=== PATIENT | female | born 1950 | race African-American/Black ===

== ENCOUNTER 2020-07-24 16:39 | Emergency (ER) | payer MEDICARE, BC ==
[2020-07-24 17:00] VITALS: RESP 18
[2020-07-24] MEDS ORDERED: SODIUM CHLORIDE 0.9% 500 ML 500 ML IV STA (17:41)
[2020-07-24] MEDS ORDERED: IPRATROPIUM-ALBUTEROL 3 ML NEB INHALATION STA (17:42)
--- NOTE | 2020-07-24 18:02 | ED ---
General Adult HPI - General Source: patient, RN notes reviewed, old records reviewed Mode of arrival: ambulatory <Chang Lofton - Last Filed: 07/24/20 19:35> <Mana Emerson - Last Filed: 07/24/20 22:20> - General Chief complaint: Recheck/Abnormal Lab/Rx Stated complaint: High sugar/SOB Time Seen by Provider: 07/24/20 17:05 - History of Present Illness Initial comments: 69-year-old female patient presents to ED for evaluation. Patient has a history of asthma as well as multiple strokes, type 2 diabetes presents ED for evaluation of her glycemia and some reported possible labored breathing. Daughter his caregiver states that another family member states the patient's breathing was somewhat labored. Patient declining any shortness of breath or any chest pain or any other acute complaints. The check her blood sugar and it was above 500. Denies any other complaints. Systemic: Pt denies fatigue, fever/chills, rash. Pt denies weakness, night sweats, weight loss. Neuro: Pt denies headache, visual disturbances, syncope or pre-syncope. HEENT: Pt denies ocular discharge or irritation, otalgia, rhinorrhea, pharyngitis or notable lymphadenopathy. Cardiopulmonary: Pt denies chest pain, SOB, heart palpitations, dyspnea on exertion. Abdominal/GI: Pt denies abdominal pain, n/v/d. : Pt denies dysuria, burning w/ urination, frequency/urgency. Denies new onset urinary or bowel incontinence. MSK: Pt denies myalgia, loss of strength or function in extremities. Neuro: Pt denies new onset weakness, paresthesias. (Chang Lofton) - Related Data Home Medications Medication Instructions Recorded Confirmed Albuterol Inhaler (Mhu) [Ventolin 1 - 2 puff INHALATION Q6HR PRN 03/06/17 04/07/17 Hfa Inhaler] Aspirin 325 mg PO DAILY 03/06/17 04/07/17 Atorvastatin [Lipitor] 10 mg PO DAILY 03/06/17 04/07/17 Clopidogrel [Plavix] 75 mg PO DAILY 03/06/17 04/07/17 Donepezil [Aricept] 10 mg PO DAILY 03/06/17 04/07/17 Ferrous Sulfate [Feosol] 325 mg PO DAILY 03/06/17 04/07/17 Insulin Aspart [NovoLOG Flexpen] 5 units SQ AC-TID 03/06/17 04/07/17 Losartan [Cozaar] 50 mg PO DAILY 03/06/17 04/07/17 Metoprolol Tartrate 25 mg PO BID 03/06/17 04/07/17 Montelukast [Singulair] 10 mg PO DAILY 03/06/17 04/07/17 Multivitamins, Thera [Multivitamin 1 tab PO DAILY 03/06/17 04/07/17 (formulary)] Potassium Chloride [Klor-Con 20] 20 meq PO DAILY 03/06/17 04/07/17 amLODIPine [Norvasc] 5 mg PO BID 03/06/17 04/07/17 ceFAZolin (PMX-bag) [Kefzol] 1,000 mg IVPB Q8HR 03/10/17 04/07/17 Allergies Allergy/AdvReac Type Severity Reaction Status Date / Time No Known Allergies Allergy Verified 07/24/20 17:00 Review of Systems ROS Other: All systems not noted in ROS Statement are negative. <Chang Lofton - Last Filed: 07/24/20 19:35> ROS Other: All systems not noted in ROS Statement are negative. <Mana Emerson - Last Filed: 07/24/20 22:20> ROS Statement: Those systems with pertinent positive or pertinent negative responses have been documented in the HPI. Past Medical History Past Medical History: Asthma, CVA/TIA, Diabetes Mellitus, Hyperlipidemia, Hypertension Additional Past Medical History / Comment(s): rt sided weakness post cva uses cane rt arm contracted, ulcer rt foot currently at [facility] for IV antibiotic therapy History of Any Multi-Drug Resistant Organisms: None Reported Past Surgical History: Cholecystectomy, Hysterectomy Smoking Status: Former smoker Past Alcohol Use History: None Reported Past Drug Use History: None Reported - Past Family History Mother Family Medical History: No Reported History <Chang Lofton - Last Filed: 07/24/20 19:35> General Exam <Chang Lofton - Last Filed: 07/24/20 19:35> - General Exam Comments Initial Comments: Constitutional: NAD, AOX3, Pt has pleasant affect. HEENT: NC/AT, trachea midline, neck supple, no lymphadenopathy. Posterior pharynx non erythematous, without exudates. External ears appear normal, without discharge. Mucous membranes moist. Eyes PERRLA, EOM intact. There is no scleral icterus. No pallor noted. Cardiopulmonary: RRR, no murmurs, rubs or gallops, no JVD noted. Lungs CTAB in anterior and posterior cadet. No peripheral edema. Abdominal exam: Abdomen soft and non-distended. Abdomen non-tender to palpation in all 4 quadrants. Bowel sounds active in LLQ. No hepatosplenomegaly. No ecchymosis Neuro: CN II-XII grossly intact. No nuchal rigidity. No raccon eyes, no gonzalez sign, no hemotympanum. No cervical spinal tenderness. MSK: No posterior calf tenderness bilaterally, homans sign negative bilaterally. Posterior tibialis and radial pulse +2 bilaterally. Sensation intact in upper and lower extremities. Full active ROM in upper and lower extremities, 5/5 stregnth. (Chang Lofton) Course Vital Signs 07/24/20 07/24/20 07/24/20 16:58 19:01 19:12 Temperature 98.3 F Pulse Rate 60 56 L 56 L Respiratory 18 Rate Blood Pressure 152/85 O2 Sat by Pulse 98 Oximetry Medical Decision Making - Lab Data Result diagrams: 07/24/20 18:08 07/24/20 18:08 <Chang Lofton - Last Filed: 07/24/20 19:35> - Lab Data Result diagrams: 07/24/20 18:08 07/24/20 18:08 <Mana Emerson - Last Filed: 07/24/20 22:20> - Medical Decision Making 69 year old female patient this ED for evaluation. Patient's grandmother is concerned about patient. Patient poorly stopped taking her Prozac. She is recently gotten a few face tattoos. Denies any suicidal or homicidal ideations. Denies any other acute complaints. This was administered a breathing treatment as she has a history of some moderate to severe asthma. EKG is nonischemic. Chest x-ray displayed findings including mild cardiomegaly, and facial prominence could reflect bronchitis or chronic asthma. Possible mild pulmonary vascular congestion. Patient was signed out to Mana Emerson pending bnp, ua. (Barkach,Chang J) - Lab Data Lab Results 07/24/20 07/24/20 07/24/20 Range/Units 18:08 18:08 18:08 WBC 8.3 (3.8-10.6) k/uL RBC 3.89 (3.80-5.40) m/uL Hgb 11.7 (11.4-16.0) gm/dL Hct 36.6 (34.0-46.0) % MCV 94.1 (80.0-100.0) fL MCH 30.2 (25.0-35.0) pg MCHC 32.1 (31.0-37.0) g/dL RDW 13.5 (11.5-15.5) % Plt Count 132 L (150-450) k/uL Neutrophils % 66 % Lymphocytes % 25 % Monocytes % 5 % Eosinophils % 2 % Basophils % 0 % Neutrophils # 5.4 (1.3-7.7) k/uL Lymphocytes # 2.1 (1.0-4.8) k/uL Monocytes # 0.4 (0-1.0) k/uL Eosinophils # 0.2 (0-0.7) k/uL Basophils # 0.0 (0-0.2) k/uL Sodium 142 (137-145) mmol/L Potassium 4.8 (3.5-5.1) mmol/L Chloride 108 H (98-107) mmol/L Carbon Dioxide 26 (22-30) mmol/L Anion Gap 8 mmol/L BUN 36 H (7-17) mg/dL Creatinine 1.51 H (0.52-1.04) mg/dL Est GFR (CKD-EPI)AfAm 40 (>60 ml/min/1.73 sqM) Est GFR (CKD-EPI)NonAf 35 (>60 ml/min/1.73 sqM) Glucose 92 (74-99) mg/dL POC Glucose (mg/dL) (75-99) mg/dL POC Glu Preparator ID Plasma Lactic Acid Fleix 0.9 (0.7-2.0) mmol/L Calcium 9.7 (8.4-10.2) mg/dL Total Bilirubin 0.5 (0.2-1.3) mg/dL AST 32 (14-36) U/L ALT 20 (4-34) U/L Alkaline Phosphatase 82 (38-126) U/L Troponin I (0.000-0.034) ng/mL NT-Pro-B Natriuret Pep pg/mL Total Protein 7.5 (6.3-8.2) g/dL Albumin 4.1 (3.5-5.0) g/dL Lipase 350 H (23-300) U/L Urine Color Urine Appearance (Clear) Urine pH (5.0-8.0) Ur Specific [place] (1.001-1.035) Urine Protein (Negative) Urine Glucose (UA) (Negative) Urine Ketones (Negative) Urine Blood (Negative) Urine Nitrite (Negative) Urine Bilirubin (Negative) Urine Urobilinogen (<2.0) mg/dL Ur Leukocyte Esterase (Negative) Urine RBC (0-5) /hpf Urine WBC (0-5) /hpf Ur Squamous Epith Cells (0-4) /hpf Urine Bacteria (None) /hpf Hyaline Casts (0-2) /lpf Urine Mucus (None) /hpf Acetone, Qual Negative (Negative) 07/24/20 07/24/20 07/24/20 Range/Units 18:08 18:08 18:46 WBC (3.8-10.6) k/uL RBC (3.80-5.40) m/uL Hgb (11.4-16.0) gm/dL Hct (34.0-46.0) % MCV (80.0-100.0) fL MCH (25.0-35.0) pg MCHC (31.0-37.0) g/dL RDW (11.5-15.5) % Plt Count (150-450) k/uL Neutrophils % % Lymphocytes % % Monocytes % % Eosinophils % % Basophils % % Neutrophils # (1.3-7.7) k/uL Lymphocytes # (1.0-4.8) k/uL Monocytes # (0-1.0) k/uL Eosinophils # (0-0.7) k/uL Basophils # (0-0.2) k/uL Sodium (137-145) mmol/L Potassium (3.5-5.1) mmol/L Chloride (98-107) mmol/L Carbon Dioxide (22-30) mmol/L Anion Gap mmol/L BUN (7-17) mg/dL Creatinine (0.52-1.04) mg/dL Est GFR (CKD-EPI)AfAm (>60 ml/min/1.73 sqM) Est GFR (CKD-EPI)NonAf (>60 ml/min/1.73 sqM) Glucose (74-99) mg/dL POC Glucose (mg/dL) 97 (75-99) mg/dL POC Glu Preparator ID [place] Plasma Lactic Acid Felix (0.7-2.0) mmol/L Calcium (8.4-10.2) mg/dL Total Bilirubin (0.2-1.3) mg/dL AST (14-36) U/L ALT (4-34) U/L Alkaline Phosphatase (38-126) U/L Troponin I <0.012 (0.000-0.034) ng/mL NT-Pro-B Natriuret Pep 643 pg/mL Total Protein (6.3-8.2) g/dL Albumin (3.5-5.0) g/dL Lipase (23-300) U/L Urine Color Urine Appearance (Clear) Urine pH (5.0-8.0) Ur Specific [place] (1.001-1.035) Urine Protein (Negative) Urine Glucose (UA) (Negative) Urine Ketones (Negative) Urine Blood (Negative) Urine Nitrite (Negative) Urine Bilirubin (Negative) Urine Urobilinogen (<2.0) mg/dL Ur Leukocyte Esterase (Negative) Urine RBC (0-5) /hpf Urine WBC (0-5) /hpf Ur Squamous Epith Cells (0-4) /hpf Urine Bacteria (None) /hpf Hyaline Casts (0-2) /lpf Urine Mucus (None) /hpf Acetone, Qual (Negative) 07/24/20 Range/Units 19:56 WBC (3.8-10.6) k/uL RBC (3.80-5.40) m/uL Hgb (11.4-16.0) gm/dL Hct (34.0-46.0) % MCV (80.0-100.0) fL MCH (25.0-35.0) pg MCHC (31.0-37.0) g/dL RDW (11.5-15.5) % Plt Count (150-450) k/uL Neutrophils % % Lymphocytes % % Monocytes % % Eosinophils % % Basophils % % Neutrophils # (1.3-7.7) k/uL Lymphocytes # (1.0-4.8) k/uL Monocytes # (0-1.0) k/uL Eosinophils # (0-0.7) k/uL Basophils # (0-0.2) k/uL Sodium (137-145) mmol/L Potassium (3.5-5.1) mmol/L Chloride (98-107) mmol/L Carbon Dioxide (22-30) mmol/L Anion Gap mmol/L BUN (7-17) mg/dL Creatinine (0.52-1.04) mg/dL Est GFR (CKD-EPI)AfAm (>60 ml/min/1.73 sqM) Est GFR (CKD-EPI)NonAf (>60 ml/min/1.73 sqM) Glucose (74-99) mg/dL POC Glucose (mg/dL) (75-99) mg/dL POC Glu Preparator ID Plasma Lactic Acid Felix (0.7-2.0) mmol/L Calcium (8.4-10.2) mg/dL Total Bilirubin (0.2-1.3) mg/dL AST (14-36) U/L ALT (4-34) U/L Alkaline Phosphatase (38-126) U/L Troponin I (0.000-0.034) ng/mL NT-Pro-B Natriuret Pep pg/mL Total Protein (6.3-8.2) g/dL Albumin (3.5-5.0) g/dL Lipase (23-300) U/L Urine Color Light Yellow Urine Appearance Clear (Clear) Urine pH 6.0 (5.0-8.0) Ur Specific [place] 1.011 (1.001-1.035) Urine Protein Negative (Negative) Urine Glucose (UA) Negative (Negative) Urine Ketones Negative (Negative) Urine Blood Negative (Negative) Urine Nitrite Negative (Negative) Urine Bilirubin Negative (Negative) Urine Urobilinogen <2.0 (<2.0) mg/dL Ur Leukocyte Esterase Trace H (Negative) Urine RBC <1 (0-5) /hpf Urine WBC 6 H (0-5) /hpf Ur Squamous Epith Cells 1 (0-4) /hpf Urine Bacteria Many H (None) /hpf Hyaline Casts 4 H (0-2) /lpf Urine Mucus Rare H (None) /hpf Acetone, Qual (Negative) Disposition <Chang Lofton - Last Filed: 07/24/20 19:35> Is patient prescribed a controlled substance at d/c from ED?: No Time of Disposition: 22:20 <Mana Emerson - Last Filed: 07/24/20 22:20> Clinical Impression: Bizarre behavior, UTI (urinary tract infection) Disposition: HOME SELF-CARE Condition: Good Instructions (If sedation given, give patient instructions): Urinary Tract Infection in Women (ED) Additional Instructions: Patient's primary care physician. Take medication for urinary tract infection. Return to the emergency department immediately for any new, worsening, or concerning symptoms. Referrals: Adiel Pisano MD [Primary Care Provider] - 1-2 days
--- NOTE | 2020-07-24 18:37 | XR ---
EXAMINATION TYPE: XR chest 2V DATE OF EXAM: 07/24/2020 COMPARISON: 07/03/2010 HISTORY: 69 year-old female with abdominal pain TECHNIQUE: AP and lateral views FINDINGS: Heart mildly enlarged. Diffuse interstitial density. Lung bases are underpenetrated with hazy density . No tri consolidation or pleural effusion. IMPRESSION: Mild cardiomegaly. Interstitial prominence could reflect bronchitis or chronic asthma. Correlate to e xclude mild pulmonary vascular congestion.
[2020-07-24 18:47] LABS: Glucose,Whole Blood 97 mg/dL (75-99)
[2020-07-24 18:52] LABS: Basophils % (A) 0 %; Eosinophils # (A) 0.2 k/uL (0-0.7); Eosinophils % (A) 2 %; HCT 36.6 % (34.0-46.0); HGB 11.7 gm/dL (11.4-16.0); Lymphocytes # (A) 2.1 k/uL (1.0-4.8); Lymphocytes % (A) 25 %; MCH 30.2 pg (25.0-35.0); MCHC 32.1 g/dL (31.0-37.0); MCV 94.1 fL (80.0-100.0); Mean Platelet Volume 9.1; Monocytes # (A) 0.4 k/uL (0-1.0); Monocytes % (A) 5 %; Neutrophils # (A) 5.4 k/uL (1.3-7.7); Neutrophils % (A) 66 %; Platelet Count 132 k/uL (150-450); RBC 3.89 m/uL (3.80-5.40); RDW 13.5 % (11.5-15.5); WBC 8.3 k/uL (3.8-10.6)
[2020-07-24 19:05] LABS: ALT 20 U/L (4-34); AST 32 U/L (14-36); African American GFR (CKD) 40 (>60 ml/min/1.73 sqM); Albumin 4.1 g/dL (3.5-5.0); Alkaline Phosphatase 82 U/L (38-126); Anion Gap 8 mmol/L; Blood Urea Nitrogen 36 mg/dL (7-17); Calcium 9.7 mg/dL (8.4-10.2); Carbon Dioxide 26 mmol/L (22-30); Chloride 108 mmol/L (98-107); Glucose 92 mg/dL (74-99); Non-African American GFR(CKD) 35 (>60 ml/min/1.73 sqM); Potassium 4.8 mmol/L (3.5-5.1); Sodium 142 mmol/L (137-145); Total Bilirubin 0.5 mg/dL (0.2-1.3); Total Protein 7.5 g/dL (6.3-8.2)
[2020-07-24 20:13] LABS: Appearance,Urine Clear (Clear); Bacteria,Urine Many /hpf; Bilirubin,Urine Negative (Negative); Blood,Urine Negative (Negative); Color,Urine Light Yellow; Glucose,Urine (UA) Negative (Negative); Hyaline Casts,Urine 4 /lpf (0-2); Ketones,Urine Negative (Negative); Leukocyte Esterase,Urine Trace (Negative); Mucus,Urine Rare /hpf; Nitrite,Urine Negative (Negative); Protein,Urine Negative (Negative); RBC,Urine <1 /hpf (0-5); Specific Gravity,Urine 1.011 (1.001-1.035); Squamous Epithelial Cell,Urine 1 /hpf (0-4); Urobilinogen,Urine <2.0 mg/dL (<2.0); WBC,Urine 6 /hpf (0-5)
[2020-07-24] MEDS ORDERED: CEPHALEXIN 500MG STARTER PACK 4 CAP BTL PO STA (22:17)
[2020-07-24 22:28] VITALS: BP 141/72; PULSE 60
[2020-07-24 22:29] VITALS: TEMP 98
== END 2020-07-24 22:31 | disposition home or self-care (01) ==
LOC: EC 16:39
DX: N39.0 Urinary tract infection, site not specified (principal); R46.2 Strange and inexplicable behavior; J45.909 Unspecified asthma, uncomplicated; E11.9 Type 2 diabetes mellitus without complications; I11.9 Hypertensive heart disease without heart failure; I69.351 Hemiplegia and hemiparesis following cerebral infarction affecting right dominant side; Z79.4 Long term (current) use of insulin; Z79.899 Other long term (current) drug therapy; Z79.51 Long term (current) use of inhaled steroids; Z79.02 Long term (current) use of antithrombotics/antiplatelets; Z90.49 Acquired absence of other specified parts of digestive tract; Z87.891 Personal history of nicotine dependence
CPT/HCPCS: 36415; 71046; 80053; 81001; 82009; 83605; 83690; 83880; 84484; 85025; 87086; 93005; 94640; 99285

== ENCOUNTER 2021-04-04 11:40 | Emergency (ER) | payer MEDICARE, BC ==
[2021-04-04 14:01] VITALS: RESP 20
--- NOTE | 2021-04-04 14:30 | ED ---
Extremity Problem HPI - General Chief complaint: Extremity Problem,Nontraumatic Stated complaint: possible foot infection Time Seen by Provider: 04/04/21 14:00 Source: family Mode of arrival: wheelchair Limitations: no limitations - History of Present Illness Initial comments: Patient is a 70-year-old female with history of diabetes, CVA, presenting to the emergency Department with complaints of increased right foot pain over the last 2 days. Her daughter is here with her now and is helping provide history. She does have some mild dementia. Daughter states that she's had a chronic wound on the lateral aspect of her right foot for the last year, they see Dr. Oakes for this. They were still to have an appointment this past Friday but they had to cancel it. She did see her PCP yesterday, Dr. Pisano, but the patient did not have much pain in her foot or leg at that time so this was not evaluated. She denies any falls or trauma. No fevers or chills, no nausea or vomiting. She has a special shoe that she's been wearing secondary to this wound. There are no further complaints at this time. Her vital signs are stable upon arrival. - Related Data Home Medications Medication Instructions Recorded Confirmed Atorvastatin [Lipitor] 10 mg PO DAILY 03/06/17 04/04/21 Clopidogrel [Plavix] 75 mg PO DAILY 03/06/17 04/04/21 Ferrous Sulfate [Feosol] 325 mg PO DAILY 03/06/17 04/04/21 Metoprolol Tartrate 25 mg PO BID 03/06/17 04/04/21 Montelukast [Singulair] 10 mg PO HS 03/06/17 04/04/21 Multivitamins, Thera [Multivitamin 1 tab PO DAILY 03/06/17 04/04/21 (formulary)] Potassium Chloride [Klor-Con 20] 20 meq PO DAILY 03/06/17 04/04/21 amLODIPine [Norvasc] 5 mg PO BID 03/06/17 04/04/21 Aspirin EC [Ecotrin Low Dose] 81 mg PO DAILY 04/04/21 04/04/21 Donepezil [Aricept] 5 mg PO HS 04/04/21 04/04/21 Furosemide [Lasix] 20 mg PO BID 04/04/21 04/04/21 Previous Rx's Medication Instructions Recorded Cephalexin [Keflex] 500 mg PO Q6HR 5 Days #20 cap 04/04/21 Allergies Allergy/AdvReac Type Severity Reaction Status Date / Time No Known Allergies Allergy Verified 04/04/21 14:49 Review of Systems ROS Statement: Those systems with pertinent positive or pertinent negative responses have been documented in the HPI. ROS Other: All systems not noted in ROS Statement are negative. Past Medical History Past Medical History: Asthma, CVA/TIA, Diabetes Mellitus, Hyperlipidemia, Hypertension Additional Past Medical History / Comment(s): rt sided weakness post cva uses cane rt arm contracted, ulcer rt foot currently at [facility] for IV antibiotic therapy History of Any Multi-Drug Resistant Organisms: None Reported Past Surgical History: Cholecystectomy, Hysterectomy Smoking Status: Former smoker Past Alcohol Use History: None Reported Past Drug Use History: None Reported - Past Family History Mother Family Medical History: No Reported History General Exam - General Exam Comments Initial Comments: GENERAL: Patient is well-developed and well-nourished. Patient is nontoxic and in no acute distress. HEAD: Atraumatic, normocephalic. EYES: Pupils equal round and reactive to light, extraocular movements intact, sclera anicteric, conjunctiva are normal. Eyelids were unremarkable. ENT: TMs normal, nares patent, oropharynx clear without exudates. Moist mucous membranes. NECK: Normal range of motion, supple without lymphadenopathy or JVD. LUNGS: Unlabored respirations. Breath sounds clear to auscultation bilaterally and equal. No wheezes rales or rhonchi. HEART: Regular rate and rhythm without murmurs, rubs or gallops. ABDOMEN: Soft, nontender, normoactive bowel sounds. No guarding, no rebound. No masses appreciated. : Deferred MUSCULOSKELETAL: Patient has residual right-sided weakness secondary to stroke, she is at her baseline. She does have some mild pain with palpation of the distal right lower leg, right foot. There is no swelling, no erythema. She is quite painful over her chronic wound. No clubbing or cyanosis. She is neurovascular intact. NEUROLOGICAL: Patient is alert and oriented x 3. Motor and sensory are also intact. Cranial nerves II through XII grossly intact. Symmetrical smile. Normal speech. PSYCH: Normal mood, normal affect. SKIN: Warm, Dry, normal turgor, no rashes. Patient has chronic wound on the lateral aspect of the right foot, this is calloused over, no open ulcer, no drainage noted. Limitations: no limitations Course Vital Signs 04/04/21 04/04/21 12:09 13:57 Temperature 97.7 F Pulse Rate 64 56 L Respiratory 18 20 Rate Blood Pressure 134/64 155/66 O2 Sat by Pulse 97 96 Oximetry Medical Decision Making - Medical Decision Making Patient is a 70-year-old female here with increased pain in her right foot. She has a chronic wound on the lateral aspect of her right foot, is calloused over, this is not open, no drainage, no erythema. Due to a foot x-ray which showed no evidence for osteomyelitis. I discussed these findings with the patient and her daughter. I will start her on Keflex for possible wound infection and recommend following up with her web content executive. Patient and patient's daughter is agreement with this plan of care. She is stable for discharge. Return parameters were discussed with them and she verbalized understanding. Disposition Clinical Impression: Right foot pain Disposition: HOME SELF-CARE Condition: Stable Instructions (If sedation given, give patient instructions): Chronic Wounds (ED) Additional Instructions: Please return to the Emergency Department if symptoms worsen or any other concerns. Take anabolic as prescribed. Follow-up with your web content executive as discussed. Prescriptions: Cephalexin [Keflex] 500 mg PO Q6HR 5 Days #20 cap Is patient prescribed a controlled substance at d/c from ED?: No Referrals: Adiel Pisano MD [Primary Care Provider] - 1-2 days Polo Oakes DPM [STAFF PHYSICIAN] - 1-2 days Time of Disposition: 15:13
--- NOTE | 2021-04-04 15:07 | XR ---
EXAMINATION TYPE: XR foot complete RT DATE OF EXAM: 04/04/2021 COMPARISON: NONE HISTORY: 70-year-old female increased pain, chronic wound laterally. TECHNIQUE: 3 views FINDINGS: Hammertoes. Multiple surgical clips along the medial aspect of the right ankle and hindfoot. Subtle l rome disease noted along the plantar lateral aspect of the midfoot. No discrete underlying osseous ero eula. Some generalized soft tissue swelling is noted. Mild osteopenia. No acute fracture. IMPRESSION: Subtle wound along the lateral plantar aspect of the midfoot. No convincing radiographic evidence of osteomyelitis at this time. If symptoms persist, radiographic follow-up can be performed.
[2021-04-04 15:26] VITALS: BP 148/77; PULSE 58; TEMP 98
== END 2021-04-04 15:26 | disposition home or self-care (01) ==
LOC: EC 11:40
DX: M79.671 Pain in right foot (principal); S91.301D Unspecified open wound, right foot, subsequent encounter; R53.1 Weakness; E11.9 Type 2 diabetes mellitus without complications; I10 Essential (primary) hypertension; J45.909 Unspecified asthma, uncomplicated; F03.90 Unspecified dementia, unspecified severity, without behavioral disturbance, psychotic disturbance, mood disturbance, and anxiety; E78.5 Hyperlipidemia, unspecified; Z87.891 Personal history of nicotine dependence; Z86.73 Personal history of transient ischemic attack (TIA), and cerebral infarction without residual deficits; Z79.02 Long term (current) use of antithrombotics/antiplatelets; Z79.82 Long term (current) use of aspirin; Z79.899 Other long term (current) drug therapy; X58.XXXD Exposure to other specified factors, subsequent encounter
CPT/HCPCS: 99283

== ENCOUNTER 2021-11-26 16:52 | Emergency (ER) | payer MEDICARE, BC ==
[2021-11-26 17:23] VITALS: BP 131/64; TEMP 101.3
--- NOTE | 2021-11-26 19:05 | XR ---
EXAMINATION TYPE: XR chest 2V DATE OF EXAM: 11/26/2021 COMPARISON: 07/24/2020 HISTORY: Cough and fever TECHNIQUE: Frontal and lateral views of the chest are obtained. FINDINGS: There is mild to moderate perihilar and bibasilar streaky opacities. No pleural effusion, or pneumothorax seen. The cardiac silhouette size is within normal limits. The osseous structures are intact. IMPRESSION: Bilateral infiltrates in the appropriate clinical setting.
[2021-11-26] MEDS ORDERED: ACETAMINOPHEN TAB 500 MG TAB PO STA (20:26)
[2021-11-26] MEDS ORDERED: BENZONATATE 100 MG CAP PO STA (20:50)
[2021-11-26 20:59] LABS: Glucose,Whole Blood 112 mg/dL (75-99)
[2021-11-26] MEDS ORDERED: SODIUM CHLORIDE 0.9% 50 ML IVPB ONE (21:30)
[2021-11-26] MEDS ORDERED: CASIRIVIMAB (REGN10933) (EUA) 600 MG, IMDEVIMAB (REGN10987) (EUA) 600 MG in SODIUM CHLO... IVPB ONE (21:30)
--- NOTE | 2021-11-26 21:34 | ED ---
URI HPI - General Chief Complaint: Upper Respiratory Infection Stated Complaint: Cough,Fever,Weakness Time Seen by Provider: 11/26/21 20:26 Source: family, RN notes reviewed Mode of arrival: wheelchair Limitations: no limitations - History of Present Illness Initial Comments: This is a 70-year-old diabetic female presents with respiratory with 1 week of fatigue, cough, body aches, and fever. Patient went to her primary care physician on Friday was put on antibiotics and steroids. Patient had a rapid COVID-19 test which was negative. This was tested here in triage was positive. Patient denies any chest pain. She denies any hemoptysis. Cough is nonproductive. Blood sugars been running normally. no changes in vision or hearing, no sore throat or difficulty with speech, no neck pain, no chest pain , no abdominal pain, no nausea or vomiting, no changes in urination or bowel movements, no numbness or tingling, no extremity pain, no skin rashes or lesions. Patient has a previous CVA and uses a walker to and bili. Lives at home with her daughter. MD Complaint: fever, cough - Related Data Home Medications Medication Instructions Recorded Confirmed Atorvastatin [Lipitor] 10 mg PO HS 03/06/17 11/26/21 Clopidogrel [Plavix] 75 mg PO DAILY 03/06/17 11/26/21 Ferrous Sulfate [Feosol] 325 mg PO DAILY 03/06/17 11/26/21 Metoprolol Tartrate 25 mg PO BID 03/06/17 11/26/21 Montelukast [Singulair] 10 mg PO DAILY 03/06/17 11/26/21 Multivitamins, Thera [Multivitamin 1 tab PO DAILY 03/06/17 11/26/21 (formulary)] Potassium Chloride [Klor-Con 20] 20 meq PO DAILY 03/06/17 11/26/21 amLODIPine [Norvasc] 5 mg PO BID 03/06/17 11/26/21 Aspirin EC [Ecotrin Low Dose] 81 mg PO HS 04/04/21 11/26/21 Donepezil [Aricept] 5 mg PO HS 04/04/21 11/26/21 Furosemide [Lasix] 20 mg PO BID 04/04/21 11/26/21 Albuterol Sulfate [Proair Hfa] 2 puff INHALATION RT-Q4H PRN 11/26/21 11/26/21 Ascorbic Acid [Vitamin C] 1,000 mg PO DAILY 11/26/21 11/26/21 Previous Rx's Medication Instructions Recorded Albuterol Inhaler [Ventolin Hfa 2 puff INHALATION RT-QID #8 gm 11/26/21 Inhaler] Benzonatate [Tessalon Perles] 200 mg PO TID PRN #30 capsule 11/26/21 Allergies Allergy/AdvReac Type Severity Reaction Status Date / Time No Known Allergies Allergy Verified 11/26/21 21:39 Review of Systems ROS Statement: Those systems with pertinent positive or pertinent negative responses have been documented in the HPI. ROS Other: All systems not noted in ROS Statement are negative. Past Medical History Past Medical History: Asthma, CVA/TIA, Dementia, Diabetes Mellitus, Hyperlipidemia, Hypertension Additional Past Medical History / Comment(s): rt sided weakness post cva uses cane rt arm contracted, ulcer rt foot currently at [facility] for IV antibiotic therapy History of Any Multi-Drug Resistant Organisms: None Reported Past Surgical History: Cholecystectomy, Hysterectomy Past Psychological History: No Psychological Hx Reported Smoking Status: Former smoker Past Alcohol Use History: None Reported Past Drug Use History: None Reported - Past Family History Mother Family Medical History: No Reported History General Exam - General Exam Comments Initial Comments: 70-year-old female in minimal distress. Patient has a dry cough throughout the course of interview. Cranial nerves II through XII grossly intact. Patient has no evidence of tachypnea. Appears to be adequately hydrated. Limitations: no limitations General appearance: alert, in no apparent distress Head exam: Present: atraumatic, normocephalic, normal inspection Eye exam: Present: normal appearance, PERRL, EOMI. Absent: scleral icterus, conjunctival injection, periorbital swelling ENT exam: Present: normal exam, mucous membranes moist. Absent: normal oropharynx, TM's normal bilaterally, normal external ear exam Neck exam: Present: normal inspection. Absent: tenderness, meningismus, full ROM, lymphadenopathy Respiratory exam: Present: normal lung sounds bilaterally. Absent: respiratory distress, wheezes, rales, rhonchi, stridor Cardiovascular Exam: Present: regular rate, normal rhythm, normal heart sounds. Absent: systolic murmur, diastolic murmur, rubs, gallop, clicks GI/Abdominal exam: Present: soft, normal bowel sounds. Absent: distended, tenderness, guarding, rebound, rigid Extremities exam: Present: normal inspection, full ROM, normal capillary refill. Absent: tenderness, pedal edema, joint swelling, calf tenderness Back exam: Present: normal inspection Neurological exam: Present: alert, oriented X3, CN II-XII intact Psychiatric exam: Present: normal affect, normal mood Skin exam: Present: warm, dry, intact, normal color. Absent: rash Course Vital Signs 11/26/21 17:19 Temperature 101.3 F H Pulse Rate 83 Respiratory 20 Rate Blood Pressure 131/64 O2 Sat by Pulse 94 L Oximetry - Reevaluation(s) Reevaluation #1: 11/26/21 22:35 Patient reevaluated prior to discharge. Patient actually improved. Hemodynamic stable. All findings discussed with the patient and her daughter. Medical Decision Making - Medical Decision Making O did be febrile. Acetaminophen ordered. Patient meets criteria for monoclonal antibody. We did ambulate the patient. She did stay between 90 and 95% on room air. No tachypnea at rest. Discussed treatment options with the patient and her daughter. Monoclonal antibody ordered. Follow-up, return, and treatment plan discussed in detail. Patient and daughter voiced understanding. The case was discussed in detail with ED attending physician. Presentation, findings, treatment plan discussed in detail. Patient was told to return to the ER for any signs or symptoms worsen. Told to return immediately if any other problems arise. All questions answered. Treatment plan discussed. Patient in agreement The case was discussed in detail with ED attending physician. Presentation, findings, treatment plan discussed in detail. - Lab Data Lab Results 11/26/21 11/26/21 Range/Units 17:24 20:57 POC Glucose (mg/dL) 112 H (75-99) mg/dL POC Glu [employer] ID Shanta Sosa Coronavirus (PCR) Detected A (Not Detectd) Disposition Clinical Impression: COVID-19, Common cold Disposition: HOME SELF-CARE Additional Instructions: SELF QUARANTINE DISCHARGE: As you are at risk for symptoms due to coronavirus, please stay home and stay away from others as much as possible. Please maintain social distance of 6 feet if possible. You should not return to work until at least 3 days (72 hours) have passed since recovery of symptoms. This defined as resolution of fever without the use of fever reducing medicines and improvement in respiratory symptoms (e.g,, cough, shortness of breath) and, At least 5 days have passed since symptoms first appeared. More information about what to do if you are sick can be found on the CDC website at https://www.cdc.gov/coronavirus/2019 -ncov/ko-vbt-luf-sick/kyvay-iial-aeks.html Expect the symptoms to last for 7-14 days from onset. Use acetaminophen (Tylenol) as needed for discomfort. You can take a maximum of 1 gram every 6 hours for discomfort, with your total dose in 24 hours not exceeding 4 grams. Be sure to maintain hydration. Drink continuous water and/or items high in vitamin C, such as orange juice and/or lemonade. For a cough you may take Mucinex or Robitussin. Also consider the use of Vicks Vapor Rub or your chest when you sleep. Use a humidifier that is cleaned frequently, in the bedroom at night. For Nausea /Vomiting/Diarrhea associated with your Illness: o Small frequent sips of room temperature liquids. o Diet: [place] Foods - If you are still experiencing discomfort and/or nausea please slowly advancing your diet using the BRAT Diet = bananas, rice, apples/apple sauce, toast. o With diarrhea avoid any dairy for 48 hours after symptoms resolved. o Continue with activity as tolerated. If your symptoms do get worse and you believe that the upper respiratory infection has developed into something else, such as pneumonia or severe dehydration, please return to the emergency department or follow-up with your primary care. But expect to be symptomatic for the days as indicated above Call regular doctor tomorrow morning to touch base by phone. Prescriptions: Benzonatate [Tessalon Perles] 200 mg PO TID PRN #30 capsule PRN Reason: Cough Albuterol Inhaler [Ventolin Hfa Inhaler] 2 puff INHALATION RT-QID #8 gm Is patient prescribed a controlled substance at d/c from ED?: No Referrals: Adiel Pisano MD [Primary Care Provider] - 1-2 days Time of Disposition: 21:33
[2021-11-26 23:03] VITALS: PULSE 77; RESP 18
== END 2021-11-26 23:03 | disposition home or self-care (01) ==
LOC: EC 16:52
DX: U07.1 COVID-19 (principal); J00 Acute nasopharyngitis [common cold]; J45.909 Unspecified asthma, uncomplicated; F03.90 Unspecified dementia, unspecified severity, without behavioral disturbance, psychotic disturbance, mood disturbance, and anxiety; E11.9 Type 2 diabetes mellitus without complications; E78.5 Hyperlipidemia, unspecified; I10 Essential (primary) hypertension; Z79.02 Long term (current) use of antithrombotics/antiplatelets; Z79.82 Long term (current) use of aspirin; Z86.73 Personal history of transient ischemic attack (TIA), and cerebral infarction without residual deficits; Z90.49 Acquired absence of other specified parts of digestive tract; Z90.710 Acquired absence of both cervix and uterus; Z87.891 Personal history of nicotine dependence
CPT/HCPCS: 99283; 36415; 87635; 71046; Q0244

== ENCOUNTER 2021-12-02 16:56 | Inpatient (IN) | payer MEDICARE, BC ==
--- NOTE | 2021-12-02 17:03 | ED ---
General Adult HPI - General Chief complaint: Shortness of Breath Stated complaint: RAVI Time Seen by Provider: 12/02/21 16:58 Source: patient, EMS Mode of arrival: EMS Limitations: altered mental status - History of Present Illness Initial comments: Patient presents to the ED by ambulance for evaluation. Per EMS, they were called due to difficulty breathing, and the patient's room air oxygen saturation was noted to be 87% on their arrival. Patient was diagnosed with Covid 6 days ago in the emergency department, and she received monoclonal antibody treatment at that time. Patient reportedly has dementia, and history from the patient is very limited. Patient denies having any pain or any dyspnea at this time. - Related Data Home Medications Medication Instructions Recorded Confirmed Atorvastatin [Lipitor] 10 mg PO HS 03/06/17 11/26/21 Clopidogrel [Plavix] 75 mg PO DAILY 03/06/17 11/26/21 Ferrous Sulfate [Feosol] 325 mg PO DAILY 03/06/17 11/26/21 Metoprolol Tartrate 25 mg PO BID 03/06/17 11/26/21 Montelukast [Singulair] 10 mg PO DAILY 03/06/17 11/26/21 Multivitamins, Thera [Multivitamin 1 tab PO DAILY 03/06/17 11/26/21 (formulary)] Potassium Chloride [Klor-Con 20] 20 meq PO DAILY 03/06/17 11/26/21 amLODIPine [Norvasc] 5 mg PO BID 03/06/17 11/26/21 Aspirin EC [Ecotrin Low Dose] 81 mg PO HS 04/04/21 11/26/21 Donepezil [Aricept] 5 mg PO HS 04/04/21 11/26/21 Furosemide [Lasix] 20 mg PO BID 04/04/21 11/26/21 Ascorbic Acid [Vitamin C] 1,000 mg PO DAILY 11/26/21 11/26/21 Albuterol Inhaler [Ventolin Hfa 2 puff INHALATION RT-Q4H PRN 12/02/21 12/02/21 Inhaler] Cholecalciferol [Vitamin D3 (25 50 mcg PO DAILY 12/02/21 12/02/21 Mcg = 1000 Iu)] Doxycycline Hyclate 100 mg PO BID 12/02/21 12/02/21 Zinc 50 mg PO DAILY 12/02/21 12/02/21 Previous Rx's Medication Instructions Recorded Benzonatate [Tessalon Perles] 200 mg PO TID PRN #30 capsule 11/26/21 Allergies Allergy/AdvReac Type Severity Reaction Status Date / Time No Known Allergies Allergy Verified 12/02/21 18:48 Review of Systems ROS Statement: Those systems with pertinent positive or pertinent negative responses have been documented in the HPI. ROS Other: All systems not noted in ROS Statement are negative. Limitations: ROS unobtainable due to patients medical condition Past Medical History Past Medical History: Asthma, CVA/TIA, Dementia, Diabetes Mellitus, Hyperlipidemia, Hypertension Additional Past Medical History / Comment(s): rt sided weakness post cva uses c ane rt arm contracted History of Any Multi-Drug Resistant Organisms: None Reported Past Surgical History: Cholecystectomy, Hysterectomy Past Psychological History: No Psychological Hx Reported Smoking Status: Former smoker Past Alcohol Use History: None Reported Past Drug Use History: None Reported - Past Family History Mother Family Medical History: No Reported History General Exam Limitations: altered mental status General appearance: alert Head exam: Present: atraumatic, normocephalic Eye exam: Present: normal appearance, PERRL, EOMI ENT exam: Present: normal oropharynx, mucous membranes moist Neck exam: Present: other (Trachea is in midline). Absent: tenderness, meningismus Respiratory exam: Present: normal lung sounds bilaterally, other (Mild tachypnea). Absent: wheezes, rales, rhonchi, stridor Cardiovascular Exam: Present: regular rate, normal rhythm, normal heart sounds, other (Normal radial pulses bilaterally) GI/Abdominal exam: Present: soft. Absent: distended, tenderness, guarding Extremities exam: Present: other (Negative Homans sign bilaterally). Absent: tenderness, pedal edema, calf tenderness Neurological exam: Present: alert, other (Patient is oriented to person and place, but not to time) Psychiatric exam: Present: anxious Skin exam: Present: warm, dry, intact, normal color Course Vital Signs 12/02/21 12/02/21 12/02/21 16:57 17:25 18:02 Temperature 98.8 F Pulse Rate 90 93 Respiratory 25 H 28 H 26 H Rate Blood Pressure 133/67 132/73 O2 Sat by Pulse 89 L 94 L Oximetry - Reevaluation(s) Reevaluation #1: 12/02/21 17:44 Patient's daughter is now in the ED at bedside with the patient. She reports that the patient has not only had more respiratory difficulty today, but she has also not been eating much recently. She also states that she took the patient to [facility] a few days ago, and she was started on a course of doxycycline at that time due to pneumonia. Daughter states that the patient has been taking doxycycline for the past 3 days. 12/02/21 18:48 Case, H&P, test results and ED management thus far were discussed with Dr. Ralph. She accepts hospital admission. She agrees with pulmonology consultation, but she does not feel that cardiology consultation is needed. She also agrees with heparin anticoagulation given the patient's elevated troponin level and elevated d-dimer level (patient is not a candidate for CT angiography chest with IV contrast at this time due to her renal function). She also requests ordering Decadron 6 mg IV daily, as well as a dose of azithromycin. She has no further recommendations at this time. 12/02/21 18:53 Patient and daughter are aware of the patient's test results, and they both agree with hospital admission at this time. Patient continues to have a normal oxygen saturation on 2 L of nasal cannula supplemental oxygen. EKG Findings - EKG Comments: EKG Findings:: Normal sinus rhythm, ventricular rate of 90 bpm, no ectopy, normal MA and QRS intervals, normal QT interval, minimal voltage criteria for LVH, normal axis, no ST or T-wave abnormality Medical Decision Making - Medical Decision Making Given the patient's positive Covid test result, I suspect that her chest x-ray findings likely represent Covid pneumonia more so than pulmonary edema/CHF. Patient's BNP is however elevated. Given the patient's renal function though, patient was given a small IV fluid bolus in the ED and not diuresed. Patient was also treated with IV Decadron given her positive Covid status and hypoxia. Patient was also given a dose of IV azithromycin per Dr. Ralph's request. Patient was also started on a heparin IV drip given her elevated troponin level and inability to obtain a CT angiography chest with IV contrast at this time to rule out PE given her elevated renal function labs (patient's d-dimer is elevated). Dr. Ralph has accepted hospital admission. - Lab Data Result diagrams: 12/02/21 17:15 12/02/21 17:15 Lab Results 12/02/21 12/02/21 12/02/21 Range/Units 17:15 17:15 17:15 WBC 10.4 (3.8-10.6) k/uL RBC 3.82 (3.80-5.40) m/uL Hgb 11.9 (11.4-16.0) gm/dL Hct 36.5 (34.0-46.0) % MCV 95.5 (80.0-100.0) fL MCH 31.1 (25.0-35.0) pg MCHC 32.6 (31.0-37.0) g/dL RDW 13.5 (11.5-15.5) % Plt Count 334 (150-450) k/uL MPV 9.9 Neutrophils % 82 % Lymphocytes % 11 % Monocytes % 5 % Eosinophils % 1 % Basophils % 0 % Neutrophils # 8.6 H (1.3-7.7) k/uL Lymphocytes # 1.1 (1.0-4.8) k/uL Monocytes # 0.6 (0-1.0) k/uL Eosinophils # 0.1 (0-0.7) k/uL Basophils # 0.0 (0-0.2) k/uL PT 10.9 (9.0-12.0) sec INR 1.0 (<1.2) APTT 22.7 (22.0-30.0) sec D-Dimer 0.72 H (<0.60) mg/L FEU Sodium 140 (137-145) mmol/L Potassium 5.0 (3.5-5.1) mmol/L Chloride 110 H (98-107) mmol/L Carbon Dioxide 23 (22-30) mmol/L Anion Gap 7 mmol/L BUN 37 H (7-17) mg/dL Creatinine 1.72 H (0.52-1.04) mg/dL Est GFR (CKD-EPI)AfAm 34 (>60 ml/min/1.73 sqM) Est GFR (CKD-EPI)NonAf 29 (>60 ml/min/1.73 sqM) Glucose 323 H (74-99) mg/dL Plasma Lactic Acid Felix (0.7-2.0) mmol/L Calcium 9.1 (8.4-10.2) mg/dL Total Bilirubin 1.1 (0.2-1.3) mg/dL AST 41 H (14-36) U/L ALT 26 (4-34) U/L Alkaline Phosphatase 72 (38-126) U/L Troponin I (0.000-0.034) ng/mL NT-Pro-B Natriuret Pep pg/mL Total Protein 7.2 (6.3-8.2) g/dL Albumin 3.5 (3.5-5.0) g/dL Acetone, Qual (Negative) Coronavirus (PCR) (Not Detectd) Influenza Type A RNA (Not Detectd) Influenza Type B (PCR) (Not Detectd) 12/02/21 12/02/21 12/02/21 Range/Units 17:15 17:15 17:15 WBC (3.8-10.6) k/uL RBC (3.80-5.40) m/uL Hgb (11.4-16.0) gm/dL Hct (34.0-46.0) % MCV (80.0-100.0) fL MCH (25.0-35.0) pg MCHC (31.0-37.0) g/dL RDW (11.5-15.5) % Plt Count (150-450) k/uL MPV Neutrophils % % Lymphocytes % % Monocytes % % Eosinophils % % Basophils % % Neutrophils # (1.3-7.7) k/uL Lymphocytes # (1.0-4.8) k/uL Monocytes # (0-1.0) k/uL Eosinophils # (0-0.7) k/uL Basophils # (0-0.2) k/uL PT (9.0-12.0) sec INR (<1.2) APTT (22.0-30.0) sec D-Dimer (<0.60) mg/L FEU Sodium (137-145) mmol/L Potassium (3.5-5.1) mmol/L Chloride (98-107) mmol/L Carbon Dioxide (22-30) mmol/L Anion Gap mmol/L BUN (7-17) mg/dL Creatinine (0.52-1.04) mg/dL Est GFR (CKD-EPI)AfAm (>60 ml/min/1.73 sqM) Est GFR (CKD-EPI)NonAf (>60 ml/min/1.73 sqM) Glucose (74-99) mg/dL Plasma Lactic Acid Felix 1.6 (0.7-2.0) mmol/L Calcium (8.4-10.2) mg/dL Total Bilirubin (0.2-1.3) mg/dL AST (14-36) U/L ALT (4-34) U/L Alkaline Phosphatase (38-126) U/L Troponin I 0.042 H* (0.000-0.034) ng/mL NT-Pro-B Natriuret Pep 3550 pg/mL Total Protein (6.3-8.2) g/dL Albumin (3.5-5.0) g/dL Acetone, Qual (Negative) Coronavirus (PCR) (Not Detectd) Influenza Type A RNA (Not Detectd) Influenza Type B (PCR) (Not Detectd) 12/02/21 12/02/21 12/02/21 Range/Units 17:15 17:20 17:20 WBC (3.8-10.6) k/uL RBC (3.80-5.40) m/uL Hgb (11.4-16.0) gm/dL Hct (34.0-46.0) % MCV (80.0-100.0) fL MCH (25.0-35.0) pg MCHC (31.0-37.0) g/dL RDW (11.5-15.5) % Plt Count (150-450) k/uL MPV Neutrophils % % Lymphocytes % % Monocytes % % Eosinophils % % Basophils % % Neutrophils # (1.3-7.7) k/uL Lymphocytes # (1.0-4.8) k/uL Monocytes # (0-1.0) k/uL Eosinophils # (0-0.7) k/uL Basophils # (0-0.2) k/uL PT (9.0-12.0) sec INR (<1.2) APTT (22.0-30.0) sec D-Dimer (<0.60) mg/L FEU Sodium (137-145) mmol/L Potassium (3.5-5.1) mmol/L Chloride (98-107) mmol/L Carbon Dioxide (22-30) mmol/L Anion Gap mmol/L BUN (7-17) mg/dL Creatinine (0.52-1.04) mg/dL Est GFR (CKD-EPI)AfAm (>60 ml/min/1.73 sqM) Est GFR (CKD-EPI)NonAf (>60 ml/min/1.73 sqM) Glucose (74-99) mg/dL Plasma Lactic Acid Felix (0.7-2.0) mmol/L Calcium (8.4-10.2) mg/dL Total Bilirubin (0.2-1.3) mg/dL AST (14-36) U/L ALT (4-34) U/L Alkaline Phosphatase (38-126) U/L Troponin I (0.000-0.034) ng/mL NT-Pro-B Natriuret Pep pg/mL Total Protein (6.3-8.2) g/dL Albumin (3.5-5.0) g/dL Acetone, Qual Negative (Negative) Coronavirus (PCR) Detected A (Not Detectd) Influenza Type A RNA Not Detected (Not Detectd) Influenza Type B (PCR) Not Detected (Not Detectd) - Radiology Data Chest x-ray: Diffuse bilateral edema/airspace disease. Critical Care Time Critical Care Time: Yes Total Critical Care Time: 40 Disposition Clinical Impression: Hypoxia, Pneumonia due to COVID-19 virus, Hyperglycemia, Elevated troponin, CHF (congestive heart failure), Renal insufficiency Disposition: ADMITTED IP TO THIS HOSP Condition: Stable Is patient prescribed a controlled substance at d/c from ED?: No Referrals: Adiel Pisano MD [Primary Care Provider] - 1-2 days Time of Disposition: 18:57
[2021-12-02] MEDS ORDERED: DEXAMETHASONE SOD PHOSPHATE 10 MG/ML 1 ML VIAL IVP STA (17:15)
[2021-12-02 17:35] LABS: Albumin 3.5 g/dL (3.5-5.0); Calcium 9.1 mg/dL (8.4-10.2); Total Bilirubin 1.1 mg/dL (0.2-1.3); Total Protein 7.2 g/dL (6.3-8.2)
[2021-12-02 17:37] LABS: Basophils % (A) 0 %; Eosinophils # (A) 0.1 k/uL (0-0.7); Eosinophils % (A) 1 %; HCT 36.5 % (34.0-46.0); HGB 11.9 gm/dL (11.4-16.0); Lymphocytes # (A) 1.1 k/uL (1.0-4.8); Lymphocytes % (A) 11 %; MCH 31.1 pg (25.0-35.0); MCHC 32.6 g/dL (31.0-37.0); MCV 95.5 fL (80.0-100.0); Mean Platelet Volume 9.9; Monocytes # (A) 0.6 k/uL (0-1.0); Monocytes % (A) 5 %; Neutrophils # (A) 8.6 k/uL (1.3-7.7); Neutrophils % (A) 82 %; Platelet Count 334 k/uL (150-450); RBC 3.82 m/uL (3.80-5.40); RDW 13.5 % (11.5-15.5); WBC 10.4 k/uL (3.8-10.6)
[2021-12-02 17:41] LABS: Partial Thromboplastin Time 22.7 sec (22.0-30.0); Prothrombin Time 10.9 sec (9.0-12.0)
--- NOTE | 2021-12-02 17:53 | XR ---
EXAMINATION TYPE: XR chest 1V portable DATE OF EXAM: 12/02/2021 COMPARISON: Chest radiograph 11/26/2021. HISTORY: Dyspnea. TECHNIQUE: Single frontal view of the chest is obtained. FINDINGS: Cardiomediastinal silhouette is within normal limits. There is prominence of the central pu lmonary vasculature. Diffuse patchy opacity bilaterally. IMPRESSION: Diffuse bilateral edema/airspace disease.
[2021-12-02] MEDS ORDERED: INSULIN REGULAR 100 UNIT/ML VIAL (IM/SQ) SQ ONE (17:54)
[2021-12-02] MEDS ORDERED: SODIUM CHLORIDE 0.9% 500 ML 500 ML IV ONE (17:54)
[2021-12-02] MEDS ORDERED: ASPIRIN 81 MG PO STA (17:56)
[2021-12-02] MEDS ORDERED: AZITHROMYCIN 500 MG in SODIUM CHLORIDE 0.9% 250 ML IVPB STA (18:50)
[2021-12-02] MEDS ORDERED: HEPARIN SODIUM 1,000 UN/ML (10ML VL) IV PRN (18:54)
[2021-12-02] MEDS ORDERED: HEPARIN SODIUM 1,000 UN/ML (10ML VL) IV ONE (18:54)
[2021-12-02] MEDS ORDERED: ALBUTEROL HFA INHALER INHALATION PRN (18:59)
[2021-12-02] MEDS: HEPARIN SOD,PORK IN 0.45% NACL 25,000 UNIT in 0.45% NACL 1 250ML.BAG IV SCH (20:14)
[2021-12-02 20:24] LABS: Glucose,Whole Blood 215 mg/dL (75-99)
[2021-12-02] MEDS: ATORVASTATIN 10 MG TAB PO SCH (21:49)
[2021-12-02] MEDS: DONEPEZIL 5 MG TAB PO SCH (21:49)
[2021-12-02] MEDS: METOPROLOL TARTRATE 25 MG TAB PO SCH (21:49)
[2021-12-02] MEDS: amLODIPine 5 MG TAB PO SCH (21:50)
[2021-12-03] MEDS: METOPROLOL TARTRATE 25 MG TAB PO SCH ×2 (08:48→21:55)
[2021-12-03] MEDS: POTASSIUM CHLORIDE ER 20 MEQ TAB.ER PO SCH (08:48)
[2021-12-03] MEDS: CLOPIDOGREL 75 MG TAB PO SCH (08:48)
[2021-12-03] MEDS: DEXAMETHASONE SOD PHOSPHATE 10 MG/ML 1 ML VIAL IVP SCH (08:48)
[2021-12-03] MEDS: amLODIPine 5 MG TAB PO SCH ×2 (08:48→21:55)
[2021-12-03 10:59] LABS: Basophils % (A) 0 %; Eosinophils % (A) 0 %; HCT 34.5 % (34.0-46.0); HGB 10.6 gm/dL (11.4-16.0); Hypochromasia Slight; Lymphocytes # (A) 0.7 k/uL (1.0-4.8); Lymphocytes % (A) 7 %; MCH 30.2 pg (25.0-35.0); MCHC 30.7 g/dL (31.0-37.0); MCV 98.6 fL (80.0-100.0); Mean Platelet Volume 10.9; Monocytes # (A) 0.4 k/uL (0-1.0); Monocytes % (A) 4 %; Neutrophils # (A) 8.9 k/uL (1.3-7.7); Neutrophils % (A) 89 %; Platelet Count 260 k/uL (150-450); RBC 3.49 m/uL (3.80-5.40); RDW 13.1 % (11.5-15.5)
[2021-12-03 12:25] LABS: Calcium 8.7 mg/dL (8.4-10.2); Potassium 5.2 mmol/L (3.5-5.1); Total Bilirubin 0.7 mg/dL (0.2-1.3); Total Protein 6.4 g/dL (6.3-8.2)
--- NOTE | 2021-12-03 13:52 | NM ---
EXAMINATION TYPE: NM pul perfusion DATE OF EXAM: 12/03/2021 COMPARISON: Chest x-ray 12/02/2021 HISTORY: Abnormal chest x-ray, elevated d-dimer, dyspnea Following administration of 5.3 mCi Tc 99m MAA. Images obtained post injection. FINDINGS: Essentially homogenous uptake of radiopharmaceutical is noted on perfusion scanning within the lungs. Uptake appears somewhat diminished in the left lung as compared suspect there are technical factors to the exam. IMPRESSION: Findings felt likely to represent very low probability for pulmonary embolism
--- NOTE | 2021-12-03 14:02 | US ---
EXAMINATION TYPE: US venous doppler duplex LE DATE OF EXAM: 12/03/2021 12:13 PM COMPARISON: NONE CLINICAL HISTORY: ELEVATED DDIMER. Elevated D-Dimer, Covid +, history of chronic wound SIDE PERFORMED: Bilateral TECHNIQUE: The lower extremity deep venous system is examined utilizing real time linear array sonog karlene with graded compression, doppler sonography and color-flow sonography. VESSELS IMAGED: Common Femoral Vein Deep Femoral Vein Greater Saphenous Vein * Femoral Vein Popliteal Vein Small Saphenous Vein * Proximal Calf Veins (* superficial vessels) There is normal flow, compressibility, vascular waveforms. Right Leg: Negative for DVT, unable to visualize GSV and difficult to visualize veins in groin due t o heavily calcified arteries Left Leg: Negative for DVT IMPRESSION: No evident deep venous thrombosis within the lower extremities from the level of the knee centrally limitations as described
[2021-12-03] MEDS ORDERED: BENZONATATE 100 MG CAP PO PRN (14:34)
[2021-12-03] MEDS ORDERED: ONDANSETRON 4 MG/2 ML VIAL IVP PRN (14:37)
[2021-12-03] MEDS ORDERED: ACETAMINOPHEN TAB 325 MG TAB PO PRN (14:37)
--- NOTE | 2021-12-03 14:44 | P.HPIM ---
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 Patient uses a brace involving the right lower extremity and is limited in functional activity lives with her daughter. Patient started feeling unwell on 11/19 with fever cough and body aches. She was seen by the primary care physician who prescribed antibiotic and steroids. She had a rapid COVID which was negative. She was seen in the ER on the and tested positive for COVID. Patient did receive monoclonal antibody and was discharged home. Emergency room on 12/02 with worsening shortness of breath and oxygen saturation of 87% on arrival. Patient also endorses cough with mild phlegm production. Denies any fever or chills. Patient vitals were reviewed patient's afebrile pulse 90 respiratory rate of 25 blood pressure 133/67 and oxygen saturation 89% on room air improved to 94% on 2 L. Labs are reviewed patient's afebrile WBC 10.4 hemoglobin 11.9 reduced to 10.6 sodium 140 potassium 5 BUN 37 creatinine 1.72 glucose of 323 d-dimer mildly elevated 0.72. BNP mildly elevated at 3550 troponin elevated 0.44 Chest x-ray reviewed suggest diffuse bilateral edema with airspace disease. EKG suggests sinus rhythm with short KS Venous Doppler was negative for DVT VQ scan was negative for PE Patient started on dexamethasone 6 mg IV daily. Pulmonary consulted. Vitamin supplementation initiated. Heparin drip will be discontinued. Patient will be started on Lovenox 40 subcu twice a day. ROS Constitutional: Endorses endorses chills, Denies fever, Denies lethargy, Denies malaise, endorses poor appetite, endorses weakness, Denies weight loss Eyes: denies decreased vision, denies diplopia, denies discharge, denies pain Ears: deny: decreased hearing Ears, nose, mouth and throat: Denies dental pain, Denies headache, Denies nasal discharge, Denies nose pain Cardiovascular: Denies chest pain, Denies decreased exercise tolerance, Denies edema, Denies high blood pressure, Denies irregular heart beat, Denies palpitations, Denies paroxysmal nocturnal dyspnea, Denies rapid heart beat, Denies shortness of breath Respiratory: Denies congestion, Denies cough, Denies cough with sputum, Denies dyspnea, Denies home oxygen, Denies wheezing Gastrointestinal: Denies abdominal pain, Denies change in bowel habits, Denies coffee ground emesis, Denies early satiety, Denies excessive gas, Denies heartburn, Denies hematemesis, Denies hematochezia, Denies loss of appetite, Denies nausea, Denies vomiting Genitourinary: Denies dysuria, Denies flank pain, Denies kidney stones, Denies menorrhagia, Denies urgency, Denies urinary frequency Musculoskeletal: Denies gait dysfunction, Denies limitation of motion, Denies morning stiffness, Denies muscle cramps Integumentary: Denies rash, Denies wounds, Denies brittle nails, Denies change in hair/nails, Denies darkening of skin Neurological: Endorses balance difficulties, Denies change in speech, Denies double vision, endorses chronic gait dysfunction with history of stroke, Denies loss of vision, endorses motor disturbance, Denies numbness, Denies paralysis, Denies paresthesias, Denies seizures Psychiatric: Denies anxiety, Denies depression Endocrine: Denies excessive sweating, Denies excessive thirst, Denies high blood sugars, Denies palpitations Hematologic/Lymphatic: Denies easy bruising, Denies lymphadenopathy Social history Former smoker quit 20 years ago No alcohol use No illicit drug use Uses a walker around the house Family history Patient unable to provide any history Physical exam - Constitutional General appearance: cooperative, no acute distress, obese on 2 L of oxygen - EENT Eyes: anicteric sclerae, PERRLA, normal appearance ENT: hearing grossly normal - Neck Neck: no lymphadenopathy, normal ROM, no other, no rigidity, no stridor, no thyromegaly - Respiratory Respiratory: bilateral: CTA, negative: diminished, dullness, rales, rhonchi - Cardiovascular Rhythm: regular Heart sounds: normal: S1, S2 Abnormal Heart Sounds: no systolic murmur, no diastolic murmur, no rub, no S3 Gallop, no S4 Gallop, no click, no other - Gastrointestinal General gastrointestinal: normal bowel sounds, soft - Integumentary Integumentary: no rash - Neurologic Neurologic: Mild dysarthria, delayed speech , contracted right upper extremity with inward turning of the right foot sensation intact - Musculoskeletal Musculoskeletal: gait unstable, strength equal bilaterally - Psychiatric Psychiatric: A&O x's 2 at baseline, appropriate affect Assessment and plan 1 sepsis secondary to COVID pneumonia no bacterial infection. Dexamethasone 6 IV daily, vitamin C, vitamin D, zinc added. Albuterol inhaler as needed. Pulmonary consult. Every 6 hour supplement oxygen to keep SpO2 more than 90%. Inflammation markers including d-dimer, LDH, ferritin, CRP, pro-calcitonin ordered venous Doppler negative for DVT VQ scan negative for PE continue Lovenox 40 subcu twice a day. #2 anemia of chronic disease likely secondary to chronic kidney disease and iron studies ordered. Continue to monitor CBC. No overt sign of bleedingContinue ferrous sulfate 325 mg by mouth daily #3 uncontrolled type 2 diabetes with hyperglycemia and kidney disease as the A1c ordered. Patient is not on any diabetes medication. Insulin sliding scale before meals and at bedtime #4 history of CVA continue Plavix 75 mg by mouth daily Lipitor 10 mg by mouth daily #5 hypertension and hypertensive cardiovascular disease continue metoprolol 25 twice a day continue amlodipine 5 mg twice a day #6 chronic kidney disease stage III creatinines appear to be baseline. #7 vascular dementia on Aricept 5 mg by mouth daily # 8 DVT prophylaxis lovenox 40 sc daily #9 GI prophylaxis pepcid 20 mg po daily # 10 full code #11 Disposition - patient may need atleast 2 inpatient night for stablization Past Medical History Past Medical History: Asthma, CVA/TIA, Dementia, Diabetes Mellitus, Hyperlipidemia, Hypertension Additional Past Medical History / Comment(s): rt sided weakness post cva uses cane rt arm contracted History of Any Multi-Drug Resistant Organisms: None Reported Past Surgical History: Cholecystectomy, Hysterectomy Past Psychological History: No Psychological Hx Reported Smoking Status: Former smoker Past Alcohol Use History: None Reported Past Drug Use History: None Reported - Past Family History Mother Family Medical History: No Reported History Medications and Allergies Home Medications Medication Instructions Recorded Confirmed Type Atorvastatin [Lipitor] 10 mg PO HS 03/06/17 12/02/21 History Clopidogrel [Plavix] 75 mg PO DAILY 03/06/17 12/02/21 History Ferrous Sulfate [Iron (65 MG 325 mg PO DAILY 03/06/17 12/02/21 History Elemental)] Metoprolol Tartrate 25 mg PO BID 03/06/17 12/02/21 History Montelukast [Singulair] 10 mg PO DAILY 03/06/17 12/02/21 History Multivitamins, Thera [Multivitamin 1 tab PO DAILY 03/06/17 12/02/21 History (formulary)] Potassium Chloride [Klor-Con 20] 20 meq PO DAILY 03/06/17 12/02/21 History amLODIPine [Norvasc] 5 mg PO BID 03/06/17 12/02/21 History Aspirin EC [Ecotrin Low Dose] 81 mg PO HS 04/04/21 12/02/21 History Donepezil [Aricept] 5 mg PO HS 04/04/21 12/02/21 History Ascorbic Acid [Vitamin C] 1,000 mg PO DAILY 11/26/21 12/02/21 History Benzonatate [Tessalon Perles] 200 mg PO TID PRN #30 capsule 11/26/21 12/02/21 Rx Albuterol Inhaler [Ventolin Hfa 2 puff INHALATION RT-Q4H PRN 12/02/21 12/02/21 History Inhaler] Cholecalciferol [Vitamin D3 (25 50 mcg PO DAILY 12/02/21 12/02/21 History Mcg = 1000 Iu)] Zinc 50 mg PO DAILY 12/02/21 12/02/21 History Dexamethasone [Decadron] 6 mg PO DAILY #2 tablet 12/05/21 Rx Doxycycline [Vibramycin] 100 mg PO BID 7 Days #14 capsule 12/05/21 Rx Furosemide [Lasix] 20 mg PO BID #0 12/05/21 12/02/21 Rx Linagliptin [Tradjenta] 5 mg PO DAILY #30 tab 12/05/21 Rx Allergies Allergy/AdvReac Type Severity Reaction Status Date / Time No Known Allergies Allergy Verified 12/02/21 18:48 Physical Exam Vitals: Vital Signs Temp Pulse Resp BP Pulse Ox 12/03/21 08:44 98.1 F 87 16 145/78 94 L 12/03/21 06:34 98 F 68 26 H 151/92 95 12/03/21 05:00 94 L 12/03/21 02:02 63 16 147/72 98 12/02/21 21:54 99.4 F 78 26 H 131/69 98 12/02/21 18:02 93 26 H 132/73 94 L 12/02/21 17:25 28 H 12/02/21 16:57 98.8 F 90 25 H 133/67 89 L Intake and Output 12/02/21 12/03/21 12/03/21 22:59 06:59 14:59 Intake Total 123.451 103.35 Balance 123.451 103.35 Intake: Intake, IV Titration 123.451 103.35 Amount Heparin Sod,Pork in 0.45% 123.451 103.35 NaCl 25,000 unit In 0.45 % NaCl 1 250ml.bag @ 18 UNITS/KG/HR 17.146 mls/hr IV .[id number] [facility] Rx#: [id number] Other: Weight 95.254 kg Results CBC & Chem 7: 12/03/21 09:58 12/03/21 09:58 Labs: Abnormal Lab Results - Last 24 Hours (Table) 12/02/21 12/02/21 12/02/21 Range/Units 17:15 17:15 17:15 RBC (3.80-5.40) m/uL Hgb (11.4-16.0) gm/dL MCHC (31.0-37.0) g/dL Neutrophils # 8.6 H (1.3-7.7) k/uL Lymphocytes # (1.0-4.8) k/uL APTT (22.0-30.0) sec D-Dimer 0.72 H (<0.60) mg/L FEU Potassium (3.5-5.1) mmol/L Chloride 110 H (98-107) mmol/L Carbon Dioxide (22-30) mmol/L BUN 37 H (7-17) mg/dL Creatinine 1.72 H (0.52-1.04) mg/dL Glucose 323 H (74-99) mg/dL POC Glucose (mg/dL) (75-99) mg/dL AST 41 H (14-36) U/L Troponin I (0.000-0.034) ng/mL Albumin (3.5-5.0) g/dL Coronavirus (PCR) (Not Detectd) 12/02/21 12/02/21 12/02/21 Range/Units 17:15 17:20 20:22 RBC (3.80-5.40) m/uL Hgb (11.4-16.0) gm/dL MCHC (31.0-37.0) g/dL Neutrophils # (1.3-7.7) k/uL Lymphocytes # (1.0-4.8) k/uL APTT (22.0-30.0) sec D-Dimer (<0.60) mg/L FEU Potassium (3.5-5.1) mmol/L Chloride (98-107) mmol/L Carbon Dioxide (22-30) mmol/L BUN (7-17) mg/dL Creatinine (0.52-1.04) mg/dL Glucose (74-99) mg/dL POC Glucose (mg/dL) 215 H (75-99) mg/dL AST (14-36) U/L Troponin I 0.042 H* (0.000-0.034) ng/mL Albumin (3.5-5.0) g/dL Coronavirus (PCR) Detected A (Not Detectd) 12/02/21 12/02/21 12/03/21 Range/Units 20:35 23:50 01:55 RBC (3.80-5.40) m/uL Hgb (11.4-16.0) gm/dL MCHC (31.0-37.0) g/dL Neutrophils # (1.3-7.7) k/uL Lymphocytes # (1.0-4.8) k/uL APTT >200.0 H* (22.0-30.0) sec D-Dimer (<0.60) mg/L FEU Potassium (3.5-5.1) mmol/L Chloride (98-107) mmol/L Carbon Dioxide (22-30) mmol/L BUN (7-17) mg/dL Creatinine (0.52-1.04) mg/dL Glucose (74-99) mg/dL POC Glucose (mg/dL) (75-99) mg/dL AST (14-36) U/L Troponin I 0.050 H* 0.044 H* (0.000-0.034) ng/mL Albumin (3.5-5.0) g/dL Coronavirus (PCR) (Not Detectd) 12/03/21 12/03/21 12/03/21 Range/Units 09:58 09:58 09:58 RBC 3.49 L (3.80-5.40) m/uL Hgb 10.6 L (11.4-16.0) gm/dL MCHC 30.7 L (31.0-37.0) g/dL Neutrophils # 8.9 H (1.3-7.7) k/uL Lymphocytes # 0.7 L (1.0-4.8) k/uL APTT >200.0 H* (22.0-30.0) sec D-Dimer (<0.60) mg/L FEU Potassium 5.2 H (3.5-5.1) mmol/L Chloride 112 H (98-107) mmol/L Carbon Dioxide 20 L (22-30) mmol/L BUN 39 H (7-17) mg/dL Creatinine 1.66 H (0.52-1.04) mg/dL Glucose 402 H (74-99) mg/dL POC Glucose (mg/dL) (75-99) mg/dL AST (14-36) U/L Troponin I (0.000-0.034) ng/mL Albumin 3.0 L (3.5-5.0) g/dL Coronavirus (PCR) (Not Detectd)
[2021-12-03] MEDS: HEPARIN SOD,PORK IN 0.45% NACL 25,000 UNIT in 0.45% NACL 1 250ML.BAG IV SCH (15:18)
--- NOTE | 2021-12-03 15:24 | P.CNPUL ---
History of Present Illness Consult date: 12/03/21 Requesting physician: Anupam Lane Reason for consult: dyspnea, hypoxemia Chief complaint: Dyspnea, hypoxia History of present illness: This is a very pleasant 71-year-old -Nepalese female patient of Dr. Pisano with past medical history hypertension, hyperlipidemia, diabetes mellitus type 2, previous history of CVA, with right-sided weakness, chronic bronchial asthma, former smoker, who presented to the emergency department for evaluation of worsening dyspnea and and patient's oxygen saturation was noted to be at around 87% on arrival. Patient was diagnosed with COVID-19 on 11/19/2021, she was in the emergency department on 11/26/2021 and received monoclonal antibody treatment at that time. Patient has history of dementia, any history from patient is limited, most of the history was obtained from the chart and patient's daughter who is at the bedside. Initial symptoms were with body aches, fever, cough. Patient was treated on an outpatient basis with antibiotics and steroids. Chest x-ray showed diffuse bilateral edema/airspace disease. EKG showed a white blood cell count of 10.4, hemoglobin of 11.9, INR is 1.0, d-dimer is 0.72, sodium is 140, potassium is 5.0, chloride is 110, CO2 is 23, BUN is 37, creatinine 1.72, glucose was 323, patient had a elevated proBNP 3550, troponins were 0.042, 0.050, and 0.044. Serum acetone level was negative, COVID-19 PCR was again positive, and influenza A and B were negative. She is currently requiring 2 L of oxygen pulse ox is 95%, she is afebrile, hemodynamically she is stable. Lower extremity Dopplers were checked and were negative for DVT however right leg had heavily calcified arteries and was difficult to examine. VQ scan showed very low probability for pulmonary embolism. Patient was started on IV Decadron 6 mg daily, she is currently on heparin infusion possibly for elevated troponin levels, Tessalon Perles, multivitamins. Review of Systems All systems: negative Constitutional: Denies chills, Denies fever Eyes: denies blurred vision, denies pain Ears, nose, mouth and throat: Denies headache, Denies sore throat Cardiovascular: Denies chest pain, Denies shortness of breath Respiratory: Reports cough with sputum, Reports dyspnea, Denies cough Gastrointestinal: Denies abdominal pain, Denies diarrhea, Denies nausea, Denies vomiting Genitourinary: Denies dysuria, Denies hematuria Musculoskeletal: Denies myalgias Integumentary: Denies pruritus, Denies rash Neurological: Denies numbness, Denies weakness Psychiatric: Denies anxiety, Denies depression Endocrine: Denies fatigue, Denies weight change Past Medical History Past Medical History: Asthma, CVA/TIA, Dementia, Diabetes Mellitus, Hyperlipidemia, Hypertension Additional Past Medical History / Comment(s): rt sided weakness post cva uses cane rt arm contracted History of Any Multi-Drug Resistant Organisms: None Reported Past Surgical History: Cholecystectomy, Hysterectomy Past Psychological History: No Psychological Hx Reported Smoking Status: Former smoker Past Alcohol Use History: None Reported Past Drug Use History: None Reported - Past Family History Mother Family Medical History: No Reported History Medications and Allergies Home Medications Medication Instructions Recorded Confirmed Type Atorvastatin [Lipitor] 10 mg PO HS 03/06/17 12/02/21 History Clopidogrel [Plavix] 75 mg PO DAILY 03/06/17 12/02/21 History Ferrous Sulfate [Feosol] 325 mg PO DAILY 03/06/17 12/02/21 History Metoprolol Tartrate 25 mg PO BID 03/06/17 12/02/21 History Montelukast [Singulair] 10 mg PO DAILY 03/06/17 12/02/21 History Multivitamins, Thera [Multivitamin 1 tab PO DAILY 03/06/17 12/02/21 History (formulary)] Potassium Chloride [Klor-Con 20] 20 meq PO DAILY 03/06/17 12/02/21 History amLODIPine [Norvasc] 5 mg PO BID 03/06/17 12/02/21 History Aspirin EC [Ecotrin Low Dose] 81 mg PO HS 04/04/21 12/02/21 History Donepezil [Aricept] 5 mg PO HS 04/04/21 12/02/21 History Furosemide [Lasix] 20 mg PO BID 04/04/21 12/02/21 History Ascorbic Acid [Vitamin C] 1,000 mg PO DAILY 11/26/21 12/02/21 History Benzonatate [Tessalon Perles] 200 mg PO TID PRN #30 capsule 11/26/21 12/02/21 Rx Albuterol Inhaler [Ventolin Hfa 2 puff INHALATION RT-Q4H PRN 12/02/21 12/02/21 History Inhaler] Cholecalciferol [Vitamin D3 (25 50 mcg PO DAILY 12/02/21 12/02/21 History Mcg = 1000 Iu)] Doxycycline Hyclate 100 mg PO BID 12/02/21 12/02/21 History Zinc 50 mg PO DAILY 12/02/21 12/02/21 History Allergies Allergy/AdvReac Type Severity Reaction Status Date / Time No Known Allergies Allergy Verified 12/02/21 18:48 Physical Exam Vitals: Vital Signs Temp Pulse Resp BP Pulse Ox 12/03/21 14:00 80 16 111/45 95 12/03/21 08:44 98.1 F 87 16 145/78 94 L 12/03/21 06:34 98 F 68 26 H 151/92 95 12/03/21 05:00 94 L 12/03/21 02:02 63 16 147/72 98 12/02/21 21:54 99.4 F 78 26 H 131/69 98 12/02/21 18:02 93 26 H 132/73 94 L 12/02/21 17:25 28 H 12/02/21 16:57 98.8 F 90 25 H 133/67 89 L Intake and Output 12/03/21 12/03/21 12/03/21 06:59 14:59 22:59 Intake Total 123.451 103.35 Balance 123.451 103.35 Intake: Intake, IV Titration 123.451 103.35 Amount Heparin Sod,Pork in 0.45% 123.451 103.35 NaCl 25,000 unit In 0.45 % NaCl 1 250ml.bag @ 18 UNITS/KG/HR 17.146 mls/hr IV .[id number] [facility] Rx#: [id number] GENERAL EXAM: Alert, very pleasant 71-year-old -Nepalese female, poor historian, but does not appear to be in any acute distress, currently on 2 L of oxygen pulse ox is 95%, comfortable in no apparent distress. HEAD: Normocephalic/atraumatic. EYES: Normal reaction of pupils, equal size. Conjunctiva pink, sclera white. NOSE: Clear with pink turbinates. THROAT: No erythema or exudates. NECK: No masses, no JVD, no thyroid enlargement, no adenopathy. CHEST: No chest wall deformity. Symmetrical expansion. LUNGS: Equal air entry with bibasilar crackles CVS: Regular rate and rhythm, normal S1 and S2, no gallops, no murmurs, no rubs ABDOMEN: Soft, nontender. No hepatosplenomegaly, normal bowel sounds, no guarding or rigidity. EXTREMITIES: No clubbing, no edema, no cyanosis, 2+ pulses and upper and lower extremities. MUSCULOSKELETAL: Muscle strength and tone normal. SPINE: No scoliosis or deformity SKIN: No rashes CENTRAL NERVOUS SYSTEM: Alert and oriented -3. No focal deficits, tone is normal in all 4 extremities. PSYCHIATRIC: Alert and oriented -3. Appropriate affect. Intact judgment and insight. Results - Laboratory Findings CBC and BMP: 12/03/21 09:58 12/03/21 09:58 PT/INR, D-dimer PT 10.9 sec (9.0-12.0) 12/02/21 17:15 INR 1.0 (<1.2) 12/02/21 17:15 D-Dimer 0.72 mg/L FEU (<0.60) H 12/02/21 17:15 Abnormal lab findings: Abnormal Labs 12/02/21 12/02/21 12/02/21 17:15 17:15 17:15 RBC Hgb MCHC Neutrophils # 8.6 H Lymphocytes # APTT D-Dimer 0.72 H Potassium Chloride 110 H Carbon Dioxide BUN 37 H Creatinine 1.72 H Glucose 323 H POC Glucose (mg/dL) AST 41 H Troponin I Albumin Coronavirus (PCR) 12/02/21 12/02/21 12/02/21 17:15 17:20 20:22 RBC Hgb MCHC Neutrophils # Lymphocytes # APTT D-Dimer Potassium Chloride Carbon Dioxide BUN Creatinine Glucose POC Glucose (mg/dL) 215 H AST Troponin I 0.042 H* Albumin Coronavirus (PCR) Detected A 12/02/21 12/02/21 12/03/21 20:35 23:50 01:55 RBC Hgb MCHC Neutrophils # Lymphocytes # APTT >200.0 H* D-Dimer Potassium Chloride Carbon Dioxide BUN Creatinine Glucose POC Glucose (mg/dL) AST Troponin I 0.050 H* 0.044 H* Albumin Coronavirus (PCR) 12/03/21 12/03/21 12/03/21 09:58 09:58 09:58 RBC 3.49 L Hgb 10.6 L MCHC 30.7 L Neutrophils # 8.9 H Lymphocytes # 0.7 L APTT >200.0 H* D-Dimer Potassium 5.2 H Chloride 112 H Carbon Dioxide 20 L BUN 39 H Creatinine 1.66 H Glucose 402 H POC Glucose (mg/dL) AST Troponin I Albumin 3.0 L Coronavirus (PCR) - Diagnostic Findings Chest x-ray: report reviewed, image reviewed Additional studies: Lower extremity Dopplers, VQ scan, EKG reviewed Assessment and Plan Plan: Assessment: #1. Acute hypoxic respiratory failure related to acute COVID-19 related pneumonia, patient came into the emergency department on 12/02/2021 brought in by her daughter for worsening symptoms of COVID-19, first diagnosed with COVID- 19 on 11/19/2021, status post monoclonal antibody infusion on the 11/26/2021. Patient is not vaccinated against COVID-19. Outside the window for Remdesivir treatment, currently on Decadron, heparin infusion and multivitamins #2. Elevated d-dimer, lower extremity Dopplers were negative for DVT, and VQ scan was very low probability for pulmonary embolism #3. Diabetes mellitus type 2 with steroid induced hyperglycemia #4. History of CVA with right-sided weakness, and right arm contracture #5. Hypertension and hypertensive heart disease #6. Chronic kidney disease stage III #7. History of dementia #8. History of asthma, chronic bronchial, unspecified #9. Positive troponins, patient is currently on heparin, DVT and pulmonary embolism workup were negative, this possibly relates to chronic kidney disease and acute hypoxia Plan: Patient is outside the window for Remdesivir Continue Decadron Patient is currently on heparin infusion possibly for elevated troponins Results the VQ scan and lower extremity Dopplers were noted Chest x-ray and labs have been reviewed Once the heparin is discontinued, consider placing the patient on prophylactic Lovenox 40 mg daily Continue multivitamins Continue follow her clinical course I performed a history & physical examination of the patient and discussed their management with my nurse practitioner, Edilma Liriano. I reviewed the nurse practitioner's note and agree with the documented findings and plan of care. Lung sounds are positive for dim breath sounds throughout the lung cadet. The findings and the impression was discussed with the patient. I attest to the documentation by the nurse practitioner. Time with Patient: Greater than 30
[2021-12-03 17:03] LABS: Glucose,Whole Blood 469 mg/dL (75-99)
[2021-12-03] MEDS: INSULIN ASPART (NovoLOG) 100 UNIT/ML VIAL SQ SCH ×2 (17:05→21:55)
[2021-12-03 19:29] LABS: Glucose,Whole Blood 417 mg/dL (75-99)
[2021-12-03 21:33] LABS: Glucose,Whole Blood 346 mg/dL (75-99)
[2021-12-03] MEDS: ATORVASTATIN 10 MG TAB PO SCH (21:55)
[2021-12-03] MEDS: ASPIRIN 81 MG PO SCH (21:55)
[2021-12-03] MEDS: DONEPEZIL 5 MG TAB PO SCH (23:29)
[2021-12-04] MEDS: HEPARIN SOD,PORK IN 0.45% NACL 25,000 UNIT in 0.45% NACL 1 250ML.BAG IV SCH (01:25)
[2021-12-04 05:58] LABS: Glucose,Whole Blood 159 mg/dL (75-99)
[2021-12-04] MEDS: INSULIN ASPART (NovoLOG) 100 UNIT/ML VIAL SQ SCH ×4 (06:23→22:04)
[2021-12-04] MEDS ORDERED: INSULIN DETEMIR (LEVEMIR) 100 UNIT/ML SYR SQ SCH (07:00)
[2021-12-04] MEDS: METOPROLOL TARTRATE 25 MG TAB PO SCH ×2 (09:53→22:03)
[2021-12-04] MEDS: MONTELUKAST 10 MG TAB PO SCH (09:53)
[2021-12-04] MEDS: ASCORBIC ACID 500 MG TAB PO SCH (09:53)
[2021-12-04] MEDS: CLOPIDOGREL 75 MG TAB PO SCH (09:53)
[2021-12-04] MEDS: ZINC SULFATE 220 MG CAP PO SCH (09:53)
[2021-12-04] MEDS: POTASSIUM CHLORIDE ER 20 MEQ TAB.ER PO SCH (09:53)
[2021-12-04] MEDS: DEXAMETHASONE SOD PHOSPHATE 10 MG/ML 1 ML VIAL IVP SCH (09:53)
[2021-12-04] MEDS: amLODIPine 5 MG TAB PO SCH ×2 (09:53→22:04)
[2021-12-04] MEDS: CHOLECALCIFEROL 25 MCG (1000 IU) TABLET PO SCH (09:53)
[2021-12-04] MEDS: FERROUS SULFATE 325 MG TAB PO SCH (09:53)
[2021-12-04 11:48] LABS: Glucose,Whole Blood 246 mg/dL (75-99)
--- NOTE | 2021-12-04 14:23 | P.PN ---
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 Patient uses a brace involving the right lower extremity and is limited in functional activity lives with her daughter. Patient started feeling unwell on 11/19 with fever cough and body aches. She was seen by the primary care physician who prescribed antibiotic and steroids. She had a rapid COVID which was negative. She was seen in the ER on the and tested positive for COVID. Patient did receive monoclonal antibody and was discharged home. Emergency room on 12/02 with worsening shortness of breath and oxygen saturation of 87% on arrival. Patient also endorses cough with mild phlegm production. Denies any fever or chills. Patient vitals were reviewed patient's afebrile pulse 90 respiratory rate of 25 blood pressure 133/67 and oxygen saturation 89% on room air improved to 94% on 2 L. Labs are reviewed patient's afebrile WBC 10.4 hemoglobin 11.9 reduced to 10.6 sodium 140 potassium 5 BUN 37 creatinine 1.72 glucose of 323 d-dimer mildly elevated 0.72. BNP mildly elevated at 3550 troponin elevated 0.44 Chest x-ray reviewed suggest diffuse bilateral edema with airspace disease. EKG suggests sinus rhythm with short MO Venous Doppler was negative for DVT VQ scan was negative for PE Patient started on dexamethasone 6 mg IV daily. Pulmonary consulted. Vitamin supplementation initiated. Heparin drip will be discontinued. Patient will be started on Lovenox 40 subcu twice a day. 12/04: She was seen today on the cardiac stepdown unit. We will plan to discontinue heparin drip as VQ scan was negative for PE. Lovenox will be started for tomorrow. Lopressor dose was held last night due to bradycardia. Today heart rate is in the 60s. Blood pressure 135/77, afebrile, pulse ox 99% on 2 L nasal cannula. Capillary blood glucose running between 159 and 346. Patient will be started on Levemir while on steroids. Patient has been seen and followed by pulmonary medicine and continued on Decadron, vitamin supplements. Respiratory status is stable. Patient will be transferred to MedSurg floor without telemetry Discharge plan is to return home with [facility]NA. ROS Constitutional: Endorses endorses chills, Denies fever, Denies lethargy, Denies malaise, endorses poor appetite, endorses weakness, Denies weight loss Eyes: denies decreased vision, denies diplopia, denies discharge, denies pain Ears: deny: decreased hearing Ears, nose, mouth and throat: Denies dental pain, Denies headache, Denies nasal discharge, Denies nose pain Cardiovascular: Denies chest pain, Denies decreased exercise tolerance, Denies edema, Denies high blood pressure, Denies irregular heart beat, Denies palpitations, Denies paroxysmal nocturnal dyspnea, Denies rapid heart beat, Denies shortness of breath Respiratory: Denies congestion, Denies cough, Denies cough with sputum, Denies dyspnea, Denies home oxygen, Denies wheezing Gastrointestinal: Denies abdominal pain, Denies change in bowel habits, Denies coffee ground emesis, Denies heartburn, Denies hematemesis, Denies hematochezia, Denies loss of appetite, Denies nausea, Denies vomiting Genitourinary: Denies dysuria, Denies flank pain, Denies kidney stones, Denies menorrhagia, Denies urgency, Denies urinary frequency Musculoskeletal: Denies gait dysfunction, Denies limitation of motion, Denies morning stiffness, Denies muscle cramps Integumentary: Denies rash, Denies wounds, Denies brittle nails, Denies change in hair/nails, Denies darkening of skin Neurological: Endorses balance difficulties, Denies change in speech, Denies double vision, endorses chronic gait dysfunction with history of stroke, Denies loss of vision, endorses motor disturbance, Denies numbness, Denies paralysis, Denies paresthesias, Denies seizures Psychiatric: Denies anxiety, Denies depression Endocrine: Denies excessive sweating, Denies excessive thirst, Denies high blood sugars, Denies palpitations Hematologic/Lymphatic: Denies easy bruising, Denies lymphadenopathy Physical exam - Constitutional General appearance: cooperative, no acute distress, obese on 2 L of oxygen - EENT Eyes: anicteric sclerae, PERRLA, normal appearance ENT: hearing grossly normal - Neck Neck: no lymphadenopathy, normal ROM, no other, no rigidity, no stridor, no thyr omegaly - Respiratory Respiratory: bilateral: CTA, negative: diminished, dullness, rales, rhonchi - Cardiovascular Rhythm: regular Heart sounds: normal: S1, S2 Abnormal Heart Sounds: no systolic murmur, no diastolic murmur, no rub, no S3 Gallop, no S4 Gallop, no click, no other - Gastrointestinal General gastrointestinal: normal bowel sounds, soft - Integumentary Integumentary: no rash - Neurologic Neurologic: Mild dysarthria, delayed speech , contracted right upper extremity with inward turning of the right foot sensation intact - Musculoskeletal Musculoskeletal: gait unstable, strength equal bilaterally - Psychiatric Psychiatric: A&O x's 2 at baseline, appropriate affect Assessment and plan 1 sepsis secondary to COVID pneumonia no bacterial infection. Dexamethasone 6 IV daily, vitamin C, vitamin D, zinc added. Albuterol inhaler as needed. Pulmonary consult appreciated. Continue oxygen to keep SpO2 more than 90%. Continue Lovenox 40 subcu daily. #2 anemia of chronic disease likely secondary to chronic kidney disease and iron studies ordered. Continue to monitor CBC. No overt sign of bleedingContinue ferrous sulfate 325 mg by mouth daily #3 uncontrolled type 2 diabetes with hyperglycemia and kidney disease as the A1c ordered. Patient is not on any diabetes medication. Insulin sliding scale before meals and at bedtime #4 history of CVA continue Plavix 75 mg by mouth daily Lipitor 10 mg by mouth daily #5 hypertension and hypertensive cardiovascular disease continue metoprolol 25 twice a day continue amlodipine 5 mg twice a day #6 chronic kidney disease stage III creatinines appear to be baseline. #7 vascular dementia on Aricept 5 mg by mouth daily # 8 DVT prophylaxis lovenox 40 sc daily #9 GI prophylaxis pepcid 20 mg po daily # 10 full code Discharge plan Home with VNA Impression and plan of care have been directed as dictated by the signing physician. Anastasia Coe nurse practitioner acting as scribe for signing physician. Objective - Vital Signs Vital signs: Vital Signs Temp 97.7 F 12/04/21 09:50 Pulse 68 12/04/21 09:50 Resp 20 12/04/21 09:50 BP 151/69 12/04/21 09:50 Pulse Ox 97 12/04/21 09:50 Intake & Output 12/03/21 12/04/21 12/04/21 18:59 06:59 18:59 Intake Total 167.697 0 Output Total 100 150 Balance 167.697 -100 -150 Weight 80.4 kg 80.4 kg Intake: Intake, IV Titration 167.697 0 Amount Heparin Sod,Pork in 0.45% 167.697 0 NaCl 25,000 unit In 0.45 % NaCl 1 250ml.bag @ 18 UNITS/KG/HR 17.146 mls/hr IV .[id number] SHIRA Rx#: [id number] Output: Urine 100 150 Other: # Voids 1 1 - Labs CBC & Chem 7: 12/03/21 09:58 12/03/21 09:58 Labs: Abnormal Lab Results - Last 24 Hours (Table) 12/03/21 12/03/21 12/03/21 Range/Units 09:58 09:58 09:58 APTT (22.0-30.0) sec Potassium 5.2 H (3.5-5.1) mmol/L Chloride 112 H (98-107) mmol/L Carbon Dioxide 20 L (22-30) mmol/L BUN 39 H (7-17) mg/dL Creatinine 1.66 H (0.52-1.04) mg/dL Glucose 402 H (74-99) mg/dL POC Glucose (mg/dL) (75-99) mg/dL Hemoglobin A1c 7.4 H (0.0-6.0) % Albumin 3.0 L (3.5-5.0) g/dL Procalcitonin 0.14 H (0.02-0.09) ng/mL 12/03/21 12/03/21 12/03/21 Range/Units 17:01 18:00 19:27 APTT 161.6 H* (22.0-30.0) sec Potassium (3.5-5.1) mmol/L Chloride (98-107) mmol/L Carbon Dioxide (22-30) mmol/L BUN (7-17) mg/dL Creatinine (0.52-1.04) mg/dL Glucose (74-99) mg/dL POC Glucose (mg/dL) 469 H 417 H (75-99) mg/dL Hemoglobin A1c (0.0-6.0) % Albumin (3.5-5.0) g/dL Procalcitonin (0.02-0.09) ng/mL 12/03/21 12/04/21 12/04/21 Range/Units 21:31 02:55 05:56 APTT 64.4 H (22.0-30.0) sec Potassium (3.5-5.1) mmol/L Chloride (98-107) mmol/L Carbon Dioxide (22-30) mmol/L BUN (7-17) mg/dL Creatinine (0.52-1.04) mg/dL Glucose (74-99) mg/dL POC Glucose (mg/dL) 346 H 159 H (75-99) mg/dL Hemoglobin A1c (0.0-6.0) % Albumin (3.5-5.0) g/dL Procalcitonin (0.02-0.09) ng/mL 12/04/21 Range/Units 11:46 APTT (22.0-30.0) sec Potassium (3.5-5.1) mmol/L Chloride (98-107) mmol/L Carbon Dioxide (22-30) mmol/L BUN (7-17) mg/dL Creatinine (0.52-1.04) mg/dL Glucose (74-99) mg/dL POC Glucose (mg/dL) 246 H (75-99) mg/dL Hemoglobin A1c (0.0-6.0) % Albumin (3.5-5.0) g/dL Procalcitonin (0.02-0.09) ng/mL Microbiology - Last 24 Hours (Table) 12/02/21 20:02 Blood Culture - Preliminary Blood No Growth after 24 hours
--- NOTE | 2021-12-04 14:44 | P.PN ---
Subjective Progress Note Date: 12/04/21 Principal diagnosis: dyspnea, hypoxia, COVID-19 pneumonia This is a very pleasant 71-year-old -Thai female patient of Dr. Pisano with past medical history hypertension, hyperlipidemia, diabetes mellitus type 2, previous history of CVA, with right-sided weakness, chronic bronchial asthma, former smoker, who presented to the emergency department for evaluation of wo rsening dyspnea and and patient's oxygen saturation was noted to be at around 87% on arrival. Patient was diagnosed with COVID-19 on 11/19/2021, she was in the emergency department on 11/26/2021 and received monoclonal antibody treatment at that time. Patient has history of dementia, any history from patient is limited, most of the history was obtained from the chart and patient's daughter who is at the bedside. Initial symptoms were with body aches, fever, cough. Patient was treated on an outpatient basis with antibiotics and steroids. Chest x-ray showed diffuse bilateral edema/airspace disease. EKG showed a white blood cell count of 10.4, hemoglobin of 11.9, INR is 1.0, d-dimer is 0.72, sodium is 140, potassium is 5.0, chloride is 110, CO2 is 23, BUN is 37, creatinine 1.72, glucose was 323, patient had a elevated proBNP 3550, troponins were 0.042, 0.050, and 0.044. Serum acetone level was negative, COVID-19 PCR was again positive, and influenza A and B were negative. She is currently requiring 2 L of oxygen pulse ox is 95%, she is afebrile, hemodynamically she is stable. Lower extremity Dopplers were checked and were negative for DVT however right leg had heavily calcified arteries and was difficult to examine. VQ scan showed very low probability for pulmonary embolis m. Patient was started on IV Decadron 6 mg daily, she is currently on heparin infusion possibly for elevated troponin levels, Tessalon Perles, multivitamins. On 12/04/2021 patient seen in follow-up on selective care unit, patient is aphasic, however she is able to make her basic needs now, she denies any worsening dyspnea, she is on 2 L of oxygen, her pulse ox is 97-99%, she is afebrile, hemodynamically she is stable, she does have occasional cough, she gets short of breath with exertion, but appears to be in no acute distress, she is currently on Decadron 6 mg daily, she is on Lovenox 40 mg daily, she is on multivitamins,she still remains on heparin infusion possibly for a troponin leak, vital signs have been stable overnight, she has had no fever or chills. Objective - Vital Signs Vital signs: Vital Signs Temp 97.8 F 12/04/21 13:00 Pulse 66 12/04/21 13:00 Resp 18 12/04/21 13:37 BP 135/77 12/04/21 13:00 Pulse Ox 99 12/04/21 13:00 Intake & Output 12/03/21 12/04/21 12/04/21 18:59 06:59 18:59 Intake Total 167.697 0 Output Total 100 150 Balance 167.697 -100 -150 Weight 80.4 kg 80.4 kg Intake: Intake, IV Titration 167.697 0 Amount Heparin Sod,Pork in 0.45% 167.697 0 NaCl 25,000 unit In 0.45 % NaCl 1 250ml.bag @ 18 UNITS/KG/HR 17.146 mls/hr IV .[id number] SHIRA Rx#: [id number] Output: Urine 100 150 Other: # Voids 1 1 - Exam GENERAL EXAM: Alert, very pleasant 71-year-old -Thai female, poor historian related to history of aphasia, but does not appear to be in any acute distress, currently on 2 L of oxygen pulse ox is 95%, comfortable in no apparent distress. HEAD: Normocephalic/atraumatic. EYES: Normal reaction of pupils, equal size. Conjunctiva pink, sclera white. NOSE: Clear with pink turbinates. THROAT: No erythema or exudates. NECK: No masses, no JVD, no thyroid enlargement, no adenopathy. CHEST: No chest wall deformity. Symmetrical expansion. LUNGS: Equal air entry with bibasilar crackles CVS: Regular rate and rhythm, normal S1 and S2, no gallops, no murmurs, no rubs ABDOMEN: Soft, nontender. No hepatosplenomegaly, normal bowel sounds, no guarding or rigidity. EXTREMITIES: No clubbing, no edema, no cyanosis, 2+ pulses and upper and lower extremities. MUSCULOSKELETAL: Muscle strength and tone normal. SPINE: No scoliosis or deformity SKIN: No rashes CENTRAL NERVOUS SYSTEM: Alert, patient is aphasic. right-sided weakness tone is normal in all 4 extremities. - Labs CBC & Chem 7: 12/03/21 09:58 12/03/21 09:58 Labs: Abnormal Lab Results - Last 24 Hours (Table) 12/03/21 12/03/21 12/03/21 Range/Units 09:58 09:58 17:01 APTT (22.0-30.0) sec POC Glucose (mg/dL) 469 H (75-99) mg/dL Hemoglobin A1c 7.4 H (0.0-6.0) % Procalcitonin 0.14 H (0.02-0.09) ng/mL 12/03/21 12/03/21 12/03/21 Range/Units 18:00 19:27 21:31 APTT 161.6 H* (22.0-30.0) sec POC Glucose (mg/dL) 417 H 346 H (75-99) mg/dL Hemoglobin A1c (0.0-6.0) % Procalcitonin (0.02-0.09) ng/mL 12/04/21 12/04/21 12/04/21 Range/Units 02:55 05:56 11:46 APTT 64.4 H (22.0-30.0) sec POC Glucose (mg/dL) 159 H 246 H (75-99) mg/dL Hemoglobin A1c (0.0-6.0) % Procalcitonin (0.02-0.09) ng/mL Microbiology - Last 24 Hours (Table) 12/02/21 20:02 Blood Culture - Preliminary Blood No Growth after 24 hours Assessment and Plan Plan: Assessment: #1. Acute hypoxic respiratory failure related to acute COVID-19 related pn eumonia, patient came into the emergency department on 12/02/2021 brought in by her daughter for worsening symptoms of COVID-19, first diagnosed with COVID-19 on 11/19/2021, status post monoclonal antibody infusion on the 11/26/2021. Patient is not vaccinated against COVID-19. Outside the window for Remdesivir treatment, currently on Decadron, heparin infusion and multivitamins #2. Elevated d-dimer, lower extremity Dopplers were negative for DVT, and VQ scan was very low probability for pulmonary embolism #3. Diabetes mellitus type 2 with steroid induced hyperglycemia #4. History of CVA with right-sided weakness, and right arm contracture #5. Hypertension and hypertensive heart disease #6. Chronic kidney disease stage III #7. History of dementia #8. History of asthma, chronic bronchial, unspecified #9. Positive troponins, patient is currently on heparin, DVT and pulmonary embolism workup were negative, this possibly relates to chronic kidney disease and acute hypoxia Plan: Continue Decadron Patient is currently on heparin infusion possibly for elevated troponins Results the VQ scan due to very low probability of pulmonary embolism and lower extremity Dopplers were negative Once the heparin is discontinued, consider placing the patient on prophylactic Lovenox 40 mg daily Continue multivitamins Continue follow her clinical course I performed a history & physical examination of the patient and discussed their management with my nurse practitioner, Edilma Liriano. I reviewed the nurse practitioner's note and agree with the documented findings and plan of care. Lung sounds are positive for dim breath sounds throughout the lung cadet. The findings and the impression was discussed with the patient. I attest to the documentation by the nurse practitioner. Time with Patient: Less than 30
[2021-12-04 16:42] LABS: Glucose,Whole Blood 176 mg/dL (75-99)
[2021-12-04 20:51] LABS: Glucose,Whole Blood 318 mg/dL (75-99)
[2021-12-04] MEDS: ASPIRIN 81 MG PO SCH (22:03)
[2021-12-04] MEDS: ATORVASTATIN 10 MG TAB PO SCH (22:03)
[2021-12-04] MEDS: DONEPEZIL 5 MG TAB PO SCH (22:03)
[2021-12-05] MEDS ORDERED: INSULIN DETEMIR (LEVEMIR) 100 UNIT/ML SYR SQ SCH (07:00)
[2021-12-05 07:13] LABS: Glucose,Whole Blood 236 mg/dL (75-99)
[2021-12-05] MEDS: DEXAMETHASONE SOD PHOSPHATE 10 MG/ML 1 ML VIAL IVP SCH (07:53)
[2021-12-05] MEDS: MONTELUKAST 10 MG TAB PO SCH (08:06)
[2021-12-05] MEDS: INSULIN ASPART (NovoLOG) 100 UNIT/ML VIAL SQ SCH ×4 (08:06→17:24)
[2021-12-05] MEDS: CHOLECALCIFEROL 25 MCG (1000 IU) TABLET PO SCH (08:07)
[2021-12-05] MEDS: ASCORBIC ACID 500 MG TAB PO SCH (08:07)
[2021-12-05] MEDS: ZINC SULFATE 220 MG CAP PO SCH (08:07)
[2021-12-05] MEDS: amLODIPine 5 MG TAB PO SCH (08:07)
[2021-12-05] MEDS: METOPROLOL TARTRATE 25 MG TAB PO SCH (08:08)
[2021-12-05] MEDS: POTASSIUM CHLORIDE ER 20 MEQ TAB.ER PO SCH (08:08)
[2021-12-05] MEDS: CLOPIDOGREL 75 MG TAB PO SCH (08:08)
[2021-12-05] MEDS: FERROUS SULFATE 325 MG TAB PO SCH (08:08)
[2021-12-05] MEDS ORDERED: ENOXAPARIN 40 MG/0.4 ML SYRINGE SQ SCH (09:00)
--- NOTE | 2021-12-05 11:16 | P.DS ---
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 Patient uses a brace involving the right lower extremity and is limited in functional activity lives with her daughter. Patient started feeling unwell on 11/19 with fever cough and body aches. She was seen by the primary care physician who prescribed antibiotic and steroids. She had a rapid COVID which was negative. She was seen in the ER on the and tested positive for COVID. Patient did receive monoclonal antibody and was discharged home. Emergency room on 12/02 with worsening shortness of breath and oxygen saturation of 87% on arrival. Patient also endorses cough with mild phlegm production. Denies any fever or chills. Patient vitals were reviewed patient's afebrile pulse 90 respiratory rate of 25 blood pressure 133/67 and oxygen saturation 89% on room air improved to 94% on 2 L. Labs are reviewed patient's afebrile WBC 10.4 hemoglobin 11.9 reduced to 10.6 sodium 140 potassium 5 BUN 37 creatinine 1.72 glucose of 323 d-dimer mildly elevated 0.72. BNP mildly elevated at 3550 troponin elevated 0.44 Chest x-ray reviewed suggest diffuse bilateral edema with airspace disease. EKG suggests sinus rhythm with short [place] Venous Doppler was negative for DVT VQ scan was negative for PE Patient started on dexamethasone 6 mg IV daily. Pulmonary consulted. Vitamin supplementation initiated. Heparin drip will be discontinued. Patient will be started on Lovenox 40 subcu twice a day. 12/04: She was seen today on the cardiac stepdown unit. We will plan to discontinue heparin drip as VQ scan was negative for PE. Lovenox will be started for tomorrow. Lopressor dose was held last night due to bradycardia. Today heart rate is in the 60s. Blood pressure 135/77, afebrile, pulse ox 99% on 2 L nasal cannula. Capillary blood glucose running between 159 and 346. Patient will be started on Levemir while on steroids. Patient has been seen and followed by pulmonary medicine and continued on Decadron, vitamin supplements. Respiratory status is stable. Patient will be transferred to [facility] floor without telemetry Discharge plan is to return home with VNA. 12/05: Pulse ox is 94% on room air. She's been afebrile, heart rate 70, blood pressure 152/61. Pro-calcitonin came back at 0.14. Patient will be started on antibiotics for home. Hemoglobin A1c came back at 7.4. Patient was seen by therapies with recommendations for home with home care. Patient prepared for discharge. Blood sugars 418. She did receive NovoLog scale at 13 units at lunchtime and she will receive NovoLog scale according to the CABG to be ordered now at 3:36 PM. If after that, patient is near 200, patient can be discharged home. She has been started on Tradjenta. DISCHARGE DIAGNOSES 1 sepsis secondary to COVID pneumonia no bacterial infection. #2 anemia of chronic disease likely secondary to chronic kidney disease #3 uncontrolled type 2 diabetes with hyperglycemia and kidney disease as the A1c 7.4. #4 history of CVA #5 hypertension and hypertensive cardiovascular disease #6 chronic kidney disease stage III #7 vascular dementia Discharge plan Home with [facility] Greater than 35 minutes was utilized and coordinating patient's discharge. Impression and plan of care have been directed as dictated by the signing physician. Anastasia Coe nurse practitioner acting as scribe for signing physician. Patient Condition at Discharge: Stable Plan - Discharge Summary Discharge Rx Participant: Yes New Discharge Prescriptions: New Linagliptin [Tradjenta] 5 mg PO DAILY #30 tab Dexamethasone [Decadron] 6 mg PO DAILY #2 tablet Doxycycline [Vibramycin] 100 mg PO BID 7 Days #14 capsule Continue amLODIPine [Norvasc] 5 mg PO BID Potassium Chloride [Klor-Con 20] 20 meq PO DAILY Clopidogrel [Plavix] 75 mg PO DAILY Metoprolol Tartrate 25 mg PO BID Montelukast [Singulair] 10 mg PO DAILY Ferrous Sulfate [Iron (65 MG Elemental)] 325 mg PO DAILY Atorvastatin [Lipitor] 10 mg PO HS Multivitamins, Thera [Multivitamin (formulary)] 1 tab PO DAILY Donepezil [Aricept] 5 mg PO HS Aspirin EC [Ecotrin Low Dose] 81 mg PO HS Cholecalciferol [Vitamin D3 (25 Mcg = 1000 Iu)] 50 mcg PO DAILY Albuterol Inhaler [Ventolin Hfa Inhaler] 2 puff INHALATION RT-Q4H PRN PRN Reason: Shortness Of Breath Furosemide [Lasix] 20 mg PO BID #0 Benzonatate [Tessalon Perles] 200 mg PO TID PRN #30 capsule PRN Reason: Cough Ascorbic Acid [Vitamin C] 1,000 mg PO DAILY Zinc 50 mg PO DAILY Discontinued Doxycycline Hyclate 100 mg PO BID Discharge Medication List Atorvastatin [Lipitor] 10 mg PO HS 03/06/17 [History] Clopidogrel [Plavix] 75 mg PO DAILY 03/06/17 [History] Ferrous Sulfate [Iron (65 MG Elemental)] 325 mg PO DAILY 03/06/17 [History] Metoprolol Tartrate 25 mg PO BID 03/06/17 [History] Montelukast [Singulair] 10 mg PO DAILY 03/06/17 [History] Multivitamins, Thera [Multivitamin (formulary)] 1 tab PO DAILY 03/06/17 [History] Potassium Chloride [Klor-Con 20] 20 meq PO DAILY 03/06/17 [History] amLODIPine [Norvasc] 5 mg PO BID 03/06/17 [History] Aspirin EC [Ecotrin Low Dose] 81 mg PO HS 04/04/21 [History] Donepezil [Aricept] 5 mg PO HS 04/04/21 [History] Ascorbic Acid [Vitamin C] 1,000 mg PO DAILY 11/26/21 [History] Benzonatate [Tessalon Perles] 200 mg PO TID PRN #30 capsule 11/26/21 [Rx] Albuterol Inhaler [Ventolin Hfa Inhaler] 2 puff INHALATION RT-Q4H PRN 12/02/21 [History] Cholecalciferol [Vitamin D3 (25 Mcg = 1000 Iu)] 50 mcg PO DAILY 12/02/21 [History] Zinc 50 mg PO DAILY 12/02/21 [History] Dexamethasone [Decadron] 6 mg PO DAILY #2 tablet 12/05/21 [Rx] Doxycycline [Vibramycin] 100 mg PO BID 7 Days #14 capsule 01/19/22 [Rx] Furosemide [Lasix] 20 mg PO BID #0 12/05/21 [Rx] Linagliptin [Tradjenta] 5 mg PO DAILY #30 tab 12/05/21 [Rx] Follow up Appointment(s)/Referral(s): Adiel Pisano MD [Primary Care Provider] - 1-2 days (office not answering please call to schedule appointment ) [facility] Visiting Nurse, [NON-STAFF] - Patient Instructions/Handouts: Coronavirus Disease 2019 (COVID-19), Heart Failure (DC)
[2021-12-05 11:54] LABS: Glucose,Whole Blood 418 mg/dL (75-99)
[2021-12-05 15:10] VITALS: BP 152/61; PULSE 70; RESP 18; TEMP 97.8
[2021-12-05] MEDS ORDERED: LINAGLIPTIN 5 MG TABLET PO SCH (15:45)
[2021-12-05 15:47] LABS: Glucose,Whole Blood 212 mg/dL (75-99)
[2021-12-05 16:40] LABS: Glucose,Whole Blood 185 mg/dL (75-99)
--- NOTE | 2021-12-05 17:32 | P.PN ---
Subjective Progress Note Date: 12/05/21 Principal diagnosis: Acute hypoxic failure secondary to COVID-19 pneumonia This is a very pleasant 71-year-old -[place] female patient of Dr. Pisano with past medical history hypertension, hyperlipidemia, diabetes mellitus type 2, previous history of CVA, with right-sided weakness, chronic bronchial asthma, former smoker, who presented to the emergency department for evaluation of worsening dyspnea and and patient's oxygen saturation was noted to be at around 87% on arrival. Patient was diagnosed with COVID-19 on 11/19/2021, she was in the emergency department on 11/26/2021 and received monoclonal antibody treatment at that time. Patient has history of dementia, any history from patient is limited, most of the history was obtained from the chart and patient's daughter who is at the bedside. Initial symptoms were with body aches, fever, cough. Patient was treated on an outpatient basis with antibiotics and steroids. Chest x-ray showed diffuse bilateral edema/airspace disease. EKG showed a white blood cell count of 10.4, hemoglobin of 11.9, INR is 1.0, d-dimer is 0.72, sodium is 140, potassium is 5.0, chloride is 110, CO2 is 23, BUN is 37, creatinine 1.72, glucose was 323, patient had a elevated proBNP 3550, troponins were 0.042, 0.050, and 0.044. Serum acetone level was negative, COVID-19 PCR was again positive, and influenza A and B were negative. She is currently requiring 2 L of oxygen pulse ox is 95%, she is afebrile, hemodynamically she is stable. Lower extremity Dopplers were checked and were negative for DVT however right leg had heavily calcified arteries and was difficult to examine. VQ scan showed very low probability for pulmonary embolism. Patient was started on IV Decadron 6 mg daily, she is currently on heparin infusion possibly for elevated troponin levels, Tessalon Perles, multivitamins. On 12/04/2021 patient seen in follow-up on selective care unit, patient is aphasic, however she is able to make her basic needs now, she denies any worsening dyspnea, she is on 2 L of oxygen, her pulse ox is 97-99%, she is afeb rile, hemodynamically she is stable, she does have occasional cough, she gets short of breath with exertion, but appears to be in no acute distress, she is currently on Decadron 6 mg daily, she is on Lovenox 40 mg daily, she is on multivitamins,she still remains on heparin infusion possibly for a troponin leak, vital signs have been stable overnight, she has had no fever or chills. Reevaluated today on 12/05/2021, patient is doing well today, she is on room air, she is very comfortable, O2 saturation is in the night, no cough no wheezing no shortness. Patient is being considered for discharge home today. Objective - Vital Signs Vital signs: Vital Signs Temp 97.8 F 12/05/21 14:00 Pulse 70 12/05/21 14:00 Resp 18 12/05/21 14:00 BP 152/61 12/05/21 14:00 Pulse Ox 94 L 12/05/21 14:00 Intake & Output 12/04/21 12/05/21 12/05/21 18:59 06:59 18:59 Output Total 150 75 300 Balance -150 -75 -300 Weight 80.4 kg 79.5 kg Output: Urine 150 75 300 Other: # Voids 3 1 - Exam Physical Exam revealed a 69-year-old female in no distress, on room air. HEENT:[Neck is supple.] [No neck masses.] [No thyromegaly.] [No JVD.] Chest: [Clear throughout, no crackles, no rhonchi, no wheezes.] Cardiac Exam: [Normal S1 and S2, no S3 gallop, no murmur.] Abdomen: [Soft, nontender, no megaly, no rebound, no guarding, normal bowel sounds.] Extremities: [No clubbing, no edema, no cyanosis.] Neurological Exam: Right-sided weakness secondary to previous CVA otherwise unremarkable. - Labs CBC & Chem 7: 12/03/21 09:58 12/03/21 09:58 Labs: Abnormal Lab Results - Last 24 Hours (Table) 12/04/21 12/05/21 12/05/21 Range/Units 20:46 07:12 07:50 APTT 21.3 L (22.0-30.0) sec POC Glucose (mg/dL) 318 H 236 H (75-99) mg/dL 12/05/21 12/05/21 12/05/21 Range/Units 11:53 15:46 16:39 APTT (22.0-30.0) sec POC Glucose (mg/dL) 418 H 212 H 185 H (75-99) mg/dL Microbiology - Last 24 Hours (Table) 12/02/21 20:02 Blood Culture - Preliminary Blood No Growth after 48 hours Assessment and Plan Assessment: Acute hypoxic respiratory failure secondary to the COVID-19 pneumonia Type 2 diabetes. History of CVA and right-sided weakness Benign essential hypertension Chronic kidney disease stage III History of dementia History of bronchial asthma, presently stable, mild intermittent. Recommendation: Agree with discharge planning Continue COVID-19 cocktail. Follow-up on outpatient basis. Time with Patient: Less than 30
== END 2021-12-05 18:16 | disposition home health service (06) | DRG 871 ==
LOC: EC 16:56 → 3SCARD 18:58 → 4SSUR 12-04 20:02
PROVIDERS: ADMIT Family Medicine; ATTEND Family Medicine
DX: A41.89 Other specified sepsis (principal); U07.1 COVID-19; J12.82 Pneumonia due to coronavirus disease 2019; J96.01 Acute respiratory failure with hypoxia; I13.0 Hypertensive heart and chronic kidney disease with heart failure and stage 1 through stage 4 chronic kidney disease, or unspecified chronic kidney disease; I69.351 Hemiplegia and hemiparesis following cerebral infarction affecting right dominant side; R47.01 Aphasia; E78.5 Hyperlipidemia, unspecified; I50.9 Heart failure, unspecified; J45.909 Unspecified asthma, uncomplicated; N18.30 Chronic kidney disease, stage 3 unspecified; T38.0X5A Adverse effect of glucocorticoids and synthetic analogues, initial encounter; D63.1 Anemia in chronic kidney disease; E11.22 Type 2 diabetes mellitus with diabetic chronic kidney disease; E11.65 Type 2 diabetes mellitus with hyperglycemia; F01.50 Vascular dementia, unspecified severity, without behavioral disturbance, psychotic disturbance, mood disturbance, and anxiety; Z79.02 Long term (current) use of antithrombotics/antiplatelets; Z79.84 Long term (current) use of oral hypoglycemic drugs; Z79.899 Other long term (current) drug therapy; Z87.891 Personal history of nicotine dependence; Z90.710 Acquired absence of both cervix and uterus; Z95.1 Presence of aortocoronary bypass graft; Z90.49 Acquired absence of other specified parts of digestive tract
CPT/HCPCS: 36415; 71045; 78580; 80053; 82009; 83036; 83605; 83880; 84145; 84484; 85025; 85379; 85610; 85730; 87040; 87502; 87635; 93005; 93970; 94640; 96361; 96374; 99291

== ENCOUNTER 2024-01-17 14:38 | Emergency (ER) | payer MEDICARE, OTHER ==
--- NOTE | 2024-01-17 14:54 | ED ---
Extremity Problem HPI - General Source: patient, family, RN notes reviewed Mode of arrival: wheelchair Limitations: physical limitation <Dee Cornejo - Last Filed: 01/17/24 14:53> <José Alfaro - Last Filed: 01/18/24 05:15> - General Stated complaint: Pain in right leg Time Seen by Provider: 01/17/24 14:53 - History of Present Illness Initial comments: Patient is a 73-year-old female presented to ER with chief complaint of right le g pain. Family states past couple days they have noticed a bump or swelling on her right calf. Patient does wear a brace due to a previous stroke. Denies any known traumas or history of blood clots. (Dee Cornejo) This is a 73-year-old female brought in by family with chief complaint of right lower leg pain. Pain started today. Family states that there appears to be s ome type of bump or swelling to the lateral portion of the right calf. Patient wears a brace on this leg due to the aftereffects of a previous stroke. No injury or trauma. No history of blood clots. No chest pain or difficulty breathing. No numbness or tingling. No discoloration. Patient states that her pain level is good at this time (José Alfaro) - Related Data Home Medications Medication Instructions Recorded Confirmed Atorvastatin [Lipitor] 10 mg PO HS 03/06/17 12/02/21 Clopidogrel [Plavix] 75 mg PO DAILY 03/06/17 12/02/21 Ferrous Sulfate [Iron (65 MG 325 mg PO DAILY 03/06/17 12/02/21 Elemental)] Metoprolol Tartrate 25 mg PO BID 03/06/17 12/02/21 Montelukast [Singulair] 10 mg PO DAILY 03/06/17 12/02/21 Multivitamins, Thera [Multivitamin 1 tab PO DAILY 03/06/17 12/02/21 (formulary)] Potassium Chloride [Klor-Con 20] 20 meq PO DAILY 03/06/17 12/02/21 amLODIPine [Norvasc] 5 mg PO BID 03/06/17 12/02/21 Aspirin EC [Ecotrin Low Dose] 81 mg PO HS 04/04/21 12/02/21 Donepezil [Aricept] 5 mg PO HS 04/04/21 12/02/21 Ascorbic Acid [Vitamin C] 1,000 mg PO DAILY 11/26/21 12/02/21 Albuterol Inhaler [Ventolin Hfa 2 puff INHALATION RT-Q4H PRN 12/02/21 12/02/21 Inhaler] Cholecalciferol [Vitamin D3 (25 50 mcg PO DAILY 12/02/21 12/02/21 Mcg = 1000 Iu)] Zinc 50 mg PO DAILY 12/02/21 12/02/21 Previous Rx's Medication Instructions Recorded Benzonatate [Tessalon Perles] 200 mg PO TID PRN #30 capsule 11/26/21 Doxycycline [Vibramycin] 100 mg PO BID 7 Days #14 capsule 12/05/21 Furosemide [Lasix] 20 mg PO BID #0 12/05/21 Linagliptin [Tradjenta] 5 mg PO DAILY #30 tab 12/05/21 Allergies Allergy/AdvReac Type Severity Reaction Status Date / Time No Known Allergies Allergy Verified 12/02/21 18:48 Review of Systems ROS Other: All systems not noted in ROS Statement are negative. <Dee Cornejo - Last Filed: 01/17/24 14:53> ROS Other: All systems not noted in ROS Statement are negative. <José Alfaro - Last Filed: 01/18/24 05:15> ROS Statement: Those systems with pertinent positive or pertinent negative responses have been documented in the HPI. Past Medical History Past Medical History: Asthma, CVA/TIA, Dementia, Diabetes Mellitus, Hyperl ipidemia, Hypertension Additional Past Medical History / Comment(s): rt sided weakness post cva uses cane rt arm contracted History of Any Multi-Drug Resistant Organisms: None Reported Past Surgical History: Cholecystectomy, Hysterectomy Additional Past Surgical History / Comment(s): right femoral artery bypass Past Anesthesia/Blood Transfusion Reactions: No Reported Reaction Additional Past Anesthesia/Blood Transfusion Reaction / Comment(s): has had a blood transfusion, with no reaction Past Psychological History: No Psychological Hx Reported Smoking Status: Former smoker Past Alcohol Use History: None Reported Past Drug Use History: None Reported - Past Family History Mother Family Medical History: No Reported History <Dee Cornejo - Last Filed: 01/17/24 14:53> General Exam <Dee Cornejo - Last Filed: 01/17/24 14:53> General appearance: alert, in no apparent distress Head exam: Present: atraumatic, normocephalic Eye exam: Present: normal appearance Neck exam: Present: normal inspection Respiratory exam: Absent: respiratory distress Cardiovascular Exam: Present: regular rate Right Lower Leg exam: Present: normal inspection. Absent: tenderness, swelling, abrasion, ecchymosis, deformity, crepitus, erythema, Homans' sign Neurovascular tendon exam: Present: no vascular compromise Neurological exam: Present: alert (Seems to be a bit pleasantly confused) Psychiatric exam: Present: normal affect, normal mood Skin exam: Present: warm, dry <José Alfaro - Last Filed: 01/18/24 05:15> - General Exam Comments Initial Comments: Visual Physical Exam Vital signs reviewed General: Well-appearing, nontoxic, no acute distress. Head: Normocephalic, atraumatic Eyes: PERRLA, EOMI ENT: Airway patent Chest: Nonlabored breathing Skin: No visual rash, normal skin tone Neuro: Alert and oriented 3 Musculoskeletal: No gross abnormalities (Dee Cornejo) Course Vital Signs 01/17/24 01/17/24 14:52 22:44 Temperature 98.3 F Pulse Rate 62 62 Respiratory 16 16 Rate Blood Pressure 150/66 104/45 O2 Sat by Pulse 97 98 Oximetry Medical Decision Making <Dee Cornejo - Last Filed: 01/17/24 14:53> - Lab Data Result diagrams: 01/17/24 21:45 01/17/24 19:42 <José Alfaro - Last Filed: 01/18/24 05:15> - Medical Decision Making I performed the quick note portion of this chart. Electronically signed by Dee Cornejo PA-C (Dee Cornejo) Was pt. sent in by a medical professional or institution ([facility] Taylor, [employer], urgent care, hospital, or half-way...) When possible be specific @ -No Did you speak to anyone other than the patient for history (EMS, parent, family, police, friend...)? What history was obtained from this source @ -Spoke with family Did you review nursing and triage notes (agree or disagree)? Why? @ -I reviewed and agree with nursing and triage notes Were old charts reviewed (outside hosp., previous admission, EMS record, old EKG, old radiological studies, urgent care reports/EKG's, half-way records)? Report findings @ -No old charts were reviewed Differential Diagnosis (chest pain, altered mental status, abdominal pain women, abdominal pain men, vaginal bleeding, weakness, fever, dyspnea, syncope, headache, dizziness, GI bleed, back pain, seizure, CVA, palpatations, mental health, musculoskeletal)? @ -Differential Musculoskeletal Muscular strain, contusion, ligament sprain, fracture, arthritis, septic arthritis, bursitis, cellulitis, muscle spasm, nerve compression, DVT, arterial occlusion, herpes zoster, electrolyte abnormality, tumor.... This is not meant to be in all inclusive list EKG interpreted by me (3pts min.). @ -As above X-rays interpreted by me (1pt min.). @ -Knee x-ray shows no acute osseous pathology. Moderate tricompartmental osteoarthritic changes CT interpreted by me (1pt min.). @ -None done U/S interpreted by me (1pt. min.). @ -Ultrasound shows no evidence for DVT What testing was considered but not performed or refused? (CT, X-rays, U/S, labs)? Why? @ -None What meds were considered but not given or refused? Why? @ -None Did you discuss the management of the patient with other professionals (professionals i.e. , PA, [employer], lab, RT, psych nurse, child welfare social worker, deposition reporter, teacher, title officer, case management coordinator)? Give summary @ -No Was smoking cessation discussed for >3mins.? @ -No Was critical care preformed (if so, how long)? @ -No Were there social determinants of health that impacted care today? How? (Homelessness, low income, unemployed, alcoholism, drug addiction, transportation, low edu. Level, literacy, decrease access to med. care, prison, rehab)? @ -No Was there de-escalation of care discussed even if they declined (Discuss DNR or withdrawal of care, Hospice)? DNR status @ -No What co-morbidities impacted this encounter? (DM, HTN, Smoking, COPD, CAD, Cancer, CVA, ARF, Chemo, Hep., AIDS, mental health diagnosis, sleep apnea, morbid obesity)? @ -None Was patient admitted / discharged? Hospital course, mention meds given and route, prescriptions, significant lab abnormalities, going to OR and other pertinent info. @ -73-year-old female presenting with chief complaint of right lower leg pain. Patient is brought in by her family. Workup is initiated by triage. Patient has a ultrasound that is negative for DVT and x-ray that shows no acute osseous pathology. I evaluate the patient in the waiting room, she is neurovascularly intact. I do not appreciate any swelling to the lower leg. Patient is later placed in a room. Basic labs are drawn. Magnesium 2.4. BUN and creatinine are consistent with her baseline. Glucose 69, on reassessment it has improved to 133 after some food. Patient is resting showing no acute signs of distress. She is discharged home. Follow-up with PCP. Report back to ER with any new or worsening symptoms. Discussed return parameters and answered all questions. Patient conveyed verbal understanding and agreed to the plan. I discussed this case in detail with my attending Dr. Julian Undiagnosed new problem with uncertain prognosis? @ -No Drug Therapy requiring intensive monitoring for toxicity (Heparin, Nitro, Insulin, Cardizem)? @ -No Were any procedures done? @ -No Diagnosis/symptom? @ -Lower leg pain Acute, or Chronic, or Acute on Chronic? @ -Acute Uncomplicated (without systemic symptoms) or Complicated (systemic symptoms)? @ -Uncomplicated Side effects of treatment? @ -No Exacerbation, Progression, or Severe Exacerbation? @ -No Poses a threat to life or bodily function? How? (Chest pain, USA, NH, pneumonia, PE, COPD, DKA, ARF, appy, cholecystitis, CVA, Diverticulitis, Homicidal, Suicidal, threat to staff... and all critical care pts) @ -No (José Alfaro) - Lab Data Lab Results 01/17/24 01/17/24 01/17/24 Range/Units 19:42 21:45 21:54 WBC 9.8 (3.8-10.6) k/uL RBC 3.45 L (3.80-5.40) m/uL Hgb 11.0 L (11.4-16.0) gm/dL Hct 32.9 L (34.0-46.0) % MCV 95.3 (80.0-100.0) fL MCH 31.8 (25.0-35.0) pg MCHC 33.4 (31.0-37.0) g/dL RDW 13.6 (11.5-15.5) % Plt Count 216 (150-450) k/uL MPV 11.0 Neutrophils % 70 % Lymphocytes % 19 % Monocytes % 7 % Eosinophils % 2 % Basophils % 0 % Neutrophils # 6.9 (1.3-7.7) k/uL Lymphocytes # 1.9 (1.0-4.8) k/uL Monocytes # 0.7 (0-1.0) k/uL Eosinophils # 0.2 (0-0.7) k/uL Basophils # 0.0 (0-0.2) k/uL Sodium 141 (137-145) mmol/L Potassium 4.5 (3.5-5.1) mmol/L Chloride 108 H (98-107) mmol/L Carbon Dioxide 28 (22-30) mmol/L Anion Gap 5 mmol/L BUN 34 H (7-17) mg/dL Creatinine 1.90 H (0.52-1.04) mg/dL Est GFR (CKD-EPI)AfAm 30 (>60 ml/min/1.73 sqM) Est GFR (CKD-EPI)NonAf 26 (>60 ml/min/1.73 sqM) Glucose 69 L (74-99) mg/dL POC Glucose (mg/dL) 133 H (70-110) mg/dL POC Glu Safety Director ID Quita Wise Calcium 9.4 (8.4-10.2) mg/dL Magnesium 2.4 H (1.6-2.3) mg/dL Disposition <Dee Cornejo - Last Filed: 01/17/24 14:53> Is patient prescribed a controlled substance at d/c from ED?: No Time of Disposition: 22:03 <José Alfaro - Last Filed: 01/18/24 05:15> Clinical Impression: Calf pain Disposition: HOME SELF-CARE Condition: Good Instructions (If sedation given, give patient instructions): Leg Pain (ED) Additional Instructions: Follow-up with PCP. Report back to ER with any new or worsening symptoms. Take Tylenol as needed for pain control. Referrals: Adiel Pisano MD [Primary Care Provider] - 1-2 days
[2024-01-17 14:57] VITALS: PULSE 62; RESP 16; TEMP 98.3
--- NOTE | 2024-01-17 15:40 | XR ---
EXAMINATION TYPE: XR knee complete RT DATE OF EXAM: 01/17/2024 3:36 PM CLINICAL INDICATION:Female, 73 years old with history of pain; [facility] COMPARISON: None. TECHNIQUE: XR knee complete RT; examined in Frontal, lateral and oblique projections. FINDINGS: No evidence of any acute osseous pathology, soft tissue swelling, or joint effusion is no jose. Tricompartmental osteophyte formation involving the femoral condyles, tibial plateau and patella . Mild joint space narrowing. Surgical clips present throughout the posterior leg. Atherosclerosis of the arterial vasculature. IMPRESSION: 1. No acute osseous pathology. 2. Moderate tricompartmental osteoarthritic changes.
--- NOTE | 2024-01-17 16:50 | US ---
EXAMINATION TYPE: US venous doppler duplex LE RT DATE OF EXAM: 01/17/2024 4:03 PM COMPARISON: 12/03/2021 CLINICAL INDICATION: Female, 73 years old with history of calf swelling; Left leg swelling per family . SIDE PERFORMED: Left TECHNIQUE: The lower extremity deep venous system is examined utilizing real time linear array sonog karlene with graded compression, doppler sonography and color-flow sonography. VESSELS IMAGED: Common Femoral Vein Deep Femoral Vein Greater Saphenous Vein * Femoral Vein Popliteal Vein Small Saphenous Vein * Proximal Calf Veins (* superficial vessels) Left Leg: Limited exam, unable to visualize GSV due to arterial shadowing. Appears negative for DVT . Grayscale, color doppler, spectral doppler imaging performed of the deep veins of the lower extremi ties. There is normal flow, compressibility, vascular waveforms. IMPRESSION: No evidence for deep vein thrombosis.
[2024-01-17] MEDS: ACETAMINOPHEN TAB 325 MG TAB PO STA (17:59)
[2024-01-17] MEDS: CYCLOBENZAPRINE 5 MG TAB PO STA (17:59)
[2024-01-17 20:56] LABS: African American GFR (CKD) 30 (>60 ml/min/1.73 sqM); Anion Gap 5 mmol/L; Blood Urea Nitrogen 34 mg/dL (7-17); Calcium 9.4 mg/dL (8.4-10.2); Carbon Dioxide 28 mmol/L (22-30); Chloride 108 mmol/L (98-107); Glucose 69 mg/dL (74-99); Magnesium 2.4 mg/dL (1.6-2.3); Non-African American GFR(CKD) 26 (>60 ml/min/1.73 sqM); Potassium 4.5 mmol/L (3.5-5.1); Sodium 141 mmol/L (137-145)
[2024-01-17] MEDS: SODIUM CHLORIDE 0.9% 1,000 ML IV ONE (21:00)
[2024-01-17 21:56] LABS: Glucose,Whole Blood 133 mg/dL (70-110)
[2024-01-17 22:05] LABS: Basophils % (A) 0 %; Eosinophils # (A) 0.2 k/uL (0-0.7); Eosinophils % (A) 2 %; HCT 32.9 % (34.0-46.0); Lymphocytes # (A) 1.9 k/uL (1.0-4.8); Lymphocytes % (A) 19 %; MCH 31.8 pg (25.0-35.0); MCHC 33.4 g/dL (31.0-37.0); MCV 95.3 fL (80.0-100.0); Monocytes # (A) 0.7 k/uL (0-1.0); Monocytes % (A) 7 %; Neutrophils # (A) 6.9 k/uL (1.3-7.7); Neutrophils % (A) 70 %; Platelet Count 216 k/uL (150-450); RBC 3.45 m/uL (3.80-5.40); RDW 13.6 % (11.5-15.5); WBC 9.8 k/uL (3.8-10.6)
[2024-01-18 00:04] VITALS: BP 104/45
== END 2024-01-17 22:44 | disposition home or self-care (01) ==
LOC: EC 14:38
DX: M79.661 Pain in right lower leg (principal); E11.9 Type 2 diabetes mellitus without complications; I10 Essential (primary) hypertension; J45.909 Unspecified asthma, uncomplicated; F03.90 Unspecified dementia, unspecified severity, without behavioral disturbance, psychotic disturbance, mood disturbance, and anxiety; E78.5 Hyperlipidemia, unspecified; Z79.02 Long term (current) use of antithrombotics/antiplatelets; Z79.82 Long term (current) use of aspirin; Z79.899 Other long term (current) drug therapy; Z86.73 Personal history of transient ischemic attack (TIA), and cerebral infarction without residual deficits; Z87.891 Personal history of nicotine dependence
CPT/HCPCS: 36415; 80048; 83735; 85025; 99284

== ENCOUNTER 2024-11-06 09:57 | Inpatient (IN) | payer MEDICARE, OTHER ==
--- NOTE | 2024-11-06 10:16 | ED ---
General Adult HPI - General Chief complaint: Shortness of Breath Stated complaint: RAVI Time Seen by Provider: 11/06/24 10:00 Source: patient, EMS, RN notes reviewed, old records reviewed Mode of arrival: EMS Limitations: altered mental status - History of Present Illness Initial comments: This is a 73-year-old female who presents to the emergency department from her [facility]. She is normally alert and oriented x 1 so all the history comes from the paramedics. Patient was brought in because she was diagnosed with COVID yesterday and now she has more difficulty breathing as of this morning and had to put her on oxygen. Patient also had a low-grade fever. There is no other history available at this time. - Related Data Home Medications Medication Instructions Recorded Confirmed Atorvastatin [Lipitor] 10 mg PO HS 03/06/17 12/02/21 Clopidogrel [Plavix] 75 mg PO DAILY 03/06/17 12/02/21 Ferrous Sulfate [Iron (65 MG 325 mg PO DAILY 03/06/17 12/02/21 Elemental)] Metoprolol Tartrate 25 mg PO BID 03/06/17 12/02/21 Montelukast [Singulair] 10 mg PO DAILY 03/06/17 12/02/21 Multivitamins, Thera [Multivitamin 1 tab PO DAILY 03/06/17 12/02/21 (formulary)] Potassium Chloride [Klor-Con 20] 20 meq PO DAILY 03/06/17 12/02/21 amLODIPine [Norvasc] 5 mg PO BID 03/06/17 12/02/21 Aspirin EC [Ecotrin Low Dose] 81 mg PO HS 04/04/21 12/02/21 Donepezil [Aricept] 5 mg PO HS 04/04/21 12/02/21 Ascorbic Acid [Vitamin C] 1,000 mg PO DAILY 11/26/21 12/02/21 Albuterol Inhaler [Ventolin Hfa 2 puff INHALATION RT-Q4H PRN 12/02/21 12/02/21 Inhaler] Cholecalciferol [Vitamin D3 (25 50 mcg PO DAILY 12/02/21 12/02/21 Mcg = 1000 Iu)] Zinc 50 mg PO DAILY 12/02/21 12/02/21 Previous Rx's Medication Instructions Recorded Benzonatate [Tessalon Perles] 200 mg PO TID PRN #30 capsule 11/26/21 Doxycycline [Vibramycin] 100 mg PO BID 7 Days #14 capsule 12/05/21 Furosemide [Lasix] 20 mg PO BID #0 12/05/21 Linagliptin [Tradjenta] 5 mg PO DAILY #30 tab 12/05/21 Allergies Allergy/AdvReac Type Severity Reaction Status Date / Time No Known Allergies Allergy Verified 12/02/21 18:48 Review of Systems ROS Statement: Those systems with pertinent positive or pertinent negative responses have been documented in the HPI. ROS Other: All systems not noted in ROS Statement are negative. Past Medical History Past Medical History: Asthma, CVA/TIA, Dementia, Diabetes Mellitus, Hyperlipidemia, Hypertension Additional Past Medical History / Comment(s): rt sided weakness post cva uses cane rt arm contracted History of Any Multi-Drug Resistant Organisms: None Reported Past Surgical History: Cholecystectomy, Hysterectomy Additional Past Surgical History / Comment(s): right femoral artery bypass Past Anesthesia/Blood Transfusion Reactions: No Reported Reaction Additional Past Anesthesia/Blood Transfusion Reaction / Comment(s): has had a blood transfusion, with no reaction Past Psychological History: No Psychological Hx Reported Smoking Status: Former smoker Past Alcohol Use History: None Reported Past Drug Use History: None Reported - Past Family History Mother Family Medical History: No Reported History General Exam - General Exam Comments Initial Comments: GENERAL: Patient is well-developed and well-nourished. Patient is nontoxic and well- hydrated and is in mild distress. ENT: Neck is soft and supple. No significant lymphadenopathy is noted. Oropharynx is clear. Moist mucous membranes. Neck has full range of motion without eliciting any pain. EYES: The sclera were anicteric and conjunctiva were pink and moist. Extraocular movements were intact and pupils were equal round and reactive to light. Eyelids were unremarkable. PULMONARY: Patient has crackles bilateral bases and expiratory wheezing CARDIOVASCULAR: Patient is tachycardic at about 110 bpm ABDOMEN: Soft and nontender with normal bowel sounds. SKIN: Skin is clear with no lesions or rashes and otherwise unremarkable. NEUROLOGIC: Patient is alert and oriented x 1. This we are told that is her baseline cranial nerves II through XII are grossly intact. Motor and sensory are also intact. MUSCULOSKELETAL: Normal extremities with adequate strength and full range of motion. No lower extremity swelling or edema. No calf tenderness. LYMPHATICS: No significant lymphadenopathy is noted PSYCHIATRIC: Normal psychiatric evaluation. Limitations: altered mental status Course Vital Signs 11/06/24 11/06/24 11/06/24 10:04 10:38 10:46 Temperature 100.7 F H Pulse Rate 121 H 117 H Respiratory 32 H 36 H 22 Rate Blood Pressure 159/85 O2 Sat by Pulse 97 Oximetry 11/06/24 11:01 Temperature Pulse Rate 112 H Respiratory 24 Rate Blood Pressure O2 Sat by Pulse Oximetry Medical Decision Making - Medical Decision Making EKG is interpreted by myself. EKG shows a sinus rhythm at 122 bpm QRS is 80 QT interval 315 QTc is 388. Patient's EKG shows no ST segment elevation or depression. Was pt. sent in by a medical professional or institution (, [facility]ISHMA, RETINAL ANGIOGRAPHER, urgent ca re, hospital, or prison...) When possible be specific @ -No Did you speak to anyone other than the patient for history (EMS, parent, family, police, friend...)? What history was obtained from this source @ -No Did you review nursing and triage notes (agree or disagree)? Why? @ -I reviewed and agree with nursing and triage notes Were old charts reviewed (outside hosp., previous admission, EMS record, old EKG, old radiological studies, urgent care reports/EKG's, prison records)? Report findings @ -No old charts were reviewed Differential Diagnosis? @ -Differential Dyspnea: Coronary syndrome, arrhythmia, tamponade, asthma, COPD, pulmonary embolism, pneumonia, pneumothorax, pulmonary effusion, anaphylaxis, diabetic ketoacidosis, flailed chest, pulmonary contusion, diaphragmatic rupture, anemia, neuromuscular, this is not meant to be an all-inclusive list. EKG interpreted by me (3pts min.). @ -As above X-rays interpreted by me (1pt min.). @ -Chest x-ray shows multifocal pneumonia CT interpreted by me (1pt min.). @ -None done U/S interpreted by me (1pt. min.). @ -None done What testing was considered but not performed or refused? (CT, X-rays, U/S, labs)? Why? @ -None What meds were considered but not given or refused? Why? @ -None Did you discuss the management of the patient with other professionals (professionals i.e. , KARISHMA, RETINAL ANGIOGRAPHER, lab, RT, psych nurse, social sciences professor, air compressor operator, teacher, home lending officer, classification case manager)? Give summary @ -I spoke with [facility] hospitalist and they agreed to admit the patient Was smoking cessation discussed for >3mins.? @ -No Was critical care preformed (if so, how long)? @ -No Were there social determinants of health that impacted care today? How? (Homelessness, low income, unemployed, alcoholism, drug addiction, transporta tion, low edu. Level, literacy, decrease access to med. care, residential, rehab)? @ -No Was there de-escalation of care discussed even if they declined (Discuss DNR or withdrawal of care, Hospice)? DNR status @ -No What co-morbidities impacted this encounter? (DM, HTN, Smoking, COPD, CAD, Cancer, CVA, ARF, Chemo, Hep., AIDS, mental health diagnosis, sleep apnea, morbid obesity)? @ -None Was patient admitted / discharged? Hospital course, mention meds given and route, prescriptions, significant lab abnormalities, going to OR and other pertinent info. @ -Patient was positive for COVID also had a mildly elevated troponin however patient chest x-ray showed diffuse multifocal pneumonia and a white count of 17,000 so patient was started on antibiotics. Patient was also given Decadron. Patient will be admitted to [facility] hospitalist with consult to pulmonary Undiagnosed new problem with uncertain prognosis? @ -No Drug Therapy requiring intensive monitoring for toxicity (Heparin, Nitro, I nsulin, Cardizem)? @ -No Were any procedures done? @ -No Diagnosis/symptom? @ -COVID Acute, or Chronic, or Acute on Chronic? @ -Acute Uncomplicated (without systemic symptoms) or Complicated (systemic symptoms)? @ -Complicated Side effects of treatment? @ -No Exacerbation, Progression, or Severe Exacerbation? @ -No Poses a threat to life or bodily function? How? (Chest pain, [place], [place], pneumonia, PE, COPD, DKA, ARF, appy, cholecystitis, CVA, Diverticulitis, Homicidal, Suicidal, threat to staff... and all critical care pts) @ -Yes this can lead to hypoxia and endorgan dysfunction Diagnosis/symptom? @ -Pneumonia Acute, or Chronic, or Acute on Chronic? @ -Acute Uncomplicated (without systemic symptoms) or Complicated (systemic symptoms)? @ -Complicated Side effects of treatment? @ -None Exacerbation, Progression, or Severe Exacerbation] @ -No Poses a threat to life or bodily function? @ -Yes this can lead to hypoxia and endorgan dysfunction - Lab Data Result diagrams: 11/06/24 10:24 11/06/24 10:24 Lab Results 11/06/24 11/06/24 11/06/24 Range/Units 10:24 10:24 10:24 WBC 17.2 H (3.8-10.6) k/uL RBC 3.58 L (3.80-5.40) m/uL Hgb 11.0 L D (11.4-16.0) gm/dL Hct 35.2 (34.0-46.0) % MCV 98.4 (80.0-100.0) fL MCH 30.8 (25.0-35.0) pg MCHC 31.3 (31.0-37.0) g/dL RDW 17.0 H (11.5-15.5) % Plt Count 348 (150-450) k/uL MPV 8.8 Neutrophils % 89 % Lymphocytes % 6 % Monocytes % 3 % Eosinophils % 0 % Basophils % 0 % Neutrophils # 15.4 H (1.3-7.7) k/uL Lymphocytes # 1.1 (1.0-4.8) k/uL Monocytes # 0.6 (0-1.0) k/uL Eosinophils # 0.1 (0-0.7) k/uL Basophils # 0.0 (0-0.2) k/uL Hypochromasia Moderate Anisocytosis Slight Macrocytosis Slight PT 13.5 H (10.0-12.5) sec INR 1.3 H (<1.2) APTT 23.0 (22.0-30.0) sec Sodium 140 (137-145) mmol/L Potassium 4.4 (3.5-5.1) mmol/L Chloride 107 (98-107) mmol/L Carbon Dioxide 23 (22-30) mmol/L Anion Gap 10 mmol/L BUN 16 (7-17) mg/dL Creatinine 1.54 H (0.52-1.04) mg/dL Est GFR (CKD-EPI)AfAm 38 (>60 ml/min/1.73 sqM) Est GFR (CKD-EPI)NonAf 33 (>60 ml/min/1.73 sqM) Glucose 275 H (74-99) mg/dL Plasma Lactic Acid Felix (0.7-2.0) mmol/L Calcium 8.8 (8.4-10.2) mg/dL Magnesium 1.7 (1.6-2.3) mg/dL Total Bilirubin 0.5 (0.2-1.3) mg/dL AST 28 (14-36) U/L ALT 12 (4-34) U/L Alkaline Phosphatase 60 (38-126) U/L Troponin I (0.000-0.034) ng/mL Total Protein 7.3 (6.3-8.2) g/dL Albumin 3.4 L (3.5-5.0) g/dL Influenza Type A (PCR) (Not Detectd) Influenza Type B (PCR) (Not Detectd) RSV (PCR) (Not Detectd) SARS-CoV-2 (PCR) (Not Detectd) 11/06/24 11/06/24 11/06/24 Range/Units 10:24 10:24 10:28 WBC (3.8-10.6) k/uL RBC (3.80-5.40) m/uL Hgb (11.4-16.0) gm/dL Hct (34.0-46.0) % MCV (80.0-100.0) fL MCH (25.0-35.0) pg MCHC (31.0-37.0) g/dL RDW (11.5-15.5) % Plt Count (150-450) k/uL MPV Neutrophils % % Lymphocytes % % Monocytes % % Eosinophils % % Basophils % % Neutrophils # (1.3-7.7) k/uL Lymphocytes # (1.0-4.8) k/uL Monocytes # (0-1.0) k/uL Eosinophils # (0-0.7) k/uL Basophils # (0-0.2) k/uL Hypochromasia Anisocytosis Macrocytosis PT (10.0-12.5) sec INR (<1.2) APTT (22.0-30.0) sec Sodium (137-145) mmol/L Potassium (3.5-5.1) mmol/L Chloride (98-107) mmol/L Carbon Dioxide (22-30) mmol/L Anion Gap mmol/L BUN (7-17) mg/dL Creatinine (0.52-1.04) mg/dL Est GFR (CKD-EPI)AfAm (>60 ml/min/1.73 sqM) Est GFR (CKD-EPI)NonAf (>60 ml/min/1.73 sqM) Glucose (74-99) mg/dL Plasma Lactic Acid Felix 2.3 H* (0.7-2.0) mmol/L Calcium (8.4-10.2) mg/dL Magnesium (1.6-2.3) mg/dL Total Bilirubin (0.2-1.3) mg/dL AST (14-36) U/L ALT (4-34) U/L Alkaline Phosphatase (38-126) U/L Troponin I 0.283 H* (0.000-0.034) ng/mL Total Protein (6.3-8.2) g/dL Albumin (3.5-5.0) g/dL Influenza Type A (PCR) Not Detected (Not Detectd) Influenza Type B (PCR) Not Detected (Not Detectd) RSV (PCR) Not Detected (Not Detectd) SARS-CoV-2 (PCR) Detected A (Not Detectd) Disposition Clinical Impression: COVID, Pneumonia, Elevated troponin Disposition: [facility] Referrals: Adiel Pisano MD [Primary Care Provider] - 1-2 days Time of Disposition: 11:32
[2024-11-06] MEDS: DEXAMETHASONE SOD PHOSPHATE 10 MG/ML 1 ML VIAL IVP STA (10:28)
[2024-11-06] MEDS: IPRATROPIUM-ALBUTEROL 3 ML NEB INHALATION STA (10:46)
[2024-11-06 10:49] LABS: INR 1.3 (<1.2); Prothrombin Time 13.5 sec (10.0-12.5)
[2024-11-06 10:53] LABS: ALT 12 U/L (4-34); AST 28 U/L (14-36); African American GFR (CKD) 38 (>60 ml/min/1.73 sqM); Albumin 3.4 g/dL (3.5-5.0); Alkaline Phosphatase 60 U/L (38-126); Anion Gap 10 mmol/L; Blood Urea Nitrogen 16 mg/dL (7-17); Calcium 8.8 mg/dL (8.4-10.2); Carbon Dioxide 23 mmol/L (22-30); Chloride 107 mmol/L (98-107); Glucose 275 mg/dL (74-99); Magnesium 1.7 mg/dL (1.6-2.3); Non-African American GFR(CKD) 33 (>60 ml/min/1.73 sqM); Potassium 4.4 mmol/L (3.5-5.1); Sodium 140 mmol/L (137-145); Total Bilirubin 0.5 mg/dL (0.2-1.3); Total Protein 7.3 g/dL (6.3-8.2)
[2024-11-06] MEDS: IBUPROFEN 600 MG TAB PO STA (10:53)
[2024-11-06] MEDS: ACETAMINOPHEN TAB 500 MG TAB PO STA (10:53)
[2024-11-06 10:57] LABS: Anisocytosis Slight; Basophils % (A) 0 %; Eosinophils # (A) 0.1 k/uL (0-0.7); Eosinophils % (A) 0 %; HCT 35.2 % (34.0-46.0); Hypochromasia Moderate; Lymphocytes # (A) 1.1 k/uL (1.0-4.8); Lymphocytes % (A) 6 %; MCH 30.8 pg (25.0-35.0); MCHC 31.3 g/dL (31.0-37.0); MCV 98.4 fL (80.0-100.0); Macrocytosis Slight; Mean Platelet Volume 8.8; Monocytes # (A) 0.6 k/uL (0-1.0); Monocytes % (A) 3 %; Neutrophils # (A) 15.4 k/uL (1.3-7.7); Neutrophils % (A) 89 %; Platelet Count 348 k/uL (150-450); RBC 3.58 m/uL (3.80-5.40); WBC 17.2 k/uL (3.8-10.6)
--- NOTE | 2024-11-06 11:15 | XR ---
EXAMINATION TYPE: XR chest 2V DATE OF EXAM: 11/06/2024 10:44 AM COMPARISON: Chest radiographs from 12/02/2021 CLINICAL INDICATION: Female, 73 years old with history of difficulty breathing; [facility] TECHNIQUE: XR chest 2V Frontal and lateral views of the chest. FINDINGS: Lungs/Pleura: Multifocal airspace opacities. No evidence of pneumothorax or pleural effusion. Pulmonary vascularity: Unremarkable. Heart/mediastinum: Cardiomediastinal silhouette is unremarkable. Musculoskeletal: No acute osseous pathology. IMPRESSION: Multifocal airspace opacities concerning for pneumonia. [facility], , 11/06/2024 11:13 AM
[2024-11-06] MEDS: IBUPROFEN IV 400 MG in SODIUM CHLORIDE 0.9% 100 ML IV ONE (11:22)
[2024-11-06] MEDS: ACETAMINOPHEN IV (For NPO) 1,000 MG in EMPTY BAG 1 BAG IVPB STA (11:23)
[2024-11-06] MEDS ORDERED: ALBUTEROL NEBULIZED 2.5 MG/3 ML INHALATION PRN (11:32)
[2024-11-06] MEDS ORDERED: PNEUMONIA PROTOCOL UTILIZED 1 EACH MISC PO PRN (11:32)
--- NOTE | 2024-11-06 12:27 | CT ---
EXAMINATION TYPE: CT brain wo con DATE OF EXAM: 11/06/2024 12:13 PM COMPARISON: None . CLINICAL INDICATION: Female, 73 years old with history of AMS, AMS TECHNIQUE: Brain: Axial CT images of the brain were obtained with coronal and sagittal reformats created and rev iewed. Contrast used: None. Oral contrast used: None. CT DLP: 1155.4 mGycm, Automated exposure control for dose reduction was used. FINDINGS: Brain: Extra-axial spaces: No abnormal extra-axial fluid collections. Ventricular system: Within normal limits Cerebral parenchyma: Left parietal/frontal lobe injury. No acute intraparenchymal hemorrhage or mass effect. The butler-white junction is well differentiated. Cerebellum: Unremarkable. Mass effect: No evidence of midline shift. Intracranial vasculature: Atherosclerotic calcifications of the intracranial vessels. Soft tissues: Normal. Calvarium/osseous structures: No depressed skull fracture. Paranasal sinuses and mastoid air cells: Mild scattered paranasal sinus disease. Visualized orbits: Orbital contents are intact. IMPRESSION: 1. No acute intracranial process. 2. Remote left parietal/frontal region injury with encephalomalacia. [facility], , 11/06/2024 12:25 PM
[2024-11-06] MEDS: cefTRIAXone IN SWFI 1,000 MG/10 ML SYRINGE IVP STA ×2 (12:29→12:30)
[2024-11-06] MEDS: AZITHROMYCIN 500 MG in SODIUM CHLORIDE 0.9% 250 ML IVPB STA (12:31)
[2024-11-06] MEDS ORDERED: ASCORBIC ACID 500 MG TAB PO SCH (14:15)
[2024-11-06 14:49] LABS: LDH 303 U/L (120-246)
[2024-11-06 15:17] LABS: NT-Pro-B-Type Natriuretic Pept 103000 pg/mL
[2024-11-06] MEDS ORDERED: HEPARIN SODIUM 1,000 UN/ML (10ML VL) IV PRN (15:38)
[2024-11-06] MEDS: ENOXAPARIN 30 MG/0.3 ML SYRINGE SQ SCH (15:52)
[2024-11-06] MEDS: HEPARIN SODIUM 1,000 UN/ML (10ML VL) IV ONE (16:05)
[2024-11-06] MEDS: HEPARIN SOD,PORK IN 0.45% NACL 25,000 UNIT in 0.45% NACL 1 250ML.BAG IV SCH (16:05)
[2024-11-06] MEDS: FUROSEMIDE 10 MG/ML 10 ML VIAL IV STA (16:06)
--- NOTE | 2024-11-06 16:34 | P.CNPUL ---
History of Present Illness Consult date: 11/06/24 Reason for consult: dyspnea, pneumonia History of present illness: This is a 73-year-old female patient who presented to the emergency department with diminished level of consciousness. The patient is normally alert and oriented x 1. No significant history is available. The patient was diagnosed having COVID-19 infection at the long term yesterday and she was developing worsening in breathing and she had also a drop in oxygenation and pulse ox and she has been placed on oxygen. She also had a low-grade fever. Based on that, the patient was brought into the hospital. The patient is currently on 3 L of oxygen by nasal cannula and this was brought up to 5 L to maintain saturation above 90%, current pulse ox 95%. She had a Tmax of 100.7 current temperature is at 99.2. She was in sinus tachycardia and she was quite tachypneic at time of arrival and breathing was short and labored and currently she is breathing more comfortably. The white cell count 17.2 with a hemoglobin 11 and platelet count of 348. The INR is at 1.3 with a PT of 13.5 with a PTT of 23. Sodium is at 140, bicarb is 23, BUN 16 with a creatinine of 1.54. Lactic acid level is at 2.3. Troponins at 0.2. LFTs are normal. COVID-19 testing was positive. Chest x-ray showed multifocal airspace opacities concerning for pneumonia and the patient has cardiomegaly and smaller lung volumes and elevation of the diaphragms bilaterally. CAT scan of the brain was also done in the emergency that showed remote left parietal/frontal infarct/encephalomalacia without any acute process. The patient accordingly was started on Decadron. She was started on Rocephin and Zithromax. Pulmonary consultation was requested accordingly.The patient is a long term resident. The patient has other comorbidities including previous history of CVA right-sided weakness, dementia, chronic kidney disease stage III chronic bronchial asthma the patient is a former smoker. She has hypertension hyperlipidemia diabetes mellitus type 2. Her last COVID-19 infection was back in November 2021 at that time the patient was hospitalized for the same problem. Past Medical History Past Medical History: Asthma, CVA/TIA, Dementia, Diabetes Mellitus, Hyperlipidemia, Hypertension Additional Past Medical History / Comment(s): rt sided weakness post cva uses cane rt arm contracted History of Any Multi-Drug Resistant Organisms: None Reported Past Surgical History: Cholecystectomy, Hysterectomy Additional Past Surgical History / Comment(s): right femoral artery bypass Past Anesthesia/Blood Transfusion Reactions: No Reported Reaction Additional Past Anesthesia/Blood Transfusion Reaction / Comment(s): has had a blood transfusion, with no reaction Past Psychological History: No Psychological Hx Reported Smoking Status: Former smoker Past Alcohol Use History: None Reported Past Drug Use History: None Reported - Past Family History Mother Family Medical History: No Reported History Medications and Allergies Home Medications Medication Instructions Recorded Confirmed Type Atorvastatin [Lipitor] 10 mg PO HS@2100 03/06/17 11/06/24 History Ferrous Sulfate [Iron (65 MG 325 mg PO DAILY@0800 03/06/17 11/06/24 History Elemental)] Montelukast [Singulair] 10 mg PO DAILY@0800 03/06/17 11/06/24 History Multivitamins, Thera [Multivitamin 1 tab PO DAILY@0800 03/06/17 11/06/24 History (formulary)] amLODIPine [Norvasc] 5 mg PO DAILY@0800 03/06/17 11/06/24 History Aspirin EC [Ecotrin Low Dose] 81 mg PO DAILY@0800 04/04/21 11/06/24 History Donepezil [Aricept] 5 mg PO HS@209904/04/21 11/06/24 History Ascorbic Acid [Vitamin C] 1,000 mg PO DAILY@0800 11/26/21 11/06/24 History Albuterol Inhaler [Ventolin Hfa 2 puff INHALATION RT-Q6H PRN 12/02/21 11/06/24 History Inhaler] Cholecalciferol [Vitamin D3 (25 50 mcg PO DAILY 12/02/21 11/06/24 History Mcg = 1000 Iu)] Acetaminophen [Tylenol] 650 mg PO Q4H PRN 11/06/24 11/06/24 History Ascorbic Acid [Vitamin C] 500 mg PO DIRECTED 11/06/24 11/06/24 History Glucerna Shake 237 ml PO BID@0800,1700 11/06/24 11/06/24 History Insulin Lispro See Protocol SQ ACHS 11/06/24 11/06/24 History Ipratropium-Albuterol Nebulize 3 ml INHALATION RT-QID@00,06,12,18 11/06/24 11/06/24 History [Duoneb 0.5 mg-3 mg/3 ml Soln] Loperamide HCl [Imodium A-D] 2 - 4 mg PO TID PRN MDD 8mg 11/06/24 11/06/24 History Magnesium Hydroxide [Milk of 7,200 mg PO DAILY PRN 11/06/24 11/06/24 History Magnesia Concentrate] Metoprolol Tartrate [Lopressor] 50 mg PO BID@0800,2100 11/06/24 11/06/24 History Na Phos,M-B/Na Phos,Di-Ba [Fleet 133 ml RECTAL DAILY PRN 11/06/24 11/06/24 History Adult] Pantoprazole [Protonix] 40 mg PO BID@0800,1700 11/06/24 11/06/24 History Zinc Sulfate [Orazinc] 220 mg PO DAILY 11/06/24 11/06/24 History bisacodyL 10 mg RECTAL DAILY PRN 11/06/24 11/06/24 History cefTRIAXone SODIUM [Ceftriaxone] 2 gm IV Q24H 11/06/24 11/06/24 History dexAMETHasone [Decadron] 4 mg PO DAILY@0800 11/06/24 11/06/24 History diphenhydrAMINE [Benadryl] 25 mg PO Q6H PRN 11/06/24 11/06/24 History metroNIDAZOLE [Flagyl] 500 mg PO TID@08,12,17 11/06/24 11/06/24 History polyethylene glycoL 3350 [Miralax] 17 gm PO DAILY PRN 11/06/24 11/06/24 History Allergies Allergy/AdvReac Type Severity Reaction Status Date / Time No Known Allergies Allergy Verified 11/06/24 13:33 Physical Exam Vitals: Vital Signs Temp Pulse Resp BP Pulse Ox 11/06/24 12:33 99.2 F 98 20 104/52 95 11/06/24 11:01 112 H 24 11/06/24 10:46 117 H 22 11/06/24 10:38 36 H 11/06/24 10:04 100.7 F H 121 H 32 H 159/85 97 Intake and Output 11/05/24 11/06/24 11/06/24 22:59 06:59 14:59 Other: Weight 72.575 kg GENERAL EXAM: Alert, very pleasant 71-year-old -[place] female, poor historian related to history of aphasia, but does not appear to be in any acute distress, currently on 5 L of oxygen pulse ox is 95%, comfortable in no apparent distress. HEAD: Normocephalic/atraumatic. EYES: Normal reaction of pupils, equal size. Conjunctiva pink, sclera white. NOSE: Clear with pink turbinates. THROAT: No erythema or exudates. NECK: No masses, no JVD, no thyroid enlargement, no adenopathy. CHEST: No chest wall deformity. Symmetrical expansion. LUNGS: Equal air entry with bibasilar crackles CVS: Regular rate and rhythm, normal S1 and S2, no gallops, no murmurs, no rubs ABDOMEN: Soft, nontender. No hepatosplenomegaly, normal bowel sounds, no guarding or rigidity. EXTREMITIES: No clubbing, no edema, no cyanosis, 2+ pulses and upper and lower extremities. MUSCULOSKELETAL: Muscle strength and tone normal. SPINE: No scoliosis or deformity SKIN: No rashes CENTRAL NERVOUS SYSTEM: Alert, patient is aphasic. right-sided weakness tone is normal in all 4 extremities. Results - Laboratory Findings CBC and BMP: 11/06/24 10:24 11/06/24 10:24 PT/INR, D-dimer PT 13.5 sec (10.0-12.5) H 11/06/24 10:24 INR 1.3 (<1.2) H 11/06/24 10:24 Abnormal lab findings: Abnormal Labs 11/06/24 11/06/24 11/06/24 10:24 10:24 10:24 WBC 17.2 H RBC 3.58 L Hgb 11.0 L D RDW 17.0 H Neutrophils # 15.4 H PT 13.5 H INR 1.3 H Creatinine 1.54 H Glucose 275 H Plasma Lactic Acid Felix Troponin I Albumin 3.4 L SARS-CoV-2 (PCR) 11/06/24 11/06/24 11/06/24 10:24 10:24 10:28 WBC RBC Hgb RDW Neutrophils # PT INR Creatinine Glucose Plasma Lactic Acid Felix 2.3 H* Troponin I 0.283 H* Albumin SARS-CoV-2 (PCR) Detected A - Diagnostic Findings Chest x-ray: image reviewed Assessment and Plan Plan: Acute hypoxic respiratory failure and patient currently on 5 L of oxygen by nasal cannula. The patient has a COVID-19 infection diagnosed within the past 24 hours. She has developed progressive dyspnea and hypoxemia at the long term and for that reason the patient was brought into the hospital for further evaluation. Chest x-ray shows multifocal patchy airspace disease. Could be related to COVID-19 infection although superinfection with bacteria cannot be completely ruled out. She had a similar COVID-19 pneumonia requiring hospitalization back in 12/02/2021.Also rule out a component of decompensated heart failure. Shortness of breath secondary to above History of CVA with right-sided weakness and right arm contractures and the patient is aphasic Hypertension Hypertensive heart disease Chronic stage III kidney disease Dementia Chronic bronchial asthma Diabetes mellitus type 2 prison resident Plan Titrate oxygen flow to maintain saturation above 90%, currently on 5 L of oxygen by nasal cannula Continue Decadron 6 mg IV every 24 hours Check procalcitonin levels Check D-dimers Lovenox 40 mg subcu for DVT prophylaxis Lasix 40 mg IV every 12 hours Obtain echocardiogram Check procalcitonin level Check proBNP level Check D-dimers Check LDH Resume home medications Continue follow her clinical course
[2024-11-06] MEDS: PANTOPRAZOLE 40 MG TABLET PO SCH (16:51)
[2024-11-06] MEDS ORDERED: NON FORMULARY DRUG (Glucerna Shake 1 CAN Ml) PO SCH (17:00)
[2024-11-06 17:13] LABS: Anisocytosis Slight; Basophils % (A) 0 %; Eosinophils # (A) 0.1 k/uL (0-0.7); Eosinophils % (A) 0 %; HCT 31.3 % (34.0-46.0); HGB 9.7 gm/dL (11.4-16.0); Hypochromasia Marked; Lymphocytes # (A) 0.6 k/uL (1.0-4.8); Lymphocytes % (A) 3 %; MCH 30.7 pg (25.0-35.0); MCHC 31.2 g/dL (31.0-37.0); MCV 98.5 fL (80.0-100.0); Macrocytosis Slight; Mean Platelet Volume 8.5; Monocytes # (A) 0.4 k/uL (0-1.0); Monocytes % (A) 2 %; Neutrophils # (A) 21.5 k/uL (1.3-7.7); Neutrophils % (A) 95 %; Platelet Count 306 k/uL (150-450); RBC 3.17 m/uL (3.80-5.40); RDW 16.9 % (11.5-15.5); WBC 22.7 k/uL (3.8-10.6)
[2024-11-06 17:27] LABS: INR 1.3 (<1.2); Prothrombin Time 13.8 sec (10.0-12.5)
--- NOTE | 2024-11-06 17:44 | P.HPIM ---
History of Present Illness H&P Date: 11/06/24 Chief Complaint: Shortness of breath 73-year-old female who presents to the emergency department from her custodial. She is normally alert and oriented x 1 so all the history comes from the paramedics. Patient was brought in because she was diagnosed with COVID yesterday and now she has more difficulty breathing as of this morning and had to put her on oxygen. Patient also had a low-grade fever. There is no other history available at this time. The patient is currently on 3 L of oxygen by nasal cannula and this was brought up to 5 L to maintain saturation above 90%, current pulse ox 95%. She had a Tmax of 100.7 current temperature is at 99.2. She was in sinus tachycardia and she was quite tachypneic at time of arrival and breathing was short and labored and currently she is breathing more comfortably. The white cell count 17.2 with a hemoglobin 11 and platelet count of 348. The INR is at 1.3 with a PT of 13.5 with a PTT of 23. Sodium is at 140, bicarb is 23, BUN 16 with a creatinine of 1.54. Lactic acid level is at 2.3. Troponins at 0.2. LFTs are normal. COVID- 19 testing was positive. Chest x-ray showed multifocal airspace opacities concerning for pneumonia and the patient has cardiomegaly and smaller lung volumes and elevation of the diaphragms bilaterally. CAT scan of the brain was also done in the emergency that showed remote left parietal/frontal infarct/encephalomalacia without any acute process. The patient accordingly was started on Decadron. She was started on Rocephin and Zithromax. Pulmonary consultation was requested Review of Systems REVIEW OF SYSTEMS: CONSTITUTIONAL: No fever, no malaise, no fatigue. HEENT: No recent visual problems or hearing problems. Denied any sore throat. CARDIOVASCULAR: No chest pain, orthopnea, PND, no palpitations, no syncope. PULMONARY: No shortness of breath, no cough, no hemoptysis. GASTROINTESTINAL: No diarrhea, no nausea, no vomiting, no abdominal pain. NEUROLOGICAL: No headaches, no weakness, no numbness. HEMATOLOGICAL: Denies any bleeding or petechiae. GENITOURINARY: Denies any burning micturition, frequency, or urgency. MUSCULOSKELETAL/RHEUMATOLOGICAL: Denies any joint pain, swelling, or any muscle pain. ENDOCRINE: Denies any polyuria or polydipsia. The rest of the 14-point review of systems is negative. Past Medical History Past Medical History: Asthma, CVA/TIA, Dementia, Diabetes Mellitus, Hyperlipidemia, Hypertension Additional Past Medical History / Comment(s): rt sided weakness post cva uses cane rt arm contracted History of Any Multi-Drug Resistant Organisms: None Reported Past Surgical History: Cholecystectomy, Hysterectomy Additional Past Surgical History / Comment(s): right femoral artery bypass Past Anesthesia/Blood Transfusion Reactions: No Reported Reaction Additional Past Anesthesia/Blood Transfusion Reaction / Comment(s): has had a blood transfusion, with no reaction Past Psychological History: No Psychological Hx Reported Smoking Status: Former smoker Past Alcohol Use History: None Reported Past Drug Use History: None Reported - Past Family History Mother Family Medical History: No Reported History Medications and Allergies Home Medications Medication Instructions Recorded Confirmed Type Atorvastatin [Lipitor] 10 mg PO HS@2100 03/06/17 11/06/24 History Ferrous Sulfate [Iron (65 MG 325 mg PO DAILY@0800 03/06/17 11/06/24 History Elemental)] Montelukast [Singulair] 10 mg PO DAILY@0800 03/06/17 11/06/24 History Multivitamins, Thera [Multivitamin 1 tab PO DAILY@0800 03/06/17 11/06/24 History (formulary)] amLODIPine [Norvasc] 5 mg PO DAILY@0800 03/06/17 11/06/24 History Aspirin EC [Ecotrin Low Dose] 81 mg PO DAILY@0800 04/04/21 11/06/24 History Donepezil [Aricept] 5 mg PO HS@2100 04/04/21 11/06/24 History Ascorbic Acid [Vitamin C] 1,000 mg PO DAILY@0800 11/26/21 11/06/24 History Albuterol Inhaler [Ventolin Hfa 2 puff INHALATION RT-Q6H PRN 12/02/21 11/06/24 History Inhaler] Cholecalciferol [Vitamin D3 (25 50 mcg PO DAILY 12/02/21 11/06/24 History Mcg = 1000 Iu)] Acetaminophen [Tylenol] 650 mg PO Q4H PRN 11/06/24 11/06/24 History Ascorbic Acid [Vitamin C] 500 mg PO DIRECTED 11/06/24 11/06/24 History Glucerna Shake 237 ml PO BID@0800,1700 11/06/24 11/06/24 History Insulin Lispro See Protocol SQ ACHS 11/06/24 11/06/24 History Ipratropium-Albuterol Nebulize 3 ml INHALATION RT-QID@00,06,12,18 11/06/24 11/06/24 History [Duoneb 0.5 mg-3 mg/3 ml Soln] Loperamide HCl [Imodium A-D] 2 - 4 mg PO TID PRN MDD 8mg 11/06/24 11/06/24 Hi story Magnesium Hydroxide [Milk of 7,200 mg PO DAILY PRN 11/06/24 11/06/24 History Magnesia Concentrate] Metoprolol Tartrate [Lopressor] 50 mg PO BID@0800,2100 11/06/24 11/06/24 History Na Phos,M-B/Na Phos,Di-Ba [Fleet 133 ml RECTAL DAILY PRN 11/06/24 11/06/24 History Adult] Pantoprazole [Protonix] 40 mg PO BID@0800,1700 11/06/24 11/06/24 History Zinc Sulfate [Orazinc] 220 mg PO DAILY 11/06/24 11/06/24 History bisacodyL 10 mg RECTAL DAILY PRN 11/06/24 11/06/24 History cefTRIAXone SODIUM [Ceftriaxone] 2 gm IV Q24H 11/06/24 11/06/24 History dexAMETHasone [Decadron] 4 mg PO DAILY@0800 11/06/24 11/06/24 History diphenhydrAMINE [Benadryl] 25 mg PO Q6H PRN 11/06/24 11/06/24 History metroNIDAZOLE [Flagyl] 500 mg PO TID@08,12,17 11/06/24 11/06/24 History polyethylene glycoL 3350 [Miralax] 17 gm PO DAILY PRN 11/06/24 11/06/24 History Allergies Allergy/AdvReac Type Severity Reaction Status Date / Time No Known Allergies Allergy Verified 11/06/24 13:33 Physical Exam Vitals: Vital Signs Temp Pulse Resp BP Pulse Ox 11/06/24 14:23 86 28 H 103/56 97 11/06/24 12:33 99.2 F 98 20 104/52 95 11/06/24 11:01 112 H 24 11/06/24 10:46 117 H 22 11/06/24 10:38 36 H 11/06/24 10:04 100.7 F H 121 H 32 H 159/85 97 Intake and Output 11/06/24 11/06/24 11/06/24 06:59 14:59 22:59 Other: Weight 72.575 kg GENERAL EXAM: Alert, very pleasant 71-year-old -[place] female, poor historian related to history of aphasia, but does not appear to be in any acute distress, currently on 5 L of oxygen pulse ox is 95%, comfortable in no apparent distress. HEAD: Normocephalic/atraumatic. EYES: Normal reaction of pupils, equal size. Conjunctiva pink, sclera white. THROAT: No erythema or exudates. NECK: No masses, no JVD, no thyroid enlargement, no adenopathy. CHEST: No chest wall deformity. Symmetrical expansion. LUNGS: Equal air entry with bibasilar crackles CVS: Regular rate and rhythm, normal S1 and S2, no gallops, no murmurs, no rubs ABDOMEN: Soft, nontender. No hepatosplenomegaly, normal bowel sounds, no guarding or rigidity. EXTREMITIES: No clubbing, no edema, no cyanosis, 2+ pulses and upper and lower extremities. MUSCULOSKELETAL: Muscle strength and tone normal. SKIN: No rashes Results CBC & Chem 7: 11/06/24 16:31 11/06/24 10:24 Labs: Abnormal Lab Results - Last 24 Hours (Table) 11/06/24 11/06/24 11/06/24 Range/Units 10:24 10:24 10:24 WBC 17.2 H (3.8-10.6) k/uL RBC 3.58 L (3.80-5.40) m/uL Hgb 11.0 L D (11.4-16.0) gm/dL Hct (34.0-46.0) % RDW 17.0 H (11.5-15.5) % Neutrophils # 15.4 H (1.3-7.7) k/uL Lymphocytes # (1.0-4.8) k/uL PT 13.5 H (10.0-12.5) sec INR 1.3 H (<1.2) D-Dimer (<0.60) mg/L FEU Creatinine 1.54 H (0.52-1.04) mg/dL Glucose 275 H (74-99) mg/dL Plasma Lactic Acid Felix (0.7-2.0) mmol/L Lactate Dehydrogenase (120-246) U/L Troponin I (0.000-0.034) ng/mL Albumin 3.4 L (3.5-5.0) g/dL SARS-CoV-2 (PCR) (Not Detectd) 11/06/24 11/06/24 11/06/24 Range/Units 10:24 10:24 10:28 WBC (3.8-10.6) k/uL RBC (3.80-5.40) m/uL Hgb (11.4-16.0) gm/dL Hct (34.0-46.0) % RDW (11.5-15.5) % Neutrophils # (1.3-7.7) k/uL Lymphocytes # (1.0-4.8) k/uL PT (10.0-12.5) sec INR (<1.2) D-Dimer (<0.60) mg/L FEU Creatinine (0.52-1.04) mg/dL Glucose (74-99) mg/dL Plasma Lactic Acid Felix 2.3 H* (0.7-2.0) mmol/L Lactate Dehydrogenase (120-246) U/L Troponin I 0.283 H* (0.000-0.034) ng/mL Albumin (3.5-5.0) g/dL SARS-CoV-2 (PCR) Detected A (Not Detectd) 11/06/24 11/06/24 11/06/24 Range/Units 14:09 14:09 14:09 WBC (3.8-10.6) k/uL RBC (3.80-5.40) m/uL Hgb (11.4-16.0) gm/dL Hct (34.0-46.0) % RDW (11.5-15.5) % Neutrophils # (1.3-7.7) k/uL Lymphocytes # (1.0-4.8) k/uL PT (10.0-12.5) sec INR (<1.2) D-Dimer 1.59 H (<0.60) mg/L FEU Creatinine (0.52-1.04) mg/dL Glucose (74-99) mg/dL Plasma Lactic Acid Felix 2.2 H* (0.7-2.0) mmol/L Lactate Dehydrogenase (120-246) U/L Troponin I 1.640 H* (0.000-0.034) ng/mL Albumin (3.5-5.0) g/dL SARS-CoV-2 (PCR) (Not Detectd) 11/06/24 11/06/24 11/06/24 Range/Units 14:09 16:31 16:31 WBC 22.7 H (3.8-10.6) k/uL RBC 3.17 L (3.80-5.40) m/uL Hgb 9.7 L (11.4-16.0) gm/dL Hct 31.3 L (34.0-46.0) % RDW 16.9 H (11.5-15.5) % Neutrophils # 21.5 H (1.3-7.7) k/uL Lymphocytes # 0.6 L (1.0-4.8) k/uL PT 13.8 H (10.0-12.5) sec INR 1.3 H (<1.2) D-Dimer (<0.60) mg/L FEU Creatinine (0.52-1.04) mg/dL Glucose (74-99) mg/dL Plasma Lactic Acid Felix (0.7-2.0) mmol/L Lactate Dehydrogenase 303 H (120-246) U/L Troponin I (0.000-0.034) ng/mL Albumin (3.5-5.0) g/dL SARS-CoV-2 (PCR) (Not Detectd) Assessment and Plan Assessment: Acute hypoxic respiratory failure and patient currently on 5 L of oxygen by nasal cannula. The patient has a COVID-19 infection diagnosed within the past 24 hours. She has developed progressive dyspnea and hypoxemia at the custodial and for that reason the patient was brought into the hospital for further evaluation. Chest x-ray shows multifocal patchy airspace disease. Could be related to COVID-19 infection although superinfection with bacteria cannot be completely ruled out. She had a similar COVID-19 pneumonia requiring hospitalization back in 12/02/2021.Also rule out a component of decompensated heart failure. 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
--- NOTE | 2024-11-06 17:48 | P.CRDCN ---
History of Present Illness Consult date: 11/06/24 History of present illness: HISTORY OF PRESENTING ILLNESS 73-year-old female who has a prior history of CVA with right-sided weakness hemiparesis, aphasia, dementia, group home resident. She is not able to provide any history and most of the history is obtained from the medical charts. Patient was diagnosed with COVID-19 infection at the group home yesterday when she started developing increased worsening respiratory distress along with hypoxemia with dropping her pulse oximeter. She was also having low-grade fever. Due to this she was brought to the hospital. On admission she was on 5 L oxygen saturating above 90%, febrile with Tmax of 100.7, elevated lactate. Elevated WBC count of 17.2. Hemoglobin 11. Her creatinine was 1.54, troponin was elevated at 0.28, repeat at 1.64. EKG showed sinus tachycardia heart rate of 122 bpm, nonspecific ST depressions in diffuse leads. REVIEW OF SYSTEMS 14 point review of system is negative except what is mentioned above in HPI. PHYSICAL EXAMINATION Vital signs reviewed. Head: Normocephalic. Eyes: Sclerae nonicteric. Neck: Brisk carotid upstroke, elevated JVP Lungs: Crackles and rhonchi audible in bilateral lung cadet. Diminished breath sounds. Heart: Regular rate and rhythm, mild systolic murmur audible. Abdomen: Soft nontender, positive bowel sounds. Extremities: 2+ pitting edema in bilateral foot. 1+ pitting edema in bilateral lord. Neuro: Aphasic, not able to communicate or follow commands, right-sided upper and lower extremity weakness with right arm contracture. Retained ring of was not performed ASSESSMENT Type II NSTEMI Acute CHF exacerbation COVID-19 infection pneumonia Acute hypoxic respiratory failure Lactic acidosis Severe sepsis Metabolic encephalopathy History of CVA with right-sided weakness, right arm contracture and the patient is aphasic Obesity Type 2 diabetes [facility] resident CKD Dementia PLAN Obtain updated echocardiogram Continue IV heparin drip for 48 hours Continue aspirin, Lipitor Continue amlodipine 5, metoprolol tartrate 50 mg BID IV Lasix 60 mg dose now, 40 mg IV twice daily from tomorrow. Monitor renal function and creatinine levels and electrolytes. Jevon Mckinney MD, FACC, RPVI Thank you for allowing [facility] to participate in this patient's care. Feel free to reach out in case of any followup questions. Past Medical History Past Medical History: Asthma, CVA/TIA, Dementia, Diabetes Mellitus, Hyperlipidemia, Hypertension Additional Past Medical History / Comment(s): rt sided weakness post cva uses cane rt arm contracted History of Any Multi-Drug Resistant Organisms: None Reported Past Surgical History: Cholecystectomy, Hysterectomy Additional Past Surgical History / Comment(s): right femoral artery bypass Past Anesthesia/Blood Transfusion Reactions: No Reported Reaction Additional Past Anesthesia/Blood Transfusion Reaction / Comment(s): has had a blood transfusion, with no reaction Past Psychological History: No Psychological Hx Reported Smoking Status: Former smoker Past Alcohol Use History: None Reported Past Drug Use History: None Reported - Past Family History Mother Family Medical History: No Reported History Medications and Allergies Home Medications Medication Instructions Recorded Confirmed Type Atorvastatin [Lipitor] 10 mg PO HS@2100 03/06/17 11/06/24 History Ferrous Sulfate [Iron (65 MG 325 mg PO DAILY@0800 03/06/17 11/06/24 History Elemental)] Montelukast [Singulair] 10 mg PO DAILY@0800 03/06/17 11/06/24 History Multivitamins, Thera [Multivitamin 1 tab PO DAILY@0800 03/06/17 11/06/24 History (formulary)] amLODIPine [Norvasc] 5 mg PO DAILY@0800 03/06/17 11/06/24 History Aspirin EC [Ecotrin Low Dose] 81 mg PO DAILY@0800 04/04/21 11/06/24 History Donepezil [Aricept] 5 mg PO HS@2100 04/04/21 11/06/24 History Ascorbic Acid [Vitamin C] 1,000 mg PO DAILY@0800 11/26/21 11/06/24 History Albuterol Inhaler [Ventolin Hfa 2 puff INHALATION RT-Q6H PRN 12/02/21 11/06/24 History Inhaler] Cholecalciferol [Vitamin D3 (25 50 mcg PO DAILY 12/02/21 11/06/24 History Mcg = 1000 Iu)] Acetaminophen [Tylenol] 650 mg PO Q4H PRN 11/06/24 11/06/24 History Ascorbic Acid [Vitamin C] 500 mg PO DIRECTED 11/06/24 11/06/24 History Glucerna Shake 237 ml PO BID@0800,1700 11/06/24 11/06/24 History Insulin Lispro See Protocol SQ ACHS 11/06/24 11/06/24 History Ipratropium-Albuterol Nebulize 3 ml INHALATION RT-QID@00,06,12,18 11/06/24 11/06/24 History [Duoneb 0.5 mg-3 mg/3 ml Soln] Loperamide HCl [Imodium A-D] 2 - 4 mg PO TID PRN MDD 8mg 11/06/24 11/06/24 History Magnesium Hydroxide [Milk of 7,200 mg PO DAILY PRN 11/06/24 11/06/24 History Magnesia Concentrate] Metoprolol Tartrate [Lopressor] 50 mg PO BID@0800,2100 11/06/24 11/06/24 History Na Phos,M-B/Na Phos,Di-Ba [Fleet 133 ml RECTAL DAILY PRN 11/06/24 11/06/24 History Adult] Pantoprazole [Protonix] 40 mg PO BID@0800,1700 11/06/24 11/06/24 History Zinc Sulfate [Orazinc] 220 mg PO DAILY 11/06/24 11/06/24 History bisacodyL 10 mg RECTAL DAILY PRN 11/06/24 11/06/24 History cefTRIAXone SODIUM [Ceftriaxone] 2 gm IV Q24H 11/06/24 11/06/24 History dexAMETHasone [Decadron] 4 mg PO DAILY@0800 11/06/24 11/06/24 History diphenhydrAMINE [Benadryl] 25 mg PO Q6H PRN 11/06/24 11/06/24 History metroNIDAZOLE [Flagyl] 500 mg PO TID@08,12,17 11/06/24 11/06/24 History polyethylene glycoL 3350 [Miralax] 17 gm PO DAILY PRN 11/06/24 11/06/24 History Allergies Allergy/AdvReac Type Severity Reaction Status Date / Time No Known Allergies Allergy Verified 11/06/24 13:33 Physical Exam Vitals: Vital Signs Temp Pulse Resp BP Pulse Ox 11/06/24 14:23 86 28 H 103/56 97 11/06/24 12:33 99.2 F 98 20 104/52 95 11/06/24 11:01 112 H 24 11/06/24 10:46 117 H 22 11/06/24 10:38 36 H 11/06/24 10:04 100.7 F H 121 H 32 H 159/85 97 Intake and Output 11/06/24 11/06/24 11/06/24 06:59 14:59 22:59 Other: Weight 72.575 kg Results 11/06/24 16:31 11/06/24 10:24 Cardiac Enzymes 11/06/24 11/06/24 11/06/24 Range/Units 10:24 10:24 14:09 AST 28 (14-36) U/L Lactate Dehydrogenase (120-246) U/L Troponin I 0.283 H* 1.640 H* (0.000-0.034) ng/mL 11/06/24 Range/Units 14:09 AST (14-36) U/L Lactate Dehydrogenase 303 H (120-246) U/L Troponin I (0.000-0.034) ng/mL Coagulation 11/06/24 11/06/24 Range/Units 10:24 16:31 PT 13.5 H 13.8 H (10.0-12.5) sec APTT 23.0 (22.0-30.0) sec CBC 11/06/24 11/06/24 Range/Units 10:24 16:31 WBC 17.2 H 22.7 H (3.8-10.6) k/uL RBC 3.58 L 3.17 L (3.80-5.40) m/uL Hgb 11.0 L D 9.7 L (11.4-16.0) gm/dL Hct 35.2 31.3 L (34.0-46.0) % Plt Count 348 306 (150-450) k/uL Comprehensive Metabolic Panel 11/06/24 Range/Units 10:24 Sodium 140 (137-145) mmol/L Potassium 4.4 (3.5-5.1) mmol/L Chloride 107 (98-107) mmol/L Carbon Dioxide 23 (22-30) mmol/L BUN 16 (7-17) mg/dL Creatinine 1.54 H (0.52-1.04) mg/dL Glucose 275 H (74-99) mg/dL Calcium 8.8 (8.4-10.2) mg/dL AST 28 (14-36) U/L ALT 12 (4-34) U/L Alkaline Phosphatase 60 (38-126) U/L Total Protein 7.3 (6.3-8.2) g/dL Albumin 3.4 L (3.5-5.0) g/dL Current Medications Generic Name Dose Route Start Last Admin Trade Name Freq PRN Reason Stop Dose Admin Acetaminophen 650 mg 11/06/24 13:58 Acetaminophen Tab 325 Mg Tab PO Q4H PRN Pain or Fever > 100.5 Albuterol Sulfate 2 puff 11/06/24 12:01 Albuterol Hfa Inhaler INHALATION RT-Q4H PRN Shortness Of Breath Or Wheezing Amlodipine Besylate 5 mg 11/07/24 08:00 Amlodipine 5 Mg Tab PO DAILY@0800 [facility] Ascorbic Acid 1,000 mg 11/07/24 08:00 Ascorbic Acid 500 Mg Tab PO DAILY@0800 [facility] Aspirin 81 mg 11/07/24 08:00 Aspirin 81 Mg PO DAILY@0800 [facility] Atorvastatin Calcium 40 mg 11/06/24 21:00 Atorvastatin 40 Mg Tab PO HS@2100 [facility] Cholecalciferol 50 mcg 11/07/24 09:00 Cholecalciferol 25 Mcg (1000 Iu) Tablet PO DAILY [facility] Dexamethasone Sodium Phosphate 6 mg 11/07/24 09:00 Dexamethasone Sod Phosphate 10 Mg/Ml 1 Ml Vial IVP DAILY [facility] Donepezil HCl 5 mg 11/06/24 21:00 Donepezil 5 Mg Tab PO HS@2100 [facility] Ferrous Sulfate 325 mg 11/07/24 08:00 Ferrous Sulfate 325 Mg Tab PO DAILY@0800 [facility] Furosemide 40 mg 11/06/24 21:00 Furosemide 10 Mg/Ml 4 Ml Vial IV Q12HR [facility] Heparin Sodium (Porcine) 0 unit 11/06/24 15:38 Heparin Sodium 1,000 Un/Ml (10ml Vl) IV PER PROTOCOL PRN Low PTT Protocol Ceftriaxone Sodium 2 gm/ 50 mls @ 100 mls/hr 11/07/24 09:00 Sodium Chloride IVPB 11/10/24 09:29 Q24HR [facility] Protocol Azithromycin 500 mg/ Sodium 250 mls @ 250 mls/hr 11/07/24 09:00 Chloride IVPB 11/08/24 09:59 DAILY [facility] Protocol Heparin Sodium/Sodium Chloride 250 mls @ 8.709 mls/hr 11/06/24 15:45 11/06/24 16:05 25,000 unit/ Sodium Chloride IV 12 units/kg/hr .Q24H [facility] 8.709 mls/hr Administration Protocol 12 UNITS/KG/HR Insulin Aspart 0 unit 11/06/24 17:30 Insulin Aspart (Novolog) 100 Unit/Ml Vial SQ ACHS [facility] Protocol Metoprolol Tartrate 50 mg 11/06/24 21:00 Metoprolol Tartrate 50 Mg Tab PO BID@0800,2100 [facility] Miscellaneous Information 1 each 11/06/24 11:32 Pneumonia Protocol Utilized 1 Each Misc PO ONCE PRN Per Protocol Pantoprazole Sodium 40 mg 11/06/24 17:00 11/06/24 16:51 Pantoprazole 40 Mg Tablet PO Not Given BID@0800,1700 [facility] Intake and Output 11/06/24 11/06/24 11/06/24 06:59 14:59 22:59 Other: Weight 72.575 kg Patient Weight 11/07/24 06:59 Weight 72.575 kg 11/06/24 16:31 11/06/24 10:24
[2024-11-06 17:53] LABS: Glucose,Whole Blood 306 mg/dL (70-110)
[2024-11-06] MEDS: INSULIN ASPART (NovoLOG) 100 UNIT/ML VIAL SQ SCH (18:15)
[2024-11-06] MEDS: ALBUTEROL HFA INHALER INHALATION PRN (19:57)
[2024-11-06] MEDS: DONEPEZIL 5 MG TAB PO SCH (20:07)
[2024-11-06] MEDS: ATORVASTATIN 40 MG TAB PO SCH (20:07)
[2024-11-06] MEDS: METOPROLOL TARTRATE 50 MG TAB PO SCH (20:07)
[2024-11-06 20:49] LABS: Glucose,Whole Blood 247 mg/dL (70-110)
[2024-11-06] MEDS ORDERED: ATORVASTATIN 10 MG TAB PO SCH (21:00)
[2024-11-06] MEDS: FUROSEMIDE 10 MG/ML 4 ML VIAL IV SCH (23:19)
--- NOTE | 2024-11-07 06:54 | XR ---
EXAMINATION TYPE: XR chest 1V DATE OF EXAM: 11/07/2024 COMPARISON: 11/06/2024 CLINICAL INDICATION: Female, 73 years old with history of pneumonia; TECHNIQUE: Single frontal view of the chest is obtained. FINDINGS: There is scattered multifocal airspace consolidations but there is been mild reduction in the consoli dative process in the left mid to lower lung zone. There is no pneumothorax or large pleural effusion. The heart size is enlarged. The pulmonary vasculature does appear congested. There is no change in the left PICC line tip in the SVC/junction. IMPRESSION: Acute cardiopulmonary process possibly diffuse pneumonia or CHF with mild interval improvement partic ularly within the left lung which appears better aerated. [facility], Workstation: [email or web address] 11/07/2024 6:52 AM
[2024-11-07 07:05] LABS: Glucose,Whole Blood 158 mg/dL (70-110)
[2024-11-07] MEDS: ZINC OXIDE PASTE (Z-GUARD) 1 APPLIC TOPICAL PRN (08:00)
[2024-11-07 08:31] LABS: Anisocytosis Slight; Basophils % (A) 0 %; Eosinophils # (A) 0.3 k/uL (0-0.7); Eosinophils % (A) 1 %; HCT 29.2 % (34.0-46.0); Hypochromasia Moderate; Lymphocytes # (A) 0.9 k/uL (1.0-4.8); Lymphocytes % (A) 4 %; MCH 30.3 pg (25.0-35.0); MCV 97.9 fL (80.0-100.0); Macrocytosis Slight; Mean Platelet Volume 10.3; Monocytes # (A) 0.6 k/uL (0-1.0); Monocytes % (A) 3 %; Neutrophils # (A) 19.5 k/uL (1.3-7.7); Neutrophils % (A) 91 %; Platelet Count 236 k/uL (150-450); RBC 2.98 m/uL (3.80-5.40); RDW 17.3 % (11.5-15.5); WBC 21.4 k/uL (3.8-10.6)
[2024-11-07] MEDS: amLODIPine 5 MG TAB PO SCH (08:33)
[2024-11-07] MEDS: FERROUS SULFATE 325 MG TAB PO SCH (08:33)
[2024-11-07] MEDS: ASPIRIN 81 MG PO SCH (08:33)
[2024-11-07] MEDS: ASCORBIC ACID 500 MG TAB PO SCH (08:33)
[2024-11-07] MEDS: CHOLECALCIFEROL 25 MCG (1000 IU) TABLET PO SCH (08:33)
[2024-11-07 08:41] LABS: African American GFR (CKD) 25 (>60 ml/min/1.73 sqM); Anion Gap 5 mmol/L; Blood Urea Nitrogen 28 mg/dL (7-17); Calcium 8.8 mg/dL (8.4-10.2); Carbon Dioxide 28 mmol/L (22-30); Chloride 109 mmol/L (98-107); Glucose 142 mg/dL (74-99); LDH 310 U/L (120-246); Non-African American GFR(CKD) 22 (>60 ml/min/1.73 sqM); Potassium 4.9 mmol/L (3.5-5.1); Sodium 142 mmol/L (137-145)
[2024-11-07 08:46] LABS: INR 1.3 (<1.2); Partial Thromboplastin Time 31.7 sec (22.0-30.0); Prothrombin Time 13.4 sec (10.0-12.5)
[2024-11-07] MEDS: DEXAMETHASONE SOD PHOSPHATE 10 MG/ML 1 ML VIAL IVP SCH (10:02)
[2024-11-07] MEDS: AZITHROMYCIN 500 MG in SODIUM CHLORIDE 0.9% 250 ML IVPB SCH (10:02)
[2024-11-07 11:41] LABS: Glucose,Whole Blood 147 mg/dL (70-110)
--- NOTE | 2024-11-07 11:49 | P.PN ---
Subjective Progress Note Date: 11/07/24 This is a 73-year-old female patient who presented to the emergency department with diminished level of consciousness. The patient is normally alert and oriented x 1. No significant history is available. The patient was diagnosed having COVID-19 infection at the detention yesterday and she was developing worsening in breathing and she had also a drop in oxygenation and pulse ox and she has been placed on oxygen. She also had a low-grade fever. Based on that, the patient was brought into the hospital. The patient is currently on 3 L of oxygen by nasal cannula and this was brought up to 5 L to maintain saturation above 90%, current pulse ox 95%. She had a Tmax of 100.7 current temperature is at 99.2. She was in sinus tachycardia and she was quite tachypneic at time of arrival and breathing was short and labored and currently she is breathing more comfortably. The white cell count 17.2 with a hemoglobin 11 and platelet count of 348. The INR is at 1.3 with a PT of 13.5 with a PTT of 23. Sodium is at 140, bicarb is 23, BUN 16 with a creatinine of 1.54. Lactic acid level is at 2. 3. Troponins at 0.2. LFTs are normal. COVID-19 testing was positive. Chest x-ray showed multifocal airspace opacities concerning for pneumonia and the patient has cardiomegaly and smaller lung volumes and elevation of the diaphragms bilaterally. CAT scan of the brain was also done in the emergency that showed remote left parietal/frontal infarct/encephalomalacia without any acute process. The patient accordingly was started on Decadron. She was started on Rocephin and Zithromax. Pulmonary consultation was requested accordingly.The patient is a detention resident. The patient has other comorbidities including previous history of CVA right-sided weakness, dementia, chronic kidney disease stage III chronic bronchial asthma the patient is a former smoker. She has hypertension hyperlipidemia diabetes mellitus type 2. Her last COVID-19 infection was back in November 2021 at that time the patient was hospitalized for the same problem. On 11/07/2024, patient is calm and comfortable on 2 L of oxygen by nasal cannula with a pulse ox of 98%. The patient was hospitalized for acute hypoxic mary failure and COVID-19 infection and the patient is currently on Decadron. Furthermore, the patient was given a combination of Rocephin and Zithromax as an empiric antibiotic coverage. Subsequently, the blood culture was positive for Enterococcus, likely VRE E and the patient was started on daptomycin. Troponins were minimally elevated and the patient was started on IV heparin by cardiology. Based on the cardiac enzyme evaluation, the patient's troponin peaked at 2.2/the patient ruled in for an acute non-ST segment elevation myocardial infarction. She is free of any chest pain for now. Hemodynamically stable. Afebrile. No other significant events otherwise for now. Remains on IV Lasix 40 mg every 12 hours. Echocardiogram is in progress. Objective - Vital Signs Vital signs: Vital Signs Temp 98.6 F 11/07/24 08:30 Pulse 103 H 11/07/24 08:30 Resp 19 11/07/24 08:30 BP 116/61 11/07/24 08:30 Pulse Ox 98 11/07/24 08:30 FiO2 Intake & Output 11/06/24 11/07/24 11/07/24 18:59 06:59 18:59 Intake Total 61.253 Balance 61.253 Weight 72.575 kg 91.5 kg Intake: Intake, IV Titration 61.253 Amount Heparin Sod,Pork in 0.45% 61.253 NaCl 25,000 unit In 0.45 % NaCl 1 250ml.bag @ 12 UNITS/KG/HR 8.709 mls/hr IV .Q24H [facility] Rx#: [id number] Other: Voiding Method Diaper # Voids 1 # Bowel Movements 2 - Exam GENERAL EXAM: Alert, very pleasant 71-year-old -[place] female, poor historian related to history of aphasia, but does not appear to be in any acute distress, currently on 5 L of oxygen pulse ox is 95%, comfortable in no apparent distress. HEAD: Normocephalic/atraumatic. EYES: Normal reaction of pupils, equal size. Conjunctiva pink, sclera white. NOSE: Clear with pink turbinates. THROAT: No erythema or exudates. NECK: No masses, no JVD, no thyroid enlargement, no adenopathy. CHEST: No chest wall deformity. Symmetrical expansion. LUNGS: Equal air entry with bibasilar crackles CVS: Regular rate and rhythm, normal S1 and S2, no gallops, no murmurs, no rubs ABDOMEN: Soft, nontender. No hepatosplenomegaly, normal bowel sounds, no guarding or rigidity. EXTREMITIES: No clubbing, no edema, no cyanosis, 2+ pulses and upper and lower extremities. MUSCULOSKELETAL: Muscle strength and tone normal. SPINE: No scoliosis or deformity SKIN: No rashes CENTRAL NERVOUS SYSTEM: Alert, patient is aphasic. right-sided weakness tone is normal in all 4 extremities. - Labs CBC & Chem 7: 11/07/24 08:22 11/07/24 08:22 Labs: Abnormal Lab Results - Last 24 Hours (Table) 11/06/24 11/06/24 11/06/24 Range/Units 10:24 10:24 10:24 WBC 17.2 H (3.8-10.6) k/uL RBC 3.58 L (3.80-5.40) m/uL Hgb 11.0 L D (11.4-16.0) gm/dL Hct (34.0-46.0) % RDW 17.0 H (11.5-15.5) % Neutrophils # 15.4 H (1.3-7.7) k/uL Lymphocytes # (1.0-4.8) k/uL PT 13.5 H (10.0-12.5) sec INR 1.3 H (<1.2) APTT (22.0-30.0) sec D-Dimer (<0.60) mg/L FEU Chloride (98-107) mmol/L BUN (7-17) mg/dL Creatinine 1.54 H (0.52-1.04) mg/dL Glucose 275 H (74-99) mg/dL POC Glucose (mg/dL) (70-110) mg/dL Plasma Lactic Acid Felix (0.7-2.0) mmol/L Lactate Dehydrogenase (120-246) U/L Troponin I (0.000-0.034) ng/mL Albumin 3.4 L (3.5-5.0) g/dL Stool Occult Blood (Negative) SARS-CoV-2 (PCR) (Not Detectd) 11/06/24 11/06/24 11/06/24 Range/Units 10:24 10:24 10:28 WBC (3.8-10.6) k/uL RBC (3.80-5.40) m/uL Hgb (11.4-16.0) gm/dL Hct (34.0-46.0) % RDW (11.5-15.5) % Neutrophils # (1.3-7.7) k/uL Lymphocytes # (1.0-4.8) k/uL PT (10.0-12.5) sec INR (<1.2) APTT (22.0-30.0) sec D-Dimer (<0.60) mg/L FEU Chloride (98-107) mmol/L BUN (7-17) mg/dL Creatinine (0.52-1.04) mg/dL Glucose (74-99) mg/dL POC Glucose (mg/dL) (70-110) mg/dL Plasma Lactic Acid Felix 2.3 H* (0.7-2.0) mmol/L Lactate Dehydrogenase (120-246) U/L Troponin I 0.283 H* (0.000-0.034) ng/mL Albumin (3.5-5.0) g/dL Stool Occult Blood (Negative) SARS-CoV-2 (PCR) Detected A (Not Detectd) 11/06/24 11/06/24 11/06/24 Range/Units 14:09 14:09 14:09 WBC (3.8-10.6) k/uL RBC (3.80-5.40) m/uL Hgb (11.4-16.0) gm/dL Hct (34.0-46.0) % RDW (11.5-15.5) % Neutrophils # (1.3-7.7) k/uL Lymphocytes # (1.0-4.8) k/uL PT (10.0-12.5) sec INR (<1.2) APTT (22.0-30.0) sec D-Dimer 1.59 H (<0.60) mg/L FEU Chloride (98-107) mmol/L BUN (7-17) mg/dL Creatinine (0.52-1.04) mg/dL Glucose (74-99) mg/dL POC Glucose (mg/dL) (70-110) mg/dL Plasma Lactic Acid Felix 2.2 H* (0.7-2.0) mmol/L Lactate Dehydrogenase (120-246) U/L Troponin I 1.640 H* (0.000-0.034) ng/mL Albumin (3.5-5.0) g/dL Stool Occult Blood (Negative) SARS-CoV-2 (PCR) (Not Detectd) 11/06/24 11/06/24 11/06/24 Range/Units 14:09 16:31 16:31 WBC 22.7 H (3.8-10.6) k/uL RBC 3.17 L (3.80-5.40) m/uL Hgb 9.7 L (11.4-16.0) gm/dL Hct 31.3 L (34.0-46.0) % RDW 16.9 H (11.5-15.5) % Neutrophils # 21.5 H (1.3-7.7) k/uL Lymphocytes # 0.6 L (1.0-4.8) k/uL PT (10.0-12.5) sec INR (<1.2) APTT (22.0-30.0) sec D-Dimer (<0.60) mg/L FEU Chloride (98-107) mmol/L BUN (7-17) mg/dL Creatinine (0.52-1.04) mg/dL Glucose (74-99) mg/dL POC Glucose (mg/dL) (70-110) mg/dL Plasma Lactic Acid Felix (0.7-2.0) mmol/L Lactate Dehydrogenase 303 H (120-246) U/L Troponin I 2.210 H* (0.000-0.034) ng/mL Albumin (3.5-5.0) g/dL Stool Occult Blood (Negative) SARS-CoV-2 (PCR) (Not Detectd) 11/06/24 11/06/24 11/06/24 Range/Units 16:31 17:52 20:47 WBC (3.8-10.6) k/uL RBC (3.80-5.40) m/uL Hgb (11.4-16.0) gm/dL Hct (34.0-46.0) % RDW (11.5-15.5) % Neutrophils # (1.3-7.7) k/uL Lymphocytes # (1.0-4.8) k/uL PT 13.8 H (10.0-12.5) sec INR 1.3 H (<1.2) APTT (22.0-30.0) sec D-Dimer (<0.60) mg/L FEU Chloride (98-107) mmol/L BUN (7-17) mg/dL Creatinine (0.52-1.04) mg/dL Glucose (74-99) mg/dL POC Glucose (mg/dL) 306 H 247 H (70-110) mg/dL Plasma Lactic Acid Felix (0.7-2.0) mmol/L Lactate Dehydrogenase (120-246) U/L Troponin I (0.000-0.034) ng/mL Albumin (3.5-5.0) g/dL Stool Occult Blood (Negative) SARS-CoV-2 (PCR) (Not Detectd) 11/06/24 11/07/24 11/07/24 Range/Units 22:00 04:05 07:01 WBC (3.8-10.6) k/uL RBC (3.80-5.40) m/uL Hgb (11.4-16.0) gm/dL Hct (34.0-46.0) % RDW (11.5-15.5) % Neutrophils # (1.3-7.7) k/uL Lymphocytes # (1.0-4.8) k/uL PT (10.0-12.5) sec INR (<1.2) APTT 71.2 H (22.0-30.0) sec D-Dimer (<0.60) mg/L FEU Chloride (98-107) mmol/L BUN (7-17) mg/dL Creatinine (0.52-1.04) mg/dL Glucose (74-99) mg/dL POC Glucose (mg/dL) 158 H (70-110) mg/dL Plasma Lactic Acid Felix (0.7-2.0) mmol/L Lactate Dehydrogenase (120-246) U/L Troponin I (0.000-0.034) ng/mL Albumin (3.5-5.0) g/dL Stool Occult Blood Positive H (Negative) SARS-CoV-2 (PCR) (Not Detectd) 11/07/24 11/07/24 11/07/24 Range/Units 08:22 08:22 08:22 WBC 21.4 H (3.8-10.6) k/uL RBC 2.98 L (3.80-5.40) m/uL Hgb 9.0 L (11.4-16.0) gm/dL Hct 29.2 L (34.0-46.0) % RDW 17.3 H (11.5-15.5) % Neutrophils # 19.5 H (1.3-7.7) k/uL Lymphocytes # 0.9 L (1.0-4.8) k/uL PT 13.4 H (10.0-12.5) sec INR 1.3 H (<1.2) APTT 31.7 H (22.0-30.0) sec D-Dimer 1.13 H (<0.60) mg/L FEU Chloride 109 H (98-107) mmol/L BUN 28 H (7-17) mg/dL Creatinine 2.17 H (0.52-1.04) mg/dL Glucose 142 H (74-99) mg/dL POC Glucose (mg/dL) (70-110) mg/dL Plasma Lactic Acid Felix (0.7-2.0) mmol/L Lactate Dehydrogenase 310 H (120-246) U/L Troponin I (0.000-0.034) ng/mL Albumin (3.5-5.0) g/dL Stool Occult Blood (Negative) SARS-CoV-2 (PCR) (Not Detectd) Microbiology - Last 24 Hours (Table) 11/06/24 10:24 Blood Culture Gram Stain - Preliminary Blood Blood Culture - Preliminary Molecular ID Assessment and Plan Plan: Acute hypoxic respiratory failure and patient currently on 5 L of oxygen by nasal cannula. The patient has a COVID-19 infection diagnosed within the past 24 hours. She has developed progressive dyspnea and hypoxemia at the detention and for that reason the patient was brought into the hospital for further evaluation. Chest x-ray shows multifocal patchy airspace disease. Could be related to COVID-19 infection although superinfection with bacteria cannot be completely ruled out. She had a similar COVID-19 pneumonia requiring hospitalization back in 12/02/2021.Also rule out a component of decompensated heart failure. Acute non-ST segment elevation myocardial infarction and troponin peaked at 2.3 currently on IV heparin and cardiology on the case. Awaiting an echocardiogram. Enterococcal sepsis, likely of urinary source, currently on daptomycin Shortness of breath secondary to above History of CVA with right-sided weakness and right arm contractures and the patient is aphasic Hypertension Hypertensive heart disease Chronic stage III kidney disease, creatinine is at 2.1, nonoliguric Dementia Chronic bronchial asthma Diabetes mellitus type 2 snf resident Plan Titrate oxygen flow to maintain saturation above 90%, currently on 2 L of O2 nasal cannula Continue Decadron 6 mg IV every 24 hours Check D-dimers, mildly elevated Continue IV heparin Continue aspirin. Continue metoprolol 50 mg twice a day Continue statin and the patient is currently on Lipitor 40 mg p.o. daily Lasix 40 mg IV every 12 hours Continue Rocephin, Zithromax and daptomycin Obtain echocardiogram Check procalcitonin level level is at 3.5 consistent with bacterial sepsis Continue follow her clinical course
--- NOTE | 2024-11-07 15:19 | P.PN ---
Subjective Progress Note Date: 11/07/24 73-year-old female who presents to the emergency department from her intermediate. She is normally alert and oriented x 1 so all the history comes from the paramedics. Patient was brought in because she was diagnosed with COVID yesterday and now she has more difficulty breathing as of this morning and had to put her on oxygen. Patient also had a low-grade fever. There is no other history available at this time. The patient is currently on 3 L of oxygen by nasal cannula and this was brought up to 5 L to maintain saturation above 90%, current pulse ox 95%. She had a Tmax of 100.7 current temperature is at 99.2. She was in sinus tachycardia and she was quite tachypneic at time of arrival and breathing was short and labored and currently she is breathing more comfortably. The white cell count 17.2 with a hemoglobin 11 and platelet count of 348. The INR is at 1.3 with a PT of 13.5 with a PTT of 23. Sodium is at 140, bicarb is 23, BUN 16 with a creatinine of 1.54. Lactic acid level is at 2.3. Troponins at 0.2. LFTs are normal. COVID- 19 testing was positive. Chest x-ray showed multifocal airspace opacities concerning for pneumonia and the patient has cardiomegaly and smaller lung volumes and elevation of the diaphragms bilaterally. CAT scan of the brain was also done in the emergency that showed remote left parietal/frontal infarct/encephalomalacia without any acute process. The patient accordingly was started on Decadron. She was started on Rocephin and Zithromax. Pulmonary consultation was requested Objective - Vital Signs Vital signs: Vital Signs Temp 98.6 F 11/07/24 08:30 Pulse 103 H 11/07/24 08:30 Resp 19 11/07/24 08:30 BP 116/61 11/07/24 08:30 Pulse Ox 98 11/07/24 08:30 FiO2 Intake & Output 11/06/24 11/07/24 11/07/24 18:59 06:59 18:59 Intake Total 61.253 79.112 Balance 61.253 79.112 Weight 72.575 kg 91.5 kg Intake: Intake, IV Titration 61.253 79.112 Amount Heparin Sod,Pork in 0.45% 61.253 79.112 NaCl 25,000 unit In 0.45 % NaCl 1 250ml.bag @ 12 UNITS/KG/HR 8.709 mls/hr IV .Q24H [facility] Rx#: [id number] Other: Voiding Method Diaper Diaper # Voids 1 # Bowel Movements 2 - Exam GENERAL EXAM: Alert, very pleasant 71-year-old -[place] female, poor historian related to history of aphasia, but does not appear to be in any acute distress, currently on 5 L of oxygen pulse ox is 95%, comfortable in no apparent distress. HEAD: Normocephalic/atraumatic. EYES: Normal reaction of pupils, equal size. Conjunctiva pink, sclera white. THROAT: No erythema or exudates. NECK: No masses, no JVD, no thyroid enlargement, no adenopathy. CHEST: No chest wall deformity. Symmetrical expansion. LUNGS: Equal air entry with bibasilar crackles CVS: Regular rate and rhythm, normal S1 and S2, no gallops, no murmurs, no rubs ABDOMEN: Soft, nontender. No hepatosplenomegaly, normal bowel sounds, no guarding or rigidity. EXTREMITIES: No clubbing, no edema, no cyanosis, 2+ pulses and upper and lower extremities. MUSCULOSKELETAL: Muscle strength and tone normal. - Labs CBC & Chem 7: 11/07/24 08:22 11/07/24 08:22 Labs: Abnormal Lab Results - Last 24 Hours (Table) 11/06/24 11/06/24 11/06/24 Range/Units 14:09 14:09 14:09 WBC (3.8-10.6) k/uL RBC (3.80-5.40) m/uL Hgb (11.4-16.0) gm/dL Hct (34.0-46.0) % RDW (11.5-15.5) % Neutrophils # (1.3-7.7) k/uL Lymphocytes # (1.0-4.8) k/uL PT (10.0-12.5) sec INR (<1.2) APTT (22.0-30.0) sec D-Dimer 1.59 H (<0.60) mg/L FEU Chloride (98-107) mmol/L BUN (7-17) mg/dL Creatinine (0.52-1.04) mg/dL Glucose (74-99) mg/dL POC Glucose (mg/dL) (70-110) mg/dL Plasma Lactic Acid Felix 2.2 H* (0.7-2.0) mmol/L Lactate Dehydrogenase (120-246) U/L Troponin I 1.640 H* (0.000-0.034) ng/mL Procalcitonin (0.02-0.50) ng/mL Stool Occult Blood (Negative) 11/06/24 11/06/24 11/06/24 Range/Units 14:09 14:09 16:31 WBC (3.8-10.6) k/uL RBC (3.80-5.40) m/uL Hgb (11.4-16.0) gm/dL Hct (34.0-46.0) % RDW (11.5-15.5) % Neutrophils # (1.3-7.7) k/uL Lymphocytes # (1.0-4.8) k/uL PT (10.0-12.5) sec INR (<1.2) APTT (22.0-30.0) sec D-Dimer (<0.60) mg/L FEU Chloride (98-107) mmol/L BUN (7-17) mg/dL Creatinine (0.52-1.04) mg/dL Glucose (74-99) mg/dL POC Glucose (mg/dL) (70-110) mg/dL Plasma Lactic Acid Felix (0.7-2.0) mmol/L Lactate Dehydrogenase 303 H (120-246) U/L Troponin I 2.210 H* (0.000-0.034) ng/mL Procalcitonin 3.51 H (0.02-0.50) ng/mL Stool Occult Blood (Negative) 11/06/24 11/06/24 11/06/24 Range/Units 16:31 16:31 17:52 WBC 22.7 H (3.8-10.6) k/uL RBC 3.17 L (3.80-5.40) m/uL Hgb 9.7 L (11.4-16.0) gm/dL Hct 31.3 L (34.0-46.0) % RDW 16.9 H (11.5-15.5) % Neutrophils # 21.5 H (1.3-7.7) k/uL Lymphocytes # 0.6 L (1.0-4.8) k/uL PT 13.8 H (10.0-12.5) sec INR 1.3 H (<1.2) APTT (22.0-30.0) sec D-Dimer (<0.60) mg/L FEU Chloride (98-107) mmol/L BUN (7-17) mg/dL Creatinine (0.52-1.04) mg/dL Glucose (74-99) mg/dL POC Glucose (mg/dL) 306 H (70-110) mg/dL Plasma Lactic Acid Felix (0.7-2.0) mmol/L Lactate Dehydrogenase (120-246) U/L Troponin I (0.000-0.034) ng/mL Procalcitonin (0.02-0.50) ng/mL Stool Occult Blood (Negative) 11/06/24 11/06/24 11/07/24 Range/Units 20:47 22:00 04:05 WBC (3.8-10.6) k/uL RBC (3.80-5.40) m/uL Hgb (11.4-16.0) gm/dL Hct (34.0-46.0) % RDW (11.5-15.5) % Neutrophils # (1.3-7.7) k/uL Lymphocytes # (1.0-4.8) k/uL PT (10.0-12.5) sec INR (<1.2) APTT 71.2 H (22.0-30.0) sec D-Dimer (<0.60) mg/L FEU Chloride (98-107) mmol/L BUN (7-17) mg/dL Creatinine (0.52-1.04) mg/dL Glucose (74-99) mg/dL POC Glucose (mg/dL) 247 H (70-110) mg/dL Plasma Lactic Acid Felix (0.7-2.0) mmol/L Lactate Dehydrogenase (120-246) U/L Troponin I (0.000-0.034) ng/mL Procalcitonin (0.02-0.50) ng/mL Stool Occult Blood Positive H (Negative) 11/07/24 11/07/2411/07/24 Range/Units 07:01 08:22 08:22 WBC 21.4 H (3.8-10.6) k/uL RBC 2.98 L (3.80-5.40) m/uL Hgb 9.0 L (11.4-16.0) gm/dL Hct 29.2 L (34.0-46.0) % RDW 17.3 H (11.5-15.5) % Neutrophils # 19.5 H (1.3-7.7) k/uL Lymphocytes # 0.9 L (1.0-4.8) k/uL PT 13.4 H (10.0-12.5) sec INR 1.3 H (<1.2) APTT 31.7 H (22.0-30.0) sec D-Dimer 1.13 H (<0.60) mg/L FEU Chloride (98-107) mmol/L BUN (7-17) mg/dL Creatinine (0.52-1.04) mg/dL Glucose (74-99) mg/dL POC Glucose (mg/dL) 158 H (70-110) mg/dL Plasma Lactic Acid Felix (0.7-2.0) mmol/L Lactate Dehydrogenase (120-246) U/L Troponin I (0.000-0.034) ng/mL Procalcitonin (0.02-0.50) ng/mL Stool Occult Blood (Negative) 11/07/24 11/07/24 Range/Units 08:22 11:39 WBC (3.8-10.6) k/uL RBC (3.80-5.40) m/uL Hgb (11.4-16.0) gm/dL Hct (34.0-46.0) % RDW (11.5-15.5) % Neutrophils # (1.3-7.7) k/uL Lymphocytes # (1.0-4.8) k/uL PT (10.0-12.5) sec INR (<1.2) APTT (22.0-30.0) sec D-Dimer (<0.60) mg/L FEU Chloride 109 H (98-107) mmol/L BUN 28 H (7-17) mg/dL Creatinine 2.17 H (0.52-1.04) mg/dL Glucose 142 H (74-99) mg/dL POC Glucose (mg/dL) 147 H (70-110) mg/dL Plasma Lactic Acid Felix (0.7-2.0) mmol/L Lactate Dehydrogenase 310 H (120-246) U/L Troponin I (0.000-0.034) ng/mL Procalcitonin (0.02-0.50) ng/mL Stool Occult Blood (Negative) Microbiology - Last 24 Hours (Table) 11/06/24 10:24 Blood Culture Gram Stain - Preliminary Blood Blood Culture - Preliminary Molecular ID Assessment and Plan Assessment: Acute hypoxic respiratory failure and patient currently on 5 L of oxygen by nasal cannula. The patient has a COVID-19 infection diagnosed within the past 24 hours. She has developed progressive dyspnea and hypoxemia at the intermediate and for that reason the patient was brought into the hospital for further evaluation. Chest x-ray shows multifocal patchy airspace disease. Could be related to COVID-19 infection although superinfection with bacteria cannot be completely ruled out. She had a similar COVID-19 pneumonia requiring hospitalization back in 12/02/2021.Also rule out a component of decompensated heart failure. 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
[2024-11-07 15:32] LABS: Appearance,Urine Cloudy (Clear); Bacteria,Urine Rare /hpf; Bilirubin,Urine Negative (Negative); Blood,Urine Small (Negative); Color,Urine Yellow; Glucose,Urine (UA) Negative (Negative); Hyaline Casts,Urine 1 /lpf (0-2); Ketones,Urine Negative (Negative); Leukocyte Esterase,Urine Moderate (Negative); Mucus,Urine Rare /hpf; Nitrite,Urine Negative (Negative); Protein,Urine Trace (Negative); RBC,Urine 5 /hpf (0-5); Specific Gravity,Urine 1.015 (1.001-1.035); Squamous Epithelial Cell,Urine 13 /hpf (0-4); Urobilinogen,Urine <2.0 mg/dL (<2.0); WBC,Urine 12 /hpf (0-5)
[2024-11-07] MEDS: ACETAMINOPHEN TAB 325 MG TAB PO PRN (16:21)
[2024-11-07 16:38] LABS: Glucose,Whole Blood 242 mg/dL (70-110)
[2024-11-07 17:08] LABS: Glucose,Whole Blood 206 mg/dL (70-110)
[2024-11-07 20:10] LABS: Glucose,Whole Blood 246 mg/dL (70-110)
--- NOTE | 2024-11-07 23:36 | P.PN ---
Subjective Progress Note Date: 11/07/24 HISTORY OF PRESENTING ILLNESS 73-year-old female who has a prior history of CVA with right-sided weakness hemiparesis, aphasia, dementia, senior care resident. She is not able to provide any history and most of the history is obtained from the medical charts. Patient was diagnosed with COVID-19 infection at the senior care yesterday when she started developing increased worsening respiratory distress along with hypoxemia with dropping her pulse oximeter. She was also having low-grade fever. Due to this she was brought to the hospital. On admission she was on 5 L oxygen saturating above 90%, febrile with Tmax of 100.7, elevated lactate. Elevated WBC count of 17.2. Hemoglobin 11. Her creatinine was 1.54, troponin was elevated at 0.28, repeat at 1.64. EKG showed sinus tachycardia heart rate of 122 bpm, nonspecific ST depressions in diffuse leads. Progress note 11/07/2024 Patient's hemoglobin has dropped since admission. Hemoglobin 9.0 today. WBC count is 21, creatinine has trended up from 1.5-2.1 Head: Normocephalic. Eyes: Sclerae nonicteric. Neck: Brisk carotid upstroke, elevated JVP Lungs: Crackles and rhonchi audible in bilateral lung cadet. Diminished breath sounds. Heart: Regular rate and rhythm, mild systolic murmur audible. Abdomen: Soft nontender, positive bowel sounds. Extremities: 2+ pitting edema in bilateral foot. 1+ pitting edema in bilateral lord. Neuro: Aphasic, not able to communicate or follow commands, right-sided upper and lower extremity weakness with right arm contracture. Retained ring of was not performed ASSESSMENT Type II NSTEMI Acute CHF exacerbation COVID-19 infection pneumonia Acute hypoxic respiratory failure Lactic acidosis Severe sepsis Metabolic encephalopathy History of CVA with right-sided weakness, right arm contracture and the patient is aphasic Obesity Type 2 diabetes group home resident CKD Dementia PLAN Obtain updated echocardiogram Discontinue IV heparin drip in view of anemia Continue aspirin, Lipitor Continue amlodipine 5, metoprolol tartrate 50 mg BID Discontinue IV Lasix as kidney function has trended up. Monitor urine output and electrolytes. Objective - Vital Signs Vital signs: Vital Signs Temp 98.7 F 11/07/24 19:54 Pulse 76 11/07/24 19:54 Resp 16 11/07/24 19:54 BP 120/60 11/07/24 19:54 Pulse Ox 99 11/07/24 19:54 FiO2 Intake & Output 11/07/24 11/07/24 11/08/24 06:59 18:59 06:59 Intake Total 61.253 253.430 86.902 Balance 61.253 253.430 86.902 Weight 91.5 kg Intake: IV 30 Invasive Line 1 20 Invasive Line 2 10 Intake, IV Titration 61.253 135.430 56.902 Amount Heparin Sod,Pork in 0.45% 61.253 135.430 56.902 NaCl 25,000 unit In 0.45 % NaCl 1 250ml.bag @ 12 UNITS/KG/HR 8.709 mls/hr IV .Q24H [facility] [place] Rx#: [id number] Oral 118 Other: Voiding Method Diaper Diaper Diaper Incontinent # Voids 1 3 1 # Bowel Movements 2 1 - Labs CBC & Chem 7: 11/07/24 08:22 11/07/24 08:22 Labs: Abnormal Lab Results - Last 24 Hours (Table) 11/06/24 11/07/24 11/07/24 Range/Units 14:09 04:05 06:13 WBC (3.8-10.6) k/uL RBC (3.80-5.40) m/uL Hgb (11.4-16.0) gm/dL Hct (34.0-46.0) % RDW (11.5-15.5) % Neutrophils # (1.3-7.7) k/uL Lymphocytes # (1.0-4.8) k/uL PT (10.0-12.5) sec INR (<1.2) APTT (22.0-30.0) sec D-Dimer (<0.60) mg/L FEU Chloride (98-107) mmol/L BUN (7-17) mg/dL Creatinine (0.52-1.04) mg/dL Glucose (74-99) mg/dL POC Glucose (mg/dL) 206 H (70-110) mg/dL Lactate Dehydrogenase (120-246) U/L Procalcitonin 3.51 H (0.02-0.50) ng/mL Urine Appearance (Clear) Urine Protein (Negative) Urine Blood (Negative) Ur Leukocyte Esterase (Negative) Urine WBC (0-5) /hpf Ur Squamous Epith Cells (0-4) /hpf Urine Bacteria (None) /hpf Urine Mucus (None) /hpf Stool Occult Blood Positive H (Negative) 11/07/24 11/07/24 11/07/24 Range/Units 07:01 08:22 08:22 WBC 21.4 H (3.8-10.6) k/uL RBC 2.98 L (3.80-5.40) m/uL Hgb 9.0 L (11.4-16.0) gm/dL Hct 29.2 L (34.0-46.0) % RDW 17.3 H (11.5-15.5) % Neutrophils # 19.5 H (1.3-7.7) k/uL Lymphocytes # 0.9 L (1.0-4.8) k/uL PT (10.0-12.5) sec INR (<1.2) APTT (22.0-30.0) sec D-Dimer (<0.60) mg/L FEU Chloride (98-107) mmol/L BUN (7-17) mg/dL Creatinine (0.52-1.04) mg/dL Glucose (74-99) mg/dL POC Glucose (mg/dL) 158 H (70-110) mg/dL Lactate Dehydrogenase (120-246) U/L Procalcitonin 11.90 H (0.02-0.50) ng/mL Urine Appearance (Clear) Urine Protein (Negative) Urine Blood (Negative) Ur Leukocyte Esterase (Negative) Urine WBC (0-5) /hpf Ur Squamous Epith Cells (0-4) /hpf Urine Bacteria (None) /hpf Urine Mucus (None) /hpf Stool Occult Blood (Negative) 11/07/24 11/07/24 11/07/24 Range/Units 08:22 08:22 11:39 WBC (3.8-10.6) k/uL RBC (3.80-5.40) m/uL Hgb (11.4-16.0) gm/dL Hct (34.0-46.0) % RDW (11.5-15.5) % Neutrophils # (1.3-7.7) k/uL Lymphocytes # (1.0-4.8) k/uL PT 13.4 H (10.0-12.5) sec INR 1.3 H (<1.2) APTT 31.7 H (22.0-30.0) sec D-Dimer 1.13 H (<0.60) mg/L FEU Chloride 109 H (98-107) mmol/L BUN 28 H (7-17) mg/dL Creatinine 2.17 H (0.52-1.04) mg/dL Glucose 142 H (74-99) mg/dL POC Glucose (mg/dL) 147 H (70-110) mg/dL Lactate Dehydrogenase 310 H (120-246) U/L Procalcitonin (0.02-0.50) ng/mL Urine Appearance (Clear) Urine Protein (Negative) Urine Blood (Negative) Ur Leukocyte Esterase (Negative) Urine WBC (0-5) /hpf Ur Squamous Epith Cells (0-4) /hpf Urine Bacteria (None) /hpf Urine Mucus (None) /hpf Stool Occult Blood (Negative) 11/07/24 11/07/24 11/07/24 Range/Units 13:03 15:59 16:35 WBC (3.8-10.6) k/uL RBC (3.80-5.40) m/uL Hgb (11.4-16.0) gm/dL Hct (34.0-46.0) % RDW (11.5-15.5) % Neutrophils # (1.3-7.7) k/uL Lymphocytes # (1.0-4.8) k/uL PT (10.0-12.5) sec INR (<1.2) APTT 35.2 H (22.0-30.0) sec D-Dimer (<0.60) mg/L FEU Chloride (98-107) mmol/L BUN (7-17) mg/dL Creatinine (0.52-1.04) mg/dL Glucose (74-99) mg/dL POC Glucose (mg/dL) 242 H (70-110) mg/dL Lactate Dehydrogenase (120-246) U/L Procalcitonin (0.02-0.50) ng/mL Urine Appearance Cloudy H (Clear) Urine Protein Trace H (Negative) Urine Blood Small H (Negative) Ur Leukocyte Esterase Moderate H (Negative) Urine WBC 12 H (0-5) /hpf Ur Squamous Epith Cells 13 H (0-4) /hpf Urine Bacteria Rare H (None) /hpf Urine Mucus Rare H (None) /hpf Stool Occult Blood (Negative) 11/07/24 Range/Units 20:08 WBC (3.8-10.6) k/uL RBC (3.80-5.40) m/uL Hgb (11.4-16.0) gm/dL Hct (34.0-46.0) % RDW (11.5-15.5) % Neutrophils # (1.3-7.7) k/uL Lymphocytes # (1.0-4.8) k/uL PT (10.0-12.5) sec INR (<1.2) APTT (22.0-30.0) sec D-Dimer (<0.60) mg/L FEU Chloride (98-107) mmol/L BUN (7-17) mg/dL Creatinine (0.52-1.04) mg/dL Glucose (74-99) mg/dL POC Glucose (mg/dL) 246 H (70-110) mg/dL Lactate Dehydrogenase (120-246) U/L Procalcitonin (0.02-0.50) ng/mL Urine Appearance (Clear) Urine Protein (Negative) Urine Blood (Negative) Ur Leukocyte Esterase (Negative) Urine WBC (0-5) /hpf Ur Squamous Epith Cells (0-4) /hpf Urine Bacteria (None) /hpf Urine Mucus (None) /hpf Stool Occult Blood (Negative) Microbiology - Last 24 Hours (Table) 11/06/24 10:24 Blood Culture Gram Stain - Preliminary Blood Blood Culture - Preliminary Molecular ID
[2024-11-08 04:51] LABS: Anisocytosis Slight; Basophils % (A) 0 %; Eosinophils # (A) 0.1 k/uL (0-0.7); Eosinophils % (A) 1 %; HGB 8.9 gm/dL (11.4-16.0); Hypochromasia Moderate; Lymphocytes # (A) 0.8 k/uL (1.0-4.8); Lymphocytes % (A) 5 %; MCHC 30.8 g/dL (31.0-37.0); MCV 97.4 fL (80.0-100.0); Macrocytosis Slight; Mean Platelet Volume 9.4; Monocytes # (A) 0.4 k/uL (0-1.0); Monocytes % (A) 3 %; Neutrophils % (A) 91 %; Platelet Count 277 k/uL (150-450); RBC 2.97 m/uL (3.80-5.40); RDW 17.1 % (11.5-15.5); WBC 15.4 k/uL (3.8-10.6)
[2024-11-08 05:07] LABS: African American GFR (CKD) 22 (>60 ml/min/1.73 sqM); Anion Gap 2 mmol/L; Blood Urea Nitrogen 39 mg/dL (7-17); Calcium 8.6 mg/dL (8.4-10.2); Carbon Dioxide 27 mmol/L (22-30); Chloride 112 mmol/L (98-107); Glucose 159 mg/dL (74-99); Magnesium 2.1 mg/dL (1.6-2.3); Non-African American GFR(CKD) 19 (>60 ml/min/1.73 sqM); Sodium 141 mmol/L (137-145)
[2024-11-08 06:17] LABS: Glucose,Whole Blood 197 mg/dL (70-110)
[2024-11-08] MEDS: MAGNESIUM SULFATE-D5W PMX 1 GM in DEXTROSE/WATER 1 100ML.BAG IVPB ONE (09:00)
[2024-11-08] MEDS: FUROSEMIDE 10 MG/ML 4 ML VIAL IV STA (09:06)
--- NOTE | 2024-11-08 10:08 | P.NPCON ---
History of Present Illness - Reason for Consult acute renal failure, chronic renal failure - History of Present Illness Reason for consultation: Acute kidney injury on chronic kidney disease History of present illness: Patient is a 73-year-old female seen in renal consultation for acute kidney injury on chronic kidney disease. Patient has chronic kidney disease stage IIIb with baseline creatinine near 1.5. Creatinine was 1.54 this admission and is up to 2.43 today. Patient came to the hospital on November 06, 2024 from an [facility]. She was recently diagnosed COVID-19 infection and was complaining of shortness of breath. Patient also had a low-grade fever. She tested positive for COVID- 19 this admission and her blood cultures are positive for Enterococcus. Patient was hypotensive on admission with blood pressure in the systolic 90s. Blood pressure this morning was 145/68. Patient has been maintained on IV Lasix and last dose was given this morning 40 mg. Hemodynamically stable. On 2 L nasal cannula. Has been voiding. Patient does have history of CVA. Patient is not a very reliable historian. Vital signs are stable. General: No acute distress. HEENT: Head exam is unremarkable. On nasal cannula. LUNGS: No audible rhonchi or wheezes. HEART: Rate and Rhythm are regular. ABDOMEN: Nontender. EXTREMITITES: No edema. Past Medical History Past Medical History: Asthma, CVA/TIA, Dementia, Diabetes Mellitus, Hyperlipidemia, Hypertension, Pneumonia Additional Past Medical History / Comment(s): rt sided weakness post cva uses cane rt arm contracted History of Any Multi-Drug Resistant Organisms: None Reported Past Surgical History: Cholecystectomy, Hysterectomy Additional Past Surgical History / Comment(s): right femoral artery bypass Past Anesthesia/Blood Transfusion Reactions: No Reported Reaction Additional Past Anesthesia/Blood Transfusion Reaction / Comment(s): has had a blood transfusion, with no reaction Past Psychological History: No Psychological Hx Reported Smoking Status: Former smoker Past Alcohol Use History: None Reported Additional Past Alcohol Use History / Comment(s): smoked 10 years 1ppd quit 5 years ago Past Drug Use History: None Reported - Past Family History Mother Family Medical History: Diabetes Mellitus Medications and Allergies Home Medications Medication Instructions Recorded Confirmed Type Atorvastatin [Lipitor] 10 mg PO HS@2100 03/06/17 11/06/24 History Ferrous Sulfate [Iron (65 MG 325 mg PO DAILY@0800 03/06/17 11/06/24 History Elemental)] Montelukast [Singulair] 10 mg PO DAILY@0800 03/06/17 11/06/24 History Multivitamins, Thera [Multivitamin 1 tab PO DAILY@0800 03/06/17 11/06/24 History (formulary)] amLODIPine [Norvasc] 5 mg PO DAILY@0800 03/06/17 11/06/24 History Aspirin EC [Ecotrin Low Dose] 81 mg PO DAILY@0800 04/04/21 11/06/24 History Donepezil [Aricept] 5 mg PO HS@2100 04/04/21 11/06/24 History Ascorbic Acid [Vitamin C] 1,000 mg PO DAILY@0800 11/26/21 11/06/24 History Albuterol Inhaler [Ventolin Hfa 2 puff INHALATION RT-Q6H PRN 12/02/21 11/06/24 History Inhaler] Cholecalciferol [Vitamin D3 (25 50 mcg PO DAILY 12/02/21 11/06/24 History Mcg = 1000 Iu)] Acetaminophen [Tylenol] 650 mg PO Q4H PRN 11/06/24 11/06/24 History Ascorbic Acid [Vitamin C] 500 mg PO DIRECTED 11/06/24 11/06/24 History Glucerna Shake 237 ml PO BID@0800,1700 11/06/24 11/06/24 History Insulin Lispro See Protocol SQ ACHS 11/06/24 11/06/24 History Ipratropium-Albuterol Nebulize 3 ml INHALATION RT-QID@00,06,12,18 11/06/24 11/06/24 History [Duoneb 0.5 mg-3 mg/3 ml Soln] Loperamide HCl [Imodium A-D] 2 - 4 mg PO TID PRN MDD 8mg 11/06/24 11/06/24 History Magnesium Hydroxide [Milk of 7,200 mg PO DAILY PRN 11/06/24 11/06/24 History Magnesia Concentrate] Metoprolol Tartrate [Lopressor] 50 mg PO BID@0800,2100 11/06/24 11/06/24 History Na Phos,M-B/Na Phos,Di-Ba [Fleet 133 ml RECTAL DAILY PRN 11/06/24 11/06/24 History Adult] Pantoprazole [Protonix] 40 mg PO BID@0800,1700 11/06/24 11/06/24 History Zinc Sulfate [Orazinc] 220 mg PO DAILY 11/06/24 11/06/24 History bisacodyL 10 mg RECTAL DAILY PRN 11/06/24 11/06/24 History cefTRIAXone SODIUM [Ceftriaxone] 2 gm IV Q24H 11/06/24 11/06/24 History dexAMETHasone [Decadron] 4 mg PO DAILY@0800 11/06/24 11/06/24 History diphenhydrAMINE [Benadryl] 25 mg PO Q6H PRN 11/06/24 11/06/24 History metroNIDAZOLE [Flagyl] 500 mg PO TID@08,12,11/06/24 11/06/24 History polyethylene glycoL 3350 [Miralax] 17 gm PO DAILY PRN 11/06/24 11/06/24 History Allergies Allergy/AdvReac Type Severity Reaction Status Date / Time No Known Allergies Allergy Verified 11/06/24 13:33 Physical Exam Vitals: Vital Signs Temp Pulse Resp BP Pulse Ox 11/08/24 08:55 97.9 F 72 19 145/68 94 L 11/08/24 07:50 97 11/08/24 03:21 98.4 F 56 L 18 112/52 96 11/08/24 02:20 68 108/58 98 11/07/24 23:37 98.4 F 62 16 98/66 98 11/07/24 19:54 98.7 F 76 16 120/60 99 11/07/24 15:48 98.8 F 76 18 109/59 99 11/07/24 12:00 98.9 F 98 17 98/60 98 Intake and Output 11/07/24 11/08/24 11/08/24 22:59 06:59 14:59 Intake Total 143.220 10 Balance 143.220 10 Intake: IV 30 10 Invasive Line 1 20 Invasive Line 2 10 10 Intake, IV Titration 113.220 Amount Heparin Sod,Pork in 0.45% 113.220 NaCl 25,000 unit In 0.45 % NaCl 1 250ml.bag @ 12 UNITS/KG/HR 8.709 mls/hr IV .Q24H [facility] Rx#: [id number] Other: Voiding Method Diaper Diaper Incontinent Incontinent # Voids 1 1 # Bowel Movements 1 Results - Lab Results Most recent lab results Calcium 8.6 mg/dL (8.4-10.2) 11/08/24 04:35 Magnesium 2.1 mg/dL (1.6-2.3) 11/08/24 04:35 11/08/24 04:35 11/08/24 04:35 Assessment and Plan Plan: Assessment: 1. Acute kidney injury secondary to ATN secondary to severe sepsis. Creatinine 1.5 on admission and is up to 2.4 today. Also receiving IV Lasix. 2. Chronic kidney disease stage IIIb with baseline creatinine near 1.5 secondary to nephrosclerosis. 3. Acute COVID-19 infection. 4. Enterococcus bacteremia on IV antibiotics. 5. History of CVA with right-sided weakness. 6. Acute hypoxic respiratory failure. Plan: Hold off on further diuretics. Follow-up echocardiogram. Check renal ultrasound. Avoid nephrotoxins. Thank you for the consultation. I will continue to follow the patient with you during her hospital stay.
[2024-11-08 11:33] LABS: Glucose,Whole Blood 259 mg/dL (70-110)
[2024-11-08] MEDS ORDERED: guaiFENesin-DM 100-10MG/5ML 10 ML CUP PO PRN (11:58)
--- NOTE | 2024-11-08 12:26 | P.PN ---
Subjective HISTORY OF PRESENT ILLNESS: 73-year-old female who has a prior history of CVA with right-sided weakness hemiparesis, aphasia, dementia, [facility] resident. She is not able to provide any history and most of the history is obtained from the medical charts. Patient was diagnosed with COVID-19 infection at the [facility] yesterday when she started developing increased worsening respiratory distress along with hypoxemia with dropping her pulse oximeter. She was also having low-grade fever. Due to this she was brought to the hospital. On admission she was on 5 L oxygen saturating above 90%, febrile with Tmax of 100.7, elevated lactate. Elevated WBC count of 17.2. Hemoglobin 11. Her creatinine was 1.54, troponin was elevated at 0.28, repeat at 1.64. EKG showed sinus tachycardia heart rate of 122 bpm, nonspecific ST depressions in diffuse leads. Progress note 11/07/2024 Patient's hemoglobin has dropped since admission. Hemoglobin 9.0 today. WBC count is 21, creatinine has trended up from 1.5-2.1 11/08/2024 Patient examined this morning at the bedside. Patient currently denies chest pain or pressure. She denies shortness of breath. Patient is alert and oriented x 1-2 which is baseline per nursing. Creatinine today 2.43. Clinically she does appear volume overloaded. PHYSICAL EXAM: VITAL SIGNS: Reviewed. GENERAL: Well-developed in no acute distress. NECK: Supple. No JVD or thyromegaly LUNGS: Respirations even and unlabored. Lungs essentially clear to auscultation bilaterally, diminished. HEART: Regular rate and rhythm. S1 and S2 heard. EXTREMITIES: Normal range of motion. No clubbing or cyanosis. Peripheral pulses intact. 2+ bilateral lower extremity edema ASSESSMENT: Acute COVID-19 Acute CHF, type unknown, echo pending Acute on chronic kidney disease Enterococcus bacteremia Elevated troponins, likely type II MT secondary to oxygen supply/demand mismatch Acute hypoxic respiratory failure Lactic acidosis Metabolic encephalopathy History of CVA with right-sided weakness right arm contracture Diabetes Obesity: BMI 35.7 PLAN: 2D echo ordered. Await results. Continue current cardiac medications Give 1 dose of IV Lasix this morning Consult nephrology for evaluation Further recommendations pending patient course Nurse practitioner note has been reviewed by physician. Signing provider agrees with the documented findings, assessment, and plan of care documented by [employer] as a scribe. Objective - Vital Signs Vital signs: Vital Signs Temp 97.9 F 11/08/24 08:55 Pulse 72 11/08/24 08:55 Resp 19 11/08/24 08:55 BP 145/68 11/08/24 08:55 Pulse Ox 94 L 11/08/24 08:55 FiO2 Intake & Output 11/07/24 11/08/24 11/08/24 18:59 06:59 18:59 Intake Total 253.430 96.902 10 Balance 253.430 96.902 10 Intake: IV 40 10 Invasive Line 1 20 Invasive Line 2 20 10 Intake, IV Titration 135.430 56.902 Amount Heparin Sod,Pork in 0.45% 135.430 56.902 NaCl 25,000 unit In 0.45 % NaCl 1 250ml.bag @ 12 UNITS/KG/HR 8.709 mls/hr IV .Q24H [facility] Rx#: [id number] Oral 118 Other: Voiding Method Diaper Diaper Diaper Incontinent Incontinent # Voids 3 1 1 # Bowel Movements 1 1 1 - Labs CBC & Chem 7: 11/08/24 04:35 11/08/24 04:35 Labs: Abnormal Lab Results - Last 24 Hours (Table) 11/07/24 11/07/24 11/07/24 Range/Units 06:13 08:22 13:03 WBC (3.8-10.6) k/uL RBC (3.80-5.40) m/uL Hgb (11.4-16.0) gm/dL Hct (34.0-46.0) % MCHC (31.0-37.0) g/dL RDW (11.5-15.5) % Neutrophils # (1.3-7.7) k/uL Lymphocytes # (1.0-4.8) k/uL APTT (22.0-30.0) sec Chloride (98-107) mmol/L BUN (7-17) mg/dL Creatinine (0.52-1.04) mg/dL Glucose (74-99) mg/dL POC Glucose (mg/dL) 206 H (70-110) mg/dL Procalcitonin 11.90 H (0.02-0.50) ng/mL Urine Appearance Cloudy H (Clear) Urine Protein Trace H (Negative) Urine Blood Small H (Negative) Ur Leukocyte Esterase Moderate H (Negative) Urine WBC 12 H (0-5) /hpf Ur Squamous Epith Cells 13 H (0-4) /hpf Urine Bacteria Rare H (None) /hpf Urine Mucus Rare H (None) /hpf 11/07/24 11/07/24 11/07/24 Range/Units 15:59 16:35 20:08 WBC (3.8-10.6) k/uL RBC (3.80-5.40) m/uL Hgb (11.4-16.0) gm/dL Hct (34.0-46.0) % MCHC (31.0-37.0) g/dL RDW (11.5-15.5) % Neutrophils # (1.3-7.7) k/uL Lymphocytes # (1.0-4.8) k/uL APTT 35.2 H (22.0-30.0) sec Chloride (98-107) mmol/L BUN (7-17) mg/dL Creatinine (0.52-1.04) mg/dL Glucose (74-99) mg/dL POC Glucose (mg/dL) 242 H 246 H (70-110) mg/dL Procalcitonin (0.02-0.50) ng/mL Urine Appearance (Clear) Urine Protein (Negative) Urine Blood (Negative) Ur Leukocyte Esterase (Negative) Urine WBC (0-5) /hpf Ur Squamous Epith Cells (0-4) /hpf Urine Bacteria (None) /hpf Urine Mucus (None) /hpf 11/08/24 11/08/24 11/08/24 Range/Units 04:35 04:35 06:15 WBC 15.4 H (3.8-10.6) k/uL RBC 2.97 L (3.80-5.40) m/uL Hgb 8.9 L (11.4-16.0) gm/dL Hct 29.0 L (34.0-46.0) % MCHC 30.8 L (31.0-37.0) g/dL RDW 17.1 H (11.5-15.5) % Neutrophils # 14.0 H (1.3-7.7) k/uL Lymphocytes # 0.8 L (1.0-4.8) k/uL APTT (22.0-30.0) sec Chloride 112 H (98-107) mmol/L BUN 39 H (7-17) mg/dL Creatinine 2.43 H (0.52-1.04) mg/dL Glucose 159 H (74-99) mg/dL POC Glucose (mg/dL) 197 H (70-110) mg/dL Procalcitonin (0.02-0.50) ng/mL Urine Appearance (Clear) Urine Protein (Negative) Urine Blood (Negative) Ur Leukocyte Esterase (Negative) Urine WBC (0-5) /hpf Ur Squamous Epith Cells (0-4) /hpf Urine Bacteria (None) /hpf Urine Mucus (None) /hpf 11/08/24 Range/Units 11:30 WBC (3.8-10.6) k/uL RBC (3.80-5.40) m/uL Hgb (11.4-16.0) gm/dL Hct (34.0-46.0) % MCHC (31.0-37.0) g/dL RDW (11.5-15.5) % Neutrophils # (1.3-7.7) k/uL Lymphocytes # (1.0-4.8) k/uL APTT (22.0-30.0) sec Chloride (98-107) mmol/L BUN (7-17) mg/dL Creatinine (0.52-1.04) mg/dL Glucose (74-99) mg/dL POC Glucose (mg/dL) 259 H (70-110) mg/dL Procalcitonin (0.02-0.50) ng/mL Urine Appearance (Clear) Urine Protein (Negative) Urine Blood (Negative) Ur Leukocyte Esterase (Negative) Urine WBC (0-5) /hpf Ur Squamous Epith Cells (0-4) /hpf Urine Bacteria (None) /hpf Urine Mucus (None) /hpf Microbiology - Last 24 Hours (Table) 11/06/24 10:24 Blood Culture Gram Stain - Preliminary Blood Blood Culture - Preliminary Enterococcus faecalis Enterococcus faecium Molecular ID
--- NOTE | 2024-11-08 12:46 | P.PN ---
Subjective 73-year-old female who [facility] department [facility]. She is normally alert and oriented x 1 so all the history comes from the paramedics. Patient was brought in because she was diagnosed with COVID yesterday and now she has more difficulty breathing as of this morning and had to put her on oxygen. Patient also had a low-grade fever. There is no other history available at this time. The patient is currently on 3 L of oxygen by nasal cannula and this was brought up to 5 L to maintain saturation above 90%, current pulse ox 95%. She had a Tmax of 100.7 current temperature is at 99.2. She was in sinus tachycardia and she was quite tachypneic at time of arrival and breathing was short and labored and currently she is breathing more comfortably. The white cell count 17.2 with a hemoglobin 11 and platelet count of 348. The INR is at 1.3 with a PT of 13.5 with a PTT of 23. Sodium is at 140, bicarb is 23, BUN 16 with a creatinine of 1.54. Lactic acid level is at 2.3. Troponins at 0.2. LFTs are normal. COVID- 19 testing was positive. Chest x-ray showed multifocal airspace opacities concerning for pneumonia and the patient has cardiomegaly and smaller lung volumes and elevation of the diaphragms bilaterally. CAT scan of the brain was also done in the emergency that showed remote left parietal/frontal infarct/encephalomalacia without any acute process. The patient accordingly was started on Decadron. She was started on Rocephin and Zithromax. Pulmonary consultation was requested 11/08 Patient is a pleasant 73 years old -[place] female. Currently she is sitting up in chair looks with chronic weakness of the right side. Patient states that she wants to go home. She denies any specific complaint. No chest pain or dyspnea. No diarrhea or vomiting. No Up No diarrhea No urinary signs symptoms Currently she is covered with ceftriaxone and Zithromax for pneumonia and daptomycin for VRE bacteremia Also patient on Decadron 6 mg daily Creatinine up to 2.4, nephrology team consulted WBC is coming down currently 15,000, hemoglobin 8.9. LDH is elevated at 310 Patient has active occult blood in stool, positive for COVID but negative for influenza Chest x-ray showing bilateral opacity which is suspicious for pneumonia versus CHF. CT of the brain is negative Review of systems CONSTITUTIONAL: No fever, no malaise, no fatigue. HEENT: No recent visual problems or hearing problems. Denied any sore throat. HEMATOLOGICAL: Denies any bleeding or petechiae. GENITOURINARY: Denies any burning micturition, frequency, or urgency. MUSCULOSKELETAL/RHEUMATOLOGICAL: Denies any joint pain, swelling, or any muscle pain. ENDOCRINE: Denies any polyuria or polydipsia. Active Medications Generic Name Dose Route Start Last Admin Trade Name Freq PRN Reason Stop Dose Admin Acetaminophen 650 mg 11/06/24 13:58 11/07/24 16:21 Acetaminophen Tab 325 Mg Tab PO 650 mg Q4H PRN Administration Pain or Fever > 100.5 Albuterol Sulfate 2 puff 11/06/24 12:01 11/08/24 07:48 Albuterol Hfa Inhaler INHALATION 2 puff RT-Q4H PRN Administration Shortness Of Breath Or Wheezing Amlodipine Besylate 5 mg 11/07/24 08:00 11/08/24 09:02 Amlodipine 5 Mg Tab PO 5 mg DAILY@0800 SHIRA Administration Ascorbic Acid 1,000 mg 11/07/24 08:00 11/08/24 09:02 Ascorbic Acid 500 Mg Tab PO 1,000 mg DAILY@0800 SHIRA Administration Aspirin 81 mg 11/07/24 08:00 11/08/24 09:02 Aspirin 81 Mg PO 81 mg DAILY@0800 SHIRA Administration Atorvastatin Calcium 40 mg 11/06/24 21:00 11/07/24 20:59 Atorvastatin 40 Mg Tab PO 40 mg HS@2100 SHIRA Administration Cholecalciferol 50 mcg 11/07/24 09:00 11/08/24 09:02 Cholecalciferol 25 Mcg (1000 Iu) Tablet PO 50 mcg DAILY SHIRA Administration Dexamethasone Sodium Phosphate 6 mg 11/07/24 09:00 11/08/24 09:02 Dexamethasone Sod Phosphate 10 Mg/Ml 1 Ml Vial IVP 6 mg DAILY SHIRA Administration Donepezil HCl 5 mg 11/06/24 21:00 11/07/24 21:37 Donepezil 5 Mg Tab PO 5 mg HS@2100 SHRIA Administration Ferrous Sulfate 325 mg 11/07/24 08:00 11/08/24 09:02 Ferrous Sulfate 325 Mg Tab PO 325 mg DAILY@0800 SHIRA Administration Guaifenesin/Dextromethorphan 10 ml 11/08/24 11:58 Guaifenesin-Dm 100-10mg/5ml 10 Ml Cup PO Q6HR PRN Cough Ceftriaxone Sodium 2 gm/ 50 mls @ 100 mls/hr 11/07/24 09:00 11/08/24 09:01 Sodium Chloride IVPB 11/10/24 09:29 100 mls/hr Q24HR SHIRA Administration Protocol Daptomycin 400 mg/ Sodium 50 mls @ 100 mls/hr 11/07/24 08:00 11/07/24 08:33 Chloride IVPB 100 mls/hr Q48H SHIRA Administration Insulin Aspart 0 unit 11/06/24 17:30 11/08/24 12:11 Insulin Aspart (Novolog) 100 Unit/Ml Vial SQ 6 unit ACHS SHIRA Administration Protocol Metoprolol Tartrate 50 mg 11/06/24 21:00 11/08/24 09:02 Metoprolol Tartrate 50 Mg Tab PO 50 mg BID@0800,2100 SHIRA Administration Miscellaneous Information 1 each 11/06/24 11:32 Pneumonia Protocol Utilized 1 Each Misc PO ONCE PRN Per Protocol Pantoprazole Sodium 40 mg 11/06/24 17:00 11/08/24 09:02 Pantoprazole 40 Mg Tablet PO 40 mg BID@0800,1700 SHIRA Administration Petrolatum 1 applic 11/07/24 04:19 11/07/24 16:21 Zinc Oxide Paste (Z-Guard) 1 Applic TOPICAL 1 applic Q2HR PRN Administration Wound Healing Protocol Objective - Vital Signs Vital signs: Vital Signs Temp 97.9 F 11/08/24 12:00 Pulse 75 11/08/24 12:00 Resp 18 11/08/24 12:00 BP 118/56 11/08/24 12:00 Pulse Ox 97 11/08/24 12:00 FiO2 Intake & Output 11/07/24 11/08/24 11/08/24 18:59 06:59 18:59 Intake Total 253.430 96.902 10 Balance 253.430 96.902 10 Intake: IV 40 10 Invasive Line 1 20 Invasive Line 2 20 10 Intake, IV Titration 135.430 56.902 Amount Heparin Sod,Pork in 0.45% 135.430 56.902 NaCl 25,000 unit In 0.45 % NaCl 1 250ml.bag @ 12 UNITS/KG/HR 8.709 mls/hr IV .Q24H [facility] Rx#: [id number] Oral 118 Other: Voiding Method Diaper Diaper Diaper Incontinent Incontinent # Voids 3 1 1 # Bowel Movements 1 1 1 - Exam GENERAL: The patient is alert and oriented x3, not in any acute distress. Well developed, well nourished. HEENT: Pupils are round and equally reacting to light. EOMI. No scleral icterus. No conjunctival pallor. Normocephalic, atraumatic. No pharyngeal erythema. No thyromegaly. CARDIOVASCULAR: S1 and S2 present. No murmurs, rubs, or gallops. PULMONARY: Chest is clear to auscultation, no wheezing , no crackles. ABDOMEN: Soft, nontender, nondistended, normoactive bowel sounds. No palpable organomegaly. MUSCULOSKELETAL: No joint swelling or deformity. EXTREMITIES: No cyanosis, clubbing, or pedal edema. -NEUROLOGICAL: Gross neurological examination did not reveal any focal deficits. Looks like chronic right hemiparesis SKIN: No rashes. no petechiae. - Labs CBC & Chem 7: 11/08/24 04:35 11/08/24 04:35 Labs: Abnormal Lab Results - Last 24 Hours (Table) 11/07/24 11/07/24 11/07/24 Range/Units 06:13 08:22 13:03 WBC (3.8-10.6) k/uL RBC (3.80-5.40) m/uL Hgb (11.4-16.0) gm/dL Hct (34.0-46.0) % MCHC (31.0-37.0) g/dL RDW (11.5-15.5) % Neutrophils # (1.3-7.7) k/uL Lymphocytes # (1.0-4.8) k/uL APTT (22.0-30.0) sec Chloride (98-107) mmol/L BUN (7-17) mg/dL Creatinine (0.52-1.04) mg/dL Glucose (74-99) mg/dL POC Glucose (mg/dL) 206 H (70-110) mg/dL Procalcitonin 11.90 H (0.02-0.50) ng/mL Urine Appearance Cloudy H (Clear) Urine Protein Trace H (Negative) Urine Blood Small H (Negative) Ur Leukocyte Esterase Moderate H (Negative) Urine WBC 12 H (0-5) /hpf Ur Squamous Epith Cells 13 H (0-4) /hpf Urine Bacteria Rare H (None) /hpf Urine Mucus Rare H (None) /hpf 11/07/24 11/07/24 11/07/24 Range/Units 15:59 16:35 20:08 WBC (3.8-10.6) k/uL RBC (3.80-5.40) m/uL Hgb (11.4-16.0) gm/dL Hct (34.0-46.0) % MCHC (31.0-37.0) g/dL RDW (11.5-15.5) % Neutrophils # (1.3-7.7) k/uL Lymphocytes # (1.0-4.8) k/uL APTT 35.2 H (22.0-30.0) sec Chloride (98-107) mmol/L BUN (7-17) mg/dL Creatinine (0.52-1.04) mg/dL Glucose (74-99) mg/dL POC Glucose (mg/dL) 242 H 246 H (70-110) mg/dL Procalcitonin (0.02-0.50) ng/mL Urine Appearance (Clear) Urine Protein (Negative) Urine Blood (Negative) Ur Leukocyte Esterase (Negative) Urine WBC (0-5) /hpf Ur Squamous Epith Cells (0-4) /hpf Urine Bacteria (None) /hpf Urine Mucus (None) /hpf 11/08/24 11/08/24 11/08/24 Range/Units 04:35 04:35 06:15 WBC 15.4 H (3.8-10.6) k/uL RBC 2.97 L (3.80-5.40) m/uL Hgb 8.9 L (11.4-16.0) gm/dL Hct 29.0 L (34.0-46.0) % MCHC 30.8 L (31.0-37.0) g/dL RDW 17.1 H (11.5-15.5) % Neutrophils # 14.0 H (1.3-7.7) k/uL Lymphocytes # 0.8 L (1.0-4.8) k/uL APTT (22.0-30.0) sec Chloride 112 H (98-107) mmol/L BUN 39 H (7-17) mg/dL Creatinine 2.43 H (0.52-1.04) mg/dL Glucose 159 H (74-99) mg/dL POC Glucose (mg/dL) 197 H (70-110) mg/dL Procalcitonin (0.02-0.50) ng/mL Urine Appearance (Clear) Urine Protein (Negative) Urine Blood (Negative) Ur Leukocyte Esterase (Negative) Urine WBC (0-5) /hpf Ur Squamous Epith Cells (0-4) /hpf Urine Bacteria (None) /hpf Urine Mucus (None) /hpf 11/08/24 Range/Units 11:30 WBC (3.8-10.6) k/uL RBC (3.80-5.40) m/uL Hgb (11.4-16.0) gm/dL Hct (34.0-46.0) % MCHC (31.0-37.0) g/dL RDW (11.5-15.5) % Neutrophils # (1.3-7.7) k/uL Lymphocytes # (1.0-4.8) k/uL APTT (22.0-30.0) sec Chloride (98-107) mmol/L BUN (7-17) mg/dL Creatinine (0.52-1.04) mg/dL Glucose (74-99) mg/dL POC Glucose (mg/dL) 259 H (70-110) mg/dL Procalcitonin (0.02-0.50) ng/mL Urine Appearance (Clear) Urine Protein (Negative) Urine Blood (Negative) Ur Leukocyte Esterase (Negative) Urine WBC (0-5) /hpf Ur Squamous Epith Cells (0-4) /hpf Urine Bacteria (None) /hpf Urine Mucus (None) /hpf Microbiology - Last 24 Hours (Table) 11/06/24 10:24 Blood Culture Gram Stain - Preliminary Blood Blood Culture - Preliminary Enterococcus faecalis Enterococcus faecium Molecular ID Assessment and Plan Assessment: COVID infection and pneumonia with possible elements of bacterial superinfection Acute hypoxic respiratory failure Acute kidney injury on chronic kidney disease VRE bacteremia Elevated troponin most likely secondary to non-STEMI type II 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 Continue same treatment. Continue with sym ptomatic treatment. Resume home medication. Monitor labs and vitals. DVT and GI prophylaxis. Further recommendations as per clinical course of the patient DVT prophylaxis: no Subcutaneous heparin in view of anemia GI Prophylaxis: Ppi PT/OT: Pending Prognosis is guarded
--- NOTE | 2024-11-08 13:47 | P.PN ---
Subjective Progress Note Date: 11/08/24 Principal diagnosis: Acute hypoxic respiratory failure secondary to acute COVID-19 pneumonia This is a 73-year-old female patient who presented to the emergency department with diminished level of consciousness. The patient is normally alert and oriented x 1. No significant history is available. The patient was diagnosed having COVID-19 infection at the assisted yesterday and she was developing worsening in breathing and she had also a drop in oxygenation and pulse ox and she has been placed on oxygen. She also had a low-grade fever. Based on that, the patient was brought into the hospital. The patient is currently on 3 L of oxygen by nasal cannula and this was brought up to 5 L to maintain saturation above 90%, current pulse ox 95%. She had a Tmax of 100.7 current temperature is at 99.2. She was in sinus tachycardia and she was quite tachypneic at time of arrival and breathing was short and labored and currently she is breathing more comfortably. The white cell count 17.2 with a hemoglobin 11 and platelet count of 348. The INR is at 1.3 with a PT of 13.5 with a PTT of 23. Sodium is at 140, bicarb is 23, BUN 16 with a creatinine of 1.54. Lactic acid level is at 2.3. Troponins at 0.2. LFTs are normal. COVID-19 testing was positive. Chest x-ray showed multifocal airspace opacities concerning for pneumonia and the patient has cardiomegaly and smaller lung volumes and elevation of the diaphragms bilaterally. CAT scan of the brain was also done in the emergency that showed remote left parietal/frontal infarct/encephalomalacia without any acute process. The patient accordingly was started on Decadron. She was started on Rocephin and Zithromax. Pulmonary consultation was requested accordingly.The patient is a assisted resident. The patient has other comorbidities including previous history of CVA right-sided weakness, dementia, chronic kidney disease stage III chronic bronchial asthma the patient is a former smoker. She has hypertension hyperlipidemia diabetes mellitus type 2. Her last COVID-19 infection was back in November 2021 at that time the patient was hospitalized for the same problem. On 11/07/2024, patient is calm and comfortable on 2 L of oxygen by nasal cannula with a pulse ox of 98%. The patient was hospitalized for acute hypoxic mary failure and COVID-19 infection and the patient is currently on Decadron. Furthermore, the patient was given a combination of Rocephin and Zithromax as an empiric antibiotic coverage. Subsequently, the blood culture was positive for Enterococcus, likely VRE E and the patient was started on daptomycin. Troponins were minimally elevated and the patient was started on IV heparin by cardiology. Based on the cardiac enzyme evaluation, the patient's troponin peaked at 2.2/the patient ruled in for an acute non-ST segment elevation myocardial infarction. She is free of any chest pain for now. Hemodynamically stable. Afebrile. No other significant events otherwise for now. Remains on IV Lasix 40 mg every 12 hours. Echocardiogram is in progress. Was evaluated today on 11/08/2024, patient is feeling better, breathing easier,Presently on 2 L nasal cannula with O2 sats 97%.WBC count is 15.4 hemoglobin 8.9 basic metabolic profile is normal BUN is 39 creatinine 2.43 chest x-ray from 2 days ago showed evidence of bilateral multifocal infiltrates consistent with COVID-19 pneumonia Objective - Vital Signs Vital signs: Vital Signs Temp 97.9 F 11/08/24 12:00 Pulse 75 11/08/24 12:00 Resp 18 11/08/24 12:00 BP 118/56 11/08/24 12:00 Pulse Ox 97 11/08/24 12:00 FiO2 Intake & Output 11/07/24 11/08/24 11/08/24 18:59 06:59 18:59 Intake Total 253.430 96.902 128 Balance 253.430 96.902 128 Intake: IV 40 10 Invasive Line 1 20 Invasive Line 2 20 10 Intake, IV Titration 135.430 56.902 Amount Heparin Sod,Pork in 0.45% 135.430 56.902 NaCl 25,000 unit In 0.45 % NaCl 1 250ml.bag @ 12 UNITS/KG/HR 8.709 mls/hr IV .Q24H [facility] Rx#: [id number] Oral 118 118 Other: Voiding Method Diaper Diaper Diaper Incontinent Incontinent # Voids 3 1 1 # Bowel Movements 1 1 1 - Exam GENERAL EXAM: Revealed 71-year-old female in no distress, on 2 L nasal cannula HEAD: Normocephalic/atraumatic. EYES: Normal reaction of pupils, equal size. Conjunctiva pink, sclera white. NOSE: Clear with pink turbinates. THROAT: No erythema or exudates. NECK: No masses, no JVD, no thyroid enlargement, no adenopathy. CHEST: No chest wall deformity. Symmetrical expansion. LUNGS: Fine crackles at the bases no rhonchi no wheezes CVS: Regular rate and rhythm, normal S1 and S2, no gallops, no murmurs, no rubs ABDOMEN: Soft, nontender. No hepatosplenomegaly, normal bowel sounds, no guarding or rigidity. EXTREMITIES: No clubbing, no edema, no cyanosis, 2+ pulses and upper and lower extremities. MUSCULOSKELETAL: No deformities no limitation range of motion normal. SKIN: No rashes CENTRAL NERVOUS SYSTEM: Alert, patient is aphasic. right-sided weakness tone is normal in all 4 extremities. - Labs CBC & Chem 7: 11/08/24 04:35 11/08/24 04:35 Labs: Abnormal Lab Results - Last 24 Hours (Table) 11/07/24 11/07/24 11/07/24 Range/Units 06:13 08:22 13:03 WBC (3.8-10.6) k/uL RBC (3.80-5.40) m/uL Hgb (11.4-16.0) gm/dL Hct (34.0-46.0) % MCHC (31.0-37.0) g/dL RDW (11.5-15.5) % Neutrophils # (1.3-7.7) k/uL Lymphocytes # (1.0-4.8) k/uL APTT (22.0-30.0) sec Chloride (98-107) mmol/L BUN (7-17) mg/dL Creatinine (0.52-1.04) mg/dL Glucose (74-99) mg/dL POC Glucose (mg/dL) 206 H (70-110) mg/dL Procalcitonin 11.90 H (0.02-0.50) ng/mL Urine Appearance Cloudy H (Clear) Urine Protein Trace H (Negative) Urine Blood Small H (Negative) Ur Leukocyte Esterase Moderate H (Negative) Urine WBC 12 H (0-5) /hpf Ur Squamous Epith Cells 13 H (0-4) /hpf Urine Bacteria Rare H (None) /hpf Urine Mucus Rare H (None) /hpf 11/07/24 11/07/24 11/07/24 Range/Units 15:59 16:35 20:08 WBC (3.8-10.6) k/uL RBC (3.80-5.40) m/uL Hgb (11.4-16.0) gm/dL Hct (34.0-46.0) % MCHC (31.0-37.0) g/dL RDW (11.5-15.5) % Neutrophils # (1.3-7.7) k/uL Lymphocytes # (1.0-4.8) k/uL APTT 35.2 H (22.0-30.0) sec Chloride (98-107) mmol/L BUN (7-17) mg/dL Creatinine (0.52-1.04) mg/dL Glucose (74-99) mg/dL POC Glucose (mg/dL) 242 H 246 H (70-110) mg/dL Procalcitonin (0.02-0.50) ng/mL Urine Appearance (Clear) Urine Protein (Negative) Urine Blood (Negative) Ur Leukocyte Esterase (Negative) Urine WBC (0-5) /hpf Ur Squamous Epith Cells (0-4) /hpf Urine Bacteria (None) /hpf Urine Mucus (None) /hpf 11/08/24 11/08/24 11/08/24 Range/Units 04:35 04:35 06:15 WBC 15.4 H (3.8-10.6) k/uL RBC 2.97 L (3.80-5.40) m/uL Hgb 8.9 L (11.4-16.0) gm/dL Hct 29.0 L (34.0-46.0) % MCHC 30.8 L (31.0-37.0) g/dL RDW 17.1 H (11.5-15.5) % Neutrophils # 14.0 H (1.3-7.7) k/uL Lymphocytes # 0.8 L (1.0-4.8) k/uL APTT (22.0-30.0) sec Chloride 112 H (98-107) mmol/L BUN 39 H (7-17) mg/dL Creatinine 2.43 H (0.52-1.04) mg/dL Glucose 159 H (74-99) mg/dL POC Glucose (mg/dL) 197 H (70-110) mg/dL Procalcitonin (0.02-0.50) ng/mL Urine Appearance (Clear) Urine Protein (Negative) Urine Blood (Negative) Ur Leukocyte Esterase (Negative) Urine WBC (0-5) /hpf Ur Squamous Epith Cells (0-4) /hpf Urine Bacteria (None) /hpf Urine Mucus (None) /hpf 11/08/24 Range/Units 11:30 WBC (3.8-10.6) k/uL RBC (3.80-5.40) m/uL Hgb (11.4-16.0) gm/dL Hct (34.0-46.0) % MCHC (31.0-37.0) g/dL RDW (11.5-15.5) % Neutrophils # (1.3-7.7) k/uL Lymphocytes # (1.0-4.8) k/uL APTT (22.0-30.0) sec Chloride (98-107) mmol/L BUN (7-17) mg/dL Creatinine (0.52-1.04) mg/dL Glucose (74-99) mg/dL POC Glucose (mg/dL) 259 H (70-110) mg/dL Procalcitonin (0.02-0.50) ng/mL Urine Appearance (Clear) Urine Protein (Negative) Urine Blood (Negative) Ur Leukocyte Esterase (Negative) Urine WBC (0-5) /hpf Ur Squamous Epith Cells (0-4) /hpf Urine Bacteria (None) /hpf Urine Mucus (None) /hpf Microbiology - Last 24 Hours (Table) 11/06/24 22:00 Blood Culture - Preliminary Blood 11/06/24 10:24 Blood Culture Gram Stain - Preliminary Blood Blood Culture - Preliminary Enterococcus faecalis Enterococcus faecium Molecular ID Assessment and Plan Assessment: Impression: Acute hypoxic respiratory failure secondary to acute COVID-19 pneumonia Enterococcal sepsis sepsis/urinary tract infection is likely presently on daptomycin Acute non-ST elevation myocardial infarction History of CVA with right-sided weakness Benign essential hypertension History of bronchial asthma mild intermittent Type 2 diabetes assisted resident Chronic kidney disease stage III Recommendation: Continue oxygen and titrate accordingly Continue Decadron Continue IV heparin Continue aspirin Continue metoprolol Continue Lasix 40 mg twice daily Continue antibiotics mostly because patient had elevated procalcitonin level consistent with bacterial sepsis Will continue to follow Time with Patient: Less than 30
--- NOTE | 2024-11-08 14:22 | P.GSCN ---
History of Present Illness Consult date: 11/08/24 History of present illness: CHIEF COMPLAINT: Shortness of breath HISTORY OF PRESENT ILLNESS: This is a 73-year-old female who presented to hospital with worsening shortness of breath. She is found to have COVID-19 infection and was brought in from the alf due to worsening respiratory status. Patient also being treated for an acute CHF exacerbation. She also had been on IV heparin due to elevated troponins. IV heparin is currently discontinued due to patient's anemia and stool positive for occult blood. Per cardiology patient had a type II CO. Patient also on antibiotics for bacteremia. Patient is a poor historian. She does have a known history of dementia. Per nursing staff patient has had no blood in her stools or any evidence of black stools. Patient denies any abdominal pain. Denies any nausea or vomiting. Per nursing staff patient has been tolerating diet. Patient's last colonoscopy is unknown. PAST MEDICAL HISTORY: See below PAST SURGICAL HISTORY: See below MEDICATIONS: See below ALLERGIES: See below SOCIAL HISTORY: No illicit drug use. REVIEW OF SYSTEMS: CONSTITUTIONAL: Denies fever or chills. HEENT: Denies blurred vision, vision changes, or eye pain. Denies hemoptysis CARDIOVASCULAR: Denies chest pain or pressure. RESPIRATORY: No shortness of breath. GASTROINTESTINAL: See HPI for pertinent findings HEMATOLOGIC: Denies bleeding disorders. GENITOURINARY: Denies any blood in urine or increased urinary frequency. SKIN: Denies pruitis. Denies rash. PHYSICAL EXAM: VITAL SIGNS: Reviewed GENERAL: Well-developed in no acute distress. HEENT: No sclera icterus. Extraocular movements grossly intact. Moist buccal mucosa. Head is atraumatic, normocephalic. No nasal drainage. ABDOMEN: Soft. Nondistended. Nontender. No rebound or guarding. NEUROLOGIC: Patient is awake and alert. Pleasantly confused. LABORATORY DATA: WBC 21 down to 15.4 Hgb 11 on admission with a repeat hemoglobin of 9.7 and now down to 8.9. Platelets 277 INR 1.3 Sodium 141 potassium 5.0 creatinine 2.43 BUN 39 Elevated troponins IMAGING: ASSESSMENT: 1. Anemia with stool positive for occult blood. No active bleeding noted 2. COVID-positive 3. Acute CHF exacerbation 4. Bacteremia PLAN: -Continue to monitor hemoglobin -Continue monitor for any signs or symptoms of bleeding -Agree with discontinuing the IV heparin -Further recommendations forthcoming per surgeon Physician General Utility Maintenance Repairer note has been reviewed by physician. Signing provider agrees with the documented findings, assessment, and plan of care. Attestation Patient seen and examined at bedside. Surgery consulted secondary to anemia with occult blood positive in stool. No active bleeding noted. Currently, patient is COVID-positive and with acute CHF exacerbation. I would recommend treating acute medical issues prior to any endoscopy. Endoscopy can be performed as an outpatient for this patient unless having symptoms of severe GI bleeding. Will continue to follow and make recommendations based on clinical progress. Fly Hanson, Past Medical History Past Medical History: Asthma, CVA/TIA, Dementia, Diabetes Mellitus, Hyperlipidemia, Hypertension, Pneumonia Additional Past Medical History / Comment(s): rt sided weakness post cva uses cane rt arm contracted History of Any Multi-Drug Resistant Organisms: None Reported Past Surgical History: Cholecystectomy, Hysterectomy Additional Past Surgical History / Comment(s): right femoral artery bypass Past Anesthesia/Blood Transfusion Reactions: No Reported Reaction Additional Past Anesthesia/Blood Transfusion Reaction / Comm: has had a blood transfusion, with no reaction Past Psychological History: No Psychological Hx Reported Smoking Status: Former smoker Past Alcohol Use History: None Reported Additional Past Alcohol Use History / Comment(s): smoked 10 years 1ppd quit 5 years ago Past Drug Use History: None Reported - Past Family History Mother Family Medical History: Diabetes Mellitus Medications and Allergies Home Medications Medication Instructions Recorded Confirmed Type Atorvastatin [Lipitor] 10 mg PO HS@2100 03/06/17 11/06/24 History Ferrous Sulfate [Iron (65 MG 325 mg PO DAILY@79903/06/17 11/06/24 History Elemental)] Montelukast [Singulair] 10 mg PO DAILY@0800 03/06/17 11/06/24 History Multivitamins, Thera [Multivitamin 1 tab PO DAILY@79903/06/17 11/06/24 History (formulary)] amLODIPine [Norvasc] 5 mg PO DAILY@0803/06/17 11/06/24 History Aspirin EC [Ecotrin Low Dose] 81 mg PO DAILY@0800 04/04/21 11/06/24 History Donepezil [Aricept] 5 mg PO HS@2100 04/04/21 11/06/24 History Ascorbic Acid [Vitamin C] 1,000 mg PO DAILY@0800 11/26/21 11/06/24 History Albuterol Inhaler [Ventolin Hfa 2 puff INHALATION RT-Q6H PRN 12/02/21 11/06/24 History Inhaler] Cholecalciferol [Vitamin D3 (25 50 mcg PO DAILY 12/02/21 11/06/24 History Mcg = 1000 Iu)] Acetaminophen [Tylenol] 650 mg PO Q4H PRN 11/06/24 11/06/24 History Ascorbic Acid [Vitamin C] 500 mg PO DIRECTED 11/06/24 11/06/24 History Glucerna Shake 237 ml PO BID@0800,1700 11/06/24 11/06/24 History Insulin Lispro See Protocol SQ ACHS 11/06/24 11/06/24 History Ipratropium-Albuterol Nebulize 3 ml INHALATION RT-QID@00,06,12,18 11/06/24 History [Duoneb 0.5 mg-3 mg/3 ml Soln] Loperamide HCl [Imodium A-D] 2 - 4 mg PO TID PRN MDD 8mg 11/06/24 11/06/24 History Magnesium Hydroxide [Milk of 7,200 mg PO DAILY PRN 11/06/24 11/06/24 History Magnesia Concentrate] Metoprolol Tartrate [Lopressor] 50 mg PO BID@0800,2100 11/06/24 11/06/24 History Na Phos,M-B/Na Phos,Di-Ba [Fleet 133 ml RECTAL DAILY PRN 11/06/24 11/06/24 History Adult] Pantoprazole [Protonix] 40 mg PO BID@0800,1700 11/06/24 11/06/24 History Zinc Sulfate [Orazinc] 220 mg PO DAILY 11/06/24 11/06/24 History bisacodyL 10 mg RECTAL DAILY PRN 11/06/24 11/06/24 History cefTRIAXone SODIUM [Ceftriaxone] 2 gm IV Q24H 11/06/24 11/06/24 History dexAMETHasone [Decadron] 4 mg PO DAILY@0800 11/06/24 11/06/24 History diphenhydrAMINE [Benadryl] 25 mg PO Q6H PRN 11/06/24 11/06/24 History metroNIDAZOLE [Flagyl] 500 mg PO TID@08,12,17 11/06/24 11/06/24 History polyethylene glycoL 3350 [Miralax] 17 gm PO DAILY PRN 11/06/24 11/06/24 History Allergies Allergy/AdvReac Type Severity Reaction Status Date / Time No Known Allergies Allergy Verified 11/06/24 13:33 Surgical - Exam Osteopathic Statement: *. No significant issues noted on an osteopathic structural exam other than those noted in the History and Physical/Consult. Vital Signs Temp Pulse Resp BP Pulse Ox 100.7 F H 121 H 32 H 159/85 97 11/06/24 10:04 11/06/24 10:04 11/06/24 10:04 11/06/24 10:04 11/06/24 10:04 Results - Labs 11/08/24 04:35 11/08/24 04:35 Abnormal Lab Results - Last 24 Hours (Table) 11/07/24 11/07/24 11/07/24 Range/Units 06:13 08:22 13:03 WBC (3.8-10.6) k/uL RBC (3.80-5.40) m/uL Hgb (11.4-16.0) gm/dL Hct (34.0-46.0) % MCHC (31.0-37.0) g/dL RDW (11.5-15.5) % Neutrophils # (1.3-7.7) k/uL Lymphocytes # (1.0-4.8) k/uL APTT (22.0-30.0) sec Chloride (98-107) mmol/L BUN (7-17) mg/dL Creatinine (0.52-1.04) mg/dL Glucose (74-99) mg/dL POC Glucose (mg/dL) 206 H (70-110) mg/dL Procalcitonin 11.90 H (0.02-0.50) ng/mL Urine Appearance Cloudy H (Clear) Urine Protein Trace H (Negative) Urine Blood Small H (Negative) Ur Leukocyte Esterase Moderate H (Negative) Urine WBC 12 H (0-5) /hpf Ur Squamous Epith Cells 13 H (0-4) /hpf Urine Bacteria Rare H (None) /hpf Urine Mucus Rare H (None) /hpf 11/07/24 11/07/24 11/07/24 Range/Units 15:59 16:35 20:08 WBC (3.8-10.6) k/uL RBC (3.80-5.40) m/uL Hgb (11.4-16.0) gm/dL Hct (34.0-46.0) % MCHC (31.0-37.0) g/dL RDW (11.5-15.5) % Neutrophils # (1.3-7.7) k/uL Lymphocytes # (1.0-4.8) k/uL APTT 35.2 H (22.0-30.0) sec Chloride (98-107) mmol/L BUN (7-17) mg/dL Creatinine (0.52-1.04) mg/dL Glucose (74-99) mg/dL POC Glucose (mg/dL) 242 H 246 H (70-110) mg/dL Procalcitonin (0.02-0.50) ng/mL Urine Appearance (Clear) Urine Protein (Negative) Urine Blood (Negative) Ur Leukocyte Esterase (Negative) Urine WBC (0-5) /hpf Ur Squamous Epith Cells (0-4) /hpf Urine Bacteria (None) /hpf Urine Mucus (None) /hpf 11/08/24 11/08/24 11/08/24 Range/Units 04:35 04:35 06:15 WBC 15.4 H (3.8-10.6) k/uL RBC 2.97 L (3.80-5.40) m/uL Hgb 8.9 L (11.4-16.0) gm/dL Hct 29.0 L (34.0-46.0) % MCHC 30.8 L (31.0-37.0) g/dL RDW 17.1 H (11.5-15.5) % Neutrophils # 14.0 H (1.3-7.7) k/uL Lymphocytes # 0.8 L (1.0-4.8) k/uL APTT (22.0-30.0) sec Chloride 112 H (98-107) mmol/L BUN 39 H (7-17) mg/dL Creatinine 2.43 H (0.52-1.04) mg/dL Glucose 159 H (74-99) mg/dL POC Glucose (mg/dL) 197 H (70-110) mg/dL Procalcitonin (0.02-0.50) ng/mL Urine Appearance (Clear) Urine Protein (Negative) Urine Blood (Negative) Ur Leukocyte Esterase (Negative) Urine WBC (0-5) /hpf Ur Squamous Epith Cells (0-4) /hpf Urine Bacteria (None) /hpf Urine Mucus (None) /hpf 11/08/24 Range/Units 11:30 WBC (3.8-10.6) k/uL RBC (3.80-5.40) m/uL Hgb (11.4-16.0) gm/dL Hct (34.0-46.0) % MCHC (31.0-37.0) g/dL RDW (11.5-15.5) % Neutrophils # (1.3-7.7) k/uL Lymphocytes # (1.0-4.8) k/uL APTT (22.0-30.0) sec Chloride (98-107) mmol/L BUN (7-17) mg/dL Creatinine (0.52-1.04) mg/dL Glucose (74-99) mg/dL POC Glucose (mg/dL) 259 H (70-110) mg/dL Procalcitonin (0.02-0.50) ng/mL Urine Appearance (Clear) Urine Protein (Negative) Urine Blood (Negative) Ur Leukocyte Esterase (Negative) Urine WBC (0-5) /hpf Ur Squamous Epith Cells (0-4) /hpf Urine Bacteria (None) /hpf Urine Mucus (None) /hpf Microbiology - Last 24 Hours (Table) 11/06/24 22:00 Blood Culture - Preliminary Blood 11/06/24 10:24 Blood Culture Gram Stain - Preliminary Blood Blood Culture - Preliminary Enterococcus faecalis Enterococcus faecium Molecular ID Diabetes panel 11/08/24 Range/Units 04:35 Sodium 141 (137-145) mmol/L Potassium 5.0 (3.5-5.1) mmol/L Chloride 112 H (98-107) mmol/L Carbon Dioxide 27 (22-30) mmol/L BUN 39 H (7-17) mg/dL Creatinine 2.43 H (0.52-1.04) mg/dL Glucose 159 H (74-99) mg/dL Calcium 8.6 (8.4-10.2) mg/dL Calcium panel 11/08/24 Range/Units 04:35 Calcium 8.6 (8.4-10.2) mg/dL Pituitary panel 11/08/24 Range/Units 04:35 Sodium 141 (137-145) mmol/L Potassium 5.0 (3.5-5.1) mmol/L Chloride 112 H (98-107) mmol/L Carbon Dioxide 27 (22-30) mmol/L BUN 39 H (7-17) mg/dL Creatinine 2.43 H (0.52-1.04) mg/dL Glucose 159 H (74-99) mg/dL Calcium 8.6 (8.4-10.2) mg/dL Adrenal panel 11/08/24 Range/Units 04:35 Sodium 141 (137-145) mmol/L Potassium 5.0 (3.5-5.1) mmol/L Chloride 112 H (98-107) mmol/L Carbon Dioxide 27 (22-30) mmol/L BUN 39 H (7-17) mg/dL Creatinine 2.43 H (0.52-1.04) mg/dL Glucose 159 H (74-99) mg/dL Calcium 8.6 (8.4-10.2) mg/dL
--- NOTE | 2024-11-08 14:34 | US ---
EXAMINATION TYPE: US kidneys/renal and bladder DATE OF EXAM: 11/08/2024 COMPARISON: NONE CLINICAL INDICATION: Female, 73 years old with history of mckinley; MCKINLEY TECHNIQUE: Grayscale imaging of the bilateral kidneys and urinary bladder: FINDINGS: EXAM MEASUREMENTS: Right Kidney: 11.5 x 4.8 x 5.1 cm Left Kidney: 9.1 x 4.5 x 4.6 cm Immobile pt, difficult to visualize left kidney Right Kidney: No evidence of hydro, hypoechoic lesion upper pole= 2.6 x 1.8 x 2.6 cm no prior exam available for comparison. Left Kidney: Limited views show no evidence of hydro Bladder: wnl Bilateral Jets seen: Yes Renal cortical thickness and echogenicity maintained. IMPRESSION: No hydronephrosis. Indeterminate hypoechoic lesion upper pole right kidney most likely technical and related to cyst. This could be confirmed with CT scan. [facility], , 11/08/2024 2:32 PM
[2024-11-08 16:43] LABS: Glucose,Whole Blood 414 mg/dL (70-110)
[2024-11-08] MEDS ORDERED: polyethylene glycoL 3350 17 GM POWD.PACK PO PRN (17:14)
[2024-11-08] MEDS: ZINC SULFATE 220 MG CAP PO SCH (18:06)
[2024-11-08] MEDS: INSULIN DETEMIR (LEVEMIR) 100 UNIT/ML SYR SQ SCH (18:06)
--- NOTE | 2024-11-08 19:28 | CA ---
Transthoracic Echo Report Name: Mita Newsome Age: 73 Gender: F : 1950 Exam Date: 11/08/2024 14:57 Exam Location: [place] [facility] Ht (in): 63 Wt (lb): 160 Ordering Physician: Jevon Mckinney MD ([id number]) Attending/Referring Phys: Language Pathologist Damaris Delgado RDCS Procedure CPT: Indications: chf, nstemi Cardiac Hx: Technical Quality: Technically difficult study Contrast 1: Definity Total Dose (mL): 2 Contrast 2: Total Dose (mL): MEASUREMENTS (Male / Female) Normal Values 2D ECHO LV Diastolic Diameter PLAX 5.2 cm 4.2 - 5.9 / 3.9 - 5.3 cm LV Systolic Diameter PLAX 4.5 cm IVS Diastolic Thickness 1.0 cm 0.6 - 1.0 / 0.6 - 0.9 cm LVPW Diastolic Thickness 1.1 cm 0.6 - 1.0 / 0.6 - 0.9 cm LV Relative Wall Thickness 0.4 RV Internal Dim ED PLAX 3.4 cm LA Systolic Diameter LX 4.4 cm 3.0 - 4.0 / 2.7 - 3.8 cm LA Volume 88.8 cm??? 18 - 58 / 22 - 52 cm??? LA Volume Index 48.8 cm???/m??? 16 - 28 cm???/m??? M-MODE Aortic Root Diameter MM 3.0 cm AV Cusp Separation MM 2.6 cm DOPPLER AV Peak Velocity 100.7 cm/s AV Peak Gradient 4.1 mmHg MV Area PHT 4.6 cm??? Mitral E Point Velocity 80.9 cm/s Mitral A Point Velocity 78.9 cm/s Mitral E to A Ratio 1.0 MV Deceleration Time 166.3 ms TR Peak Velocity 279.7 cm/s TR Peak Gradient 31.3 mmHg Right Ventricular Systolic Press 45.3 mmHg FINDINGS Left Ventricle Left ventricular ejection fraction is estimated at 30-35 %. Left ventricular cavity size normal. Mildly increased septal wall thickness. Mildly increased posterior wall thickness. Moderately reduced global left ventricular systolic function. Right Ventricle Mild right ventricular dilatation. Moderate pulmonary hypertension. Right Atrium Normal right atrial size. No right atrial thrombus or mass seen. Left Atrium Moderately increased left atrial diameter. Severely increased left atrial volume. Mildly increased left atrial area. Mitral Valve Structurally normal mitral valve. Mild mitral regurgitation. Aortic Valve Trileaflet aortic valve. No aortic valve stenosis or regurgitation. Thickened aortic valve without stenosis. Tricuspid Valve Structurally normal tricuspid valve. Mild tricuspid regurgitation. Pulmonic Valve Structurally normal pulmonic valve. Trace to mild pulmonic regurgitation. Pericardium No pericardial or pleural effusion. Aorta Normal size aortic root and proximal ascending aorta. CONCLUSIONS Severe LV dysfunction Mild increase in LV mass Mild RV enlargement Moderate LAE Dilated IVC Thickened aortic valve leaflets without any significant stenosis Previewed by: Dr. Acosta Villanueva MD (Electronically Signed) Final Date: 08 November 2024 19:27
[2024-11-08 20:19] LABS: Glucose,Whole Blood 112 mg/dL (70-110)
[2024-11-09 06:11] LABS: Glucose,Whole Blood 64 mg/dL (70-110)
[2024-11-09 06:43] LABS: Glucose,Whole Blood 63 mg/dL (70-110)
[2024-11-09 07:02] LABS: Glucose,Whole Blood 68 mg/dL (70-110)
[2024-11-09 07:23] LABS: Potassium 4.1 mmol/L (3.5-5.1)
[2024-11-09 07:24] LABS: African American GFR (CKD) 22 (>60 ml/min/1.73 sqM); Anion Gap 1 mmol/L; Blood Urea Nitrogen 43 mg/dL (7-17); Calcium 8.8 mg/dL (8.4-10.2); Carbon Dioxide 30 mmol/L (22-30); Chloride 112 mmol/L (98-107); Glucose 65 mg/dL (74-99); Magnesium 2.1 mg/dL (1.6-2.3); Non-African American GFR(CKD) 20 (>60 ml/min/1.73 sqM); Sodium 143 mmol/L (137-145)
--- NOTE | 2024-11-09 07:46 | XR ---
EXAMINATION TYPE: XR chest 1V portable DATE OF EXAM: 11/09/2024 COMPARISON: 11/07/2024 CLINICAL INDICATION: Female, 73 years old with history of PT IS COVID POSITIVE/DROPCON; , TECHNIQUE: XR chest 1V portable views of the chest. FINDINGS: Diffuse airspace disease stable. Tiny right pleural effusion. Heart size is mildly enlarged. No pneum othorax. Vascular calcifications. Left-sided PICC line stable. IMPRESSION: 1. Stable bilateral airspace disease correlate for pneumonia.. [facility], , 11/09/2024 7:43 AM
[2024-11-09 07:51] LABS: Glucose,Whole Blood 124 mg/dL (70-110)
[2024-11-09] MEDS: MONTELUKAST 10 MG TAB PO SCH (08:47)
--- NOTE | 2024-11-09 09:06 | P.CONS ---
History of Present Illness - Reason for Consult Consult date: 11/08/24 VRE bacteremia Requesting physician: Marcella Woodard - Chief Complaint Weakness and shortness of breath x few days - History of Present Illness Patient is a 73-year-old -F[place]ian female with a past medical history significant for diabetes mellitus hypertension hyperlipidemia dementia CVA TIA patient is a intermediate resident and was sent to the hospital 2 days ago in this patient who has been recently diagnosed with the COVID at the intermediate and the patient was having more difficulty breathing patient was started on supplemental oxygen and subsequently has been brought into the hospital for further evaluation on presentation to the hospital patient did have a temperature of 100.7 F patient is currently on 2 L nasal cannula oxygen no O2 sats on room air has been documented patient did have a elevated white count of 22.700 patient did have a creatinine of 1.54 patient did have a positive UA chest x-ray multifocal airspace opacities concerning for pneumonia patient has been treated with ceftriaxone subsequently blood cultures came back positive for VRE daptomycin has been added infectious he was consulted for further management of antibiotic therapy patient tried my evaluation denies having any chest pain or shortness of breath cough no nausea vomiting abdominal pain and no diarrhea Review of Systems Positive point and negatives has been mentioned in the HPI, complete review of systems was performed and all other systems are negative Past Medical History Past Medical History: Asthma, CVA/TIA, Dementia, Diabetes Mellitus, Hyperlipidemia, Hypertension, Pneumonia Additional Past Medical History / Comment(s): rt sided weakness post cva uses cane rt arm contracted History of Any Multi-Drug Resistant Organisms: None Reported Past Surgical History: Cholecystectomy, Hysterectomy Additional Past Surgical History / Comment(s): right femoral artery bypass Past Anesthesia/Blood Transfusion Reactions: No Reported Reaction Additional Past Anesthesia/Blood Transfusion Reaction / Comm: has had a blood transfusion, with no reaction Past Psychological History: No Psychological Hx Reported Smoking Status: Former smoker Past Alcohol Use History: None Reported Additional Past Alcohol Use History / Comment(s): smoked 10 years 1ppd quit 5 years ago Past Drug Use History: None Reported - Past Family History Mother Family Medical History: Diabetes Mellitus Medications and Allergies Home Medications Medication Instructions Recorded Confirmed Type Atorvastatin [Lipitor] 10 mg PO HS@2100 03/06/17 11/06/24 History Ferrous Sulfate [Iron (65 MG 325 mg PO DAILY@0800 03/06/17 11/06/24 History Elemental)] Montelukast [Singulair] 10 mg PO DAILY@0800 03/06/17 11/06/24 History Multivitamins, Thera [Multivitamin 1 tab PO DAILY@0800 03/06/17 11/06/24 History (formulary)] amLODIPine [Norvasc] 5 mg PO DAILY@0800 03/06/17 11/06/24 History Aspirin EC [Ecotrin Low Dose] 81 mg PO DAILY@0800 04/04/21 11/06/24 History Donepezil [Aricept] 5 mg PO HS@209904/04/21 11/06/24 History Ascorbic Acid [Vitamin C] 1,000 mg PO DAILY@0800 11/26/21 11/06/24 History Albuterol Inhaler [Ventolin Hfa 2 puff INHALATION RT-Q6H PRN 12/02/21 11/06/24 History Inhaler] Cholecalciferol [Vitamin D3 (25 50 mcg PO DAILY 12/02/21 11/06/24 History Mcg = 1000 Iu)] Acetaminophen [Tylenol] 650 mg PO Q4H PRN 11/06/24 11/06/24 History Ascorbic Acid [Vitamin C] 500 mg PO DIRECTED 11/06/24 11/06/24 History Glucerna Shake 237 ml PO BID@0800,1700 11/06/24 11/06/24 History Insulin Lispro See Protocol SQ ACHS 11/06/24 11/06/24 History Ipratropium-Albuterol Nebulize 3 ml INHALATION RT-QID@00,06,12,18 11/06/24 11/06/24 History [Duoneb 0.5 mg-3 mg/3 ml Soln] Loperamide HCl [Imodium A-D] 2 - 4 mg PO TID PRN MDD 8mg 11/06/24 11/06/24 History Magnesium Hydroxide [Milk of 7,200 mg PO DAILY PRN 11/06/24 11/06/24 History Magnesia Concentrate] Metoprolol Tartrate [Lopressor] 50 mg PO BID@0800,2100 11/06/24 11/06/24 History Na Phos,M-B/Na Phos,Di-Ba [Fleet 133 ml RECTAL DAILY PRN 11/06/24 11/06/24 History Adult] Pantoprazole [Protonix] 40 mg PO BID@0800,1700 11/06/24 11/06/24 History Zinc Sulfate [Orazinc] 220 mg PO DAILY 11/06/24 11/06/24 History bisacodyL 10 mg RECTAL DAILY PRN 11/06/24 11/06/24 History cefTRIAXone SODIUM [Ceftriaxone] 2 gm IV Q24H 11/06/24 11/06/24 History dexAMETHasone [Decadron] 4 mg PO DAILY@0800 11/06/24 11/06/24 History diphenhydrAMINE [Benadryl] 25 mg PO Q6H PRN 11/06/24 11/06/24 History metroNIDAZOLE [Flagyl] 500 mg PO TID@08,12,11/06/24 11/06/24 History polyethylene glycoL 3350 [Miralax] 17 gm PO DAILY PRN 11/06/24 11/06/24 History Allergies Allergy/AdvReac Type Severity Reaction Status Date / Time No Known Allergies Allergy Verified 11/06/24 13:33 Physical Exam Vitals: Vital Signs Temp Pulse Resp BP Pulse Ox 11/08/24 08:55 97.9 F 72 19 145/68 94 L 11/08/24 07:50 97 11/08/24 03:21 98.4 F 56 L 18 112/52 96 11/08/24 02:20 68 108/58 98 11/07/24 23:37 98.4 F 62 16 98/66 98 11/07/24 19:54 98.7 F 76 16 120/60 99 11/07/24 15:48 98.8 F 76 18 109/59 99 11/07/24 12:00 98.9 F 98 17 98/60 98 Intake and Output 11/07/24 11/08/24 11/08/24 22:59 06:59 14:59 Intake Total 143.220 10 Balance 143.220 10 Intake: IV 30 10 Invasive Line 1 20 Invasive Line 2 10 10 Intake, IV Titration 113.220 Amount Heparin Sod,Pork in 0.45% 113.220 NaCl 25,000 unit In 0.45 % NaCl 1 250ml.bag @ 12 UNITS/KG/HR 8.709 mls/hr IV .Q24H [facility] Rx#: [id number] Other: Voiding Method Diaper Diaper Incontinent Incontinent # Voids 1 1 # Bowel Movements 1 GENERAL DESCRIPTION: Elderly female up in bed, no distress. No tachypnea or accessory muscle of respiration use. HEENT: Shows Pallor , no scleral icterus. Oral mucous membrane is dry. NECK: Trachea central, no thyromegaly. LUNGS: Unlabored breathing. Decreased breath sound at the base HEART: S1, S2, regular rate and rhythm. No loud murmur ABDOMEN: Soft, no tenderness , guarding or rigidity, no organomegaly EXTREMITIES: No edema of feet. SKIN: No rash, no masses palpable. NEUROLOGICAL: The patient is awake, alert, mood and affect normal. Results CBC & Chem 7: 11/08/24 04:35 11/09/24 06:42 Labs: Abnormal Lab Results - Last 24 Hours (Table) 11/06/24 11/07/24 11/07/24 Range/Units 14:09 06:13 08:22 WBC (3.8-10.6) k/uL RBC (3.80-5.40) m/uL Hgb (11.4-16.0) gm/dL Hct (34.0-46.0) % MCHC (31.0-37.0) g/dL RDW (11.5-15.5) % Neutrophils # (1.3-7.7) k/uL Lymphocytes # (1.0-4.8) k/uL APTT (22.0-30.0) sec Chloride (98-107) mmol/L BUN (7-17) mg/dL Creatinine (0.52-1.04) mg/dL Glucose (74-99) mg/dL POC Glucose (mg/dL) 206 H (70-110) mg/dL Procalcitonin 3.51 H 11.90 H (0.02-0.50) ng/mL Urine Appearance (Clear) Urine Protein (Negative) Urine Blood (Negative) Ur Leukocyte Esterase (Negative) Urine WBC (0-5) /hpf Ur Squamous Epith Cells (0-4) /hpf Urine Bacteria (None) /hpf Urine Mucus (None) /hpf 11/07/24 11/07/24 11/07/24 Range/Units 11:39 13:03 15:59 WBC (3.8-10.6) k/uL RBC (3.80-5.40) m/uL Hgb (11.4-16.0) gm/dL Hct (34.0-46.0) % MCHC (31.0-37.0) g/dL RDW (11.5-15.5) % Neutrophils # (1.3-7.7) k/uL Lymphocytes # (1.0-4.8) k/uL APTT 35.2 H (22.0-30.0) sec Chloride (98-107) mmol/L BUN (7-17) mg/dL Creatinine (0.52-1.04) mg/dL Glucose (74-99) mg/dL POC Glucose (mg/dL) 147 H (70-110) mg/dL Procalcitonin (0.02-0.50) ng/mL Urine Appearance Cloudy H (Clear) Urine Protein Trace H (Negative) Urine Blood Small H (Negative) Ur Leukocyte Esterase Moderate H (Negative) Urine WBC 12 H (0-5) /hpf Ur Squamous Epith Cells 13 H (0-4) /hpf Urine Bacteria Rare H (None) /hpf Urine Mucus Rare H (None) /hpf 11/07/24 11/07/24 11/08/24 Range/Units 16:35 20:08 04:35 WBC 15.4 H (3.8-10.6) k/uL RBC 2.97 L (3.80-5.40) m/uL Hgb 8.9 L (11.4-16.0) gm/dL Hct 29.0 L (34.0-46.0) % MCHC 30.8 L (31.0-37.0) g/dL RDW 17.1 H (11.5-15.5) % Neutrophils # 14.0 H (1.3-7.7) k/uL Lymphocytes # 0.8 L (1.0-4.8) k/uL APTT (22.0-30.0) sec Chloride (98-107) mmol/L BUN (7-17) mg/dL Creatinine (0.52-1.04) mg/dL Glucose (74-99) mg/dL POC Glucose (mg/dL) 242 H 246 H (70-110) mg/dL Procalcitonin (0.02-0.50) ng/mL Urine Appearance (Clear) Urine Protein (Negative) Urine Blood (Negative) Ur Leukocyte Esterase (Negative) Urine WBC (0-5) /hpf Ur Squamous Epith Cells (0-4) /hpf Urine Bacteria (None) /hpf Urine Mucus (None) /hpf 11/08/24 11/08/24 Range/Units 04:35 06:15 WBC (3.8-10.6) k/uL RBC (3.80-5.40) m/uL Hgb (11.4-16.0) gm/dL Hct (34.0-46.0) % MCHC (31.0-37.0) g/dL RDW (11.5-15.5) % Neutrophils # (1.3-7.7) k/uL Lymphocytes # (1.0-4.8) k/uL APTT (22.0-30.0) sec Chloride 112 H (98-107) mmol/L BUN 39 H (7-17) mg/dL Creatinine 2.43 H (0.52-1.04) mg/dL Glucose 159 H (74-99) mg/dL POC Glucose (mg/dL) 197 H (70-110) mg/dL Procalcitonin (0.02-0.50) ng/mL Urine Appearance (Clear) Urine Protein (Negative) Urine Blood (Negative) Ur Leukocyte Esterase (Negative) Urine WBC (0-5) /hpf Ur Squamous Epith Cells (0-4) /hpf Urine Bacteria (None) /hpf Urine Mucus (None) /hpf Microbiology - Last 24 Hours (Table) 11/06/24 10:24 Blood Culture Gram Stain - Preliminary Blood Blood Culture - Preliminary Enterococcus faecalis Enterococcus faecium Molecular ID Assessment and Plan (1) Sepsis Current Visit: Yes Status: Acute Code(s): A41.9 - SEPSIS, UNSPECIFIED ORGANISM SNOMED Code(s): 72584252 (2) Leukocytosis Current Visit: Yes Status: Acute Code(s): D72.829 - ELEVATED WHITE BLOOD KIEL L COUNT, UNSPECIFIED SNOMED Code(s): 173918811 (3) VRE bacteremia Current Visit: Yes Status: Acute Code(s): R78.81 - BACTEREMIA; B95.2 - ENTEROCOCCUS THE CAUSE OF DISEASES CLASSIFIED ELSEWHERE; Z16.21 - RESISTANCE TO VANCOMYCIN SNOMED Code(s): 2508154689 Plan: 1patient presented to hospital with sepsis in this patient who did have a fever elevated white count tachycardia meeting currently for SIRS source is mul tifactorial he was concern for possible pneumonia however the patient also have evidence of VRE bacteremia and to be a result of a common pathogen to cause pneumonia source could be either urinary versus abdominal 2-blood culture has been repeated document clearance of bacteremia 3-await urine culture to finalize as well as ultrasound of the abdominal bladder to make sure no evidence of any structural abnormality 4-daptomycin 6 mg/kg q. 48-hour dose adjusted to the kidney function We will follow on clinical condition and cultures to further adjust medication if needed Thank you for this consultation we will follow the patient along with you Dictation was produced using [employer] dictation software. please excuse any grammatical, word or spelling errors. Time with Patient: Greater than 30
--- NOTE | 2024-11-09 10:17 | P.PN ---
Subjective Patient is seen in follow-up for acute kidney injury on chronic kidney disease. Renal function stable. Has been voiding. Hemodynamically stable. Vital signs are stable. General: No acute distress. HEENT: Head exam is unremarkable. LUNGS: No audible rhonchi or wheezes. HEART: Rate and Rhythm are regular. ABDOMEN: Nontender. EXTREMITITES: No edema. Objective - Vital Signs Vital signs: Vital Signs Temp 97.6 F 11/09/24 08:45 Pulse 65 11/09/24 08:45 Resp 20 11/09/24 08:45 BP 130/60 11/09/24 08:45 Pulse Ox 98 11/09/24 08:45 FiO2 Intake & Output 11/08/24 11/09/24 11/09/24 18:59 06:59 18:59 Intake Total 138 10 Balance 138 10 Intake: IV 20 10 Invasive Line 2 20 10 Oral 118 Other: Voiding Method Diaper Diaper Diaper Incontinent Incontinent Incontinent # Voids 0 1 # Bowel Movements 0 1 - Labs CBC & Chem 7: 11/08/24 04:35 11/09/24 06:42 Labs: Abnormal Lab Results - Last 24 Hours (Table) 11/08/24 11/08/24 11/08/24 Range/Units 11:30 16:41 20:17 Chloride (98-107) mmol/L BUN (7-17) mg/dL Creatinine (0.52-1.04) mg/dL Glucose (74-99) mg/dL POC Glucose (mg/dL) 259 H 414 H 112 H (70-110) mg/dL 11/09/24 11/09/24 11/09/24 Range/Units 06:10 06:42 06:42 Chloride 112 H (98-107) mmol/L BUN 43 H (7-17) mg/dL Creatinine 2.38 H (0.52-1.04) mg/dL Glucose 65 L (74-99) mg/dL POC Glucose (mg/dL) 64 L 63 L (70-110) mg/dL 11/09/24 11/09/24 Range/Units 07:00 07:46 Chloride (98-107) mmol/L BUN (7-17) mg/dL Creatinine (0.52-1.04) mg/dL Glucose (74-99) mg/dL POC Glucose (mg/dL) 68 L 124 H (70-110) mg/dL Microbiology - Last 24 Hours (Table) 11/07/24 13:03 Urine Culture - Final Urine,Voided 11/06/24 22:00 Blood Culture - Preliminary Blood 11/06/24 10:24 Blood Culture Gram Stain - Preliminary Blood Blood Culture - Preliminary Enterococcus faecalis Enterococcus faecium Molecular ID Assessment and Plan Plan: Assessment: 1. Acute kidney injury secondary to ATN secondary to severe sepsis. Creatinine 1.5 on admission and peaked at 2.43 this admission -stable at 2.38 today. Lasix discontinued November 08, 2024. No hydronephrosis noted on kidney ultrasound. 2. Chronic kidney disease stage IIIb with baseline creatinine near 1.5 secondary to nephrosclerosis. 3. Acute COVID-19 infection. 4. Enterococcus bacteremia on IV antibiotics. 5. History of CVA with right-sided weakness. 6. Acute hypoxic respiratory failure. 7. Chronic systolic CHF ejection fraction of 30 to 35% with moderate pulmonary hypertension. Plan: Hold off on diuretics at this time. Encouraged oral intake. Avoid nephrotoxins. Continue to monitor renal function and urine output.
--- NOTE | 2024-11-09 10:28 | P.PN ---
Subjective 73-year-old female who presents to the emergency department from her long term. She is normally alert and oriented x 1 so all the history comes from the paramedics. Patient was brought in because she was diagnosed with COVID yesterday and now she has more difficulty breathing as of this morning and had to put her on oxygen. Patient also had a low-grade fever. There is no other history available at this time. The patient is currently on 3 L of oxygen by nasal cannula and this was brought up to 5 L to maintain saturation above 90%, current pulse ox 95%. She had a Tmax of 100.7 current temperature is at 99.2. She was in sinus tachycardia and she was quite tachypneic at time of arrival and breathing was short and labored and currently she is breathing more comfortably. The white cell count 17.2 with a hemoglobin 11 and platelet count of 348. The INR is at 1.3 with a PT of 13.5 with a PTT of 23. Sodium is at 140, bicarb is 23, BUN 16 with a creatinine of 1.54. Lactic acid level is at 2.3. Troponins at 0.2. LFTs are normal. COVID- 19 testing was positive. Chest x-ray showed multifocal airspace opacities concerning for pneumonia and the patient has cardiomegaly and smaller lung volumes and elevation of the diaphragms bilaterally. CAT scan of the brain was also done in the emergency that showed remote left parietal/frontal infarct/encephalomalacia without any acute process. The patient accordingly was started on Decadron. She was started on Rocephin and Zithromax. Pulmonary consultation was requested 11/08 Patient is a pleasant 73 years old -Turkish female. Currently she is sitting up in chair looks with chronic weakness of the right side. Patient states that she wants to go home. She denies any specific complaint. No chest pain or dyspnea. No diarrhea or vomiting. No Up No diarrhea No urinary signs symptoms Currently she is covered with ceftriaxone and Zithromax for pneumonia and daptomycin for VRE bacteremia Also patient on Decadron 6 mg daily Creatinine up to 2.4, nephrology team consulted WBC is coming down currently 15,000, hemoglobin 8.9. LDH is elevated at 310 Patient has active occult blood in stool, positive for COVID but negative for influenza Chest x-ray showing bilateral opacity which is suspicious for pneumonia versus CHF. CT of the brain is negative 11/09 Patient is readily awake and answers questions appropriately She is still confused which looks little worse than her baseline around her baseline. She can tell she is in the hospital but she does not know the name of the hospital or the year or the name of the president, she gives all the information regarding these. Most likely she lost her recent memory related to her dementia. She is mildly tachypneic but she declined feeling dyspneic. No chest pain. No abdominal pain. No other complaints Patient asking if she she is going to go home today She does not feel weak. Creatinine 2.3 today. Objective - Vital Signs Vital signs: Vital Signs Temp 97.6 F 11/09/24 08:45 Pulse 65 11/09/24 08:45 Resp 20 11/09/24 08:45 BP 130/60 11/09/24 08:45 Pulse Ox 98 11/09/24 08:45 FiO2 Intake & Output 11/08/24 11/09/24 11/09/24 18:59 06:59 18:59 Intake Total 138 10 Balance 138 10 Intake: IV 20 10 Invasive Line 2 20 10 Oral 118 Other: Voiding Method Diaper Diaper Diaper Incontinent Incontinent Incontinent # Voids 0 1 # Bowel Movements 0 1 - Exam GENERAL: The patient is alert and oriented x3, not in any acute distress. Well developed, well nourished. HEENT: Pupils are round and equally reacting to light. EOMI. No scleral icterus. No conjunctival pallor. Normocephalic, atraumatic. No pharyngeal erythema. No thyromegaly. CARDIOVASCULAR: S1 and S2 present. No murmurs, rubs, or gallops. PULMONARY: Chest is clear to auscultation, no wheezing , no crackles. ABDOMEN: Soft, nontender, nondistended, normoactive bowel sounds. No palpable organomegaly. MUSCULOSKELETAL: No joint swelling or deformity. EXTREMITIES: No cyanosis, clubbing, or pedal edema. -NEUROLOGICAL: Gross neurological examination did not reveal any focal deficits. Looks like chronic right hemiparesis SKIN: No rashes. no petechiae. - Labs CBC & Chem 7: 11/08/24 04:35 11/09/24 06:42 Labs: Abnormal Lab Results - Last 24 Hours (Table) 11/08/24 11/08/24 11/08/24 Range/Units 11:30 16:41 20:17 Chloride (98-107) mmol/L BUN (7-17) mg/dL Creatinine (0.52-1.04) mg/dL Glucose (74-99) mg/dL POC Glucose (mg/dL) 259 H 414 H 112 H (70-110) mg/dL 11/09/24 11/09/24 11/09/24 Range/Units 06:10 06:42 06:42 Chloride 112 H (98-107) mmol/L BUN 43 H (7-17) mg/dL Creatinine 2.38 H (0.52-1.04) mg/dL Glucose 65 L (74-99) mg/dL POC Glucose (mg/dL) 64 L 63 L (70-110) mg/dL 11/09/24 11/09/24 Range/Units 07:00 07:46 Chloride (98-107) mmol/L BUN (7-17) mg/dL Creatinine (0.52-1.04) mg/dL Glucose (74-99) mg/dL POC Glucose (mg/dL) 68 L 124 H (70-110) mg/dL Microbiology - Last 24 Hours (Table) 11/07/24 13:03 Urine Culture - Final Urine,Voided 11/06/24 22:00 Blood Culture - Preliminary Blood 11/06/24 10:24 Blood Culture Gram Stain - Preliminary Blood Blood Culture - Preliminary Enterococcus faecalis Enterococcus faecium Molecular ID Assessment and Plan Assessment: COVID infection and pneumonia with possible elements of bacterial superinfection Acute hypoxic respiratory failure Acute kidney injury on chronic kidney disease VRE bacteremia Elevated troponin most likely secondary to non-STEMI type II 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 Continue same treatment. Continue with s ymptomatic treatment. Resume home medication. Monitor labs and vitals. DVT and GI prophylaxis. Further recommendations as per clinical course of the patient DVT prophylaxis: no Subcutaneous heparin in view of anemia GI Prophylaxis: Ppi PT/OT: Pending Prognosis is guarded
[2024-11-09 11:23] LABS: Glucose,Whole Blood 181 mg/dL (70-110)
--- NOTE | 2024-11-09 11:50 | CDI ---
Documentation Clarification Form Date: 11/09/2024 11:26:00 AM From: Laurel Guy RN CCDS Phone: [phone] Admit Date: 11/06/2024 11:32:00 AM Patient Name: Mita Newsome Visit Number: [id number] Discharge Date: ATTENTION: The Clinical Documentation Specialists (CDI) and [facility] Coding Staff appreciate your assistance in clarifying documentation. Please respond to the clarification below the line at the bottom and electronically sign. The CDI & [facility] Coding staff will review the response and follow-up if needed. Please note: Queries are made part of the Legal Health Record. If you have any questions, please contact the author of this message via ITS. Doctor: Doug Sheet The patient has Sepsis documented 11/08, ID Consult. Based on this information and the findings below, is there an additional diagnosis that is clinically appropriate for this patient? History/Risk Factors: 73 year old female [facility], was diagnosed with COVID on 11/05 and has more difficulty breathing as of this morning and had to put her on oxygen. Medical History: Asthma, CVA/TIA, Dementia, DM, HLD and HTN. 11/06 Clinical Indicators: 11/06 Wbc 17.2 11/06 Lactic acid: 2.3 11/06 COVID positive Blood cultures: 11/06 Enterococcus faecalis Enterococcus faecium molecular ID Final 11/08 Vitals signs: 11/06: B/P 159/85 HR 121 Temp 100.7f Oral; RR 32; SpO2 97% 3L nc ID Consult, 11/08: patient presented to hospital with sepsis in this patient who did have a fever elevated white count tachycardia meeting currently for SIRS source is multifactorial he was concern for possible pneumonia however the patient also have evidence of VRE bacteremia and to be a result of a common pathogen to cause pneumonia source could be either urinary versus abdominal. Treatment: 11/06 Tylenol IVPB x 1; 11/06 Duoneb Inhalation x 1; 11/07 11/09 Decadron 6mg IVP Daily; Antibiotics: 11/07 Ceftriaxone IVPB Q24H x 4 bags; 11/07 Daptomycin IVPB Q48H; 11/06 Azithromycin IVPB x 1; 11/07 Azithromycin IVPB Daily x 2 bags; 11/06 Rocephin IVP x 2; Is there an additional diagnosis that is clinically appropriate for this patient? [x ] Sepsis, present on admission [ ] Sepsis, developed during stay, not present on admission [ ] Severe Sepsis with organ failure [ ] Other, please specify [ ] Unable to determine SIRS Criteria: 2 or more of the following may indicate SIRS Temperature < 96.8F (36C) or > 101.0F (38.3C) Heart Rate > 90 bpm Respiratory Rate > 20 breaths/min or PaCO2 < 32 mmHg White Blood Cell Count > 12,000 or < 4,000 cells/mm3 or > 10% bands (Template Last Reviewed: November 2022) MTDD
--- NOTE | 2024-11-09 12:07 | P.PN ---
Subjective Progress Note Date: 11/09/24 Principal diagnosis: Acute hypoxic respiratory failure secondary to acute COVID-19 pneumonia This is a 73-year-old female patient who presented to the emergency department with diminished level of consciousness. The patient is normally alert and oriented x 1. No significant history is available. The patient was diagnosed having COVID-19 infection at the longterm yesterday and she was developing worsening in breathing and she had also a drop in oxygenation and pulse ox and she has been placed on oxygen. She also had a low-grade fever. Based on that, the patient was brought into the hospital. The patient is currently on 3 L of oxygen by nasal cannula and this was brought up to 5 L to maintain saturation above 90%, current pulse ox 95%. She had a Tmax of 100.7 current temperature is at 99.2. She was in sinus tachycardia and she was quite tachypneic at time of arrival and breathing was short and labored and currently she is breathing more comfortably. The white cell count 17.2 with a hemoglobin 11 and platelet count of 348. The INR is at 1.3 with a PT of 13.5 with a PTT of 23. Sodium is at 140, bicarb is 23, BUN 16 with a creatinine of 1.54. Lactic acid level is at 2.3. Troponins at 0.2. LFTs are normal. COVID-19 testing was positive. Chest x-ray showed multifocal airspace opacities concerning for pneumonia and the patient has cardiomegaly and smaller lung volumes and elevation of the diaphragms bilaterally. CAT scan of the brain was also done in the emergency that showed remote left parietal/frontal infarct/encephalomalacia without any acute process. The patient accordingly was started on Decadron. She was started on Rocephin and Zithromax. Pulmonary consultation was requested accordingly.The patient is a longterm resident. The patient has other comorbidities including previous history of CVA right-sided weakness, dementia, chronic kidney disease stage III chronic bronchial asthma the patient is a former smoker. She has hypertension hyperlipidemia diabetes mellitus type 2. Her last COVID-19 infection was back in November 2021 at that time the patient was hospitalized for the same problem. On 11/07/2024, patient is calm and comfortable on 2 L of oxygen by nasal cannula with a pulse ox of 98%. The patient was hospitalized for acute hypoxic mary failure and COVID-19 infection and the patient is currently on Decadron. Furthermore, the patient was given a combination of Rocephin and Zithromax as an empiric antibiotic coverage. Subsequently, the blood culture was positive for Enterococcus, likely VRE E and the patient was started on daptomycin. Troponins were minimally elevated and the patient was started on IV heparin by cardiology. Based on the cardiac enzyme evaluation, the patient's troponin peaked at 2.2/the patient ruled in for an acute non-ST segment elevation myocardial infarction. She is free of any chest pain for now. Hemodynamically stable. Afebrile. No other significant events otherwise for now. Remains on IV Lasix 40 mg every 12 hours. Echocardiogram is in progress. Was evaluated today on 11/08/2024, patient is feeling better, breathing easier,Presently on 2 L nasal cannula with O2 sats 97%.WBC count is 15.4 hemoglobin 8.9 basic metabolic profile is normal BUN is 39 creatinine 2.43 chest x-ray from 2 days ago showed evidence of bilateral multifocal infiltrates consistent with COVID-19 pneumonia Patient was seen today on 11/09/2024, patient continues to steadily improve, feeling better, breathing easier, chest x-ray continues to show bilateral airspace disease, not much of a change since admission but clinically the patient is feeling better. Her echocardiogram clearly showed evidence of severe LV dysfunction with ejection fraction of 30 to 35%. Patient is receiving diuretics intermittently remains on treatment for COVID-19 infection/pneumonia and remains empirically on antibiotics/Rocephin. Renal functioning is slightly improved today compared to yesterday with creatinine down to 2.38 from 2.43 yesterday. Objective - Vital Signs Vital signs: Vital Signs Temp 98.4 F 11/09/24 11:17 Pulse 67 11/09/24 11:17 Resp 20 11/09/24 11:17 BP 99/57 11/09/24 11:17 Pulse Ox 99 11/09/24 11:17 FiO2 Intake & Output 11/08/24 11/09/24 11/09/24 18:59 06:59 18:59 Intake Total 138 10 Balance 138 10 Intake: IV 20 10 Invasive Line 2 20 10 Oral 118 Other: Voiding Method Diaper Diaper Diaper Incontinent Incontinent Incontinent # Voids 0 1 # Bowel Movements 0 1 - Exam GENERAL EXAM: Revealed 71-year-old female in no distress, on 2 L nasal cannula HEAD: Normocephalic/atraumatic. EYES: Normal reaction of pupils, equal size. Conjunctiva pink, sclera white. NOSE: Clear with pink turbinates. THROAT: No erythema or exudates. NECK: No masses, no JVD, no thyroid enlargement, no adenopathy. CHEST: No chest wall deformity. Symmetrical expansion. LUNGS: Fine crackles at the bases no rhonchi no wheezes CVS: Regular rate and rhythm, normal S1 and S2, no gallops, no murmurs, no rubs ABDOMEN: Soft, nontender. No hepatosplenomegaly, normal bowel sounds, no guarding or rigidity. EXTREMITIES: No clubbing, no edema, no cyanosis, 2+ pulses and upper and lower extremities. MUSCULOSKELETAL: No deformities no limitation range of motion normal. SKIN: No rashes CENTRAL NERVOUS SYSTEM: Alert, patient is aphasic. right-sided weakness tone is normal in all 4 extremities. - Labs CBC & Chem 7: 11/08/24 04:35 11/09/24 06:42 Labs: Abnormal Lab Results - Last 24 Hours (Table) 11/08/24 11/08/24 11/09/24 Range/Units 16:41 20:17 06:10 Chloride (98-107) mmol/L BUN (7-17) mg/dL Creatinine (0.52-1.04) mg/dL Glucose (74-99) mg/dL POC Glucose (mg/dL) 414 H 112 H 64 L (70-110) mg/dL 11/09/24 11/09/24 11/09/24 Range/Units 06:42 06:42 07:00 Chloride 112 H (98-107) mmol/L BUN 43 H (7-17) mg/dL Creatinine 2.38 H (0.52-1.04) mg/dL Glucose 65 L (74-99) mg/dL POC Glucose (mg/dL) 63 L 68 L (70-110) mg/dL 11/09/24 11/09/24 Range/Units 07:46 11:21 Chloride (98-107) mmol/L BUN (7-17) mg/dL Creatinine (0.52-1.04) mg/dL Glucose (74-99) mg/dL POC Glucose (mg/dL) 124 H 181 H (70-110) mg/dL Microbiology - Last 24 Hours (Table) 11/07/24 13:03 Urine Culture - Final Urine,Voided 11/06/24 22:00 Blood Culture - Preliminary Blood 11/06/24 10:24 Blood Culture Gram Stain - Preliminary Blood Blood Culture - Preliminary Enterococcus faecalis Enterococcus faecium Molecular ID Assessment and Plan Assessment: Impression: Acute hypoxic respiratory failure secondary to acute COVID-19 pneumonia Enterococcal sepsis sepsis/urinary tract infection is likely presently on daptomycin, patient is also on ceftriaxone Acute non-ST elevation myocardial infarction History of CVA with right-sided weakness Benign essential hypertension History of bronchial asthma mild intermittent Type 2 diabetes correction resident Chronic kidney disease stage III Recommendation: Continue oxygen and titrate accordingly Continue Decadron Continue IV heparin Suggest intermittent gentle diuresis while keeping an eye on her renal status otherwise the patient will develop pulmonary edema Continue aspirin Continue metoprolol Continue antibiotics mostly because patient had elevated procalcitonin level consistent with bacterial sepsis Will continue to follow Time with Patient: Less than 30
--- NOTE | 2024-11-09 15:32 | P.PN ---
Subjective Progress Note Date: 11/09/24 HISTORY OF PRESENT ILLNESS: 73-year-old female who has a prior history of CVA with right-sided weakness hemiparesis, aphasia, dementia, skilled nursing resident. She is not able to provide any history and most of the history is obtained from the medical charts. Patient was diagnosed with COVID-19 infection at the skilled nursing yesterday when she started developing increased worsening respiratory distress along with hypoxemia with dropping her pulse oximeter. She was also having low-grade fever. Due to this she was brought to the hospital. On admission she was on 5 L oxygen saturating above 90%, febrile with Tmax of 100.7, elevated lactate. Elevated WBC count of 17.2. Hemoglobin 11. Her creatinine was 1.54, troponin was elevated at 0.28, repeat at 1.64. EKG showed sinus tachycardia heart rate of 122 bpm, nonspecific ST depressions in diffuse leads. Progress note 11/07/2024 Patient's hemoglobin has dropped since admission. Hemoglobin 9.0 today. WBC count is 21, creatinine has trended up from 1.5-2.1 11/08/2024 Patient examined this morning at the bedside. Patient currently denies chest pain or pressure. She denies shortness of breath. Patient is alert and oriented x 1-2 which is baseline per nursing. Creatinine today 2.43. Clinically she does appear volume overloaded. 11/09/2024 Patient is seen and examined at bedside. She is only alert but not very oriented which is at baseline. Creatinine is 2.38 today. Yesterday 2.43. BP 130/60 heart rate 60 bpm PHYSICAL EXAM: VITAL SIGNS: Reviewed. GENERAL: Well-developed in no acute distress. NECK: Supple. No JVD or thyromegaly LUNGS: Respirations even and unlabored. Lungs essentially clear to auscultation bilaterally, diminished. HEART: Regular rate and rhythm. S1 and S2 heard. EXTREMITIES: Normal range of motion. No clubbing or cyanosis. Peripheral pulses intact. 2+ bilateral lower extremity edema ASSESSMENT: Acute COVID-19 Acute HFrEF exacerbation Acute on chronic kidney disease, likely related to daptomycin use. Enterococcus bacteremia Elevated troponins, likely type II CO secondary to oxygen supply/demand mismatch. Completed 24 hours of heparin. Discontinued because of anemia. Acute hypoxic respiratory failure Lactic acidosis Metabolic encephalopathy History of CVA with right-sided weakness right arm contracture Diabetes Obesity: BMI 35.7 Cardiac testing Echocardiogram showed an EF of 30 to 35%, mild concentric LVH, mild RV dilatation, moderate left atrial dilatation, dilated IVC. Aortic valve sclerosis but no significant stenosis PLAN: Aspirin, Lipitor 40, amlodipine 5, metoprolol 50 twice daily. I feel based on echocardiogram that there is intravascular congestion. However she is not getting Lasix because of poor renal function. I feel that putting her function could be related to daptomycin use as it happened after she was started on daptomycin. Eventually patient should be on at least some diuretic. 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 However she should get outpatient ischemic evaluation once patient hemoglobin and renal function is more stable. Objective - Vital Signs Vital signs: Vital Signs Temp 98.4 F 11/09/24 11:17 Pulse 67 11/09/24 11:17 Resp 20 11/09/24 11:17 BP 99/57 11/09/24 11:17 Pulse Ox 99 11/09/24 11:17 FiO2 Intake & Output 11/08/24 11/09/24 11/09/24 18:59 06:59 18:59 Intake Total 138 10 Balance 138 10 Intake: IV 20 10 Invasive Line 2 20 10 Oral 118 Other: Voiding Method Diaper Diaper Diaper Incontinent Incontinent Incontinent # Voids 0 1 # Bowel Movements 0 1 - Labs CBC & Chem 7: 11/08/24 04:35 11/09/24 06:42 Labs: Abnormal Lab Results - Last 24 Hours (Table) 11/08/24 11/08/24 11/09/24 Range/Units 16:41 20:17 06:10 Chloride (98-107) mmol/L BUN (7-17) mg/dL Creatinine (0.52-1.04) mg/dL Glucose (74-99) mg/dL POC Glucose (mg/dL) 414 H 112 H 64 L (70-110) mg/dL 11/09/24 11/09/24 11/09/24 Range/Units 06:42 06:42 07:00 Chloride 112 H (98-107) mmol/L BUN 43 H (7-17) mg/dL Creatinine 2.38 H (0.52-1.04) mg/dL Glucose 65 L (74-99) mg/dL POC Glucose (mg/dL) 63 L 68 L (70-110) mg/dL 11/09/24 11/09/24 Range/Units 07:46 11:21 Chloride (98-107) mmol/L BUN (7-17) mg/dL Creatinine (0.52-1.04) mg/dL Glucose (74-99) mg/dL POC Glucose (mg/dL) 124 H 181 H (70-110) mg/dL Microbiology - Last 24 Hours (Table) 11/08/24 08:16 Blood Culture - Preliminary Blood 11/06/24 22:00 Blood Culture - Preliminary Blood 11/06/24 10:24 Blood Culture Gram Stain - Final Blood Blood Culture - Final Enterococcus faecalis Enterococcus faecium Molecular ID 11/07/24 13:03 Urine Culture - Final Urine,Voided
[2024-11-09 16:32] LABS: Glucose,Whole Blood 253 mg/dL (70-110)
[2024-11-09 20:23] LABS: Glucose,Whole Blood 90 mg/dL (70-110)
--- NOTE | 2024-11-09 23:04 | P.PN ---
Subjective Patient seen and evaluated at bedside. laset bowel movement last night, no bloody bowel movement this am. Denies abdominal pain. Objective - Vital Signs Vital signs: Vital Signs Temp 98.2 F 11/09/24 20:00 Pulse 93 11/09/24 20:00 Resp 22 11/09/24 20:00 BP 125/69 11/09/24 20:00 Pulse Ox 94 L 11/09/24 20:00 FiO2 Intake & Output 11/09/24 11/09/24 11/10/24 06:59 18:59 06:59 Intake Total 10 Balance 10 Intake: IV 10 Invasive Line 2 10 Other: Voiding Method Diaper Diaper Diaper Incontinent Incontinent Incontinent # Voids 1 2 1 # Bowel Movements 1 1 - Exam gen: nad cv: rrr pul: non labored breathing abd: soft, non distended, non tender to palpation, no guarding or rebound tenderness - Labs CBC & Chem 7: 11/08/24 04:35 11/09/24 06:42 Labs: Abnormal Lab Results - Last 24 Hours (Table) 11/09/24 11/09/24 11/09/24 Range/Units 06:10 06:42 06:42 Chloride 112 H (98-107) mmol/L BUN 43 H (7-17) mg/dL Creatinine 2.38 H (0.52-1.04) mg/dL Glucose 65 L (74-99) mg/dL POC Glucose (mg/dL) 64 L 63 L (70-110) mg/dL 11/09/24 11/09/24 11/09/24 Range/Units 07:00 07:46 11:21 Chloride (98-107) mmol/L BUN (7-17) mg/dL Creatinine (0.52-1.04) mg/dL Glucose (74-99) mg/dL POC Glucose (mg/dL) 68 L 124 H 181 H (70-110) mg/dL 11/09/24 Range/Units 16:31 Chloride (98-107) mmol/L BUN (7-17) mg/dL Creatinine (0.52-1.04) mg/dL Glucose (74-99) mg/dL POC Glucose (mg/dL) 253 H (70-110) mg/dL Microbiology - Last 24 Hours (Table) 11/08/24 08:16 Blood Culture - Preliminary Blood 11/06/24 22:00 Blood Culture - Preliminary Blood 11/06/24 10:24 Blood Culture Gram Stain - Final Blood Blood Culture - Final Enterococcus faecalis Enterococcus faecium Molecular ID Assessment and Plan Assessment: 73 yo female w/ acute on chronic anemia w/ +fobt -hgb stable -outpatient upper and lower scope Time with Patient: Less than 30
[2024-11-10] MEDS ORDERED: KETOROLAC 15 MG/ML 1 ML VIAL IVP SCH
[2024-11-10 06:18] LABS: Glucose,Whole Blood 108 mg/dL (70-110)
[2024-11-10] MEDS: dexAMETHasone 2 MG TAB PO SCH (08:27)
--- NOTE | 2024-11-10 09:19 | P.PN ---
Subjective 73-year-old female who presents [facility] emergency department from [facility]. She is normally alert and oriented x 1 so all the history comes from the paramedics. Patient was brought in because she was diagnosed with COVID yesterday and now she has more difficulty breathing as of this morning and had to put her on oxygen. Patient also had a low-grade fever. There is no other history available at this time. The patient is currently on 3 L of oxygen by nasal cannula and this was brought up to 5 L to maintain saturation above 90%, current pulse ox 95%. She had a Tmax of 100.7 current temperature is at 99.2. She was in sinus tachycardia and she was quite tachypneic at time of arrival and breathing was short and labored and currently she is breathing more comfortably. The white cell count 17.2 with a hemoglobin 11 and platelet count of 348. The INR is at 1.3 with a PT of 13.5 with a PTT of 23. Sodium is at 140, bicarb is 23, BUN 16 with a creatinine of 1.54. Lactic acid level is at 2.3. Troponins at 0.2. LFTs are normal. COVID- 19 testing was positive. Chest x-ray showed multifocal airspace opacities concerning for pneumonia and the patient has cardiomegaly and smaller lung volumes and elevation of the diaphragms bilaterally. CAT scan of the brain was also done in the emergency that showed remote left parietal/frontal infarct/encephalomalacia without any acute process. The patient accordingly was started on Decadron. She was started on Rocephin and Zithromax. Pulmonary consultation was requested 11/08 Patient is a pleasant 73 years old -[place] female. Currently she is sitting up in chair looks with chronic weakness of the right side. Patient states that she wants to go home. She denies any specific complaint. No chest pain or dyspnea. No diarrhea or vomiting. No Up No diarrhea No urinary signs symptoms Currently she is covered with ceftriaxone and Zithromax for pneumonia and daptomycin for VRE bacteremia Also patient on Decadron 6 mg daily Creatinine up to 2.4, nephrology team consulted WBC is coming down currently 15,000, hemoglobin 8.9. LDH is elevated at 310 Patient has active occult blood in stool, positive for COVID but negative for influenza Chest x-ray showing bilateral opacity which is suspicious for pneumonia versus CHF. CT of the brain is negative 11/09 Patient is readily awake and answers questions appropriately She is still confused which looks little worse than her baseline around her baseline. She can tell she is in the hospital but she does not know the name of the hospital or the year or the name of the president, she gives all the information regarding these. Most likely she lost her recent memory related to her dementia. She is mildly tachypneic but she declined feeling dyspneic. No chest pain. No abdominal pain. No other complaints Patient asking if she she is going to go home today She does not feel weak. Creatinine 2.3 today. 11/10 Patient still mildly short of breath, with some scattered wheezing and she is still on 2 L oxygen via nasal cannula. She still have coughing. No GI or urinary new symptoms. Patient remains on antibiotics with ceftriaxone and daptomycin with positive blood culture for multiple organisms Surgery team recommending outpatient EGD/colonoscopy Cardiology team recommended outpatient ischemic workup. Morning labs still pending Objective - Vital Signs Vital signs: Vital Signs Temp 98.0 F 11/10/24 04:00 Pulse 87 11/10/24 04:00 Resp 18 11/10/24 04:00 BP 142/75 11/10/24 04:00 Pulse Ox 97 11/10/24 08:21 FiO2 Intake & Output 11/09/24 11/10/24 11/10/24 18:59 06:59 18:59 Weight 67.6 kg Other: Voiding Method Diaper Diaper Incontinent Incontinent # Voids 2 2 # Bowel Movements 1 - Exam GENERAL: The patient is alert and oriented x3, not in any acute distress. Well developed, well nourished. HEENT: Pupils are round and equally reacting to light. EOMI. No scleral icterus. No conjunctival pallor. Normocephalic, atraumatic. No pharyngeal erythema. No thyromegaly. CARDIOVASCULAR: S1 and S2 present. No murmurs, rubs, or gallops. PULMONARY: Chest is clear to auscultation, no wheezing , no crackles. ABDOMEN: Soft, nontender, nondistended, normoactive bowel sounds. No palpable organomegaly. MUSCULOSKELETAL: No joint swelling or deformity. EXTREMITIES: No cyanosis, clubbing, or pedal edema. -NEUROLOGICAL: Gross neurological examination did not reveal any focal deficits. Looks like chronic right hemiparesis SKIN: No rashes. no petechiae. - Labs CBC & Chem 7: 11/08/24 04:35 11/09/24 06:42 Labs: Abnormal Lab Results - Last 24 Hours (Table) 11/09/24 11/09/24 Range/Units 11:21 16:31 POC Glucose (mg/dL) 181 H 253 H (70-110) mg/dL Microbiology - Last 24 Hours (Table) 11/08/24 08:16 Blood Culture - Preliminary Blood 11/06/24 22:00 Blood Culture - Preliminary Blood 11/06/24 10:24 Blood Culture Gram Stain - Final Blood Blood Culture - Final Enterococcus faecalis Enterococcus faecium Molecular ID Assessment and Plan Assessment: COVID infection and pneumonia with possible elements of bacterial superinfection Acute hypoxic respiratory failure Acute kidney injury on chronic kidney disease VRE bacteremia Elevated troponin most likely secondary to non-STEMI type II History of CVA with right-sided weakness and right arm contractures and aphasic Hypertension// Hypertensive heart disease Chronic stage III kidney disease Dementia Chronic bronchial asthma Diabetes mellitus type 2 Plan: Continue with antibiotic per ID team Currently on ceftriaxone for pneumonia and daptomycin for VRE bacteremia Continue with Decadron per pulmonary team Several consultants on the case including pulmonary, infectious disease, cardiology and nephrology Monitor hemoglobin Patient continued aspirin 81 mg Surgery team recommended outpatient upper and lower scope and 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 Continue same treatment. Continue with symptomatic treatment. Resume home medication. Monitor labs and vitals. DVT and GI prophylaxis. Further recommendations as per clinical course of the patient DVT prophylaxis: no Subcutaneous heparin in view of anemia GI Prophylaxis: Ppi PT/OT: Pending Prognosis is guarded
--- NOTE | 2024-11-10 09:46 | P.PN ---
Subjective Patient is seen in follow-up for acute kidney injury on chronic kidney disease. Renal function stable as of yesterday. Has been voiding. Hemodynamically stable. Wants to go home. Vital signs are stable. General: No acute distress. HEENT: Head exam is unremarkable. On nasal cannula. LUNGS: No audible rhonchi or wheezes. HEART: Rate and Rhythm are regular. ABDOMEN: Nontender. EXTREMITITES: No edema. Objective - Vital Signs Vital signs: Vital Signs Temp 98.0 F 11/10/24 04:00 Pulse 87 11/10/24 04:00 Resp 18 11/10/24 04:00 BP 142/75 11/10/24 04:00 Pulse Ox 97 11/10/24 08:21 FiO2 Intake & Output 11/09/24 11/10/24 11/10/24 18:59 06:59 18:59 Weight 67.6 kg Other: Voiding Method Diaper Diaper Incontinent Incontinent # Voids 2 2 # Bowel Movements 1 - Labs CBC & Chem 7: 11/08/24 04:35 11/09/24 06:42 Labs: Abnormal Lab Results - Last 24 Hours (Table) 11/09/24 11/09/24 Range/Units 11:21 16:31 POC Glucose (mg/dL) 181 H 253 H (70-110) mg/dL Microbiology - Last 24 Hours (Table) 11/08/24 08:16 Blood Culture - Preliminary Blood 11/06/24 22:00 Blood Culture - Preliminary Blood 11/06/24 10:24 Blood Culture Gram Stain - Final Blood Blood Culture - Final Enterococcus faecalis Enterococcus faecium Molecular ID Assessment and Plan Plan: Assessment: 1. Acute kidney injury secondary to ATN secondary to severe sepsis. Creatinine 1.5 on admission and peaked at 2.43 this admission -stable at 2.38 yesterday. Lasix discontinued November 08, 2024. No hydronephrosis noted on kidney ultrasound. 2. Chronic kidney disease stage IIIb with baseline creatinine near 1.5 secondary to nephrosclerosis. 3. Acute COVID-19 infection. 4. Enterococcus bacteremia on IV antibiotics. 5. History of CVA with right-sided weakness. 6. Acute hypoxic respiratory failure. 7. Chronic systolic CHF ejection fraction of 30 to 35% with moderate pulmonary hypertension. Plan: Hold off on diuretics at this time. Encouraged oral intake. Avoid nephrotoxins. Continue to monitor renal function and urine output. Check chest x-ray.
--- NOTE | 2024-11-10 10:02 | P.PN ---
Subjective Progress Note Date: 11/10/24 Patient seen and examined at bedside. No acute events. Had bowel movement yesterday. Denies blood in stool. Objective - Vital Signs Vital signs: Vital Signs Temp 98.0 F 11/10/24 04:00 Pulse 87 11/10/24 04:00 Resp 18 11/10/24 04:00 BP 142/75 11/10/24 04:00 Pulse Ox 97 11/10/24 08:21 FiO2 Intake & Output 11/09/24 11/10/24 11/10/24 18:59 06:59 18:59 Weight 67.6 kg Other: Voiding Method Diaper Diaper Incontinent Incontinent # Voids 2 2 # Bowel Movements 1 - Constitutional General appearance: Present: cooperative - Gastrointestinal Gastrointestinal Comment(s): Soft, nontender, nondistended - Labs CBC & Chem 7: 11/08/24 04:35 11/09/24 06:42 Labs: Abnormal Lab Results - Last 24 Hours (Table) 11/09/24 11/09/24 Range/Units 11:21 16:31 POC Glucose (mg/dL) 181 H 253 H (70-110) mg/dL Microbiology - Last 24 Hours (Table) 11/08/24 08:16 Blood Culture - Preliminary Blood 11/06/24 22:00 Blood Culture - Preliminary Blood 11/06/24 10:24 Blood Culture Gram Stain - Final Blood Blood Culture - Final Enterococcus faecalis Enterococcus faecium Molecular ID Assessment and Plan Plan: Patient with occult positive stool. Seems to be doing well. No gross blood. Follow hemoglobin. Plan for outpatient scopes and continue with medical management at this time.
--- NOTE | 2024-11-10 10:40 | XR ---
EXAMINATION TYPE: XR chest 1V DATE OF EXAM: 11/10/2024 10:22 AM CLINICAL INDICATION:Female, 73 years old with history of sob; [facility] COMPARISON: Chest radiograph 11/09/2024 TECHNIQUE: XR chest 1V Frontal view of the chest. FINDINGS: Lungs/Pleura: Multifocal patchy bilateral airspace opacities more conspicuous within the right lung s lightly progressed from the radiograph in reference. Pulmonary vascularity: Unremarkable. Heart/mediastinum: Cardiomediastinal silhouette is partially obscured due to overlying and adjacent o pacities. Musculoskeletal: No acute osseous pathology. Other findings: None IMPRESSION: Mild progression of multifocal bilateral airspace disease more conspicuous involving the right lung. [facility], , 11/10/2024 10:38 AM
--- NOTE | 2024-11-10 11:11 | P.PN ---
Subjective Progress Note Date: 11/10/24 Principal diagnosis: Acute hypoxic respiratory failure secondary to acute COVID-19 pneumonia This is a 73-year-old female patient who presented to the emergency department with diminished level of consciousness. The patient is normally alert and oriented x 1. No significant history is available. The patient was diagnosed [facility] yesterday and she was developing worsening in breathing and she had also a drop in oxygenation and pulse ox and she has been placed on oxygen. She also had a low-grade fever. Based on that, the patient was brought into the hospital. The patient is currently on 3 L of oxygen by nasal cannula and this was brought up to 5 L to maintain saturation above 90%, current pulse ox 95%. She had a Tmax of 100.7 current temperature is at 99.2. She was in sinus tachycardia and she was quite tachypneic at time of arrival and breathing was short and labored and currently she is breathing more comfortably. The white cell count 17.2 with a hemoglobin 11 and platelet count of 348. The INR is at 1.3 with a PT of 13.5 with a PTT of 23. Sodium is at 140, bicarb is 23, BUN 16 with a creatinine of 1.54. Lactic acid level is at 2.3. Troponins at 0.2. LFTs are normal. COVID-19 testing was positive. Chest x-ray showed multifocal airspace opacities concerning for pneumonia and the patient has cardiomegaly and smaller lung volumes and elevation of the diaphragms bilaterally. CAT scan of the brain was also done in the emergency that showed remote left parietal/frontal infarct/encephalomalacia without any acute process. The patient accordingly was started on Decadron. She was started on Rocephin and Zithromax. Pulmonary consultation was requested accordingly.The [facility] a [facility]. The patient has other comorbidities including previous history of CVA right-sided weakness, dementia, chronic kidney disease stage III chronic bronchial asthma the patient is a former smoker. She has hypertension hyperlipidemia diabetes mellitus type 2. Her last COVID-19 infection was back in November 2021 at that time the patient was hospitalized for the same problem. On 11/07/2024, patient is calm and comfortable on 2 L of oxygen by nasal cannula with a pulse ox of 98%. The patient was hospitalized for acute hypoxic mary failure and COVID-19 infection and the patient is currently on Decadron. Furthermore, the patient was given a combination of Rocephin and Zithromax as an empiric antibiotic coverage. Subsequently, the blood culture was positive for Enterococcus, likely VRE E and the patient was started on daptomycin. Troponins were minimally elevated and the patient was started on IV heparin by cardiology. Based on the cardiac enzyme evaluation, the patient's troponin peaked at 2.2/the patient ruled in for an acute non-ST segment elevation myocardial infarction. She is free of any chest pain for now. Hemodynamically stable. Afebrile. No other significant events otherwise for now. Remains on IV Lasix 40 mg every 12 hours. Echocardiogram is in progress. Was evaluated today on 11/08/2024, patient is feeling better, breathing easier,Presently on 2 L nasal cannula with O2 sats 97%.WBC count is 15.4 hemoglobin 8.9 basic metabolic profile is normal BUN is 39 creatinine 2.43 chest x-ray from 2 days ago showed evidence of bilateral multifocal infiltrates consistent with COVID-19 pneumonia Patient was seen today on 11/09/2024, patient continues to steadily improve, feeling better, breathing easier, chest x-ray continues to show bilateral airspace disease, not much of a change since admission but clinically the patient is feeling better. Her echocardiogram clearly showed evidence of severe LV dysfunction with ejection fraction of 30 to 35%. Patient is receiving diuretics intermittently remains on treatment for COVID-19 infection/pneumonia and remains empirically on antibiotics/Rocephin. Renal functioning is slightly improved today compared to yesterday with creatinine down to 2.38 from 2.43 yesterday. Patient was seen today on 11/10/2024, patient continues to do well, relatively asymptomatic, hardly any pulmonary symptoms. Remains on 2 L nasal cannula with O2 saturation 97%, she is hemodynamically stable, this x-ray continues to show multifocal bilateral airspace disease, surprisingly the patient is not as symptomatic as she should be considering her chest x-ray findings. I am suspecting that some of the findings noted on the chest x-ray are related to some component of pulmonary edema and the patient may require more diuresis, and I know there is a concern about her renal functioning echocardiogram on showed evidence of cardiomyopathy and LV dysfunction. Patient remains on daptomycin as per infectious disease on the case. BNP on this patient upon admission was over 100,000's and she also had elevated procalcitonin level of 11.90. In addition to this the patient had positive COVID-19 screening Objective - Vital Signs Vital signs: Vital Signs Temp 98.1 F 11/10/24 08:00 Pulse 75 11/10/24 08:00 Resp 18 11/10/24 08:00 BP 163/78 11/10/24 08:00 Pulse Ox 97 11/10/24 08:21 FiO2 Intake & Output 11/09/24 11/10/24 11/10/24 18:59 06:59 18:59 Weight 67.6 kg Other: Voiding Method Diaper Diaper Diaper Incontinent Incontinent Incontinent # Voids 2 2 # Bowel Movements 1 - Exam GENERAL EXAM: Revealed 71-year-old female in no distress, on 2 L nasal cannula HEAD: Normocephalic/atraumatic. EYES: Normal reaction of pupils, equal size. Conjunctiva pink, sclera white. NOSE: Clear with pink turbinates. THROAT: No erythema or exudates. NECK: No masses, no JVD, no thyroid enlargement, no adenopathy. CHEST: No chest wall deformity. Symmetrical expansion. LUNGS: Fine crackles at the bases no rhonchi no wheezes CVS: Regular rate and rhythm, normal S1 and S2, no gallops, no murmurs, no rubs ABDOMEN: Soft, nontender. No hepatosplenomegaly, normal bowel sounds, no guarding or rigidity. EXTREMITIES: No clubbing, no edema, no cyanosis, 2+ pulses and upper and lower extremities. MUSCULOSKELETAL: No deformities no limitation range of motion normal. SKIN: No rashes CENTRAL NERVOUS SYSTEM: Alert, patient is aphasic. right-sided weakness tone is normal in all 4 extremities. - Labs CBC & Chem 7: 11/08/24 04:35 11/09/24 06:42 Labs: Abnormal Lab Results - Last 24 Hours (Table) 11/09/24 11/09/24 Range/Units 11:21 16:31 POC Glucose (mg/dL) 181 H 253 H (70-110) mg/dL Microbiology - Last 24 Hours (Table) 11/08/24 08:16 Blood Culture - Preliminary Blood 11/06/24 22:00 Blood Culture - Preliminary Blood 11/06/24 10:24 Blood Culture Gram Stain - Final Blood Blood Culture - Final Enterococcus faecalis Enterococcus faecium Molecular ID Assessment and Plan Assessment: Impression: Acute hypoxic respiratory failure secondary to acute COVID-19 pneumonia, I also suspect some component of acute systolic congestive heart failure with LV dysfunction noted on echocardiogram and significantly elevated proBNP on admission Enterococcal sepsis sepsis/urinary tract infection is likely presently on daptomycin, being addressed by infectious disease on the case. Acute non-ST elevation myocardial infarction History of CVA with right-sided weakness Benign essential hypertension History of bronchial asthma mild intermittent Type 2 diabetes [facility] resident Chronic kidney disease stage III Recommendation: Continue oxygen and titrate accordingly Continue Decadron Consider intermittent diuresis as her chest x-ray is showing worsening and some of that worsening is related to congestive heart failure, in the meantime continue to monitor renal status while on diuretics Continue aspirin Continue metoprolol Continue antibiotics Overall prognosis remains guarded Will continue to follow Time with Patient: Less than 30
[2024-11-10 11:12] LABS: Glucose,Whole Blood 269 mg/dL (70-110)
--- NOTE | 2024-11-10 11:22 | PN ---
PROGRESS NOTE Mita is a 73-year-old lady with history of CVA, dementia, who is currently a [facility] resident, who is admitted to hospital with worsening respiratory distress due to COVID infection. This morning, she is alert. PHYSICAL EXAMINATION: VITAL SIGNS: Afebrile. Heart rate is 80 beats per minute. Blood pressure is 140/70. Respiratory rate 18. O2 sat is 97% on 2 L. CHEST: Reveals bilateral wheezing. HEART: Reveals first and second heart sounds. No gallop. EXTREMITIES: Reveal mild edema. Peripheral pulses are felt. Blood pressure is somewhat poorly controlled, probably related to the steroids. The patient had an echocardiogram that revealed LV systolic dysfunction with an ejection fraction of 30% to 35%. ASSESSMENT: 1. COVID infection with chronic obstructive pulmonary disease exacerbation. 2. Hypertension. 3. Troponin elevation. PLAN: Continue current medications. MMAMADEOL / ASPENN: [id number] /
--- NOTE | 2024-11-10 14:39 | P.PN ---
Subjective Progress Note Date: 11/09/24 Principal diagnosis: Reason for follow-up is VRE bacteremia Patient is a 73-year-old -[place] female with a past medical history significant for diabetes mellitus hypertension hyperlipidemia dementia CVA TIA patient is a [facility] and was sent to the hospital for evaluation of increasing shortness of breath with a recent diagnosis of [facility] patient did have a positive blood culture with VRE prompting this consultation On today's evaluation that is 11/09/2024, Patient is afebrile this morning patient denies having any chest pain shortness of breath or cough, the patient is currently on 2 L nasal cannula oxygen, patient denies any abdominal pain no diarrhea no nausea no vomiting. Patient did have a creatinine of 2.38 blood culture repeat currently pending urine has been negative abdominal ultrasound did not show any hydronephrosis, echocardiogram did not show thickened aortic wall leaflets no stenosis Objective - Vital Signs Vital signs: Vital Signs Temp 98.4 F 11/09/24 11:17 Pulse 67 11/09/24 11:17 Resp 20 11/09/24 11:17 BP 99/57 11/09/24 11:17 Pulse Ox 99 11/09/24 11:17 FiO2 Intake & Output 11/08/24 11/09/24 11/09/24 18:59 06:59 18:59 Intake Total 138 10 Balance 138 10 Intake: IV 20 10 Invasive Line 2 20 10 Oral 118 Other: Voiding Method Diaper Diaper Diaper Incontinent Incontinent Incontinent # Voids 0 1 # Bowel Movements 0 1 - Exam GENERAL DESCRIPTION: An elderly female lying in bed in no distress RESPIRATORY SYSTEM: Unlabored breathing , coarse breath sounds at bases HEART: S1 S2 regular rate and rhythm , ABDOMEN: Soft , no tenderness EXTREMITIES: No edema feet - Labs CBC & Chem 7: 11/08/24 04:35 11/09/24 06:42 Labs: Abnormal Lab Results - Last 24 Hours (Table) 11/08/24 11/08/24 11/09/24 Range/Units 16:41 20:17 06:10 Chloride (98-107) mmol/L BUN (7-17) mg/dL Creatinine (0.52-1.04) mg/dL Glucose (74-99) mg/dL POC Glucose (mg/dL) 414 H 112 H 64 L (70-110) mg/dL 11/09/24 11/09/24 11/09/24 Range/Units 06:42 06:42 07:00 Chloride 112 H (98-107) mmol/L BUN 43 H (7-17) mg/dL Creatinine 2.38 H (0.52-1.04) mg/dL Glucose 65 L (74-99) mg/dL POC Glucose (mg/dL) 63 L 68 L (70-110) mg/dL 11/09/24 11/09/24 Range/Units 07:46 11:21 Chloride (98-107) mmol/L BUN (7-17) mg/dL Creatinine (0.52-1.04) mg/dL Glucose (74-99) mg/dL POC Glucose (mg/dL) 124 H 181 H (70-110) mg/dL Microbiology - Last 24 Hours (Table) 11/08/24 08:16 Blood Culture - Preliminary Blood 11/06/24 22:00 Blood Culture - Preliminary Blood 11/06/24 10:24 Blood Culture Gram Stain - Final Blood Blood Culture - Final Enterococcus faecalis Enterococcus faecium Molecular ID 11/07/24 13:03 Urine Culture - Final Urine,Voided Assessment and Plan (1) Sepsis Current Visit: Yes Status: Acute Code(s): A41.9 - SEPSIS, UNSPECIFIED ORGANISM SNOMED Code(s): 37994641 (2) Leukocytosis Current Visit: Yes Status: Acute Code(s): D72.829 - ELEVATED WHITE BLOOD CELL COUNT, UNSPECIFIED SNOMED Code(s): 560351342 (3) VRE bacteremia Current Visit: Yes Status: Acute Code(s): R78.81 - BACTEREMIA; B95.2 - ENTEROCOCCUS THE CAUSE OF DISEASES CLASSIFIED ELSEWHERE; Z16.21 - RESISTANCE TO VANCOMYCIN SNOMED Code(s): 0717293220 Plan: 1patient presented to hospital with sepsis in this patient who did have a fever elevated white count tachycardia meeting currently for SIRS source is mult ifactorial he was concern for possible pneumonia however the patient also have evidence of VRE bacteremia and to be a result of a common pathogen to cause pneumonia source could be either urinary versus abdominal 2-blood culture has been repeated which are currently pending 3-urine culture have been negative ultrasound of the abdominal bladder did not show any hydronephrosis patient did have echocardiogram with thickened aortic valve leaflets 4-patient currently being treated with daptomycin 6 mg/kg q. 48-hour and monitor clinical course closely Dictation was produced using [employer] dictation software. please excuse any grammatical, word or spelling errors. Time with Patient: Less than 30
--- NOTE | 2024-11-10 14:41 | P.PN ---
Subjective Progress Note Date: 11/10/24 Principal diagnosis: Reason for follow-up is VRE bacteremia Patient is a 73-year-old -[place] female with a past medical history significant for diabetes mellitus hypertension hyperlipidemia dementia CVA TIA patient is a [facility] and was sent to the hospital for evaluation of increasing shortness of breath with a [facility] diagnosis of [facility] the [facility] patient did have a positive blood culture with VRE prompting this consultation On today's evaluation that is 11/10/2024,the patient denies any fever or any chills, patient is breathing comfortably on 2 L nasal oxygen the patient denies chest pain shortness of breath and no worsening cough, patient denies abdominal pain, no nausea vomiting or diarrhea. No new lab has been obtained today blood culture repeat so far negative Objective - Vital Signs Vital signs: Vital Signs Temp 98.1 F 11/10/24 08:00 Pulse 78 11/10/24 12:00 Resp 20 11/10/24 12:00 BP 143/90 11/10/24 12:00 Pulse Ox 89 L 11/10/24 12:00 FiO2 Intake & Output 11/09/24 11/10/24 11/10/24 18:59 06:59 18:59 Intake Total 180 Balance 180 Weight 67.6 kg Intake: Oral 180 Other: Voiding Method Diaper Diaper Diaper Incontinent Incontinent Incontinent # Voids 2 2 1 # Bowel Movements 1 - Exam GENERAL DESCRIPTION: An elderly female lying in bed in no distress RESPIRATORY SYSTEM: Unlabored breathing , coarse breath sounds at bases HEART: S1 S2 regular rate and rhythm , ABDOMEN: Soft , no tenderness EXTREMITIES: No edema feet - Labs CBC & Chem 7: 11/08/24 04:35 11/09/24 06:42 Labs: Abnormal Lab Results - Last 24 Hours (Table) 11/09/24 11/10/24 Range/Units 16:31 11:09 POC Glucose (mg/dL) 253 H 269 H (70-110) mg/dL Microbiology - Last 24 Hours (Table) 11/08/24 08:16 Blood Culture - Preliminary Blood 11/06/24 22:00 Blood Culture - Preliminary Blood 11/06/24 10:24 Blood Culture Gram Stain - Final Blood Blood Culture - Final Enterococcus faecalis Enterococcus faecium Molecular ID Assessment and Plan (1) Sepsis Current Visit: Yes Status: Acute Code(s): A41.9 - SEPSIS, UNSPECIFIED ORG ANISM SNOMED Code(s): 36635478 (2) Leukocytosis Current Visit: Yes Status: Acute Code(s): D72.829 - ELEVATED WHITE BLOOD CELL COUNT, UNSPECIFIED SNOMED Code(s): 714699963 (3) VRE bacteremia Current Visit: Yes Status: Acute Code(s): R78.81 - BACTEREMIA; B95.2 - ENTEROCOCCUS THE CAUSE OF DISEASES CLASSIFIED ELSEWHERE; Z16.21 - RESISTANCE TO VANCOMYCIN SNOMED Code(s): 4472527901 Plan: 1patient presented to hospital with sepsis in this patient who did have a fever elevated white count tachycardia meeting currently for SIRS source is multifactorial he was concern for possible pneumonia however the patient also have evidence of VRE bacteremia and to be a result of a common pathogen to cause pneumonia source could be either urinary versus abdominal 2-blood culture has been repeated which are currently pending 3-urine culture have been negative ultrasound of the abdominal bladder did not show any hydronephrosis patient did have echocardiogram with thickened aortic valve leaflets 4-patient will continue with daptomycin 6 mg/kg q. 48-hour to cover for VRE bacteremia 5patient seem to have worsening of her respiratory status and also increasing infiltrate on the chest x-ray with question of possible aspiration/gram-negative pneumonia we will add Kayli try to obtain a sputum Dictation was produced using [employer] dictation software. please excuse any grammatical, word or spelling errors.
[2024-11-10] MEDS: PIPERACILLIN-TAZOBACTAM 3.375 GM in SODIUM CHLORIDE 0.9% 100 ML IVPB SCH (16:15)
[2024-11-10 16:22] LABS: Glucose,Whole Blood 288 mg/dL (70-110)
[2024-11-10 16:25] LABS: Carbon Dioxide 28 mmol/L (22-30); Chloride 111 mmol/L (98-107); Glucose 166 mg/dL (74-99); Potassium 4.9 mmol/L (3.5-5.1); Sodium 144 mmol/L (137-145)
[2024-11-10 16:26] LABS: African American GFR (CKD) 31 (>60 ml/min/1.73 sqM); Anion Gap 5 mmol/L; Blood Urea Nitrogen 47 mg/dL (7-17); Calcium 8.6 mg/dL (8.4-10.2); Magnesium 2.1 mg/dL (1.6-2.3); Non-African American GFR(CKD) 27 (>60 ml/min/1.73 sqM)
[2024-11-10] MEDS: ALBUTEROL HFA INHALER INHALATION SCH (16:27)
[2024-11-10 16:38] LABS: Anisocytosis Slight; Basophils % (A) 0 %; Eosinophils % (A) 0 %; HCT 30.6 % (34.0-46.0); HGB 9.5 gm/dL (11.4-16.0); Hypochromasia Marked; Lymphocytes # (A) 0.3 k/uL (1.0-4.8); Lymphocytes % (A) 3 %; MCH 30.2 pg (25.0-35.0); MCV 97.7 fL (80.0-100.0); Macrocytosis Slight; Monocytes # (A) 0.3 k/uL (0-1.0); Monocytes % (A) 2 %; Neutrophils # (A) 10.8 k/uL (1.3-7.7); Neutrophils % (A) 94 %; Platelet Count 281 k/uL (150-450); RBC 3.13 m/uL (3.80-5.40); RDW 16.8 % (11.5-15.5); WBC 11.5 k/uL (3.8-10.6)
[2024-11-10] MEDS: FUROSEMIDE 10 MG/ML 4 ML VIAL IV STA (16:46)
[2024-11-10 20:02] LABS: Glucose,Whole Blood 169 mg/dL (70-110)
[2024-11-11 06:13] LABS: Glucose,Whole Blood 133 mg/dL (70-110)
[2024-11-11 07:57] LABS: African American GFR (CKD) 25 (>60 ml/min/1.73 sqM); Anion Gap 8 mmol/L; Blood Urea Nitrogen 53 mg/dL (7-17); Calcium 8.6 mg/dL (8.4-10.2); Carbon Dioxide 26 mmol/L (22-30); Chloride 111 mmol/L (98-107); Glucose 131 mg/dL (74-99); Magnesium 2.1 mg/dL (1.6-2.3); Non-African American GFR(CKD) 22 (>60 ml/min/1.73 sqM); Potassium 4.8 mmol/L (3.5-5.1); Sodium 145 mmol/L (137-145)
--- NOTE | 2024-11-11 09:28 | P.PN ---
Subjective Patient is seen in follow-up for acute kidney injury on chronic kidney disease. Status post IV Lasix given yesterday. Renal function worse today. Admits to good urine output. Denies chest pain or shortness of breath. Vital signs are stable. General: No acute distress. HEENT: Head exam is unremarkable. On nasal cannula. LUNGS: No audible rhonchi or wheezes. HEART: Rate and Rhythm are regular. ABDOMEN: Nontender. EXTREMITITES: No edema. Objective - Vital Signs Vital signs: Vital Signs Temp 97.9 F 11/11/24 07:47 Pulse 67 11/11/24 07:47 Resp 18 11/11/24 07:47 BP 117/54 11/11/24 07:47 Pulse Ox 99 11/11/24 07:47 FiO2 Intake & Output 11/10/24 11/11/24 11/11/24 18:59 06:59 18:59 Intake Total 360 100 Balance 360 100 Weight 68.5 kg Intake: IV 100 Piperacillin-Tazobactam 3 100 .375 gm In Sodium Chloride 0.9% 100 ml @ 25 mls/hr IVPB Q12H [facility] Rx# :[id number] Oral 360 Other: Voiding Method Diaper Diaper Incontinent Incontinent # Voids 1 # Bowel Movements 1 - Labs CBC & Chem 7: 11/10/24 15:33 11/11/24 07:25 Labs: Abnormal Lab Results - Last 24 Hours (Table) 11/10/24 11/10/24 11/10/24 Range/Units 11:09 15:33 15:33 WBC 11.5 H (3.8-10.6) k/uL RBC 3.13 L (3.80-5.40) m/uL Hgb 9.5 L (11.4-16.0) gm/dL Hct 30.6 L (34.0-46.0) % RDW 16.8 H (11.5-15.5) % Neutrophils # 10.8 H (1.3-7.7) k/uL Lymphocytes # 0.3 L (1.0-4.8) k/uL Chloride 111 H (98-107) mmol/L BUN 47 H (7-17) mg/dL Creatinine 1.84 H (0.52-1.04) mg/dL Glucose 166 H (74-99) mg/dL POC Glucose (mg/dL) 269 H (70-110) mg/dL 11/10/24 11/10/24 11/11/24 Range/Units 16:20 20:01 06:09 WBC (3.8-10.6) k/uL RBC (3.80-5.40) m/uL Hgb (11.4-16.0) gm/dL Hct (34.0-46.0) % RDW (11.5-15.5) % Neutrophils # (1.3-7.7) k/uL Lymphocytes # (1.0-4.8) k/uL Chloride (98-107) mmol/L BUN (7-17) mg/dL Creatinine (0.52-1.04) mg/dL Glucose (74-99) mg/dL POC Glucose (mg/dL) 288 H 169 H 133 H (70-110) mg/dL 11/11/24 Range/Units 07:25 WBC (3.8-10.6) k/uL RBC (3.80-5.40) m/uL Hgb (11.4-16.0) gm/dL Hct (34.0-46.0) % RDW (11.5-15.5) % Neutrophils # (1.3-7.7) k/uL Lymphocytes # (1.0-4.8) k/uL Chloride 111 H (98-107) mmol/L BUN 53 H (7-17) mg/dL Creatinine 2.17 H (0.52-1.04) mg/dL Glucose 131 H (74-99) mg/dL POC Glucose (mg/dL) (70-110) mg/dL Microbiology - Last 24 Hours (Table) 11/08/24 08:16 Blood Culture - Preliminary Blood 11/06/24 22:00 Blood Culture - Preliminary Blood Assessment and Plan Plan: Assessment: 1. Acute kidney injury secondary to ATN secondary to severe sepsis. Creatinine 1.5 on admission and peaked at 2.43 this admission - 2.17 today. Status post IV Lasix given yesterday. No hydronephrosis noted on kidney ultrasound. 2. Chronic kidney disease stage IIIb with baseline creatinine near 1.5 secondary to nephrosclerosis. 3. Acute COVID-19 infection. 4. Enterococcus bacteremia on IV antibiotics. 5. History of CVA with right-sided weakness. 6. Acute hypoxic respiratory failure. 7. Chronic systolic CHF ejection fraction of 30 to 35% with moderate pulmonary hypertension. Plan: Status post IV Lasix yesterday. No gross evidence of fluid overload on chest x- ray. Will add oral diuretics in the next 1 to 2 days. Encouraged oral intake. Avoid nephrotoxins. Continue to monitor renal function and urine output.
--- NOTE | 2024-11-11 10:39 | P.PN ---
Subjective 73-year-old female who presents to the emergency department from her snf. She is normally alert and oriented x 1 so all the history comes from the paramedics. Patient was brought in because she was diagnosed with COVID yesterday and now she has more difficulty breathing as of this morning and had to put her on oxygen. Patient also had a low-grade fever. There is no other history available at this time. The patient is currently on 3 L of oxygen by nasal cannula and this was brought up to 5 L to maintain saturation above 90%, current pulse ox 95%. She had a Tmax of 100.7 current temperature is at 99.2. She was in sinus tachycardia and she was quite tachypneic at time of arrival and breathing was short and labored and currently she is breathing more comfortably. The white cell count 17.2 with a hemoglobin 11 and platelet count of 348. The INR is at 1.3 with a PT of 13.5 with a PTT of 23. Sodium is at 140, bicarb is 23, BUN 16 with a creatinine of 1.54. Lactic acid level is at 2.3. Troponins at 0.2. LFTs are normal. COVID- 19 testing was positive. Chest x-ray showed multifocal airspace opacities concerning for pneumonia and the patient has cardiomegaly and smaller lung volumes and elevation of the diaphragms bilaterally. CAT scan of the brain was also done in the emergency that showed remote left parietal/frontal infarct/encephalomalacia without any acute process. The patient accordingly was started on Decadron. She was started on Rocephin and Zithromax. Pulmonary consultation was requested 11/08 Patient is a pleasant 73 years old -[place] female. Currently she is sitting up in chair looks with chronic weakness of the right side. Patient states that she wants to go home. She denies any specific complaint. No chest pain or dyspnea. No diarrhea or vomiting. No Up No diarrhea No urinary signs symptoms Currently she is covered with ceftriaxone and Zithromax for pneumonia and daptomycin for VRE bacteremia Also patient on Decadron 6 mg daily Creatinine up to 2.4, nephrology team consulted WBC is coming down currently 15,000, hemoglobin 8.9. LDH is elevated at 310 Patient has active occult blood in stool, positive for COVID but negative for influenza Chest x-ray showing bilateral opacity which is suspicious for pneumonia versus CHF. CT of the brain is negative 11/09 Patient is readily awake and answers questions appropriately She is still confused which looks little worse than her baseline around her baseline. She can tell she is in the hospital but she does not know the name of the hospital or the year or the name of the president, she gives all the information regarding these. Most likely she lost her recent memory related to her dementia. She is mildly tachypneic but she declined feeling dyspneic. No chest pain. No abdominal pain. No other complaints Patient asking if she she is going to go home today She does not feel weak. Creatinine 2.3 today. 11/10 Patient still mildly short of breath, with some scattered wheezing and she is still on 2 L oxygen via nasal cannula. She still have coughing. No GI or urinary new symptoms. Patient remains on antibiotics with ceftriaxone and daptomycin with positive blood culture for multiple organisms Surgery team recommending outpatient EGD/colonoscopy Cardiology team recommended outpatient ischemic workup. Morning labs still pending 11/11 Patient lying in bed with no distress No chest pain or dyspnea while at rest No worsening hypoxia However repeat chest x-ray yesterday showing more progressive bilateral infiltrative lesion. Could be secondary to fluid overload, patient received 1 extra dose of IV Lasix 40 mg Also her antibiotics were switched from ceftriaxone to Zosyn per ID team recommendation Creatinine is stable at 2.1, hemoglobin stable 9.5, leukocytosis improving down to 11.5 Patient is afebrile today Objective - Vital Signs Vital signs: Vital Signs Temp 97.9 F 11/11/24 07:47 Pulse 67 11/11/24 07:47 Resp 18 11/11/24 07:47 BP 117/54 11/11/24 07:47 Pulse Ox 99 11/11/24 07:47 FiO2 Intake & Output 11/10/24 11/11/24 11/11/24 18:59 06:59 18:59 Intake Total 360 100 Balance 360 100 Weight 68.5 kg Intake: IV 100 Piperacillin-Tazobactam 3 100 .375 gm In Sodium Chloride 0.9% 100 ml @ 25 mls/hr IVPB Q12H [facility] Rx# :[id number] Oral 360 Other: Voiding Method Diaper Diaper Incontinent Incontinent # Voids 1 # Bowel Movements 1 - Exam GENERAL: The patient is alert and oriented x3, not in any acute distress. Well developed, well nourished. HEENT: Pupils are round and equally reacting to light. EOMI. No scleral icterus. No conjunctival pallor. Normocephalic, atraumatic. No pharyngeal erythema. No thyromegaly. CARDIOVASCULAR: S1 and S2 present. No murmurs, rubs, or gallops. PULMONARY: Chest is clear to auscultation, no wheezing , no crackles. ABDOMEN: Soft, nontender, nondistended, normoactive bowel sounds. No palpable organomegaly. MUSCULOSKELETAL: No joint swelling or deformity. EXTREMITIES: No cyanosis, clubbing, or pedal edema. -NEUROLOGICAL: Gross neurological examination did not reveal any focal deficits. Looks like chronic right hemiparesis SKIN: No rashes. no petechiae. - Labs CBC & Chem 7: 11/10/24 15:33 11/11/24 07:25 Labs: Abnormal Lab Results - Last 24 Hours (Table) 11/10/24 11/10/24 11/10/24 Range/Units 11:09 15:33 15:33 WBC 11.5 H (3.8-10.6) k/uL RBC 3.13 L (3.80-5.40) m/uL Hgb 9.5 L (11.4-16.0) gm/dL Hct 30.6 L (34.0-46.0) % RDW 16.8 H (11.5-15.5) % Neutrophils # 10.8 H (1.3-7.7) k/uL Lymphocytes # 0.3 L (1.0-4.8) k/uL Chloride 111 H (98-107) mmol/L BUN 47 H (7-17) mg/dL Creatinine 1.84 H (0.52-1.04) mg/dL Glucose 166 H (74-99) mg/dL POC Glucose (mg/dL) 269 H (70-110) mg/dL 11/10/24 11/10/24 11/11/24 Range/Units 16:20 20:01 06:09 WBC (3.8-10.6) k/uL RBC (3.80-5.40) m/uL Hgb (11.4-16.0) gm/dL Hct (34.0-46.0) % RDW (11.5-15.5) % Neutrophils # (1.3-7.7) k/uL Lymphocytes # (1.0-4.8) k/uL Chloride (98-107) mmol/L BUN (7-17) mg/dL Creatinine (0.52-1.04) mg/dL Glucose (74-99) mg/dL POC Glucose (mg/dL) 288 H 169 H 133 H (70-110) mg/dL 11/11/24 Range/Units 07:25 WBC (3.8-10.6) k/uL RBC (3.80-5.40) m/uL Hgb (11.4-16.0) gm/dL Hct (34.0-46.0) % RDW (11.5-15.5) % Neutrophils # (1.3-7.7) k/uL Lymphocytes # (1.0-4.8) k/uL Chloride 111 H (98-107) mmol/L BUN 53 H (7-17) mg/dL Creatinine 2.17 H (0.52-1.04) mg/dL Glucose 131 H (74-99) mg/dL POC Glucose (mg/dL) (70-110) mg/dL Microbiology - Last 24 Hours (Table) 11/08/24 08:16 Blood Culture - Preliminary Blood 11/06/24 22:00 Blood Culture - Preliminary Blood Assessment and Plan Assessment: COVID infection and pneumonia with possible elements of bacterial superinfection Acute hypoxic respiratory failure Acute kidney injury on chronic kidney disease VRE bacteremia Elevated troponin most likely secondary to non-STEMI type II 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 Continue same treatment. Continue with symptomatic treatment. Resume home medication. Monitor labs and vitals. DVT and GI prophylaxis. Further recommendations as per clinical course of the patient DVT prophylaxis: no Subcutaneous heparin in view of anemia GI Prophylaxis: Ppi PT/OT: Pending Prognosis is guarded
--- NOTE | 2024-11-11 10:59 | P.PN ---
Subjective Progress Note Date: 11/11/24 SURGICAL PROGRESS NOTE CHIEF COMPLAINT: Anemia HISTORY OF PRESENT ILLNESS: No new complaints. Patient denies any blood in the stools or black stools. Hemoglobin stable at 9.5 PHYSICAL EXAM: VITAL SIGNS: Reviewed. GENERAL: Well-developed in no acute distress. ABDOMEN: Soft. Nondistended. Nontender. ASSESSMENT: 1. Anemia with occult blood positive. No active bleeding. hgb stable PLAN: -No plans for endoscopies during this admission -Plan for outpatient EGD and colonoscopy -Surgical service will sign off. Please call with any questions or concerns. Physician Sustain Engineer note has been reviewed by physician. Signing provider agrees with the documented findings, assessment, and plan of care. Objective - Vital Signs Vital signs: Vital Signs Temp 97.9 F 11/11/24 07:47 Pulse 67 11/11/24 07:47 Resp 18 11/11/24 07:47 BP 117/54 11/11/24 07:47 Pulse Ox 99 11/11/24 07:47 FiO2 Intake & Output 11/10/24 11/11/24 11/11/24 18:59 06:59 18:59 Intake Total 360 100 Balance 360 100 Weight 68.5 kg Intake: IV 100 Piperacillin-Tazobactam 3 100 .375 gm In Sodium Chloride 0.9% 100 ml @ 25 mls/hr IVPB Q12H [facility] Rx# :[id number] Oral 360 Other: Voiding Method Diaper Diaper Incontinent Incontinent # Voids 1 # Bowel Movements 1 - Labs CBC & Chem 7: 11/10/24 15:33 11/11/24 07:25 Labs: Abnormal Lab Results - Last 24 Hours (Table) 11/10/24 11/10/24 11/10/24 Range/Units 11:09 15:33 15:33 WBC 11.5 H (3.8-10.6) k/uL RBC 3.13 L (3.80-5.40) m/uL Hgb 9.5 L (11.4-16.0) gm/dL Hct 30.6 L (34.0-46.0) % RDW 16.8 H (11.5-15.5) % Neutrophils # 10.8 H (1.3-7.7) k/uL Lymphocytes # 0.3 L (1.0-4.8) k/uL Chloride 111 H (98-107) mmol/L BUN 47 H (7-17) mg/dL Creatinine 1.84 H (0.52-1.04) mg/dL Glucose 166 H (74-99) mg/dL POC Glucose (mg/dL) 269 H (70-110) mg/dL Procalcitonin (0.02-0.50) ng/mL 11/10/24 11/10/24 11/10/24 Range/Units 15:33 16:20 20:01 WBC (3.8-10.6) k/uL RBC (3.80-5.40) m/uL Hgb (11.4-16.0) gm/dL Hct (34.0-46.0) % RDW (11.5-15.5) % Neutrophils # (1.3-7.7) k/uL Lymphocytes # (1.0-4.8) k/uL Chloride (98-107) mmol/L BUN (7-17) mg/dL Creatinine (0.52-1.04) mg/dL Glucose (74-99) mg/dL POC Glucose (mg/dL) 288 H 169 H (70-110) mg/dL Procalcitonin 2.16 H (0.02-0.50) ng/mL 11/11/24 11/11/24 Range/Units 06:09 07:25 WBC (3.8-10.6) k/uL RBC (3.80-5.40) m/uL Hgb (11.4-16.0) gm/dL Hct (34.0-46.0) % RDW (11.5-15.5) % Neutrophils # (1.3-7.7) k/uL Lymphocytes # (1.0-4.8) k/uL Chloride 111 H (98-107) mmol/L BUN 53 H (7-17) mg/dL Creatinine 2.17 H (0.52-1.04) mg/dL Glucose 131 H (74-99) mg/dL POC Glucose (mg/dL) 133 H (70-110) mg/dL Procalcitonin (0.02-0.50) ng/mL Microbiology - Last 24 Hours (Table) 11/08/24 08:16 Blood Culture - Preliminary Blood 11/06/24 22:00 Blood Culture - Preliminary Blood
[2024-11-11 11:33] LABS: Glucose,Whole Blood 188 mg/dL (70-110)
--- NOTE | 2024-11-11 12:06 | P.PN ---
Subjective Progress Note Date: 11/11/24 Principal diagnosis: Acute hypoxic respiratory failure secondary to acute COVID-19 pneumonia This is a 73-year-old female patient who presented to the emergency department with diminished level of consciousness. The patient is normally alert and oriented x 1. No significant history is available. The [facility] and she was developing worsening in breathing and she had also a drop in oxygenation and pulse ox and she has been placed on oxygen. She also had a low-grade fever. Based on that, the patient was brought into the hospital. The patient is currently on 3 L of oxygen by nasal cannula and this was brought up to 5 L to maintain saturation above 90%, current pulse ox 95%. She had a Tmax of 100.7 current temperature is at 99.2. She was in sinus tachycardia and she was quite tachypneic at time of arrival and breathing was short and labored and currently she is breathing more comfortably. The white cell count 17.2 with a hemoglobin 11 and platelet count of 348. The INR is at 1.3 with a PT of 13.5 with a PTT of 23. Sodium is at 140, bicarb is 23, BUN 16 with a creatinine of 1.54. Lactic acid level is at 2.3. Troponins at 0.2. LFTs are normal. COVID-19 testing was positive. Chest x-ray showed multifocal airspace opacities concerning for pneumonia and the patient has cardiomegaly and smaller lung volumes and elevation of the diaphragms bilaterally. CAT scan of the brain was also done in the emergency that showed remote left parietal/frontal infarct/encephalomalacia without any acute process. The patient accordingly was started on Decadron. She was started on Rocephin and Zithromax. Pulmonary consultation was requested accordingly.The patient is a prison resident. The patient has other comorbidities including previous history of CVA right-sided weakness, dementia, chronic kidney disease stage III chronic bronchial asthma the patient is a former smoker. She has hypertension hyperlipidemia diabetes mellitus type 2. Her last COVID-19 infection was back in November 2021 at that time the patient was hospitalized for the same problem. On 11/07/2024, patient is calm and comfortable on 2 L of oxygen by nasal cannula with a pulse ox of 98%. The patient was hospitalized for acute hypoxic mary failure and COVID-19 infection and the patient is currently on Decadron. Furthermore, the patient was given a combination of Rocephin and Zithromax as an empiric antibiotic coverage. Subsequently, the blood culture was positive for Enterococcus, likely VRE E and the patient was started on daptomycin. Troponins were minimally elevated and the patient was started on IV heparin by cardiology. Based on the cardiac enzyme evaluation, the patient's troponin peaked at 2.2/the patient ruled in for an acute non-ST segment elevation myocardial infarction. She is free of any chest pain for now. Hemodynamically stable. Afebrile. No other significant events otherwise for now. Remains on IV Lasix 40 mg every 12 hours. Echocardiogram is in progress. Was evaluated today on 11/08/2024, patient is feeling better, breathing easier,Presently on 2 L nasal cannula with O2 sats 97%.WBC count is 15.4 hemoglobin 8.9 basic metabolic profile is normal BUN is 39 creatinine 2.43 chest x-ray from 2 days ago showed evidence of bilateral multifocal infiltrates consistent with COVID-19 pneumonia Patient was seen today on 11/09/2024, patient continues to steadily improve, feeling better, breathing easier, chest x-ray continues to show bilateral airspace disease, not much of a change since admission but clinically the patient is feeling better. Her echocardiogram clearly showed evidence of severe LV dysfunction with ejection fraction of 30 to 35%. Patient is receiving diuretics intermittently remains on treatment for COVID-19 infection/pneumonia and remains empirically on antibiotics/Rocephin. Renal functioning is slightly improved today compared to yesterday with creatinine down to 2.38 from 2.43 yesterday. Patient was seen today on 11/10/2024, patient continues to do well, relatively asymptomatic, hardly any pulmonary symptoms. Remains on 2 L nasal cannula with O2 saturation 97%, she is hemodynamically stable, this x-ray continues to show multifocal bilateral airspace disease, surprisingly the patient is not as symptomatic as she should be considering her chest x-ray findings. I am suspecting that some of the findings noted on the chest x-ray are related to some component of pulmonary edema and the patient may require more diuresis, and I know there is a concern about her renal functioning echocardiogram on showed evidence of cardiomyopathy and LV dysfunction. Patient remains on daptomycin as per infectious disease on the case. BNP on this patient upon admission was over 100,000's and she also had elevated procalcitonin level of 11.90. In addition to this the patient had positive COVID-19 screening Patient was seen today on 11/11/2024, doing well, required Lasix yesterday, and she was given Lasix today, patient had her Lasix on hold because of her renal function, today's creatinine is 2.17 yesterday was 1.84. However her chest x- ray showed worsening pulmonary edema, and patient improved after she was given Lasix, feels much better today. Objective - Vital Signs Vital signs: Vital Signs Temp 97.6 F 11/11/24 11:27 Pulse 64 11/11/24 11:27 Resp 14 11/11/24 11:27 BP 121/58 11/11/24 11:27 Pulse Ox 95 11/11/24 11:27 FiO2 Intake & Output 11/10/24 11/11/24 11/11/24 18:59 06:59 18:59 Intake Total 360 100 Balance 360 100 Weight 68.5 kg Intake: IV 100 Piperacillin-Tazobactam 3 100 .375 gm In Sodium Chloride 0.9% 100 ml @ 25 mls/hr IVPB Q12H [facility] Rx# :[id number] Oral 360 Other: Voiding Method Diaper Diaper Incontinent Incontinent # Voids 1 # Bowel Movements 1 - Exam GENERAL EXAM: Revealed 71-year-old female in no distress, on 3 L nasal cannula with O2 sat of 95% HEAD: Normocephalic/atraumatic. EYES: Normal reaction of pupils, equal size. Conjunctiva pink, sclera white. NOSE: Clear with pink turbinates. THROAT: No erythema or exudates. NECK: No masses, no JVD, no thyroid enlargement, no adenopathy. CHEST: No chest wall deformity. Symmetrical expansion. LUNGS: Fine crackles at the bases no rhonchi no wheezes CVS: Regular rate and rhythm, normal S1 and S2, no gallops, no murmurs, no rubs ABDOMEN: Soft, nontender. No hepatosplenomegaly, normal bowel sounds, no guarding or rigidity. EXTREMITIES: No clubbing, no edema, no cyanosis, 2+ pulses and upper and lower extremities. MUSCULOSKELETAL: No deformities no limitation range of motion normal. SKIN: No rashes CENTRAL NERVOUS SYSTEM: Alert, patient is aphasic. right-sided weakness tone is normal in all 4 extremities. - Labs CBC & Chem 7: 11/10/24 15:33 11/11/24 07:25 Labs: Abnormal Lab Results - Last 24 Hours (Table) 11/10/24 11/10/24 11/10/24 Range/Units 15:33 15:33 15:33 WBC 11.5 H (3.8-10.6) k/uL RBC 3.13 L (3.80-5.40) m/uL Hgb 9.5 L (11.4-16.0) gm/dL Hct 30.6 L (34.0-46.0) % RDW 16.8 H (11.5-15.5) % Neutrophils # 10.8 H (1.3-7.7) k/uL Lymphocytes # 0.3 L (1.0-4.8) k/uL Chloride 111 H (98-107) mmol/L BUN 47 H (7-17) mg/dL Creatinine 1.84 H (0.52-1.04) mg/dL Glucose 166 H (74-99) mg/dL POC Glucose (mg/dL) (70-110) mg/dL Procalcitonin 2.16 H (0.02-0.50) ng/mL 11/10/24 11/10/24 11/11/24 Range/Units 16:20 20:01 06:09 WBC (3.8-10.6) k/uL RBC (3.80-5.40) m/uL Hgb (11.4-16.0) gm/dL Hct (34.0-46.0) % RDW (11.5-15.5) % Neutrophils # (1.3-7.7) k/uL Lymphocytes # (1.0-4.8) k/uL Chloride (98-107) mmol/L BUN (7-17) mg/dL Creatinine (0.52-1.04) mg/dL Glucose (74-99) mg/dL POC Glucose (mg/dL) 288 H 169 H 133 H (70-110) mg/dL Procalcitonin (0.02-0.50) ng/mL 11/11/24 11/11/24 Range/Units 07:25 11:31 WBC (3.8-10.6) k/uL RBC (3.80-5.40) m/uL Hgb (11.4-16.0) gm/dL Hct (34.0-46.0) % RDW (11.5-15.5) % Neutrophils # (1.3-7.7) k/uL Lymphocytes # (1.0-4.8) k/uL Chloride 111 H (98-107) mmol/L BUN 53 H (7-17) mg/dL Creatinine 2.17 H (0.52-1.04) mg/dL Glucose 131 H (74-99) mg/dL POC Glucose (mg/dL) 188 H (70-110) mg/dL Procalcitonin (0.02-0.50) ng/mL Microbiology - Last 24 Hours (Table) 11/08/24 08:16 Blood Culture - Preliminary Blood 11/06/24 22:00 Blood Culture - Preliminary Blood Assessment and Plan Assessment: Impression: Acute hypoxic respiratory failure secondary to acute COVID-19 pneumonia, I also suspect some component of acute systolic congestive heart failure with LV dysfunction noted on echocardiogram and significantly elevated proBNP on admission Enterococcal sepsis sepsis/urinary tract infection is likely presently on dapt omycin, being addressed by infectious disease on the case. Acute non-ST elevation myocardial infarction History of CVA with right-sided weakness Benign essential hypertension History of bronchial asthma mild intermittent Type 2 diabetes group home resident Chronic kidney disease stage III Recommendation: Continue oxygen and titrate accordingly Continue Decadron Intermittently diurese and closely monitor renal status Continue aspirin Continue metoprolol Continue antibiotics Overall prognosis remains guarded Will continue to follow Time with Patient: Less than 30
--- NOTE | 2024-11-11 14:51 | P.PN ---
Subjective Progress Note Date: 11/11/24 Principal diagnosis: Reason for follow-up is VRE bacteremia Patient is a 73-year-old -[place] female with a past medical history significant for diabetes mellitus hypertension hyperlipidemia dementia CVA TIA patient is a [place] resident and was sent to the hospital for evaluation of increasing shortness of breath with a recent diagnosis of COVID-19 at the [facility] patient did have a positive blood culture with VRE prompting this consultation On today's evaluation that is 11/11/2024,the patient remains to be afebrile, patient is on 3 L nasal cannula supplemental oxygen and denies any worsening shortness of breath no chest pain or cough.Patient denies having any nausea or vomiting, no abdominal pain and no diarrhea has been reported. Patient creatinine is 2.17 no CBC was done today Objective - Vital Signs Vital signs: Vital Signs Temp 97.6 F 11/11/24 11:27 Pulse 64 11/11/24 11:27 Resp 14 11/11/24 11:27 BP 121/58 11/11/24 11:27 Pulse Ox 95 11/11/24 11:27 FiO2 Intake & Output 11/10/24 11/11/24 11/11/24 18:59 06:59 18:59 Intake Total 360 100 Balance 360 100 Weight 68.5 kg Intake: IV 100 Piperacillin-Tazobactam 3 100 .375 gm In Sodium Chloride 0.9% 100 ml @ 25 mls/hr IVPB Q12H [facility] Rx# :[id number] Oral 360 Other: Voiding Method Diaper Diaper Incontinent Incontinent # Voids 1 # Bowel Movements 1 - Exam GENERAL DESCRIPTION: An elderly female lying in bed in no distress RESPIRATORY SYSTEM: Unlabored breathing , coarse breath sounds at bases HEART: S1 S2 regular rate and rhythm , ABDOMEN: Soft , no tenderness EXTREMITIES: No edema feet - Labs CBC & Chem 7: 11/10/24 15:33 11/11/24 07:25 Labs: Abnormal Lab Results - Last 24 Hours (Table) 11/10/24 11/10/24 11/10/24 Range/Units 15:33 15:33 15:33 WBC 11.5 H (3.8-10.6) k/uL RBC 3.13 L (3.80-5.40) m/uL Hgb 9.5 L (11.4-16.0) gm/dL Hct 30.6 L (34.0-46.0) % RDW 16.8 H (11.5-15.5) % Neutrophils # 10.8 H (1.3-7.7) k/uL Lymphocytes # 0.3 L (1.0-4.8) k/uL Chloride 111 H (98-107) mmol/L BUN 47 H (7-17) mg/dL Creatinine 1.84 H (0.52-1.04) mg/dL Glucose 166 H (74-99) mg/dL POC Glucose (mg/dL) (70-110) mg/dL Procalcitonin 2.16 H (0.02-0.50) ng/mL 11/10/24 11/10/24 11/11/24 Range/Units 16:20 20:01 06:09 WBC (3.8-10.6) k/uL RBC (3.80-5.40) m/uL Hgb (11.4-16.0) gm/dL Hct (34.0-46.0) % RDW (11.5-15.5) % Neutrophils # (1.3-7.7) k/uL Lymphocytes # (1.0-4.8) k/uL Chloride (98-107) mmol/L BUN (7-17) mg/dL Creatinine (0.52-1.04) mg/dL Glucose (74-99) mg/dL POC Glucose (mg/dL) 288 H 169 H 133 H (70-110) mg/dL Procalcitonin (0.02-0.50) ng/mL 11/11/24 11/11/24 Range/Units 07:25 11:31 WBC (3.8-10.6) k/uL RBC (3.80-5.40) m/uL Hgb (11.4-16.0) gm/dL Hct (34.0-46.0) % RDW (11.5-15.5) % Neutrophils # (1.3-7.7) k/uL Lymphocytes # (1.0-4.8) k/uL Chloride 111 H (98-107) mmol/L BUN 53 H (7-17) mg/dL Creatinine 2.17 H (0.52-1.04) mg/dL Glucose 131 H (74-99) mg/dL POC Glucose (mg/dL) 188 H (70-110) mg/dL Procalcitonin (0.02-0.50) ng/mL Microbiology - Last 24 Hours (Table) 11/08/24 08:16 Blood Culture - Preliminary Blood 11/06/24 22:00 Blood Culture - Preliminary Blood Assessment and Plan (1) Sepsis Current Visit: Yes Status: Acute Code(s): A41.9 - SEPSIS, UNSPECIFIED ORGANISM SNOMED Code(s): 55483743 (2) Leukocytosis Current Visit: Yes Status: Acute Code(s): D72.829 - ELEVATED WHITE BLOOD CELL COUNT, UNSPECIFIED SNOMED Code(s): 843310471 (3) VRE bacteremia Current Visit: Yes Status: Acute Code(s): R78.81 - BACTEREMIA; B95.2 - ENTEROCOCCUS THE CAUSE OF DISEASES CLASSIFIED ELSEWHERE; Z16.21 - RESISTANCE TO VANCOMYCIN SNOMED Code(s): 9277428346 Plan: 1patient presented to hospital with sepsis in this patient who did have a fever elevated white count tachycardia meeting currently for SIRS source is multifactorial he was concern for possible pneumonia however the patient also have evidence of VRE bacteremia and to be a result of a common pathogen to cause pneumonia source could be either urinary versus abdominal 2-blood culture has been repeated which are currently pending 3-urine culture have been negative ultrasound of the abdominal bladder did not show any hydronephrosis patient did have echocardiogram with thickened aortic valve leaflets 4-patient currently being treated with daptomycin 6 mg/kg q. 48-hour to cover for VRE bacteremia and Zosyn for possible croup Aspiration pneumonia 5patient benefit from a [place] to make sure no evidence of any vegetation as a source of this VRE bacteremia as her urine is negative abdomen is soft Son at the bedside question answered Dictation was produced using [employer] dictation software. please excuse any grammatical, word or spelling errors. Time with Patient: Less than 30
--- NOTE | 2024-11-11 15:16 | P.PN ---
Subjective Progress Note Date: 11/11/24 HISTORY OF PRESENT ILLNESS: 73-year-old female who has a prior history of CVA with right-sided weakness hemiparesis, aphasia, dementia, sn[facility] resident. She is not able to provide any history and most of the history is obtained from the medical charts. Patient was diagnosed with COVID-19 infection at the sn[facility] yesterday when she started developing increased worsening respiratory distress along with hypoxemia with dropping her pulse oximeter. She was also having low-grade fever. Due to this she was brought to the hospital. On admission she was on 5 L oxygen saturating above 90%, febrile with Tmax of 100.7, elevated lactate. Elevated WBC count of 17.2. Hemoglobin 11. Her creatinine was 1.54, troponin was elevated at 0.28, repeat at 1.64. EKG showed sinus tachycardia heart rate of 122 bpm, nonspecific ST depressions in diffuse leads. Progress note 11/07/2024 Patient's hemoglobin has dropped since admission. Hemoglobin 9.0 today. WBC count is 21, creatinine has trended up from 1.5-2.1 11/08/2024 Patient examined this morning at the bedside. Patient currently denies chest pain or pressure. She denies shortness of breath. Patient is alert and oriented x 1-2 which is baseline per nursing. Creatinine today 2.43. Clinically she does appear volume overloaded. 11/09/2024 Patient is seen and examined at bedside. She is only alert but not very oriented which is at baseline. Creatinine is 2.38 today. Yesterday 2.43. BP 130/60 heart rate 60 bpm 11/11/2024 Patient is seen and examined at bedside this a.m. Patient is having some PVCs and nonsustained ventricular tachycardia on telemetry. Kidney function is stayed stable. Hemodynamically stable otherwise. PHYSICAL EXAM: VITAL SIGNS: Reviewed. GENERAL: Well-developed in no acute distress. NECK: Supple. No JVD or thyromegaly LUNGS: Respirations even and unlabored. Lungs essentially clear to auscultation bilaterally, diminished. HEART: Regular rate and rhythm. S1 and S2 heard. EXTREMITIES: Normal range of motion. No clubbing or cyanosis. Peripheral pulses intact. 2+ bilateral lower extremity edema ASSESSMENT: NSVT and PVCs Acute COVID-19 Acute HFrEF exacerbation Acute on chronic kidney disease, likely related to daptomycin use. Enterococcus bacteremia Elevated troponins, likely type II NE secondary to oxygen supply/demand mismatch. Completed 24 hours of heparin. Discontinued because of anemia. Acute hypoxic respiratory failure Lactic acidosis Metabolic encephalopathy History of CVA with right-sided weakness right arm contracture Diabetes Obesity: BMI 35.7 Cardiac testing Echocardiogram showed an EF of 30 to 35%, mild concentric LVH, mild RV dilatation, moderate left atrial dilatation, dilated IVC. Aortic valve sclerosis but no significant stenosis PLAN: Aspirin, Lipitor 40, amlodipine 5, metoprolol 50 twice daily. Once kidney function stabilizes, I would recommend low-dose diuretic to be discharged home on like torsemide 10 mg daily. 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 However she should get outpatient ischemic evaluation once patient hemoglobin and renal function is more stable. Objective - Vital Signs Vital signs: Vital Signs Temp 97.6 F 11/11/24 11:27 Pulse 64 11/11/24 11:27 Resp 14 11/11/24 11:27 BP 121/58 11/11/24 11:27 Pulse Ox 95 11/11/24 11:27 FiO2 Intake & Output 11/10/24 11/11/24 11/11/24 18:59 06:59 18:59 Intake Total 360 100 Balance 360 100 Weight 68.5 kg Intake: IV 100 Piperacillin-Tazobactam 3 100 .375 gm In Sodium Chloride 0.9% 100 ml @ 25 mls/hr IVPB Q12H [facility] Rx# :[id number] Oral 360 Other: Voiding Method Diaper Diaper Incontinent Incontinent # Voids 1 # Bowel Movements 1 - Labs CBC & Chem 7: 11/10/24 15:33 11/11/24 07:25 Labs: Abnormal Lab Results - Last 24 Hours (Table) 11/10/24 11/10/24 11/10/24 Range/Units 15:33 15:33 15:33 WBC 11.5 H (3.8-10.6) k/uL RBC 3.13 L (3.80-5.40) m/uL Hgb 9.5 L (11.4-16.0) gm/dL Hct 30.6 L (34.0-46.0) % RDW 16.8 H (11.5-15.5) % Neutrophils # 10.8 H (1.3-7.7) k/uL Lymphocytes # 0.3 L (1.0-4.8) k/uL Chloride 111 H (98-107) mmol/L BUN 47 H (7-17) mg/dL Creatinine 1.84 H (0.52-1.04) mg/dL Glucose 166 H (74-99) mg/dL POC Glucose (mg/dL) (70-110) mg/dL Procalcitonin 2.16 H (0.02-0.50) ng/mL 11/10/24 11/10/24 11/11/24 Range/Units 16:20 20:01 06:09 WBC (3.8-10.6) k/uL RBC (3.80-5.40) m/uL Hgb (11.4-16.0) gm/dL Hct (34.0-46.0) % RDW (11.5-15.5) % Neutrophils # (1.3-7.7) k/uL Lymphocytes # (1.0-4.8) k/uL Chloride (98-107) mmol/L BUN (7-17) mg/dL Creatinine (0.52-1.04) mg/dL Glucose (74-99) mg/dL POC Glucose (mg/dL) 288 H 169 H 133 H (70-110) mg/dL Procalcitonin (0.02-0.50) ng/mL 11/11/24 11/11/24 Range/Units 07:25 11:31 WBC (3.8-10.6) k/uL RBC (3.80-5.40) m/uL Hgb (11.4-16.0) gm/dL Hct (34.0-46.0) % RDW (11.5-15.5) % Neutrophils # (1.3-7.7) k/uL Lymphocytes # (1.0-4.8) k/uL Chloride 111 H (98-107) mmol/L BUN 53 H (7-17) mg/dL Creatinine 2.17 H (0.52-1.04) mg/dL Glucose 131 H (74-99) mg/dL POC Glucose (mg/dL) 188 H (70-110) mg/dL Procalcitonin (0.02-0.50) ng/mL Microbiology - Last 24 Hours (Table) 11/08/24 08:16 Blood Culture - Preliminary Blood 11/06/24 22:00 Blood Culture - Preliminary Blood
[2024-11-11 16:41] LABS: Glucose,Whole Blood 270 mg/dL (70-110)
[2024-11-11 20:07] LABS: Glucose,Whole Blood 316 mg/dL (70-110)
[2024-11-12 06:19] LABS: Glucose,Whole Blood 162 mg/dL (70-110)
[2024-11-12 07:53] LABS: African American GFR (CKD) 18 (>60 ml/min/1.73 sqM); Anion Gap 8 mmol/L; Blood Urea Nitrogen 62 mg/dL (7-17); Calcium 8.8 mg/dL (8.4-10.2); Carbon Dioxide 25 mmol/L (22-30); Chloride 110 mmol/L (98-107); Glucose 138 mg/dL (74-99); Magnesium 2.2 mg/dL (1.6-2.3); Non-African American GFR(CKD) 15 (>60 ml/min/1.73 sqM); Potassium 4.6 mmol/L (3.5-5.1); Sodium 143 mmol/L (137-145)
[2024-11-12] MEDS ORDERED: fentaNYL (PF) 50 MCG/ML 2 ML AMP IVP PRN (08:44)
[2024-11-12] MEDS ORDERED: BENZOCAINE SPRAY 1 CAN TOPICAL PRN (08:44)
[2024-11-12] MEDS ORDERED: MIDAZOLAM 2 MG/2 ML VIAL IV PRN (08:44)
[2024-11-12] MEDS ORDERED: BUMETANIDE 1 MG TAB PO SCH (09:00)
--- NOTE | 2024-11-12 09:15 | P.PN ---
Subjective 73-year-old female who presents to the emergency department from her care home. She is normally alert and oriented x 1 so all the history comes from the paramedics. Patient was brought in because she was diagnosed with COVID yesterday and now she has more difficulty breathing as of this morning and had to put her on oxygen. Patient also had a low-grade fever. There is no other history available at this time. The patient is currently on 3 L of oxygen by nasal cannula and this was brought up to 5 L to maintain saturation above 90%, current pulse ox 95%. She had a Tmax of 100.7 current temperature is at 99.2. She was in sinus tachycardia and she was quite tachypneic at time of arrival and breathing was short and labored and currently she is breathing more comfortably. The white cell count 17.2 with a hemoglobin 11 and platelet count of 348. The INR is at 1.3 with a PT of 13.5 with a PTT of 23. Sodium is at 140, bicarb is 23, BUN 16 with a creatinine of 1.54. Lactic acid level is at 2.3. Troponins at 0.2. LFTs are normal. COVID- 19 testing was positive. Chest x-ray showed multifocal airspace opacities concerning for pneumonia and the patient has cardiomegaly and smaller lung volumes and elevation of the diaphragms bilaterally. CAT scan of the brain was also done in the emergency that showed remote left parietal/frontal infarct/encephalomalacia without any acute process. The patient accordingly was started on Decadron. She was started on Rocephin and Zithromax. Pulmonary consultation was requested 11/08 Patient is a pleasant 73 years old -[place] female. Currently she is sitting up in chair looks with chronic weakness of the right side. Patient states that she wants to go home. She denies any specific complaint. No chest pain or dyspnea. No diarrhea or vomiting. No Up No diarrhea No urinary signs symptoms Currently she is covered with ceftriaxone and Zithromax for pneumonia and daptomycin for VRE bacteremia Also patient on Decadron 6 mg daily Creatinine up to 2.4, nephrology team consulted WBC is coming down currently 15,000, hemoglobin 8.9. LDH is elevated at 310 Patient has active occult blood in stool, positive for COVID but negative for influenza Chest x-ray showing bilateral opacity which is suspicious for pneumonia versus CHF. CT of the brain is negative 11/09 Patient is readily awake and answers questions appropriately She is still confused which looks little worse than her baseline around her baseline. She can tell she is in the hospital but she does not know the name of the hospital or the year or the name of the president, she gives all the information regarding these. Most likely she lost her recent memory related to her dementia. She is mildly tachypneic but she declined feeling dyspneic. No chest pain. No abdominal pain. No other complaints Patient asking if she she is going to go home today She does not feel weak. Creatinine 2.3 today. 11/10 Patient still mildly short of breath, with some scattered wheezing and she is still on 2 L oxygen via nasal cannula. She still have coughing. No GI or urinary new symptoms. Patient remains on antibiotics with ceftriaxone and daptomycin with positive blood culture for multiple organisms Surgery team recommending outpatient EGD/colonoscopy Cardiology team recommended outpatient ischemic workup. Morning labs still pending 11/11 Patient lying in bed with no distress No chest pain or dyspnea while at rest No worsening hypoxia However repeat chest x-ray yesterday showing more progressive bilateral infiltrative lesion. Could be secondary to fluid overload, patient received 1 extra dose of IV Lasix 40 mg Also her antibiotics were switched from ceftriaxone to Zosyn per ID team recommendation Creatinine is stable at 2.1, hemoglobin stable 9.5, leukocytosis improving down to 11.5 Patient is afebrile today 11/12 Patient awake alert, she is mildly confused at baseline, she is pleasant She denies chest pain or dyspnea while sitting in bed No other new complaint. Patient herself asking when she can be discharged No fever today. Inflammatory markers were elevated with LDH 310 Creatinine slightly worse at 2.9 and she received Lasix yesterday Her antibiotics were recently adjusted to Zosyn. Also she is taking daptomycin Objective - Vital Signs Vital signs: Vital Signs Temp 97.7 F 11/12/24 04:00 Pulse 65 11/12/24 04:00 Resp 16 11/12/24 04:00 BP 107/56 11/12/24 04:00 Pulse Ox 97 11/12/24 08:06 FiO2 Intake & Output 11/11/24 11/12/24 11/12/24 18:59 06:59 18:59 Intake Total 444 257 222 Balance 444 257 222 Weight 118.5 kg Intake: IV 20 Invasive Line 1 20 Oral 444 237 222 Other: Voiding Method Diaper Diaper Incontinent Incontinent # Voids 2 1 # Bowel Movements 1 - Exam GENERAL: The patient is alert and oriented x3, not in any acute distress. Well developed, well nourished. HEENT: Pupils are round and equally reacting to light. EOMI. No scleral icterus. No conjunctival pallor. Normocephalic, atraumatic. No pharyngeal erythema. No thyromegaly. CARDIOVASCULAR: S1 and S2 present. No murmurs, rubs, or gallops. PULMONARY: Chest is clear to auscultation, no wheezing , no crackles. ABDOMEN: Soft, nontender, nondistended, normoactive bowel sounds. No palpable organomegaly. MUSCULOSKELETAL: No joint swelling or deformity. EXTREMITIES: No cyanosis, clubbing, or pedal edema. -NEUROLOGICAL: Gross neurological examination did not reveal any focal deficits. Looks like chronic right hemiparesis SKIN: No rashes. no petechiae. - Labs CBC & Chem 7: 11/10/24 15:33 11/12/24 07:01 Labs: Abnormal Lab Results - Last 24 Hours (Table) 11/10/24 11/11/24 11/11/24 Range/Units 15:33 11:31 16:40 Chloride (98-107) mmol/L BUN (7-17) mg/dL Creatinine (0.52-1.04) mg/dL Glucose (74-99) mg/dL POC Glucose (mg/dL) 188 H 270 H (70-110) mg/dL Procalcitonin 2.16 H (0.02-0.50) ng/mL 11/11/24 11/12/24 11/12/24 Range/Units 20:07 06:18 07:01 Chloride 110 H (98-107) mmol/L BUN 62 H (7-17) mg/dL Creatinine 2.91 H (0.52-1.04) mg/dL Glucose 138 H (74-99) mg/dL POC Glucose (mg/dL) 316 H 162 H (70-110) mg/dL Procalcitonin (0.02-0.50) ng/mL Microbiology - Last 24 Hours (Table) 11/08/24 08:16 Blood Culture - Preliminary Blood Assessment and Plan Assessment: COVID infection and pneumonia with possible elements of bacterial superinfection Acute hypoxic respiratory failure Acute kidney injury on chronic kidney disease VRE bacteremia Elevated troponin most likely secondary to non-STEMI type II History of CVA with right-sided weakness and right arm contractures and aphasic Hypertension// Hypertensive heart disease Chronic stage III kidney disease Dementia Chronic bronchial asthma Diabetes mellitus type 2 Plan: Continue with antibiotic per ID team Currently on Zosyn for pneumonia and daptomycin for VRE bacteremia Continue with Decadron per pulmonary team Continue with the current cardiac medication including Lipitor, aspirin, Norvasc and metoprolol 50 mg Several consultants on the case including pulmonary, infectious disease, cardiology and nephrology Monitor hemoglobin Patient continued aspirin 81 mg Surgery team recommended outpatient upper and lower scope and icer 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 Continue same treatment. Continue with symptomatic treatment. Resume home medication. Monitor labs and vitals. DVT and GI prophylaxis. Further recommendations as per clinical course of the patient DVT prophylaxis: no Subcutaneous heparin in view of anemia GI Prophylaxis: Ppi PT/OT: Pending Prognosis is guarded
--- NOTE | 2024-11-12 09:45 | P.PN ---
Subjective Patient is seen in follow-up for acute kidney injury on chronic kidney disease. Renal function worse. Admits to good urine output. Denies chest pain or shortness of breath. Vital signs are stable. General: No acute distress. HEENT: Head exam is unremarkable. On nasal cannula. LUNGS: No audible rhonchi or wheezes. HEART: Rate and Rhythm are regular. ABDOMEN: Nontender. EXTREMITITES: No edema. Chronic changes noted. Objective - Vital Signs Vital signs: Vital Signs Temp 97.8 F 11/12/24 09:38 Pulse 66 11/12/24 09:38 Resp 16 11/12/24 09:38 BP 131/58 11/12/24 09:38 Pulse Ox 97 11/12/24 09:38 FiO2 Intake & Output 11/11/24 11/12/24 11/12/24 18:59 06:59 18:59 Intake Total 444 257 222 Balance 444 257 222 Weight 118.5 kg Intake: IV 20 Invasive Line 1 20 Oral 444 237 222 Other: Voiding Method Diaper Diaper Incontinent Incontinent # Voids 2 1 # Bowel Movements 1 - Labs CBC & Chem 7: 11/10/24 15:33 11/12/24 07:01 Labs: Abnormal Lab Results - Last 24 Hours (Table) 11/10/24 11/11/24 11/11/24 Range/Units 15:33 11:31 16:40 Chloride (98-107) mmol/L BUN (7-17) mg/dL Creatinine (0.52-1.04) mg/dL Glucose (74-99) mg/dL POC Glucose (mg/dL) 188 H 270 H (70-110) mg/dL Procalcitonin 2.16 H (0.02-0.50) ng/mL 11/11/24 11/12/24 11/12/24 Range/Units 20:07 06:18 07:01 Chloride 110 H (98-107) mmol/L BUN 62 H (7-17) mg/dL Creatinine 2.91 H (0.52-1.04) mg/dL Glucose 138 H (74-99) mg/dL POC Glucose (mg/dL) 316 H 162 H (70-110) mg/dL Procalcitonin (0.02-0.50) ng/mL Microbiology - Last 24 Hours (Table) 11/08/24 08:16 Blood Culture - Preliminary Blood Assessment and Plan Plan: Assessment: 1. Acute kidney injury secondary to ATN secondary to severe sepsis. Creatinine 1.5 on admission -2.9 today. Status post IV Lasix given November 10, 2024. Blood pressure also lower at 98/57 overnight. Better this morning. No hydronephrosis noted on kidney ultrasound. 2. Chronic kidney disease stage IIIb with baseline creatinine near 1.5 secondary to nephrosclerosis. 3. Acute COVID-19 infection. 4. Enterococcus bacteremia on IV antibiotics. 5. History of CVA with right-sided weakness. 6. Acute hypoxic respiratory failure. 7. Chronic systolic CHF ejection fraction of 30 to 35% with moderate pulmonary hypertension. Plan: Status post IV Lasix November 10, 2024. No gross evidence of fluid overload on chest x-ray. Hold off on diuretics today. Check bladder scan to rule out urinary retention. Check urine eosinophils. Patient already on Decadron. Hold amlodipine for systolic blood pressure less than 120. Encouraged oral intake. Avoid nephrotoxins. Continue to monitor renal function and urine output. Strict I's and O's.
[2024-11-12 11:28] LABS: Glucose,Whole Blood 225 mg/dL (70-110)
[2024-11-12 12:49] VITALS: BMI 46.3
--- NOTE | 2024-11-12 12:51 | P.PN ---
Subjective Progress Note Date: 11/12/24 Principal diagnosis: Acute hypoxic respiratory failure secondary to acute COVID-19 pneumonia This is a 73-year-old female patient who presented to the emergency department with diminished level of consciousness. The patient is normally alert and oriented x 1. No significant history is available. The patient was diagnosed having COVID-19 infection at the assisted yesterday and she was developing worsening in breathing and she had also a drop in oxygenation and pulse ox and she has been placed on oxygen. She also had a low-grade fever. Based on that, the patient was brought into the hospital. The patient is currently on 3 L of oxygen by nasal cannula and this was brought up to 5 L to maintain saturation above 90%, current pulse ox 95%. She had a Tmax of 100.7 current temperature is at 99.2. She was in sinus tachycardia and she was quite tachypneic at time of arrival and breathing was short and labored and currently she is breathing more comfortably. The white cell count 17.2 with a hemoglobin 11 and platelet count of 348. The INR is at 1.3 with a PT of 13.5 with a PTT of 23. Sodium is at 140, bicarb is 23, BUN 16 with a creatinine of 1.54. Lactic acid level is at 2.3. Troponins at 0.2. LFTs are normal. COVID-19 testing was positive. Chest x-ray showed multifocal airspace opacities concerning for pneumonia and the patient has cardiomegaly and smaller lung volumes and elevation of the diaphragms bilaterally. CAT scan of the brain was also done in the emergency that showed remote left parietal/frontal infarct/encephalomalacia without any acute process. The patient accordingly was started on Decadron. She was started on Rocephin and Zithromax. Pulmonary consultation was requested accordingly.The patient is a assisted resident. The patient has other comorbidities including previous history of CVA right-sided weakness, dementia, chronic kidney disease stage III chronic bronchial asthma the patient is a former smoker. She has hypertension hyperlipidemia diabetes mellitus type 2. Her last COVID-19 infection was back in November 2021 at that time the patient was hospitalized for the same problem. On 11/07/2024, patient is calm and comfortable on 2 L of oxygen by nasal cannula with a pulse ox of 98%. The patient was hospitalized for acute hypoxic mary failure and COVID-19 infection and the patient is currently on Decadron. Furthermore, the patient was given a combination of Rocephin and Zithromax as an empiric antibiotic coverage. Subsequently, the blood culture was positive for Enterococcus, likely VRE E and the patient was started on daptomycin. Troponins were minimally elevated and the patient was started on IV heparin by cardiology. Based on the cardiac enzyme evaluation, the patient's troponin peaked at 2.2/the patient ruled in for an acute non-ST segment elevation myocardial infarction. She is free of any chest pain for now. Hemodynamically stable. Afebrile. No other significant events otherwise for now. Remains on IV Lasix 40 mg every 12 hours. Echocardiogram is in progress. Was evaluated today on 11/08/2024, patient is feeling better, breathing easier,Presently on 2 L nasal cannula with O2 sats 97%.WBC count is 15.4 hemoglobin 8.9 basic metabolic profile is normal BUN is 39 creatinine 2.43 chest x-ray from 2 days ago showed evidence of bilateral multifocal infiltrates consistent with COVID-19 pneumonia Patient was seen today on 11/09/2024, patient continues to steadily improve, feeling better, breathing easier, chest x-ray continues to show bilateral airspace disease, not much of a change since admission but clinically the patient is feeling better. Her echocardiogram clearly showed evidence of severe LV dysfunction with ejection fraction of 30 to 35%. Patient is receiving diuretics intermittently remains on treatment for COVID-19 infection/pneumonia and remains empirically on antibiotics/Rocephin. Renal functioning is slightly improved today compared to yesterday with creatinine down to 2.38 from 2.43 yesterday. Patient was seen today on 11/10/2024, patient continues to do well, relatively asymptomatic, hardly any pulmonary symptoms. Remains on 2 L nasal cannula with O2 saturation 97%, she is hemodynamically stable, this x-ray continues to show multifocal bilateral airspace disease, surprisingly the patient is not as symptomatic as she should be considering her chest x-ray findings. I am suspecting that some of the findings noted on the chest x-ray are related to some component of pulmonary edema and the patient may require more diuresis, and I know there is a concern about her renal functioning echocardiogram on showed evidence of cardiomyopathy and LV dysfunction. Patient remains on daptomycin as per infectious disease on the case. BNP on this patient upon admission was over 100,000's and she also had elevated procalcitonin level of 11.90. In addition to this the patient had positive COVID-19 screening Patient was seen today on 11/11/2024, doing well, required Lasix yesterday, and she was given Lasix today, patient had her Lasix on hold because of her renal function, today's creatinine is 2.17 yesterday was 1.84. However her chest x- ray showed worsening pulmonary edema, and patient improved after she was given Lasix, feels much better today. Seen today on 11/12/2024, patient is feeling better, breathing easier, however she remains on antibiotics as per ID for herPositive blood cultures showing Enterococcus faecalis, Enterococcus faecium. Clinically and pulmonary durbin the patient seems to be doing much better, breathing easier, and the patient is asking to be discharged home. However clearance for discharge has to be done by infectious disease because of her bacteremia and may require IV antibiotics on outpatient basis Objective - Vital Signs Vital signs: Vital Signs Temp 97.8 F 11/12/24 09:38 Pulse 55 L 11/12/24 12:00 Resp 16 11/12/24 12:00 BP 113/56 11/12/24 12:00 Pulse Ox 97 11/12/24 12:00 FiO2 Intake & Output 11/11/24 11/12/24 11/12/24 18:59 06:59 18:59 Intake Total 444 257 232 Balance 444 257 232 Weight 118.5 kg Intake: IV 20 10 Invasive Line 1 20 10 Oral 444 237 222 Other: Voiding Method Diaper Diaper Incontinent Incontinent # Voids 2 1 1 # Bowel Movements 1 1 - Exam GENERAL EXAM: Revealed 71-year-old female in no distress, on 2 L nasal cannula O2 sat 97% HEAD: Normocephalic/atraumatic. EYES: Normal reaction of pupils, equal size. Conjunctiva pink, sclera white. NOSE: Clear with pink turbinates. THROAT: No erythema or exudates. NECK: No masses, no JVD, no thyroid enlargement, no adenopathy. CHEST: No chest wall deformity. Symmetrical expansion. LUNGS: Fine crackles at the bases no rhonchi no wheezes CVS: Regular rate and rhythm, normal S1 and S2, no gallops, no murmurs, no rubs ABDOMEN: Soft, nontender. No hepatosplenomegaly, normal bowel sounds, no guarding or rigidity. EXTREMITIES: No clubbing, no edema, no cyanosis, 2+ pulses and upper and lower extremities. MUSCULOSKELETAL: No deformities no limitation range of motion normal. SKIN: No rashes CENTRAL NERVOUS SYSTEM: Alert, patient is aphasic. right-sided weakness tone is normal in all 4 extremities. - Labs CBC & Chem 7: 11/10/24 15:33 11/12/24 07:01 Labs: Abnormal Lab Results - Last 24 Hours (Table) 11/11/24 11/11/24 11/12/24 Range/Units 16:40 20:07 06:18 Chloride (98-107) mmol/L BUN (7-17) mg/dL Creatinine (0.52-1.04) mg/dL Glucose (74-99) mg/dL POC Glucose (mg/dL) 270 H 316 H 162 H (70-110) mg/dL 11/12/24 11/12/24 Range/Units 07:01 11:26 Chloride 110 H (98-107) mmol/L BUN 62 H (7-17) mg/dL Creatinine 2.91 H (0.52-1.04) mg/dL Glucose 138 H (74-99) mg/dL POC Glucose (mg/dL) 225 H (70-110) mg/dL Microbiology - Last 24 Hours (Table) 11/08/24 08:16 Blood Culture - Preliminary Blood Assessment and Plan Assessment: Impression: Acute hypoxic respiratory failure secondary to acute COVID-19 pneumonia, I also suspect some component of acute systolic congestive heart failure with LV dysfunction noted on echocardiogram and significantly elevated proBNP on admission Enterococcal bacteremia and sepsis/urinary tract infection is being addressed by infectious disease on the case, remains on antibiotics . Acute non-ST elevation myocardial infarction History of CVA with right-sided weakness Benign essential hypertension History of bronchial asthma mild intermittent Type 2 diabetes intermediate resident Chronic kidney disease stage III Recommendation: Continue oxygen and titrate accordingly Continue Decadron Intermittently diurese and closely monitor renal status, creatinine today is 2.91 diuretics are presently on hold Continue aspirin Continue metoprolol Continue antibiotics as per infectious disease on the case. Overall prognosis remains guarded Will continue to follow Time with Patient: Less than 30
--- NOTE | 2024-11-12 14:35 | P.PN ---
Subjective HISTORY OF PRESENT ILLNESS: 73-year-old female who has a prior history of CVA with right-sided weakness hemiparesis, aphasia, dementia, long term resident. She is not able to provide any history and most of the history is obtained from the medical charts. Patient was diagnosed with COVID-19 infection at the long term yesterday when she started developing increased worsening respiratory distress along with hypoxemia with dropping her pulse oximeter. She was also having low-grade fever. Due to this she was brought to the hospital. On admission she was on 5 L oxygen saturating above 90%, febrile with Tmax of 100.7, elevated lactate. Elevated WBC count of 17.2. Hemoglobin 11. Her creatinine was 1.54, troponin was elevated at 0.28, repeat at 1.64. EKG showed sinus tachycardia heart rate of 122 bpm, nonspecific ST depressions in diffuse leads. Progress note 11/07/2024 Patient's hemoglobin has dropped since admission. Hemoglobin 9.0 today. WBC count is 21, creatinine has trended up from 1.5-2.1 11/08/2024 Patient examined this morning at the bedside. Patient currently denies chest pain or pressure. She denies shortness of breath. Patient is alert and oriented x 1-2 which is baseline per nursing. Creatinine today 2.43. Clinically she does appear volume overloaded. 11/12/2024 Patient examined this morning the bedside. Patient is pleasantly confused the time of examination. She denies chest pain or pressure. She denies shortness of breath. Most recent blood cultures are negative at 72-hour radha. Echo reveals EF 30 to 35%, moderate pulmonary pretension, mild MR, mild TR, thickened aortic valve leaflets without any significant stenosis. PHYSICAL EXAM: VITAL SIGNS: Reviewed. GENERAL: Well-developed in no acute distress. NECK: Supple. No JVD or thyromegaly LUNGS: Respirations even and unlabored. Lungs essentially clear to auscultation bilaterally, diminished. HEART: Regular rate and rhythm. S1 and S2 heard. EXTREMITIES: Normal range of motion. No clubbing or cyanosis. Peripheral pulses intact. Trace bilateral lower extremity edema ASSESSMENT: Acute COVID-19 Acute CHF with reduced EF 30 to 35% Acute on chronic kidney disease Enterococcus bacteremia Elevated troponins, likely type II UT secondary to oxygen supply/demand mismatch Acute hypoxic respiratory failure Lactic acidosis Metabolic encephalopathy History of CVA with right-sided weakness right arm contracture Diabetes Obesity: BMI 35.7 PLAN: Continue current cardiac medications Infectious disease recommending LUCILLE. Most recent blood cultures negative at 72- hour radha. Will obtain additional set of blood cultures today Dr. Mckinney spoke with patient's son who states he does not want to pursue any invasive testing at this time unless absolutely necessary. Patient is tentatively scheduled for LUCILLE on Friday however will await results of most recent blood cultures and further input from patient's family. Further recommendations pending patient course Nurse practitioner note has been reviewed by physician. Signing provider agrees with the documented findings, assessment, and plan of care documented by BUS ESCORT as a scribe. Objective - Vital Signs Vital signs: Vital Signs Temp 97.8 F 11/12/24 09:38 Pulse 55 L 11/12/24 12:00 Resp 16 11/12/24 12:00 BP 113/56 11/12/24 12:00 Pulse Ox 97 11/12/24 12:00 FiO2 Intake & Output 11/11/24 11/12/24 11/12/24 18:59 06:59 18:59 Intake Total 444 257 412 Balance 444 257 412 Weight 118.5 kg 118.5 kg Intake: IV 20 10 Invasive Line 1 20 10 Oral 444 237 402 Other: Voiding Method Diaper Diaper Incontinent Incontinent # Voids 2 1 1 # Bowel Movements 1 1 - Labs CBC & Chem 7: 11/10/24 15:33 11/12/24 07:01 Labs: Abnormal Lab Results - Last 24 Hours (Table) 11/11/24 11/11/24 11/12/24 Range/Units 16:40 20:07 06:18 Chloride (98-107) mmol/L BUN (7-17) mg/dL Creatinine (0.52-1.04) mg/dL Glucose (74-99) mg/dL POC Glucose (mg/dL) 270 H 316 H 162 H (70-110) mg/dL 11/12/24 11/12/24 Range/Units 07:01 11:26 Chloride 110 H (98-107) mmol/L BUN 62 H (7-17) mg/dL Creatinine 2.91 H (0.52-1.04) mg/dL Glucose 138 H (74-99) mg/dL POC Glucose (mg/dL) 225 H (70-110) mg/dL Microbiology - Last 24 Hours (Table) 11/06/24 22:00 Blood Culture - Final Blood 11/08/24 08:16 Blood Culture - Preliminary Blood
--- NOTE | 2024-11-12 15:05 | P.PN ---
Subjective Progress Note Date: 11/12/24 Principal diagnosis: Reason for follow-up is VRE bacteremia Patient is a 73-year-old -[place] female with a past medical history significant for diabetes mellitus hypertension hyperlipidemia dementia CVA TIA patient is a long-term resident and was sent to the hospital for evaluation of increasing shortness of breath with a recent diagnosis of COVID-19 at the long-term patient did have a positive blood culture with VRE prompting this consultation On today's evaluation that is 11/12/2024, the patient continues to be afebrile, the patient is on 2 L nasal cannula oxygen and breathing comfortably, the Pt denies having any chest pain or cough, the patient denies having any abdominal pain no vomiting or any diarrhea, mention feeling better. Patient did have a creatinine of 2.91 blood culture repeat has been negative, ultrasound abdominal was negative for any hydronephrosis Objective - Vital Signs Vital signs: Vital Signs Temp 97.8 F 11/12/24 09:38 Pulse 66 11/12/24 09:38 Resp 16 11/12/24 09:38 BP 131/58 11/12/24 09:38 Pulse Ox 97 11/12/24 09:38 FiO2 Intake & Output 11/11/24 11/12/24 11/12/24 18:59 06:59 18:59 Intake Total 444 257 222 Balance 444 257 222 Weight 118.5 kg Intake: IV 20 Invasive Line 1 20 Oral 444 237 222 Other: Voiding Method Diaper Diaper Incontinent Incontinent # Voids 2 1 # Bowel Movements 1 - Exam GENERAL DESCRIPTION: An elderly female lying in bed in no distress RESPIRATORY SYSTEM: Unlabored breathing , coarse breath sounds at bases HEART: S1 S2 regular rate and rhythm , ABDOMEN: Soft , no tenderness EXTREMITIES: No edema feet - Labs CBC & Chem 7: 11/10/24 15:33 11/12/24 07:01 Labs: Abnormal Lab Results - Last 24 Hours (Table) 11/11/24 11/11/24 11/12/24 Range/Units 16:40 20:07 06:18 Chloride (98-107) mmol/L BUN (7-17) mg/dL Creatinine (0.52-1.04) mg/dL Glucose (74-99) mg/dL POC Glucose (mg/dL) 270 H 316 H 162 H (70-110) mg/dL 11/12/24 11/12/24 Range/Units 07:01 11:26 Chloride 110 H (98-107) mmol/L BUN 62 H (7-17) mg/dL Creatinine 2.91 H (0.52-1.04) mg/dL Glucose 138 H (74-99) mg/dL POC Glucose (mg/dL) 225 H (70-110) mg/dL Microbiology - Last 24 Hours (Table) 11/08/24 08:16 Blood Culture - Preliminary Blood Assessment and Plan (1) Sepsis Current Visit: Yes Status: Acute Code(s): A41.9 - SEPSIS, UNSPECIFIED ORGANISM SNOMED Code(s): 89909035 (2) Leukocytosis Current Visit: Yes Status: Acute Code(s): D72.829 - ELEVATED WHITE BLOOD CELL COUNT, UNSPECIFIED SNOMED Code(s): 452238854 (3) VRE bacteremia Current Visit: Yes Status: Acute Code(s): R78.81 - BACTEREMIA; B95.2 - ENTEROCOCCUS THE CAUSE OF DISEASES CLASSIFIED ELSEWHERE; Z16.21 - RESISTANCE TO VANCOMYCIN SNOMED Code(s): 6561156491 Plan: 1patient presented to hospital with sepsis in this patient who did have a fever elevated white count tachycardia meeting currently for SIRS source is multifactorial he was concern for possible pneumonia however the patient also have evidence of VRE bacteremia and to be a result of a common pathogen to cause pneumonia source could be either urinary versus abdominal 2-blood culture has been repeated which are currently pending 3-urine culture have been negative ultrasound of the abdominal bladder did not s how any hydronephrosis patient did have echocardiogram with thickened aortic valve leaflets 4-patient currently being treated with daptomycin 6 mg/kg q. 48-hour to cover for VRE bacteremia and Zosyn for possible component of Aspiration pneumonia 5patient benefit from a LUCILLE to make sure no evidence of any vegetation as a source of this VRE bacteremia this has been discussed in detail with the card iology team who did talk to the son who seem to be reluctant and want to avoid any invasive procedure Dictation was produced using paymioation software. please excuse any grammatical, word or spelling errors.
[2024-11-12 17:04] LABS: Glucose,Whole Blood 224 mg/dL (70-110)
[2024-11-12 20:04] LABS: Glucose,Whole Blood 294 mg/dL (70-110)
[2024-11-13 04:33] LABS: African American GFR (CKD) 15 (>60 ml/min/1.73 sqM); Anion Gap 10 mmol/L; Blood Urea Nitrogen 67 mg/dL (7-17); Calcium 8.6 mg/dL (8.4-10.2); Carbon Dioxide 23 mmol/L (22-30); Chloride 111 mmol/L (98-107); Glucose 180 mg/dL (74-99); Magnesium 2.1 mg/dL (1.6-2.3); Non-African American GFR(CKD) 13 (>60 ml/min/1.73 sqM); Potassium 4.5 mmol/L (3.5-5.1); Sodium 144 mmol/L (137-145)
[2024-11-13 06:07] LABS: Glucose,Whole Blood 179 mg/dL (70-110)
[2024-11-13] MEDS: ALBUTEROL HFA INHALER INHALATION SCH (09:28)
[2024-11-13 11:53] LABS: Glucose,Whole Blood 239 mg/dL (70-110)
--- NOTE | 2024-11-13 12:06 | P.PN ---
Subjective HISTORY OF PRESENT ILLNESS: 73-year-old female who has a prior history of CVA with right-sided weakness hemiparesis, aphasia, dementia, skilled nursing resident. She is not able to provide any history and most of the history is obtained from the medical charts. Patient was diagnosed with COVID-19 infection at the skilled nursing yesterday when she started developing increased worsening respiratory distress along with hypoxemia with dropping her pulse oximeter. She was also having low-grade fever. Due to this she was brought to the hospital. On admission she was on 5 L oxygen saturating above 90%, febrile with Tmax of 100.7, elevated lactate. Elevated WBC count of 17.2. Hemoglobin 11. Her creatinine was 1.54, troponin was elevated at 0.28, repeat at 1.64. EKG showed sinus tachycardia heart rate of 122 bpm, nonspecific ST depressions in diffuse leads. Progress note 11/07/2024 Patient's hemoglobin has dropped since admission. Hemoglobin 9.0 today. WBC count is 21, creatinine has trended up from 1.5-2.1 11/08/2024 Patient examined this morning at the bedside. Patient currently denies chest pain or pressure. She denies shortness of breath. Patient is alert and oriented x 1-2 which is baseline per nursing. Creatinine today 2.43. Clinically she does appear volume overloaded. 11/12/2024 Patient examined this morning the bedside. Patient is pleasantly confused the time of examination. She denies chest pain or pressure. She denies shortness of breath. Most recent blood cultures are negative at 72-hour radha. Echo reveals EF 30 to 35%, moderate pulmonary pretension, mild MR, mild TR, thickened aortic valve leaflets without any significant stenosis. 11/13/24 Patient examined this morning the bedside. Patient is pleasantly confused the time of examination. She denies chest pain or pressure. She denies shortness of breath. Most recent blood cultures are negative at 72-hour radha. Repeat cultures ordered yesterday are pending. PHYSICAL EXAM: VITAL SIGNS: Reviewed. GENERAL: Well-developed in no acute distress. NECK: Supple. No JVD or thyromegaly LUNGS: Respirations even and unlabored. Lungs essentially clear to auscultation bilaterally, diminished. HEART: Regular rate and rhythm. S1 and S2 heard. EXTREMITIES: Normal range of motion. No clubbing or cyanosis. Peripheral pulses intact. Trace bilateral lower extremity edema ASSESSMENT: Acute COVID-19 Acute CHF with reduced EF 30 to 35% Acute on chronic kidney disease Enterococcus bacteremia Elevated troponins, likely type II RI secondary to oxygen supply/demand mismatch Acute hypoxic respiratory failure Lactic acidosis Metabolic encephalopathy History of CVA with right-sided weakness right arm contracture Diabetes Obesity: BMI 35.7 PLAN: Continue current cardiac medications Infectious disease recommending LUCILLE. Most recent blood cultures negative at 72- hour radha. Repeat cultures ordered yesterday are pending. Dr. Mckinney spoke with patient's son who states he does not want to pursue any invasive testing at this time unless absolutely necessary. Patients daughter also hesitant to proceed with LUCILLE. Patient is tentatively scheduled for LUCILLE on Friday however will await results of most recent blood cultures and further input from patient's family. Further recommendations pending patient course Nurse practitioner note has been reviewed by physician. Signing provider agrees with the documented findings, assessment, and plan of care documented by [employer]IN[employer] COUNSELOR as a scribe. Objective - Vital Signs Vital signs: Vital Signs Temp 98.2 F 11/13/24 08:00 Pulse 66 11/13/24 08:00 Resp 16 11/13/24 08:00 BP 127/71 11/13/24 08:00 Pulse Ox 91 L 11/13/24 08:00 FiO2 Intake & Output 11/12/24 11/13/24 11/13/24 18:59 06:59 18:59 Intake Total 422 Balance 422 Weight 118.5 kg 89 kg Intake: IV 20 Invasive Line 1 20 Oral 402 Other: Voiding Method Diaper Diaper Diaper Incontinent Incontinent Incontinent # Voids 1 1 # Bowel Movements 1 2 - Labs CBC & Chem 7: 11/10/24 15:33 11/13/24 03:56 Labs: Abnormal Lab Results - Last 24 Hours (Table) 11/12/24 11/12/24 11/13/24 Range/Units 17:01 20:01 03:56 Chloride 111 H (98-107) mmol/L BUN 67 H (7-17) mg/dL Creatinine 3.32 H (0.52-1.04) mg/dL Glucose 180 H (74-99) mg/dL POC Glucose (mg/dL) 224 H 294 H (70-110) mg/dL 12/28/24 12/28/24 Range/Units 06:05 11:52 Chloride (98-107) mmol/L BUN (7-17) mg/dL Creatinine (0.52-1.04) mg/dL Glucose (74-99) mg/dL POC Glucose (mg/dL) 179 H 239 H (70-110) mg/dL Microbiology - Last 24 Hours (Table) 11/06/24 22:00 Blood Culture - Final Blood
--- NOTE | 2024-11-13 14:34 | P.PN ---
Subjective Progress Note Date: 11/13/24 tomas is seen in follow-up for acute kidney injury on chronic kidney disease. Renal function worse. Admits to good urine output. Denies chest pain or shortness of breath. Vital signs are stable. General: No acute distress. HEENT: Head exam is unremarkable. On nasal cannula. LUNGS: No audible rhonchi or wheezes. HEART: Rate and Rhythm are regular. ABDOMEN: Nontender. EXTREMITITES: No edema. Chronic changes noted. Objective - Vital Signs Vital signs: Vital Signs Temp 98.2 F 11/13/24 08:00 Pulse 66 11/13/24 08:00 Resp 16 11/13/24 08:00 BP 127/71 11/13/24 08:00 Pulse Ox 91 L 11/13/24 08:00 FiO2 Intake & Output 11/12/24 11/13/24 11/13/24 18:59 06:59 18:59 Intake Total 422 Balance 422 Weight 118.5 kg 89 kg Intake: IV 20 Invasive Line 1 20 Oral 402 Other: Voiding Method Diaper Diaper Diaper Incontinent Incontinent Incontinent # Voids 1 1 # Bowel Movements 1 2 - Labs CBC & Chem 7: 11/10/24 15:33 11/13/24 03:56 Labs: Abnormal Lab Results - Last 24 Hours (Table) 11/12/24 11/12/24 11/13/24 Range/Units 17:01 20:01 03:56 Chloride 111 H (98-107) mmol/L BUN 67 H (7-17) mg/dL Creatinine 3.32 H (0.52-1.04) mg/dL Glucose 180 H (74-99) mg/dL POC Glucose (mg/dL) 224 H 294 H (70-110) mg/dL 11/13/24 Range/Units 06:05 Chloride (98-107) mmol/L BUN (7-17) mg/dL Creatinine (0.52-1.04) mg/dL Glucose (74-99) mg/dL POC Glucose (mg/dL) 179 H (70-110) mg/dL Microbiology - Last 24 Hours (Table) 11/06/24 22:00 Blood Culture - Final Blood Assessment and Plan Assessment: 1. Acute kidney injury secondary to ATN secondary to severe sepsis. Creatinine 1.5 on admission -3.3 today. Status post IV Lasix given November 10, 2024. Blood pressure improved. No hydronephrosis noted on kidney ultrasound. 2. Chronic kidney disease stage IIIb with baseline creatinine near 1.5 secondary to nephrosclerosis. 3. Acute COVID-19 infection. 4. Enterococcus bacteremia on IV antibiotics. 5. History of CVA with right-sided weakness. 6. Acute hypoxic respiratory failure. 7. Chronic systolic CHF ejection fraction of 30 to 35% with moderate pulmonary hypertension. Plan: Hold off on diuretics Check bladder scan to rule out urinary retention. Check urine eosinophils. Patient already on Decadron. Hold amlodipine for systolic blood pressure less than 120. Check CPK level given on Daptomycin
--- NOTE | 2024-11-13 15:38 | P.PN ---
Subjective Progress Note Date: 11/13/24 Principal diagnosis: Acute hypoxic respiratory failure secondary to acute COVID-19 pneumonia This is a 73-year-old female patient who presented to the emergency department with diminished level of consciousness. The patient is normally alert and oriented x 1. No significant history is available. The patient was diagnosed having [facility] infection [facility] yesterday and she was developing worsening in breathing and she had also a drop in oxygenation and pulse ox and she has been placed on oxygen. She also had a low-grade fever. Based on that, the patient was brought into the hospital. The patient is currently on 3 L of oxygen by nasal cannula and this was brought up to 5 L to maintain saturation above 90%, current pulse ox 95%. She had a Tmax of 100.7 current temperature is at 99.2. She was in sinus tachycardia and she was quite tachypneic at time of arrival and breathing was short and labored and currently she is breathing more comfortably. The white cell count 17.2 with a hemoglobin 11 and platelet count of 348. The INR is at 1.3 with a PT of 13.5 with a PTT of 23. Sodium is at 140, bicarb is 23, BUN 16 with a creatinine of 1.54. Lactic acid level is at 2.3. Troponins at 0.2. LFTs are normal. COVID-19 testing was positive. Chest x-ray showed multifocal airspace opacities concerning for pneumonia and the patient has cardiomegaly and smaller lung volumes and elevation of the diaphragms bilaterally. CAT scan of the brain was also done in the emergency that showed remote left parietal/frontal infarct/encephalomalacia without any acute process. The patient accordingly was started on Decadron. She was started on Rocephin and Zithromax. Pulmonary consultation was requested accordingly.The patient is a [facility]. The patient has other comorbidities including previous history of CVA right-sided weakness, dementia, chronic kidney disease stage III chronic bronchial asthma the patient is a former smoker. She has hypertension hyperlipidemia diabetes mellitus type 2. Her last COVID-19 infection was back in November 2021 at that time the patient was hospitalized for the same problem. On 11/07/2024, patient is calm and comfortable on 2 L of oxygen by nasal cannula with a pulse ox of 98%. The patient was hospitalized for acute hypoxic mary failure and COVID-19 infection and the patient is currently on Decadron. Furthermore, the patient was given a combination of Rocephin and Zithromax as an empiric antibiotic coverage. Subsequently, the blood culture was positive for Enterococcus, likely VRE E and the patient was started on daptomycin. Troponins were minimally elevated and the patient was started on IV heparin by cardiology. Based on the cardiac enzyme evaluation, the patient's troponin peaked at 2.2/the patient ruled in for an acute non-ST segment elevation myocardial infarction. She is free of any chest pain for now. Hemodynamically stable. Afebrile. No other significant events otherwise for now. Remains on IV Lasix 40 mg every 12 hours. Echocardiogram is in progress. Was evaluated today on 11/08/2024, patient is feeling better, breathing easier,Presently on 2 L nasal cannula with O2 sats 97%.WBC count is 15.4 hemoglobin 8.9 basic metabolic profile is normal BUN is 39 creatinine 2.43 chest x-ray from 2 days ago showed evidence of bilateral multifocal infiltrates consistent with COVID-19 pneumonia Patient was seen today on 11/09/2024, patient continues to steadily improve, feeling better, breathing easier, chest x-ray continues to show bilateral airspace disease, not much of a change since admission but clinically the patient is feeling better. Her echocardiogram clearly showed evidence of severe LV dysfunction with ejection fraction of 30 to 35%. Patient is receiving diuretics intermittently remains on treatment for COVID-19 infection/pneumonia and remains empirically on antibiotics/Rocephin. Renal functioning is slightly improved today compared to yesterday with creatinine down to 2.38 from 2.43 yesterday. Patient was seen today on 11/10/2024, patient continues to do well, relatively asymptomatic, hardly any pulmonary symptoms. Remains on 2 L nasal cannula with O2 saturation 97%, she is hemodynamically stable, this x-ray continues to show multifocal bilateral airspace disease, surprisingly the patient is not as symptomatic as she should be considering her chest x-ray findings. I am suspecting that some of the findings noted on the chest x-ray are related to some component of pulmonary edema and the patient may require more diuresis, and I know there is a concern about her renal functioning echocardiogram on showed evidence of cardiomyopathy and LV dysfunction. Patient remains on daptomycin as per infectious disease on the case. BNP on this patient upon admission was over 100,000's and she also had elevated procalcitonin level of 11.90. In addition to this the patient had positive COVID-19 screening Patient was seen today on 11/11/2024, doing well, required Lasix yesterday, and she was given Lasix today, patient had her Lasix on hold because of her renal function, today's creatinine is 2.17 yesterday was 1.84. However her chest x- ray showed worsening pulmonary edema, and patient improved after she was given Lasix, feels much better today. Seen today on 11/12/2024, patient is feeling better, breathing easier, however she remains on antibiotics as per ID for herPositive blood cultures showing Enterococcus faecalis, Enterococcus faecium. Clinically and pulmonary durbin the patient seems to be doing much better, breathing easier, and the patient is asking to be discharged home. However clearance for discharge has to be done by infectious disease because of her bacteremia and may require IV antibiotics on outpatient basis Seen today on 11/13/2024, patient continues to do well, remains on antibiotics as per infectious disease on the case for her gram-positive blood cultures secondary to Enterococcus faecalis and Enterococcus faecium pulmonary durbin she has no cough no wheezing no shortness of breath, patient is asking to be discharged home, and I made it clear to the patient that is up to the infectious disease specialist to clear the patient and decide what antibiotic she needs on outpatient basis renal function continues to worsen, her creatinine now is up to 3.32 BUN is 67, patient is not receiving any diuretics at this point Objective - Vital Signs Vital signs: Vital Signs Temp 98.2 F 11/13/24 08:00 Pulse 86 11/13/24 12:00 Resp 16 11/13/24 12:00 BP 146/61 11/13/24 12:00 Pulse Ox 95 11/13/24 12:00 FiO2 Intake & Output 11/12/24 11/13/24 11/13/24 18:59 06:59 18:59 Intake Total 422 Balance 422 Weight 118.5 kg 89 kg Intake: IV 20 Invasive Line 1 20 Oral 402 Other: Voiding Method Diaper Diaper Diaper Incontinent Incontinent Incontinent # Voids 1 1 # Bowel Movements 1 2 - Exam GENERAL EXAM: Revealed 71-year-old female in no distress, on 1 L nasal cannula O2 sat is 95% HEAD: Normocephalic/atraumatic. EYES: Normal reaction of pupils, equal size. Conjunctiva pink, sclera white. NOSE: Clear with pink turbinates. THROAT: No erythema or exudates. NECK: No masses, no JVD, no thyroid enlargement, no adenopathy. CHEST: No chest wall deformity. Symmetrical expansion. LUNGS: Fine crackles at the bases no rhonchi no wheezes CVS: Regular rate and rhythm, normal S1 and S2, no gallops, no murmurs, no rubs ABDOMEN: Soft, nontender. No hepatosplenomegaly, normal bowel sounds, no guarding or rigidity. EXTREMITIES: No clubbing, no edema, no cyanosis, 2+ pulses and upper and lower extremities. MUSCULOSKELETAL: No deformities no limitation range of motion normal. SKIN: No rashes CENTRAL NERVOUS SYSTEM: Alert, patient is aphasic. right-sided weakness tone is normal in all 4 extremities. - Labs CBC & Chem 7: 11/10/24 15:33 11/13/24 03:56 Labs: Abnormal Lab Results - Last 24 Hours (Table) 11/12/24 11/12/24 11/13/24 Range/Units 17:01 20:01 03:56 Chloride 111 H (98-107) mmol/L BUN 67 H (7-17) mg/dL Creatinine 3.32 H (0.52-1.04) mg/dL Glucose 180 H (74-99) mg/dL POC Glucose (mg/dL) 224 H 294 H (70-110) mg/dL Creatine Kinase (30-135) U/L 11/13/24 11/13/24 11/13/24 Range/Units 03:56 06:05 11:52 Chloride (98-107) mmol/L BUN (7-17) mg/dL Creatinine (0.52-1.04) mg/dL Glucose (74-99) mg/dL POC Glucose (mg/dL) 179 H 239 H (70-110) mg/dL Creatine Kinase <20 L (30-135) U/L Microbiology - Last 24 Hours (Table) 11/08/24 08:16 Blood Culture - Final Blood 11/06/24 22:00 Blood Culture - Final Blood Assessment and Plan Assessment: Impression: Acute hypoxic respiratory failure secondary to acute COVID-19 pneumonia, I also suspect some component of acute systolic congestive heart failure with LV dysfunction noted on echocardiogram and significantly elevated proBNP on admission Enterococcal bacteremia and sepsis/urinary tract infection is being addressed by infectious disease on the case, remains on antibiotics . Acute non-ST elevation myocardial infarction History of CVA with right-sided weakness Benign essential hypertension History of bronchial asthma mild intermittent Type 2 diabetes [facility] resident Chronic kidney disease stage III Recommendation: Continue oxygen and titrate accordingly Continue Decadron I continue to hold diuretics considering her renal status and this is being addressed by nephrology Continue aspirin Continue metoprolol Continue antibiotics as per infectious disease on the case. Overall prognosis remains guarded Will continue to follow Time with Patient: Less than 30
[2024-11-13 16:22] LABS: Glucose,Whole Blood 216 mg/dL (70-110)
--- NOTE | 2024-11-13 18:15 | P.PN ---
Subjective Progress Note Date: 11/13/24 Interval History: 73-year-old female who presents to the emergency department from her [place] [facility]. She is normally alert and oriented x 1 so all the history comes from the paramedics. Patient was brought in because she was diagnosed with COVID yesterday and now she has more difficulty breathing as of this morning and had to put her on oxygen. Patient also had a low-grade fever. There is no other hi story available at this time. The patient is currently on 3 L of oxygen by nasal cannula and this was brought up to 5 L to maintain saturation above 90%, current pulse ox 95%. She had a Tmax of 100.7 current temperature is at 99.2. She was in sinus tachycardia and she was quite tachypneic at time of arrival and breathing was short and labored and currently she is breathing more comfortably. The white cell count 17.2 with a hemoglobin 11 and platelet count of 348. The INR is at 1.3 with a PT of 13.5 with a PTT of 23. Sodium is at 140, bicarb is 23, BUN 16 with a creatinine of 1.54. Lactic acid level is at 2.3. Troponins at 0.2. LFTs are normal. COVID- 19 testing was positive. Chest x-ray showed multifocal airspace opacities concerning for pneumonia and the patient has cardiomegaly and smaller lung volumes and elevation of the diaphragms bilaterally. CAT scan of the brain was also done in the emergency that showed remote left parietal/frontal infarct/encephalomalacia without any acute process. The patient accordingly was started on Decadron. She was started on Rocephin and Zithromax. Pulmonary consultation was requested 11/08 Patient is a pleasant 73 years old -Wallisian female. Currently she is sitting up in chair looks with chronic weakness of the right side. Patient states that she wants to go home. She denies any specific complaint. No chest pain or dyspnea. No diarrhea or vomiting. No Up No diarrhea No urinary signs symptoms Currently she is covered with ceftriaxone and Zithromax for pneumonia and daptomycin for VRE bacteremia Also patient on Decadron 6 mg daily Creatinine up to 2.4, nephrology team consulted WBC is coming down currently 15,000, hemoglobin 8.9. LDH is elevated at 310 Patient has active occult blood in stool, positive for COVID but negative for influenza Chest x-ray showing bilateral opacity which is suspicious for pneumonia versus CHF. CT of the brain is negative 11/09 Patient is readily awake and answers questions appropriately She is still confused which looks little worse than her baseline around her baseline. She can tell she is in the hospital but she does not know the name of the hospital or the year or the name of the president, she gives all the information regarding these. Most likely she lost her recent memory related to her dementia. She is mildly tachypneic but she declined feeling dyspneic. No chest pain. No abdominal pain. No other complaints Patient asking if she she is going to go home today She does not feel weak. Creatinine 2.3 today. 11/10 Patient still mildly short of breath, with some scattered wheezing and she is still on 2 L oxygen via nasal cannula. She still have coughing. No GI or urinary new symptoms. Patient remains on antibiotics with ceftriaxone and daptomycin with positive blood culture for multiple organisms Surgery team recommending outpatient EGD/colonoscopy Cardiology team recommended outpatient ischemic workup. Morning labs still pending 11/11 Patient lying in bed with no distress No chest pain or dyspnea while at rest No worsening hypoxia However repeat chest x-ray yesterday showing more progressive bilateral infiltrative lesion. Could be secondary to fluid overload, patient received 1 extra dose of IV Lasix 40 mg Also her antibiotics were switched from ceftriaxone to Zosyn per ID team recommendation Creatinine is stable at 2.1, hemoglobin stable 9.5, leukocytosis improving down to 11.5 Patient is afebrile today 11/12 Patient awake alert, she is mildly confused at baseline, she is pleasant She denies chest pain or dyspnea while sitting in bed No other new complaint. Patient herself asking when she can be discharged No fever today. Inflammatory markers were elevated with LDH 310 Creatinine slightly worse at 2.9 and she received Lasix yesterday Her antibiotics were recently adjusted to Zosyn. Also she is taking daptomycin 11/13--patient was seen and examined today. No issues overnight. On daptomycin per infectious disease. Repeat blood cultures X been negative since 11/06, family elected for LUC[facility]. Pulmonary, cardiology and nephrology also following. Vital stable. Creatinine went up to 3.32 today, BUN 67. CPK less than 20. Assessment and plan: Sepsis: Enterococcal bacteremia: UTI: Elevated troponin: Demand ischemia Acute hypoxic respiratory failure: COVID-19 infection Acute on chronic systolic CHF: EF 30 to 35% MCKINLEY on CKD: History of CVA Diabetes mellitus long term resident History of asthma Hypertension Plan: Nephrology, cardiology, pulmonary, infectious disease consulted and following. Per nephrology hold off diuretics, bladder scan, check urine eosinophils, already on Decadron Currently daptomycin per infectious disease, recommended LUCILLE, family hesitant for LUCILLE. Culture negative since 11/06 Cardiology consultedelevated troponin likely demand ischemia. Echocardiogram showed severe LV dysfunction, mild RV enlargement, moderate LAE. DVT prophylaxis: Monitor vital signs and labs Labs and medication were reviewed. Continue same treatment. Further recommendations as per clinical course of patient PHYSICAL EXAMINATION: GENERAL: The patient is A&O x3, NAD HEENT: EOMI, Sclerae anicteric, Moist Mucous membranes Neck: Supple, Non tender, No JVD PULMONARY: Equal breath souds B/L, No wheezing, No crackles. CARDIOVASCULAR: S1, S2 present. No murmurs, rubs, or gallops. ABDOMEN: Soft, nontender, nondistended, normoactive bowel sounds. No guarding or rebound tenderness. MUSCULOSKELETAL: No edema, No cyanosis. No clubbing. Normal ROM. Intact peripheral pulses. NEUROLOGICAL: CN 2-12 grossly intact. No FND Skin: No Rash REVIEW OF SYSTEMS: CONSTITUTIONAL: No fever or chills. CARDIOVASCULAR: No chest pain, palpitations or syncope. PULMONARY: No shortness of breath, no cough, sore throat. GASTROINTESTINAL: No nausea, vomiting, diarrhea, abdominal pain. : No Dysuria, urgency, frequency. Extremities: No edema. NEUROLOGICAL: No headaches, no weakness, or numbness Dictation was produced using [employer] dictation software. please excuse any grammatical, word or spelling errors. Objective - Vital Signs Vital signs: Vital Signs Temp 98.2 F 11/13/24 08:00 Pulse 60 11/13/24 16:00 Resp 16 11/13/24 16:00 BP 144/61 11/13/24 16:00 Pulse Ox 96 11/13/24 16:00 FiO2 Intake & Output 11/12/24 11/13/24 11/13/24 18:59 06:59 18:59 Intake Total 422 Balance 422 Weight 118.5 kg 89 kg Intake: IV 20 Invasive Line 1 20 Oral 402 Other: Voiding Method Diaper Diaper Diaper Incontinent Incontinent Incontinent # Voids 1 1 # Bowel Movements 1 2 - Labs CBC & Chem 7: 11/10/24 15:33 11/13/24 03:56 Labs: Abnormal Lab Results - Last 24 Hours (Table) 11/12/24 11/13/24 11/13/24 Range/Units 20:01 03:56 03:56 Chloride 111 H (98-107) mmol/L BUN 67 H (7-17) mg/dL Creatinine 3.32 H (0.52-1.04) mg/dL Glucose 180 H (74-99) mg/dL POC Glucose (mg/dL) 294 H (70-110) mg/dL Creatine Kinase <20 L (30-135) U/L 11/13/24 11/13/24 11/13/24 Range/Units 06:05 11:52 16:20 Chloride (98-107) mmol/L BUN (7-17) mg/dL Creatinine (0.52-1.04) mg/dL Glucose (74-99) mg/dL POC Glucose (mg/dL) 179 H 239 H 216 H (70-110) mg/dL Creatine Kinase (30-135) U/L Microbiology - Last 24 Hours (Table) 11/08/24 08:16 Blood Culture - Final Blood
[2024-11-13 20:27] LABS: Glucose,Whole Blood 271 mg/dL (70-110)
[2024-11-14 06:18] LABS: Glucose,Whole Blood 134 mg/dL (70-110)
--- NOTE | 2024-11-14 11:20 | P.PN ---
Subjective Progress Note Date: 11/14/24 tomas is seen in follow-up for acute kidney injury on chronic kidney disease. Renal function worse. Admits to good urine output. Denies chest pain or shortness of breath. Vital signs are stable. General: No acute distress. HEENT: Head exam is unremarkable. On nasal cannula. LUNGS: No audible rhonchi or wheezes. HEART: Rate and Rhythm are regular. ABDOMEN: Nontender. EXTREMITITES: No edema. Chronic changes noted. Objective - Vital Signs Vital signs: Vital Signs Temp 98.1 F 11/13/24 20:00 Pulse 57 L 11/14/24 08:00 Resp 16 11/14/24 08:00 BP 91/46 11/14/24 08:00 Pulse Ox 93 L 11/14/24 08:00 FiO2 Intake & Output 11/13/24 11/14/24 11/14/24 18:59 06:59 18:59 Other: Voiding Method Diaper Diaper Incontinent Incontinent - Labs CBC & Chem 7: 11/10/24 15:33 11/13/24 03:56 Labs: Abnormal Lab Results - Last 24 Hours (Table) 11/13/24 11/13/24 11/13/24 Range/Units 03:56 11:52 16:20 POC Glucose (mg/dL) 239 H 216 H (70-110) mg/dL Creatine Kinase <20 L (30-135) U/L 11/13/24 11/14/24 Range/Units 20:26 06:16 POC Glucose (mg/dL) 271 H 134 H (70-110) mg/dL Creatine Kinase (30-135) U/L Microbiology - Last 24 Hours (Table) 11/12/24 21:58 Blood Culture - Preliminary Blood 11/08/24 08:16 Blood Culture - Final Blood Assessment and Plan Assessment: 1. Acute kidney injury secondary to ATN secondary to severe sepsis. Creatinine 1.5 on admission -3.3 yesterday. Blood pressure improved. No hydronephrosis noted on kidney ultrasound. CK not elevated. 2. Chronic kidney disease stage IIIb with baseline creatinine near 1.5 secondary to nephrosclerosis. 3. Acute COVID-19 infection. 4. Enterococcus bacteremia on IV antibiotics. 5. History of CVA with right-sided weakness. 6. Acute hypoxic respiratory failure. 7. Chronic systolic CHF ejection fraction of 30 to 35% with moderate pulmonary hypertension. Plan: Hold off on diuretics Await repeat labs today Hold amlodipine for systolic blood pressure less than 120.
[2024-11-14 12:07] LABS: Glucose,Whole Blood 172 mg/dL (70-110)
--- NOTE | 2024-11-14 12:30 | P.PN ---
Subjective Progress Note Date: 11/13/24 Principal diagnosis: Reason for follow-up is VRE bacteremia Patient is a 73-year-old -Polish female with a past medical history significant for diabetes mellitus hypertension hyperlipidemia dementia CVA TIA patient is a long term resident and was sent to the hospital for evaluation of increasing shortness of breath with a recent diagnosis of COVID-19 at the long term patient did have a positive blood culture with VRE prompting this consultation On today's evaluation that is 11/13/2024, patient did not have any fever and denies any chills, patient is breathing comfortably on 1 L nasal cannula oxygen, patient with no chest pain or cough patient did not have any abdominal pain nausea vomiting or any loose stools. Patient did have a creatinine of 3.32 no CBC was done today Objective - Vital Signs Vital signs: Vital Signs Temp 98.2 F 11/13/24 08:00 Pulse 86 11/13/24 12:00 Resp 16 11/13/24 12:00 BP 146/61 11/13/24 12:00 Pulse Ox 95 11/13/24 12:00 FiO2 Intake & Output 11/12/24 11/13/24 11/13/24 18:59 06:59 18:59 Intake Total 422 Balance 422 Weight 118.5 kg 89 kg Intake: IV 20 Invasive Line 1 20 Oral 402 Other: Voiding Method Diaper Diaper Diaper Incontinent Incontinent Incontinent # Voids 1 1 # Bowel Movements 1 2 - Exam GENERAL DESCRIPTION: An elderly female lying in bed in no distress RESPIRATORY SYSTEM: Unlabored breathing , coarse breath sounds at bases HEART: S1 S2 regular rate and rhythm , ABDOMEN: Soft , no tenderness EXTREMITIES: No edema feet - Labs CBC & Chem 7: 11/10/24 15:33 11/13/24 03:56 Labs: Abnormal Lab Results - Last 24 Hours (Table) 11/12/24 11/12/24 11/13/24 Range/Units 17:01 20:01 03:56 Chloride 111 H (98-107) mmol/L BUN 67 H (7-17) mg/dL Creatinine 3.32 H (0.52-1.04) mg/dL Glucose 180 H (74-99) mg/dL POC Glucose (mg/dL) 224 H 294 H (70-110) mg/dL Creatine Kinase (30-135) U/L 11/13/24 11/13/24 11/13/24 Range/Units 03:56 06:05 11:52 Chloride (98-107) mmol/L BUN (7-17) mg/dL Creatinine (0.52-1.04) mg/dL Glucose (74-99) mg/dL POC Glucose (mg/dL) 179 H 239 H (70-110) mg/dL Creatine Kinase <20 L (30-135) U/L Microbiology - Last 24 Hours (Table) 11/08/24 08:16 Blood Culture - Final Blood 11/06/24 22:00 Blood Culture - Final Blood Assessment and Plan (1) Sepsis Current Visit: Yes Status: Acute Code(s): A41.9 - SEPSIS, UNSPECIFIED ORGANISM SNOMED Code(s): 74245524 (2) Leukocytosis Current Visit: Yes Status: Acute Code(s): D72.829 - ELEVATED WHITE BLOOD CELL COUNT, UNSPECIFIED SNOMED Code(s): 332153507 (3) VRE bacteremia Current Visit: Yes Status: Acute Code(s): R78.81 - BACTEREMIA; B95.2 - ENTEROCOCCUS THE CAUSE OF DISEASES CLASSIFIED ELSEWHERE; Z16.21 - RESISTANCE TO VANCOMYCIN SNOMED Code(s): 8671791370 Plan: 1patient presented to hospital with sepsis in this patient who did have a fever elevated white count tachycardia meeting currently for SIRS source is multifactorial he was concern for possible pneumonia however the patient also have evidence of VRE bacteremia and to be a result of a common pathogen to cause pneumonia source could be either urinary versus abdominal 2-blood culture has been repeated which are so far negative 3-urine culture have been negative ultrasound of the abdominal bladder did not show any hydronephrosis patient did have echocardiogram with thickened aortic valve leaflets 4-patient benefit from a LUCILLE to make sure no evidence of any vegetation as a source of this VRE bacteremia this has been discussed in detail with the cardiology team who did talk to the son who seem to be reluctant and want to avoid any invasive procedure, we will continue the patient on daptomycin antibiotic clinical course closely Dictation was produced using [employer] software. please excuse any grammatical, word or spelling errors. Time with Patient: Less than 30
--- NOTE | 2024-11-14 12:31 | P.PN ---
Subjective Progress Note Date: 11/14/24 Principal diagnosis: Reason for follow-up is VRE bacteremia Patient is a 73-year-old -[place] female with a past medical history significant for diabetes mellitus hypertension hyperlipidemia dementia CVA TIA patient is a halfway resident and was sent to the hospital for evaluation of increasing shortness of breath with a recent diagnosis of COVID-19 at the halfway patient did have a positive blood culture with VRE prompting this consultation On today's evaluation that is 11/14/2024, Patient is afebrile patient is currently on 1 L nasal oxygen and denies having any shortness of breath, the patient denies any chest pain or cough, the patient denies any nausea vomiting did not have any abdominal pain and no diarrhea. Her labs are pending from this morning Objective - Vital Signs Vital signs: Vital Signs Temp 98.1 F 11/13/24 20:00 Pulse 87 11/14/24 12:00 Resp 16 11/14/24 12:00 BP 165/70 11/14/24 12:00 Pulse Ox 92 L 11/14/24 12:00 FiO2 Intake & Output 11/13/24 11/14/24 11/14/24 18:59 06:59 18:59 Other: Voiding Method Diaper Diaper Diaper Incontinent Incontinent Incontinent - Exam GENERAL DESCRIPTION: An elderly female lying in bed in no distress RESPIRATORY SYSTEM: Unlabored breathing , coarse breath sounds at bases HEART: S1 S2 regular rate and rhythm , ABDOMEN: Soft , no tenderness EXTREMITIES: No edema feet - Labs CBC & Chem 7: 11/10/24 15:33 11/13/24 03:56 Labs: Abnormal Lab Results - Last 24 Hours (Table) 11/13/24 11/13/24 11/13/24 Range/Units 03:56 16:20 20:26 POC Glucose (mg/dL) 216 H 271 H (70-110) mg/dL Creatine Kinase <20 L (30-135) U/L 11/14/24 11/14/24 Range/Units 06:16 12:05 POC Glucose (mg/dL) 134 H 172 H (70-110) mg/dL Creatine Kinase (30-135) U/L Microbiology - Last 24 Hours (Table) 11/12/24 21:58 Blood Culture - Preliminary Blood 11/08/24 08:16 Blood Culture - Final Blood Assessment and Plan (1) Sepsis Current Visit: Yes Status: Acute Code(s): A41.9 - SEPSIS, UNSPECIFIED ORGANISM SNOMED Code(s): 90848505 (2) Leukocytosis Current Visit: Yes Status: Acute Code(s): D72.829 - ELEVATED WHITE BLOOD CELL COUNT, UNSPECIFIED SNOMED Code(s): 261519559 (3) VRE bacteremia Current Visit: Yes Status: Acute Code(s): R78.81 - BACTEREMIA; B95.2 - ENTEROCOCCUS THE CAUSE OF DISEASES CLASSIFIED ELSEWHERE; Z16.21 - RESISTANCE TO VANCOMYCIN SNOMED Code(s): 1428365047 Plan: 1patient presented to hospital with sepsis in this patient who did have a fever elevated white count tachycardia meeting currently for SIRS source is multifactorial he was concern for possible pneumonia however the patient also have evidence of VRE bacteremia and to be a result of a common pathogen to cause pneumonia source could be either urinary versus abdominal 2-blood culture has been repeated which are so far negative 3-urine culture have been negative ultrasound of the abdominal bladder did not show any hydronephrosis patient did have echocardiogram with thickened aortic valve leaflets 4-patient benefit from a LUCILLE to make sure no evidence of any vegetation as a source of this VRE bacteremia this has been discussed in detail with the cardiology team who did talk to the son who seem to be reluctant and want to avoid any invasive procedure, we will continue the patient on daptomycin, plan is for a PICC line and a 6-week total course of daptomycin for her bacteremia suspicious for possible endocarditis Dictation was produced using [employer] dictation software. please excuse any grammatical, word or spelling errors. Time with Patient: Less than 30
--- NOTE | 2024-11-14 13:02 | P.PN ---
Subjective HISTORY OF PRESENT ILLNESS: 73-year-old female who has a prior history of CVA with right-sided weakness hemiparesis, aphasia, dementia, long-term resident. She is not able to provide any history and most of the history is obtained from the medical charts. Patient was diagnosed with COVID-19 infection at the long-term yesterday when she started developing increased worsening respiratory distress along with hypoxemia with dropping her pulse oximeter. She was also having low-grade fever. Due to this she was brought to the hospital. On admission she was on 5 L oxygen saturating above 90%, febrile with Tmax of 100.7, elevated lactate. Elevated WBC count of 17.2. Hemoglobin 11. Her creatinine was 1.54, troponin was elevated at 0.28, repeat at 1.64. EKG showed sinus tachycardia heart rate of 122 bpm, nonspecific ST depressions in diffuse leads. Progress note 11/07/2024 Patient's hemoglobin has dropped since admission. Hemoglobin 9.0 today. WBC count is 21, creatinine has trended up from 1.5-2.1 11/08/2024 Patient examined this morning at the bedside. Patient currently denies chest pain or pressure. She denies shortness of breath. Patient is alert and oriented x 1-2 which is baseline per nursing. Creatinine today 2.43. Clinically she does appear volume overloaded. 11/12/2024 Patient examined this morning the bedside. Patient is pleasantly confused the time of examination. She denies chest pain or pressure. She denies shortness of breath. Most recent blood cultures are negative at 72-hour radha. Echo reveals EF 30 to 35%, moderate pulmonary pretension, mild MR, mild TR, thickened aortic valve leaflets without any significant stenosis. 11/13/24 Patient examined this morning the bedside. Patient is pleasantly confused the time of examination. She denies chest pain or pressure. She denies shortness of breath. Most recent blood cultures are negative at 72-hour radha. Repeat cultures ordered yesterday are pending. 11/14/2024 Patient examined this morning to bedside. Patient remains pleasantly confused. No complaints of chest pain or pressure. She denies shortness of breath. Blood cultures from 11/08 remain negative. Additional blood cultures drawn on 1226 remain negative at the 24-hour radha. PHYSICAL EXAM: VITAL SIGNS: Reviewed. GENERAL: Well-developed in no acute distress. NECK: Supple. No JVD or thyromegaly LUNGS: Respirations even and unlabored. Lungs essentially clear to auscultation bilaterally, diminished. HEART: Regular rate and rhythm. S1 and S2 heard. EXTREMITIES: Normal range of motion. No clubbing or cyanosis. Peripheral pulses intact. Trace bilateral lower extremity edema ASSESSMENT: Acute COVID-19 Acute CHF with reduced EF 30 to 35% Acute on chronic kidney disease Enterococcus bacteremia Elevated troponins, likely type II HI secondary to oxygen supply/demand mismatch Acute hypoxic respiratory failure Lactic acidosis Metabolic encephalopathy History of CVA with right-sided weakness right arm contracture Diabetes Obesity: BMI 35.7 PLAN: Continue current cardiac medications Infectious disease recommending LUCILLE. However most recent set of blood cultures x 2 sets from 11/08 and also from 11/12 are negative. Patient's son and daughter are hesitant to proceed with LUCILLE and do not want patient to undergo any procedures unless absolutely necessary. Due to recent blood cultures x 2 being negative, no plans for LUCILLE from cardiac standpoint Further recommendations pending patient course Nurse practitioner note has been reviewed by physician. Signing provider agrees with the documented findings, assessment, and plan of care documented by [employer]ATOR as a scribe. Objective - Vital Signs Vital signs: Vital Signs Temp 98.1 F 11/13/24 20:00 Pulse 87 11/14/24 12:00 Resp 16 11/14/24 12:00 BP 165/70 11/14/24 12:00 Pulse Ox 92 L 11/14/24 12:00 FiO2 Intake & Output 11/13/24 11/14/24 11/14/24 18:59 06:59 18:59 Other: Voiding Method Diaper Diaper Diaper Incontinent Incontinent Incontinent - Labs CBC & Chem 7: 11/10/24 15:33 11/13/24 03:56 Labs: Abnormal Lab Results - Last 24 Hours (Table) 11/13/24 11/13/24 11/13/24 Range/Units 03:56 16:20 20:26 POC Glucose (mg/dL) 216 H 271 H (70-110) mg/dL Creatine Kinase <20 L (30-135) U/L 11/14/24 11/14/24 Range/Units 06:16 12:05 POC Glucose (mg/dL) 134 H 172 H (70-110) mg/dL Creatine Kinase (30-135) U/L Microbiology - Last 24 Hours (Table) 11/12/24 21:58 Blood Culture - Preliminary Blood 11/08/24 08:16 Blood Culture - Final Blood
--- NOTE | 2024-11-14 14:16 | P.PN ---
Subjective Progress Note Date: 11/14/24 Principal diagnosis: Acute hypoxic respiratory failure secondary to acute COVID-19 pneumonia This is a 73-year-old female patient who presented to the emergency department with diminished level of consciousness. The patient is normally alert and oriented x 1. No significant history is available. The patient was diagnosed having COVID-19 infection at the halfway yesterday and she was developing worsening in breathing and she had also a drop in oxygenation and pulse ox and she has been placed on oxygen. She also had a low-grade fever. Based on that, the patient was brought into the hospital. The patient is currently on 3 L of oxygen by nasal cannula and this was brought up to 5 L to maintain saturation above 90%, current pulse ox 95%. She had a Tmax of 100.7 current temperature is at 99.2. She was in sinus tachycardia and she was quite tachypneic at time of arrival and breathing was short and labored and currently she is breathing more comfortably. The white cell count 17.2 with a hemoglobin 11 and platelet count of 348. The INR is at 1.3 with a PT of 13.5 with a PTT of 23. Sodium is at 140, bicarb is 23, BUN 16 with a creatinine of 1.54. Lactic acid level is at 2.3. Troponins at 0.2. LFTs are normal. COVID-19 testing was positive. Chest x-ray showed multifocal airspace opacities concerning for pneumonia and the patient has cardiomegaly and smaller lung volumes and elevation of the diaphragms bilaterally. CAT scan of the brain was also done in the emergency that showed remote left parietal/frontal infarct/encephalomalacia without any acute process. The patient accordingly was started on Decadron. She was started on Rocephin and Zithromax. Pulmonary consultation was requested accordingly.The patient is a halfway resident. The patient has other comorbidities including previous history of CVA right-sided weakness, dementia, chronic kidney disease stage III chronic bronchial asthma the patient is a former smoker. She has hypertension hyperlipidemia diabetes mellitus type 2. Her last COVID-19 infection was back in November 2021 at that time the patient was hospitalized for the same problem. On 11/07/2024, patient is calm and comfortable on 2 L of oxygen by nasal cannula with a pulse ox of 98%. The patient was hospitalized for acute hypoxic mary failure and COVID-19 infection and the patient is currently on Decadron. Furthermore, the patient was given a combination of Rocephin and Zithromax as an empiric antibiotic coverage. Subsequently, the blood culture was positive for Enterococcus, likely VRE E and the patient was started on daptomycin. Troponins were minimally elevated and the patient was started on IV heparin by cardiology. Based on the cardiac enzyme evaluation, the patient's troponin peaked at 2.2/the patient ruled in for an acute non-ST segment elevation myocardial infarction. She is free of any chest pain for now. Hemodynamically stable. Afebrile. No other significant events otherwise for now. Remains on IV Lasix 40 mg every 12 hours. Echocardiogram is in progress. Was evaluated today on 11/08/2024, patient is feeling better, breathing easier,Presently on 2 L nasal cannula with O2 sats 97%.WBC count is 15.4 hemoglobin 8.9 basic metabolic profile is normal BUN is 39 creatinine 2.43 chest x-ray from 2 days ago showed evidence of bilateral multifocal infiltrates consistent with COVID-19 pneumonia Patient was seen today on 11/09/2024, patient continues to steadily improve, feeling better, breathing easier, chest x-ray continues to show bilateral airspace disease, not much of a change since admission but clinically the patient is feeling better. Her echocardiogram clearly showed evidence of severe LV dysfunction with ejection fraction of 30 to 35%. Patient is receiving diuretics intermittently remains on treatment for COVID-19 infection/pneumonia and remains empirically on antibiotics/Rocephin. Renal functioning is slightly improved today compared to yesterday with creatinine down to 2.38 from 2.43 yesterday. Patient was seen today on 11/10/2024, patient continues to do well, relatively asymptomatic, hardly any pulmonary symptoms. Remains on 2 L nasal cannula with O2 saturation 97%, she is hemodynamically stable, this x-ray continues to show multifocal bilateral airspace disease, surprisingly the patient is not as symptomatic as she should be considering her chest x-ray findings. I am suspecting that some of the findings noted on the chest x-ray are related to some component of pulmonary edema and the patient may require more diuresis, and I know there is a concern about her renal functioning echocardiogram on showed evidence of cardiomyopathy and LV dysfunction. Patient remains on daptomycin as per infectious disease on the case. BNP on this patient upon admission was over 100,000's and she also had elevated procalcitonin level of 11.90. In addition to this the patient had positive COVID-19 screening Patient was seen today on 11/11/2024, doing well, required Lasix yesterday, and she was given Lasix today, patient had her Lasix on hold because of her renal function, today's creatinine is 2.17 yesterday was 1.84. However her chest x- ray showed worsening pulmonary edema, and patient improved after she was given Lasix, feels much better today. Seen today on 11/12/2024, patient is feeling better, breathing easier, however she remains on antibiotics as per ID for herPositive blood cultures showing Enterococcus faecalis, Enterococcus faecium. Clinically and pulmonary durbin the patient seems to be doing much better, breathing easier, and the patient is asking to be discharged home. However clearance for discharge has to be done by infectious disease because of her bacteremia and may require IV antibiotics on outpatient basis Seen today on 11/13/2024, patient continues to do well, remains on antibiotics as per infectious disease on the case for her gram-positive blood cultures secondary to Enterococcus faecalis and Enterococcus faecium pulmonary durbin she has no cough no wheezing no shortness of breath, patient is asking to be discharged home, and I made it clear to the patient that is up to the infectious disease specialist to clear the patient and decide what antibiotic she needs on outpatient basis renal function continues to worsen, her creatinine now is up to 3.32 BUN is 67, patient is not receiving any diuretics at this point Patient was seen today on 11/14/2024, patient is doing fairly well, asking to be discharged home, patient is confused, does not seem to be in any form of respiratory distress, her blood cultures from 11/08 are negative, cultures from 11/12 are negative, patient is doing well overall, remains on antibiotics as per infectious disease on the case. Her renal functioning seems to be worsening steadily in spite of holding antibiotics, patient does have history of cardi omyopathy and LV dysfunction with low ejection fraction, this could be cardiorenal type of renal failure. At any rate pulmonary durbin no major issues, patient remains onRoom air with O2 saturation of 92%. Objective - Vital Signs Vital signs: Vital Signs Temp 98.1 F 11/13/24 20:00 Pulse 87 11/14/24 12:00 Resp 16 11/14/24 12:00 BP 165/70 11/14/24 12:00 Pulse Ox 92 L 11/14/24 12:00 FiO2 Intake & Output 11/13/24 11/14/24 11/14/24 18:59 06:59 18:59 Other: Voiding Method Diaper Diaper Diaper Incontinent Incontinent Incontinent - Exam GENERAL EXAM: Revealed 71-year-old female in no distress, on room air HEAD: Normocephalic/atraumatic. EYES: Normal reaction of pupils, equal size. Conjunctiva pink, sclera white. NOSE: Clear with pink turbinates. THROAT: No erythema or exudates. NECK: No masses, no JVD, no thyroid enlargement, no adenopathy. CHEST: No chest wall deformity. Symmetrical expansion. LUNGS: Fine crackles at the bases no rhonchi no wheezes CVS: Regular rate and rhythm, normal S1 and S2, no gallops, no murmurs, no rubs ABDOMEN: Soft, nontender. No hepatosplenomegaly, normal bowel sounds, no guarding or rigidity. EXTREMITIES: No clubbing, no edema, no cyanosis, 2+ pulses and upper and lower extremities. MUSCULOSKELETAL: No deformities no limitation range of motion normal. SKIN: No rashes CENTRAL NERVOUS SYSTEM: Confused, keeps asking to be discharged home - Labs CBC & Chem 7: 11/10/24 15:33 11/13/24 03:56 Labs: Abnormal Lab Results - Last 24 Hours (Table) 11/13/24 11/13/24 11/14/24 Range/Units 16:20 20:26 06:16 POC Glucose (mg/dL) 216 H 271 H 134 H (70-110) mg/dL 11/14/24 Range/Units 12:05 POC Glucose (mg/dL) 172 H (70-110) mg/dL Microbiology - Last 24 Hours (Table) 11/12/24 21:58 Blood Culture - Preliminary Blood 11/08/24 08:16 Blood Culture - Final Blood Assessment and Plan Assessment: Impression: Acute hypoxic respiratory failure secondary to acute COVID-19 pneumonia, I also suspect some component of acute systolic congestive heart failure with LV dysfunction noted on echocardiogram and significantly elevated proBNP on admission Enterococcal bacteremia and sepsis/urinary tract infection is being addressed by infectious disease on the case, remains on antibiotics . Acute non-ST elevation myocardial infarction History of CVA with right-sided weakness Benign essential hypertension History of bronchial asthma mild intermittent Type 2 diabetes [facility] resident Chronic kidney disease stage III Recommendation: Discontinue Decadron in 2 days continue to hold diuretics Neurology is addressing her worsening renal failure Continue aspirin Continue metoprolol Antibiotics as per infectious disease on the case Overall prognosis remains guarded Will continue to follow Time with Patient: Less than 30
[2024-11-14 15:21] LABS: Anisocytosis Slight; Basophils % (A) 0 %; Eosinophils % (A) 0 %; HCT 29.7 % (34.0-46.0); HGB 9.4 gm/dL (11.4-16.0); Hypochromasia Moderate; Lymphocytes # (A) 0.2 k/uL (1.0-4.8); Lymphocytes % (A) 2 %; MCH 30.4 pg (25.0-35.0); MCHC 31.7 g/dL (31.0-37.0); Mean Platelet Volume 9.1; Monocytes # (A) 0.2 k/uL (0-1.0); Monocytes % (A) 2 %; Neutrophils # (A) 9.9 k/uL (1.3-7.7); Neutrophils % (A) 95 %; Platelet Count 344 k/uL (150-450); RBC 3.09 m/uL (3.80-5.40); WBC 10.5 k/uL (3.8-10.6)
[2024-11-14 15:29] LABS: ALT 18 U/L (4-34); AST 22 U/L (14-36); African American GFR (CKD) 13 (>60 ml/min/1.73 sqM); Albumin 3.1 g/dL (3.5-5.0); Alkaline Phosphatase 76 U/L (38-126); Anion Gap 12 mmol/L; Blood Urea Nitrogen 74 mg/dL (7-17); Calcium 8.7 mg/dL (8.4-10.2); Carbon Dioxide 20 mmol/L (22-30); Chloride 113 mmol/L (98-107); Glucose 149 mg/dL (74-99); Non-African American GFR(CKD) 11 (>60 ml/min/1.73 sqM); Potassium 4.9 mmol/L (3.5-5.1); Sodium 145 mmol/L (137-145); Total Bilirubin 0.4 mg/dL (0.2-1.3); Total Protein 6.7 g/dL (6.3-8.2)
--- NOTE | 2024-11-14 15:34 | P.PN ---
Subjective Progress Note Date: 11/14/24 Interval History: 73-year-old female who [facility] department [facility] She is normally alert and oriented x 1 so all the history comes from the paramedics. Patient was brought in because she was diagnosed with COVID yesterday and now she has more difficulty breathing as of this morning and had to put her on oxygen. Patient also had a low-grade fever. There is no other hi story available at this time. The patient is currently on 3 L of oxygen by nasal cannula and this was brought up to 5 L to maintain saturation above 90%, current pulse ox 95%. She had a Tmax of 100.7 current temperature is at 99.2. She was in sinus tachycardia and she was quite tachypneic at time of arrival and breathing was short and labored and currently she is breathing more comfortably. The white cell count 17.2 with a hemoglobin 11 and platelet count of 348. The INR is at 1.3 with a PT of 13.5 with a PTT of 23. Sodium is at 140, bicarb is 23, BUN 16 with a creatinine of 1.54. Lactic acid level is at 2.3. Troponins at 0.2. LFTs are normal. COVID- 19 testing was positive. Chest x-ray showed multifocal airspace opacities concerning for pneumonia and the patient has cardiomegaly and smaller lung volumes and elevation of the diaphragms bilaterally. CAT scan of the brain was also done in the emergency that showed remote left parietal/frontal infarct/encephalomalacia without any acute process. The patient accordingly was started on Decadron. She was started on Rocephin and Zithromax. Pulmonary consultation was requested 11/08 Patient is a pleasant 73 years old -[place] female. Currently she is sitting up in chair looks with chronic weakness of the right side. Patient states that she wants to go home. She denies any specific complaint. No chest pain or dyspnea. No diarrhea or vomiting. No Up No diarrhea No urinary signs symptoms Currently she is covered with ceftriaxone and Zithromax for pneumonia and daptomycin for VRE bacteremia Also patient on Decadron 6 mg daily Creatinine up to 2.4, nephrology team consulted WBC is coming down currently 15,000, hemoglobin 8.9. LDH is elevated at 310 Patient has active occult blood in stool, positive for COVID but negative for influenza Chest x-ray showing bilateral opacity which is suspicious for pneumonia versus CHF. CT of the brain is negative 11/09 Patient is readily awake and answers questions appropriately She is still confused which looks little worse than her baseline around her baseline. She can tell she is in the hospital but she does not know the name of the hospital or the year or the name of the president, she gives all the information regarding these. Most likely she lost her recent memory related to her dementia. She is mildly tachypneic but she declined feeling dyspneic. No chest pain. No abdominal pain. No other complaints Patient asking if she she is going to go home today She does not feel weak. Creatinine 2.3 today. 11/10 Patient still mildly short of breath, with some scattered wheezing and she is still on 2 L oxygen via nasal cannula. She still have coughing. No GI or urinary new symptoms. Patient remains on antibiotics with ceftriaxone and daptomycin with positive blood culture for multiple organisms Surgery team recommending outpatient EGD/colonoscopy Cardiology team recommended outpatient ischemic workup. Morning labs still pending 11/11 Patient lying in bed with no distress No chest pain or dyspnea while at rest No worsening hypoxia However repeat chest x-ray yesterday showing more progressive bilateral infiltrative lesion. Could be secondary to fluid overload, patient received 1 extra dose of IV Lasix 40 mg Also her antibiotics were switched from ceftriaxone to Zosyn per ID team recommendation Creatinine is stable at 2.1, hemoglobin stable 9.5, leukocytosis improving down to 11.5 Patient is afebrile today 11/12 Patient awake alert, she is mildly confused at baseline, she is pleasant She denies chest pain or dyspnea while sitting in bed No other new complaint. Patient herself asking when she can be discharged No fever today. Inflammatory markers were elevated with LDH 310 Creatinine slightly worse at 2.9 and she received Lasix yesterday Her antibiotics were recently adjusted to Zosyn. Also she is taking daptomycin 11/13--patient was seen and examined today. No issues overnight. On daptomycin per infectious disease. Repeat blood cultures X been negative since 11/06, family reluctant for LUCILLE. Pulmonary, cardiology and nephrology also following. Vital stable. Creatinine went up to 3.32 today, BUN 67. CPK less than 20. 11/14--patient was seen and examined today. No issues overnight. Is confused. Infectious disease following, on daptomycin and Zosyn. Repeat blood culture has been negative so far. Infectious disease and cardiology following--family hesitant to proceed with LUCILLE, LUCILLE deferred per cardiology for now. Creatinine trending up, nephrology following. Assessment and plan: Sepsis: Enterococcal bacteremia: UTI: Elevated troponin: Demand ischemia Acute hypoxic respiratory failure: COVID-19 infection Acute on chronic systolic CHF: EF 30 to 35% MCKINLEY on CKD: History of CVA Diabetes mellitus jail resident History of asthma Hypertension Plan: Nephrology, cardiology, pulmonary, infectious disease consulted and following. Per nephrology hold off diuretics, bladder scan, check urine eosinophils, already on Decadron Currently daptomycin per infectious disease, recommended LUCILLE, family hesitant for LUCILLE. Culture negative since 11/08 11/12. Cardiology consultedelevated troponin likely demand ischemia. Echocardiogram showed severe LV dysfunction, mild RV enlargement, moderate LAE. DVT prophylaxis: Continue heparin Monitor vital signs and labs Labs and medication were reviewed. Continue same treatment. Further recommendations as per clinical course of the patient PHYSICAL EXAMINATION: GENERAL: NAD HEENT: EOMI, Sclerae anicteric, Moist Mucous membranes Neck: Supple, Non tender, No JVD PULMONARY: Equal breath souds B/L, No wheezing, No crackles. CARDIOVASCULAR: S1, S2 present. No murmurs, rubs, or gallops. ABDOMEN: Soft, nontender, nondistended, normoactive bowel sounds. No guarding or rebound tenderness. MUSCULOSKELETAL: No edema, No cyanosis. No clubbing. Normal ROM. Intact peripheral pulses. NEUROLOGICAL: CN 2-12 grossly intact. No FND Skin: No Rash REVIEW OF SYSTEMS: Limited due to confusion. CONSTITUTIONAL: No fever or chills. CARDIOVASCULAR: No chest pain, palpitations or syncope. PULMONARY: No shortness of breath, no cough, sore throat. GASTROINTESTINAL: No nausea, vomiting, diarrhea, abdominal pain. : No Dysuria, urgency, frequency. Extremities: No edema. NEUROLOGICAL: No headaches, no weakness, or numbness Dictation was produced using [employer] ([employer]) dictation software. please excuse any grammatical, word or spelling errors. Objective - Vital Signs Vital signs: Vital Signs Temp 98.1 F 11/13/24 20:00 Pulse 87 11/14/24 12:00 Resp 16 11/14/24 12:00 BP 165/70 11/14/24 12:00 Pulse Ox 92 L 11/14/24 12:00 FiO2 Intake & Output 11/13/24 11/14/24 11/14/24 18:59 06:59 18:59 Other: Voiding Method Diaper Diaper Diaper Incontinent Incontinent Incontinent - Labs CBC & Chem 7: 11/14/24 15:08 11/13/24 03:56 Labs: Abnormal Lab Results - Last 24 Hours (Table) 11/13/24 11/13/24 11/14/24 Range/Units 16:20 20:26 06:16 RBC (3.80-5.40) m/uL Hgb (11.4-16.0) gm/dL Hct (34.0-46.0) % RDW (11.5-15.5) % Neutrophils # (1.3-7.7) k/uL Lymphocytes # (1.0-4.8) k/uL POC Glucose (mg/dL) 216 H 271 H 134 H (70-110) mg/dL 11/14/24 11/14/24 Range/Units 12:05 15:08 RBC 3.09 L (3.80-5.40) m/uL Hgb 9.4 L (11.4-16.0) gm/dL Hct 29.7 L (34.0-46.0) % RDW 17.0 H (11.5-15.5) % Neutrophils # 9.9 H (1.3-7.7) k/uL Lymphocytes # 0.2 L (1.0-4.8) k/uL POC Glucose (mg/dL) 172 H (70-110) mg/dL Microbiology - Last 24 Hours (Table) 11/12/24 21:58 Blood Culture - Preliminary Blood 11/08/24 08:16 Blood Culture - Final Blood
[2024-11-14 17:00] LABS: Glucose,Whole Blood 170 mg/dL (70-110)
[2024-11-14 19:55] LABS: Glucose,Whole Blood 197 mg/dL (70-110)
[2024-11-14] MEDS: HEPARIN SODIUM,PORCINE 5,000 UNIT/ML 1 ML VIAL SQ SCH (20:23)
[2024-11-15 06:13] LABS: Glucose,Whole Blood 152 mg/dL (70-110)
[2024-11-15 08:18] LABS: Anisocytosis Slight; Basophils % (A) 0 %; Eosinophils % (A) 0 %; HCT 31.4 % (34.0-46.0); HGB 9.6 gm/dL (11.4-16.0); Hypochromasia Marked; Lymphocytes # (A) 0.6 k/uL (1.0-4.8); Lymphocytes % (A) 6 %; MCH 29.3 pg (25.0-35.0); MCHC 30.7 g/dL (31.0-37.0); MCV 95.6 fL (80.0-100.0); Mean Platelet Volume 8.9; Monocytes # (A) 0.5 k/uL (0-1.0); Monocytes % (A) 5 %; Neutrophils % (A) 89 %; Platelet Count 323 k/uL (150-450); RBC 3.28 m/uL (3.80-5.40); RDW 16.9 % (11.5-15.5); WBC 11.3 k/uL (3.8-10.6)
[2024-11-15 08:34] LABS: African American GFR (CKD) 12 (>60 ml/min/1.73 sqM); Anion Gap 10 mmol/L; Blood Urea Nitrogen 77 mg/dL (7-17); Calcium 9.2 mg/dL (8.4-10.2); Carbon Dioxide 24 mmol/L (22-30); Chloride 114 mmol/L (98-107); Glucose 106 mg/dL (74-99); Non-African American GFR(CKD) 11 (>60 ml/min/1.73 sqM); Potassium 4.3 mmol/L (3.5-5.1); Sodium 148 mmol/L (137-145)
[2024-11-15 11:55] LABS: Glucose,Whole Blood 188 mg/dL (70-110)
--- NOTE | 2024-11-15 12:26 | P.PN ---
Subjective Progress Note Date: 11/15/24 73-year-old female who has a prior history of CVA with right-sided weakness hemiparesis, aphasia, dementia, halfway resident. She is not able to provide any history and most of the history is obtained from the medical charts. Patient was diagnosed with COVID-19 infection at the halfway when she started developing increased worsening respiratory distress along with hypoxemia with dropping her pulse oximeter. She was also having low-grade fever. Due to this she was brought to the hospital. On admission she was on 5 L oxygen saturating above 90%, febrile with Tmax of 100.7, elevated lactate. Elevated WBC count of 17.2. Hemoglobin 11. 11/15/2024 Patient was seen and examined resting comfortably. Patient continues to be confused. Echocardiogram revealed EF 30 to 35%, moderate pulmonary hypertension, mild MR, mild TR and thickened aortic valve leaflets without any significant stenosis. Blood cultures remain negative. She has been afebrile. PHYSICAL EXAM: VITAL SIGNS: Reviewed. GENERAL: Well-developed in no acute distress. NECK: Supple. No JVD or thyromegaly LUNGS: Respirations even and unlabored. Lungs essentially clear to auscultation bilaterally, diminished. HEART: Regular rate and rhythm. S1 and S2 heard. EXTREMITIES: Normal range of motion. No clubbing or cyanosis. Peripheral pulses intact. Trace bilateral lower extremity edema ASSESSMENT: Acute COVID-19 Acute CHF with reduced EF 30 to 35% Acute on chronic kidney disease Enterococcus bacteremia Elevated troponins, likely type II [place] secondary to oxygen supply/demand mismatch Acute hypoxic respiratory failure Lactic acidosis Metabolic encephalopathy History of CVA with right-sided weakness right arm contracture Diabetes Obesity: BMI 35.7 Plan: From cardiology's perspective blood cultures negative x 2 from 11/08 and 11/12, no indication for LUCILLE at this time. ROTOPRINTER note has been reviewed, I agree with a documented findings and plan of care. Patient was seen and examined. Objective - Vital Signs Vital signs: Vital Signs Temp 98.2 F 11/15/24 08:00 Pulse 69 11/15/24 08:00 Resp 16 11/15/24 08:00 BP 162/67 11/15/24 08:00 Pulse Ox 92 L 11/15/24 08:00 FiO2 Intake & Output 11/14/24 11/15/24 11/15/24 18:59 06:59 18:59 Weight 122 kg Other: Voiding Method Diaper Diaper Diaper Incontinent Incontinent Incontinent - Labs CBC & Chem 7: 11/15/24 07:24 11/15/24 07:24 Labs: Abnormal Lab Results - Last 24 Hours (Table) 11/14/24 11/14/24 11/14/24 Range/Units 15:08 15:08 16:58 WBC (3.8-10.6) k/uL RBC 3.09 L (3.80-5.40) m/uL Hgb 9.4 L (11.4-16.0) gm/dL Hct 29.7 L (34.0-46.0) % MCHC (31.0-37.0) g/dL RDW 17.0 H (11.5-15.5) % Neutrophils # 9.9 H (1.3-7.7) k/uL Lymphocytes # 0.2 L (1.0-4.8) k/uL Sodium (137-145) mmol/L Chloride 113 H (98-107) mmol/L Carbon Dioxide 20 L (22-30) mmol/L BUN 74 H (7-17) mg/dL Creatinine 3.70 H (0.52-1.04) mg/dL Glucose 149 H (74-99) mg/dL POC Glucose (mg/dL) 170 H (70-110) mg/dL Albumin 3.1 L (3.5-5.0) g/dL 11/14/24 11/15/24 11/15/24 Range/Units 19:53 06:12 07:24 WBC 11.3 H (3.8-10.6) k/uL RBC 3.28 L (3.80-5.40) m/uL Hgb 9.6 L (11.4-16.0) gm/dL Hct 31.4 L (34.0-46.0) % MCHC 30.7 L (31.0-37.0) g/dL RDW 16.9 H (11.5-15.5) % Neutrophils # 10.0 H (1.3-7.7) k/uL Lymphocytes # 0.6 L (1.0-4.8) k/uL Sodium (137-145) mmol/L Chloride (98-107) mmol/L Carbon Dioxide (22-30) mmol/L BUN (7-17) mg/dL Creatinine (0.52-1.04) mg/dL Glucose (74-99) mg/dL POC Glucose (mg/dL) 197 H 152 H (70-110) mg/dL Albumin (3.5-5.0) g/dL 11/15/24 11/15/24 Range/Units 07:24 11:53 WBC (3.8-10.6) k/uL RBC (3.80-5.40) m/uL Hgb (11.4-16.0) gm/dL Hct (34.0-46.0) % MCHC (31.0-37.0) g/dL RDW (11.5-15.5) % Neutrophils # (1.3-7.7) k/uL Lymphocytes # (1.0-4.8) k/uL Sodium 148 H (137-145) mmol/L Chloride 114 H (98-107) mmol/L Carbon Dioxide (22-30) mmol/L BUN 77 H (7-17) mg/dL Creatinine 3.95 H (0.52-1.04) mg/dL Glucose 106 H (74-99) mg/dL POC Glucose (mg/dL) 188 H (70-110) mg/dL Albumin (3.5-5.0) g/dL Microbiology - Last 24 Hours (Table) 11/12/24 21:58 Blood Culture - Preliminary Blood
--- NOTE | 2024-11-15 12:46 | P.PN ---
Subjective Progress Note Date: 11/15/24 tomas is seen in follow-up for acute kidney injury on chronic kidney disease. Renal function continues to worsen. Remains confused on exam. Vital signs are stable. General: No acute distress. HEENT: Head exam is unremarkable. On nasal cannula. LUNGS: No audible rhonchi or wheezes. HEART: Rate and Rhythm are regular. ABDOMEN: Nontender. EXTREMITITES: No edema. Chronic changes noted. Objective - Vital Signs Vital signs: Vital Signs Temp 98.2 F 11/15/24 08:00 Pulse 69 11/15/24 08:00 Resp 16 11/15/24 08:00 BP 162/67 11/15/24 08:00 Pulse Ox 92 L 11/15/24 08:00 FiO2 Intake & Output 11/14/24 11/15/24 11/15/24 18:59 06:59 18:59 Weight 122 kg Other: Voiding Method Diaper Diaper Diaper Incontinent Incontinent Incontinent - Labs CBC & Chem 7: 11/15/24 07:24 11/15/24 07:24 Labs: Abnormal Lab Results - Last 24 Hours (Table) 11/14/24 11/14/24 11/14/24 Range/Units 12:05 15:08 15:08 WBC (3.8-10.6) k/uL RBC 3.09 L (3.80-5.40) m/uL Hgb 9.4 L (11.4-16.0) gm/dL Hct 29.7 L (34.0-46.0) % MCHC (31.0-37.0) g/dL RDW 17.0 H (11.5-15.5) % Neutrophils # 9.9 H (1.3-7.7) k/uL Lymphocytes # 0.2 L (1.0-4.8) k/uL Sodium (137-145) mmol/L Chloride 113 H (98-107) mmol/L Carbon Dioxide 20 L (22-30) mmol/L BUN 74 H (7-17) mg/dL Creatinine 3.70 H (0.52-1.04) mg/dL Glucose 149 H (74-99) mg/dL POC Glucose (mg/dL) 172 H (70-110) mg/dL Albumin 3.1 L (3.5-5.0) g/dL 11/14/24 11/14/24 11/15/24 Range/Units 16:58 19:53 06:12 WBC (3.8-10.6) k/uL RBC (3.80-5.40) m/uL Hgb (11.4-16.0) gm/dL Hct (34.0-46.0) % MCHC (31.0-37.0) g/dL RDW (11.5-15.5) % Neutrophils # (1.3-7.7) k/uL Lymphocytes # (1.0-4.8) k/uL Sodium (137-145) mmol/L Chloride (98-107) mmol/L Carbon Dioxide (22-30) mmol/L BUN (7-17) mg/dL Creatinine (0.52-1.04) mg/dL Glucose (74-99) mg/dL POC Glucose (mg/dL) 170 H 197 H 152 H (70-110) mg/dL Albumin (3.5-5.0) g/dL 11/15/24 11/15/24 Range/Units 07:24 07:24 WBC 11.3 H (3.8-10.6) k/uL RBC 3.28 L (3.80-5.40) m/uL Hgb 9.6 L (11.4-16.0) gm/dL Hct 31.4 L (34.0-46.0) % MCHC 30.7 L (31.0-37.0) g/dL RDW 16.9 H (11.5-15.5) % Neutrophils # 10.0 H (1.3-7.7) k/uL Lymphocytes # 0.6 L (1.0-4.8) k/uL Sodium 148 H (137-145) mmol/L Chloride 114 H (98-107) mmol/L Carbon Dioxide (22-30) mmol/L BUN 77 H (7-17) mg/dL Creatinine 3.95 H (0.52-1.04) mg/dL Glucose 106 H (74-99) mg/dL POC Glucose (mg/dL) (70-110) mg/dL Albumin (3.5-5.0) g/dL Microbiology - Last 24 Hours (Table) 11/12/24 21:58 Blood Culture - Preliminary Blood Assessment and Plan Assessment: 1. Acute kidney injury secondary to ATN secondary to severe sepsis. Creatinine 1.5 on admission -worsening to 3.9 today. Blood pressure improved. No hydronephrosis noted on kidney ultrasound. CK not elevated. 2. Chronic kidney disease stage IIIb with baseline creatinine near 1.5 secondary to nephrosclerosis. 3. Acute COVID-19 infection. 4. Enterococcus bacteremia on IV antibiotics. 5. History of CVA with right-sided weakness. 6. Acute hypoxic respiratory failure. 7. Chronic systolic CHF ejection fraction of 30 to 35% with moderate pulmonary hypertension. Plan: Hold off on diuretics Will start 0.45% saline 75cc/hr trial for renal improvement and given rising sodium. Hold amlodipine for systolic blood pressure less than 120. If continues to worsen may need to consider biopsy Urine eosinophil ordered but not completed due to patient incontinent No urgent need for HD at this time
--- NOTE | 2024-11-15 14:13 | P.PN ---
Subjective Progress Note Date: 11/15/24 Principal diagnosis: Coronavirus infection. This is a 73-year-old female patient who presented to the emergency department with diminished level of consciousness. The patient is normally alert and oriented x 1. No significant history is available. The patient was diagnosed having COVID-19 infection at the intermediate yesterday and she was developing worsening in breathing and she had also a drop in oxygenation and pulse ox and she has been placed on oxygen. She also had a low-grade fever. Based on that, the patient was brought into the hospital. The patient is currently on 3 L of oxygen by nasal cannula and this was brought up to 5 L to maintain saturation above 90%, current pulse ox 95%. She had a Tmax of 100.7 current temperature is at 99.2. She was in sinus tachycardia and she was quite tachypneic at time of arrival and breathing was short and labored and currently she is breathing more comfortably. The white cell count 17.2 with a hemoglobin 11 and platelet count of 348. The INR is at 1.3 with a PT of 13.5 with a PTT of 23. Sodium is at 140, bicarb is 23, BUN 16 with a creatinine of 1.54. Lactic acid level is at 2.3. Troponins at 0.2. LFTs are normal. COVID-19 testing was positive. Chest x-ray showed multifocal airspace opacities concerning for pneumonia and the patient has cardiomegaly and smaller lung volumes and elevation of the diap hragms bilaterally. CAT scan of the brain was also done in the emergency that showed remote left parietal/frontal infarct/encephalomalacia without any acute process. The patient accordingly was started on Decadron. She was started on Rocephin and Zithromax. Pulmonary consultation was requested accordingly.The patient is a intermediate resident. The patient has other comorbidities including previous history of CVA right-sided weakness, dementia, chronic kidney disease stage III chronic bronchial asthma the patient is a former smoker. She has hypertension hyperlipidemia diabetes mellitus type 2. Her last COVID-19 infection was back in November 2021 at that time the patient was hospitalized for the same problem. On 11/07/2024, patient is calm and comfortable on 2 L of oxygen by nasal cannula with a pulse ox of 98%. The patient was hospitalized for acute hypoxic mary failure and COVID-19 infection and the patient is currently on Decadron. Furthermore, the patient was given a combination of Rocephin and Zithromax as an empiric antibiotic coverage. Subsequently, the blood culture was positive for Enterococcus, likely VRE E and the patient was started on daptomycin. Troponins were minimally elevated and the patient was started on IV heparin by cardiology. Based on the cardiac enzyme evaluation, the patient's troponin peaked at 2.2/the patient ruled in for an acute non-ST segment elevation myocardial infarction. She is free of any chest pain for now. Hemodynamically stable. Afebrile. No other significant events otherwise for now. Remains on IV Lasix 40 mg every 12 hours. Echocardiogram is in progress. Was evaluated today on 11/08/2024, patient is feeling better, breathing easier,Presently on 2 L nasal cannula with O2 sats 97%.WBC count is 15.4 hemoglobin 8.9 basic metabolic profile is normal BUN is 39 creatinine 2.43 chest x-ray from 2 days ago showed evidence of bilateral multifocal infiltrates consistent with COVID-19 pneumonia Patient was seen today on 11/09/2024, patient continues to steadily improve, feeling better, breathing easier, chest x-ray continues to show bilateral airspace disease, not much of a change since admission but clinically the patient is feeling better. Her echocardiogram clearly showed evidence of severe LV dysfunction with ejection fraction of 30 to 35%. Patient is receiving diuretics intermittently remains on treatment for COVID-19 infection/pneumonia and remains empirically on antibiotics/Rocephin. Renal functioning is slightly improved today compared to yesterday with creatinine down to 2.38 from 2.43 yesterday. Patient was seen today on 11/10/2024, patient continues to do well, relatively asymptomatic, hardly any pulmonary symptoms. Remains on 2 L nasal cannula with O2 saturation 97%, she is hemodynamically stable, this x-ray continues to show multifocal bilateral airspace disease, surprisingly the patient is not as symptomatic as she should be considering her chest x-ray findings. I am suspecting that some of the findings noted on the chest x-ray are related to some component of pulmonary edema and the patient may require more diuresis, and I know there is a concern about her renal functioning echocardiogram on showed evidence of cardiomyopathy and LV dysfunction. Patient remains on daptomycin as per infectious disease on the case. BNP on this patient upon admission was over 100,000's and she also had elevated procalcitonin level of 11.90. In addition to this the patient had positive COVID-19 screening Patient was seen today on 11/11/2024, doing well, required Lasix yesterday, and she was given Lasix today, patient had her Lasix on hold because of her renal function, today's creatinine is 2.17 yesterday was 1.84. However her chest x- ray showed worsening pulmonary edema, and patient improved after she was given Lasix, feels much better today. Seen today on 11/12/2024, patient is feeling better, breathing easier, however she remains on antibiotics as per ID for herPositive blood cultures showing Enterococcus faecalis, Enterococcus faecium. Clinically and pulmonary durbin the patient seems to be doing much better, breathing easier, and the patient is asking to be discharged home. However clearance for discharge has to be done by infectious disease because of her bacteremia and may require IV antibiotics on outpatient basis Seen today on 11/13/2024, patient continues to do well, remains on antibiotics as per infectious disease on the case for her gram-positive blood cultures secondary to Enterococcus faecalis and Enterococcus faecium pulmonary durbin she has no cough no wheezing no shortness of breath, patient is asking to be discharged home, and I made it clear to the patient that is up to the infectious disease specialist to clear the patient and decide what antibiotic she needs on outpatient basis renal function continues to worsen, her creatinine now is up to 3.32 BUN is 67, patient is not receiving any diuretics at this point Patient was seen today on 11/14/2024, patient is doing fairly well, asking to be discharged home, patient is confused, does not seem to be in any form of respiratory distress, her blood cultures from 11/08 are negative, cultures from 11/12 are negative, patient is doing well overall, remains on antibiotics as per infectious disease on the case. Her renal functioning seems to be worsening steadily in spite of holding antibiotics, patient does have history of cardiomyopathy and LV dysfunction with low ejection fraction, this could be cardiorenal type of renal failure. At any rate pulmonary durbin no major issues, patient remains onRoom air with O2 saturation of 92%. Progress note dated November 15, 2024. 73-year-old black female seen today in room 358. Currently, the patient is on room air. She is not receiving any IV fluids. She is not having any obvious respiratory distress or difficulty. Current labs include a white count 11.3, hemoglobin 9.6, hematocrit 31.4, and a platelet count of 323,000. Sodium 148, potassium 4.3, chlorides 114, CO2 24, anion gap 10, BUN 77, creatinine 3.95. Glucose is 188. Calcium is 9.2. Blood cultures from November 06 were positive for Enterococcus faecalis, and Enterococcus faecium. There is no recent chest x-ray. Objective - Vital Signs Vital signs: Vital Signs Temp 98.2 F 11/15/24 08:00 Pulse 92 11/15/24 12:00 Resp 20 11/15/24 12:00 BP 169/77 11/15/24 12:00 Pulse Ox 92 L 11/15/24 12:00 FiO2 Intake & Output 11/14/24 11/15/24 11/15/24 18:59 06:59 18:59 Weight 122 kg Other: Voiding Method Diaper Diaper Diaper Incontinent Incontinent Incontinent - Exam No acute distress, oriented 3. On room air. No respiratory distress. HEENT examination is grossly unremarkable. Mucous membranes are moist. No oral lesions. Neck supple. Full range of motion. No adenopathy thyromegaly or neck vein distention. Cardiovascular examination reveals regular rhythm rate. S1-S2 normal. No S3 or S4. No discernible murmur noted. Lungs reveal no wheezes or rhonchi. Breath sounds equal. Abdomen soft bowel sounds are heard. No masses or tenderness. Extremities are intact. No cyanosis clubbing or edema. Skin is without rash or lesion. Neurologic examination is brief but nonfocal. - Labs CBC & Chem 7: 11/15/24 07:24 11/15/24 07:24 Labs: Abnormal Lab Results - Last 24 Hours (Table) 11/14/24 11/14/24 11/14/24 Range/Units 15:08 15:08 16:58 WBC (3.8-10.6) k/uL RBC 3.09 L (3.80-5.40) m/uL Hgb 9.4 L (11.4-16.0) gm/dL Hct 29.7 L (34.0-46.0) % MCHC (31.0-37.0) g/dL RDW 17.0 H (11.5-15.5) % Neutrophils # 9.9 H (1.3-7.7) k/uL Lymphocytes # 0.2 L (1.0-4.8) k/uL Sodium (137-145) mmol/L Chloride 113 H (98-107) mmol/L Carbon Dioxide 20 L (22-30) mmol/L BUN 74 H (7-17) mg/dL Creatinine 3.70 H (0.52-1.04) mg/dL Glucose 149 H (74-99) mg/dL POC Glucose (mg/dL) 170 H (70-110) mg/dL Albumin 3.1 L (3.5-5.0) g/dL 11/14/24 11/15/24 11/15/24 Range/Units 19:53 06:12 07:24 WBC 11.3 H (3.8-10.6) k/uL RBC 3.28 L (3.80-5.40) m/uL Hgb 9.6 L (11.4-16.0) gm/dL Hct 31.4 L (34.0-46.0) % MCHC 30.7 L (31.0-37.0) g/dL RDW 16.9 H (11.5-15.5) % Neutrophils # 10.0 H (1.3-7.7) k/uL Lymphocytes # 0.6 L (1.0-4.8) k/uL Sodium (137-145) mmol/L Chloride (98-107) mmol/L Carbon Dioxide (22-30) mmol/L BUN (7-17) mg/dL Creatinine (0.52-1.04) mg/dL Glucose (74-99) mg/dL POC Glucose (mg/dL) 197 H 152 H (70-110) mg/dL Albumin (3.5-5.0) g/dL 11/15/24 11/15/24 Range/Units 07:24 11:53 WBC (3.8-10.6) k/uL RBC (3.80-5.40) m/uL Hgb (11.4-16.0) gm/dL Hct (34.0-46.0) % MCHC (31.0-37.0) g/dL RDW (11.5-15.5) % Neutrophils # (1.3-7.7) k/uL Lymphocytes # (1.0-4.8) k/uL Sodium 148 H (137-145) mmol/L Chloride 114 H (98-107) mmol/L Carbon Dioxide (22-30) mmol/L BUN 77 H (7-17) mg/dL Creatinine 3.95 H (0.52-1.04) mg/dL Glucose 106 H (74-99) mg/dL POC Glucose (mg/dL) 188 H (70-110) mg/dL Albumin (3.5-5.0) g/dL Microbiology - Last 24 Hours (Table) 11/12/24 21:58 Blood Culture - Preliminary Blood Assessment and Plan Assessment: Acute hypoxemic respiratory failure secondary to acute coronavirus pneumonia. Acute systolic CHF. Enterococcal bacteremia and sepsis. Acute non-ST segment elevation myocardial infarction. History of CVA with right-sided weakness. Benign essential hypertension. History of mild chronic bronchial asthma. Type 2 diabetes mellitus. long term resident. Stage III chronic kidney disease. Plan: Plan dated November 15, 2024. The patient continues on Decadron for 1 or 2 days more. The patient is being followed by nephrology for her renal function. The patient continues on all her other medications. Labs, x-rays, and medications are reviewed. We will continue to follow as needed. Currently, the patient is not having any respiratory distress. She is on room air. She is not receiving any IV fluids. She continues on daptomycin, and Zosyn, as per infectious diseases. Time with Patient: Less than 30
--- NOTE | 2024-11-15 14:32 | P.PN ---
Subjective Interval History: 73-year-old female who presents to the emergency department from her snf. She is normally alert and oriented x 1 so all the history comes from the paramedics. Patient was brought in because she was diagnosed with COVID y and now she has more difficulty breathing as of this morning and had to put her on oxygen. Patient also had a low-grade fever. There is no other history available at this time. The patient is currently on 3 L of oxygen by nasal cannula and this was brought up to 5 L to maintain saturation above 90%, current pulse ox 95%. She had a Tmax of 100.7 current temperature is at 99.2. She was in sinus tachycardia and she was quite tachypneic at time of arrival and breathing was short and labored and currently she is breathing more comfortably. The white cell count 17.2 with a hemoglobin 11 and platelet count of 348. The INR is at 1.3 with a PT of 13.5 with a PTT of 23. Sodium is at 140, bicarb is 23, BUN 16 with a creatinine of 1.54. Lactic acid level is at 2.3. Troponins at 0.2. LFTs are normal. COVID- 19 testing was positive. Chest x-ray showed multifocal airspace opacities concerning for pneumonia and the patient has cardiomegaly and smaller lung volumes and elevation of the diaphragms bilaterally. CAT scan of the brain was also done in the emergency that showed remote left parietal/frontal infarct/encephalomalacia without any acute process. The patient accordingly was started on Decadron. She was started on Rocephin and Zithromax. Pulmonary consultation was requested 11/08 Patient is a pleasant 73 years old -[place] female. Currently she is sitting up in chair looks with chronic weakness of the right side. Patient states that she wants to go home. She denies any specific complaint. No chest pain or dyspnea. No diarrhea or vomiting. No Up No diarrhea No urinary signs symptoms Currently she is covered with ceftriaxone and Zithromax for pneumonia and daptomycin for VRE bacteremia Also patient on Decadron 6 mg daily Creatinine up to 2.4, nephrology team consulted WBC is coming down currently 15,000, hemoglobin 8.9. LDH is elevated at 310 Patient has active occult blood in stool, positive for COVID but negative for influenza Chest x-ray showing bilateral opacity which is suspicious for pneumonia versus CHF. CT of the brain is negative 11/09 Patient is readily awake and answers questions appropriately She is still confused which looks little worse than her baseline around her baseline. She can tell she is in the hospital but she does not know the name of the hospital or the year or the name of the president, she gives all the i nformation regarding these. Most likely she lost her recent memory related to her dementia. She is mildly tachypneic but she declined feeling dyspneic. No chest pain. No abdominal pain. No other complaints Patient asking if she she is going to go home today She does not feel weak. Creatinine 2.3 today. 11/10 Patient still mildly short of breath, with some scattered wheezing and she is still on 2 L oxygen via nasal cannula. She still have coughing. No GI or urinary new symptoms. Patient remains on antibiotics with ceftriaxone and daptomycin with positive blood culture for multiple organisms Surgery team recommending outpatient EGD/colonoscopy Cardiology team recommended outpatient ischemic workup. Morning labs still pending 11/11 Patient lying in bed with no distress No chest pain or dyspnea while at rest No worsening hypoxia However repeat chest x-ray yesterday showing more progressive bilateral infiltrative lesion. Could be secondary to fluid overload, patient received 1 extra dose of IV Lasix 40 mg Also her antibiotics were switched from ceftriaxone to Zosyn per ID team r ecommendation Creatinine is stable at 2.1, hemoglobin stable 9.5, leukocytosis improving down to 11.5 Patient is afebrile today 11/12 Patient awake alert, she is mildly confused at baseline, she is pleasant She denies chest pain or dyspnea while sitting in bed No other new complaint. Patient herself asking when she can be discharged No fever today. Inflammatory markers were elevated with LDH 310 Creatinine slightly worse at 2.9 and she received Lasix yesterday Her antibiotics were recently adjusted to Zosyn. Also she is taking daptomycin 11/13--patient was seen and examined today. No issues overnight. On daptomycin per infectious disease. Repeat blood cultures X been negative since 11/06, family reluctant for LUCILLE. Pulmonary, cardiology and nephrology also following. Vital stable. Creatinine went up to 3.32 today, BUN 67. CPK less than 20. 11/14--patient was seen and examined today. No issues overnight. Is confused. Infectious disease following, on daptomycin and Zosyn. Repeat blood culture has been negative so far. Infectious disease and cardiology following--family hesitant to proceed with LUCILLE, LUCILLE deferred per cardiology for now. Creatinine trending up, nephrology following. 11/15--patient was seen and examined today, confused. Afebrile, respiratory rate 20, blood pressure 169/77. Oxygen saturation was dropping to 88%, started on supplemental oxygen, chest x-ray ordered. Pulmonary following. Remains on daptomycin and Zosyn. WBCs 11.3, hemoglobin 9.7, platelet 323. Creatinine trending up 3.95 today as compared to 3.70. Potassium 4.3. Sodium 148. LUCILLE deferred per cardiology/family reluctant for any aggressive intervention. Nephrology following, on IV fluids. Assessment and plan: Sepsis: Enterococcal bacteremia: UTI: Elevated troponin: Demand ischemia Acute hypoxic respiratory failure: COVID-19 infection Acute on chronic systolic CHF: EF 30 to 35% MCKINLEY on CKD: History of CVA Diabetes mellitus retirement resident History of asthma Hypertension Plan: Nephrology, cardiology, pulmonary, infectious disease consulted and following. Per nephrology hold off diuretics, bladder scan, check urine eosinophils, already on Decadron Currently daptomycin and Zosyn per infectious disease, recommended LUCILLE, family hesitant for LUCILLE. Culture negative since 11/08 11/12. Cardiology consultedelevated troponin likely demand ischemia. Echocardiogram showed severe LV dysfunction, mild RV enlargement, moderate LAE. DVT prophylaxis: s/c heparin Monitor vital signs and labs Labs and medication were reviewed. Continue same treatment. Further recommendations as per clinical course of the patient PHYSICAL EXAMINATION: GENERAL: NAD HEENT: EOMI, Sclerae anicteric, Moist Mucous membranes Neck: Supple, Non tender, No JVD PULMONARY: Equal breath souds B/L, No wheezing, + crackles. CARDIOVASCULAR: S1, S2 present. No murmurs, rubs, or gallops. ABDOMEN: Soft, nontender, nondistended, normoactive bowel sounds. No guarding or rebound tenderness. MUSCULOSKELETAL: No edema, No cyanosis. No clubbing. Normal ROM. Intact peripheral pulses. NEUROLOGICAL: CN 2-12 grossly intact. No FND Skin: No Rash REVIEW OF SYSTEMS: Limited due to confusion. CONSTITUTIONAL: No fever or chills. CARDIOVASCULAR: No chest pain, palpitations or syncope. PULMONARY: No shortness of breath, no cough, sore throat. GASTROINTESTINAL: No nausea, vomiting, diarrhea, abdominal pain. : No Dysuria, urgency, frequency. Extremities: No edema. NEUROLOGICAL: No headaches, no weakness, or numbness Dictation was produced using [employer] dictation software. please excuse any grammatical, word or spelling errors. Objective - Vital Signs Vital signs: Vital Signs Temp 98.2 F 11/15/24 08:00 Pulse 92 11/15/24 12:00 Resp 20 11/15/24 14:00 BP 169/77 11/15/24 12:00 Pulse Ox 92 L 11/15/24 12:00 FiO2 Intake & Output 11/14/24 11/15/24 11/15/24 18:59 06:59 18:59 Weight 122 kg Other: Voiding Method Diaper Diaper Diaper Incontinent Incontinent Incontinent - Labs CBC & Chem 7: 11/15/24 07:24 11/15/24 07:24 Labs: Abnormal Lab Results - Last 24 Hours (Table) 11/14/24 11/14/24 11/14/24 Range/Units 15:08 15:08 16:58 WBC (3.8-10.6) k/uL RBC 3.09 L (3.80-5.40) m/uL Hgb 9.4 L (11.4-16.0) gm/dL Hct 29.7 L (34.0-46.0) % MCHC (31.0-37.0) g/dL RDW 17.0 H (11.5-15.5) % Neutrophils # 9.9 H (1.3-7.7) k/uL Lymphocytes # 0.2 L (1.0-4.8) k/uL Sodium (137-145) mmol/L Chloride 113 H (98-107) mmol/L Carbon Dioxide 20 L (22-30) mmol/L BUN 74 H (7-17) mg/dL Creatinine 3.70 H (0.52-1.04) mg/dL Glucose 149 H (74-99) mg/dL POC Glucose (mg/dL) 170 H (70-110) mg/dL Albumin 3.1 L (3.5-5.0) g/dL 11/14/24 11/15/24 11/15/24 Range/Units 19:53 06:12 07:24 WBC 11.3 H (3.8-10.6) k/uL RBC 3.28 L (3.80-5.40) m/uL Hgb 9.6 L (11.4-16.0) gm/dL Hct 31.4 L (34.0-46.0) % MCHC 30.7 L (31.0-37.0) g/dL RDW 16.9 H (11.5-15.5) % Neutrophils # 10.0 H (1.3-7.7) k/uL Lymphocytes # 0.6 L (1.0-4.8) k/uL Sodium (137-145) mmol/L Chloride (98-107) mmol/L Carbon Dioxide (22-30) mmol/L BUN (7-17) mg/dL Creatinine (0.52-1.04) mg/dL Glucose (74-99) mg/dL POC Glucose (mg/dL) 197 H 152 H (70-110) mg/dL Albumin (3.5-5.0) g/dL 11/15/24 11/15/24 Range/Units 07:24 11:53 WBC (3.8-10.6) k/uL RBC (3.80-5.40) m/uL Hgb (11.4-16.0) gm/dL Hct (34.0-46.0) % MCHC (31.0-37.0) g/dL RDW (11.5-15.5) % Neutrophils # (1.3-7.7) k/uL Lymphocytes # (1.0-4.8) k/uL Sodium 148 H (137-145) mmol/L Chloride 114 H (98-107) mmol/L Carbon Dioxide (22-30) mmol/L BUN 77 H (7-17) mg/dL Creatinine 3.95 H (0.52-1.04) mg/dL Glucose 106 H (74-99) mg/dL POC Glucose (mg/dL) 188 H (70-110) mg/dL Albumin (3.5-5.0) g/dL Microbiology - Last 24 Hours (Table) 11/12/24 21:58 Blood Culture - Preliminary Blood
[2024-11-15] MEDS: SODIUM CHLORIDE 0.45% 1,000 ML IV SCH (15:28)
--- NOTE | 2024-11-15 15:55 | XR ---
EXAMINATION TYPE: XR chest 1V portable DATE OF EXAM: 11/15/2024 3:27 PM COMPARISON: 11/10/2024 CLINICAL INDICATION: Female, 73 years old with history of Shortness of breath, , FINDINGS: Right PICC tip at the mid to lower SVC. Heart remains mild to moderately enlarged with diffuse inters titial and patchy bilateral opacities. An enlarging, moderate right pleural effusion. IMPRESSION: 1. Correlate for CHF with interstitial pulmonary edema, slightly worsened in the interval. 2. Worsening, now moderate right pleural effusion with adjacent atelectasis and/or consolidation. [facility], , 11/15/2024 3:53 PM
[2024-11-15 16:43] LABS: Glucose,Whole Blood 204 mg/dL (70-110)
[2024-11-15 17:00] LABS: ABG HCO3 26 mmol/L (21-25); ABG Oxygen Saturation 82.3 % (94-97); ABG TCO2 29 mmol/L (19-24); Allen Test Performed? Yes
[2024-11-15 17:09] LABS: ABG PCO2 89 mmHg (35-45); ABG PH 7.07 (7.35-7.45)
[2024-11-15 17:10] LABS: ABG PO2 58 mmHg (83-108)
[2024-11-15] MEDS ORDERED: Magnesium Replacement Protocol 1 EACH MISC MISCELLANE PRN (17:23)
[2024-11-15] MEDS ORDERED: NALOXONE 0.4 MG/ML 1 ML VIAL IV PRN (17:23)
[2024-11-15] MEDS ORDERED: Potassium Replacement Protocol 1 EACH MISC MISCELLANE PRN (17:23)
[2024-11-15 17:26] LABS: Glucose,Whole Blood 208 mg/dL (70-110)
[2024-11-15 17:31] VITALS: TEMP 96.2
[2024-11-15] MEDS: FUROSEMIDE 10 MG/ML 4 ML VIAL IV STA (17:36)
[2024-11-15 18:22] LABS: ABG Base Excess -5.6 mmol/L; ABG HCO3 26 mmol/L (21-25); ABG Oxygen Saturation 96.7 % (94-97); ABG PO2 104 mmHg (83-108); ABG TCO2 29 mmol/L (19-24); Allen Test Performed? Yes
[2024-11-15 18:23] LABS: ABG PH 7.04 (7.35-7.45)
[2024-11-15 18:24] LABS: ABG PCO2 96 mmHg (35-45)
[2024-11-15 18:35] LABS: Amorphous Sediment,Urine Occasional /hpf; Appearance,Urine Turbid (Clear); Bacteria,Urine Rare /hpf; Bilirubin,Urine Negative (Negative); Blood,Urine Negative (Negative); Color,Urine Light Yellow; Glucose,Urine (UA) Negative (Negative); Ketones,Urine Negative (Negative); Leukocyte Esterase,Urine Trace (Negative); Nitrite,Urine Negative (Negative); Protein,Urine 1+ (Negative); RBC,Urine 6 /hpf (0-5); Specific Gravity,Urine 1.019 (1.001-1.035); Squamous Epithelial Cell,Urine 4 /hpf (0-4); Urobilinogen,Urine <2.0 mg/dL (<2.0); WBC,Urine 17 /hpf (0-5)
[2024-11-15 18:38] LABS: ALT 20 U/L (4-34); AST 21 U/L (14-36); African American GFR (CKD) 10 (>60 ml/min/1.73 sqM); Alkaline Phosphatase 80 U/L (38-126); Anion Gap 9 mmol/L; Blood Urea Nitrogen 83 mg/dL (7-17); Calcium 8.8 mg/dL (8.4-10.2); Carbon Dioxide 28 mmol/L (22-30); Chloride 113 mmol/L (98-107); Glucose 196 mg/dL (74-99); Non-African American GFR(CKD) 9 (>60 ml/min/1.73 sqM); Potassium 5.2 mmol/L (3.5-5.1); Sodium 150 mmol/L (137-145); Total Bilirubin 0.2 mg/dL (0.2-1.3); Total Protein 6.3 g/dL (6.3-8.2)
[2024-11-15] MEDS ORDERED: MORPHINE SULFATE 4 MG/ML SYRINGE IV PRN (18:54)
[2024-11-15] MEDS ORDERED: ATROPINE OPHTH SOLN 1% 5ML BTL SUBLINGUAL PRN (18:54)
[2024-11-15] MEDS ORDERED: MORPHINE SULFATE 2 MG/ML SYRINGE IV PRN (18:54)
[2024-11-15] MEDS ORDERED: SCOPOLAMINE 1 MG/72 HR PATCH TRANSDERM SCH (19:00)
[2024-11-15 19:07] VITALS: BP 100/42
[2024-11-15] MEDS: LORazepam 2 MG/ML INJ IV PRN (19:33)
[2024-11-15] MEDS: MORPHINE SULFATE 4 MG/ML SYRINGE IVP ONE (19:33)
[2024-11-15] MEDS: MORPHINE SULFATE (100 MG/2 ML) 100 MG in SODIUM CHLORIDE 0.9% 100 ML IV SCH (19:33)
[2024-11-15 21:12] VITALS: PULSE 46; RESP 20
[2024-11-16] MEDS ORDERED: PANTOPRAZOLE 40 MG/10 ML VIAL IV SCH (09:00)
--- NOTE | 2024-11-16 17:36 | P.DS ---
Providers Date of admission: 11/06/24 11:32 Expected date of discharge: 11/15/24 Attending physician: Qing Cortez Consults: 11/06/24 11:32 Consult Physician Routine Consulting Provider: Kassandra Haley Consult Reason/Comments: Pneumonia, COVID Do you want consulting provider notified?: Yes Primary care physician: [facility] Course: Discharge diagnoses: Sepsis: Enterococcal bacteremia: UTI: Elevated troponin: Demand ischemia Acute hypoxic respiratory failure: COVID-19 infection Acute on chronic systolic CHF: EF 30 to 35% MCKINLEY on CKD: History of CVA Diabetes mellitus [facility] resident History of asthma Hypertension Plan: Patient had prolonged complicated hospital stay. Nephrology, cardiology, pulmonary, infectious disease consulted Per nephrology hold off diuretics, bladder scan, check urine eosinophils, already on Decadron Received daptomycin and Zosyn per infectious disease, recommended LUCILLE, family hesitant for LUCILLE. Culture negative since 11/08 11/12. Cardiology consultedelevated troponin likely demand ischemia. Echocardiogram showed severe LV dysfunction, mild RV enlargement, moderate LAE. Patient CODE STATUS later on was changed to comfort measures. Patient on 11/15/2024 at 2205. Hospital course: Interval History: 73-year-old female who presents to the emergency department from her assisted. She is normally alert and oriented x 1 so all the history comes from the paramedics. Patient was brought in because she was diagnosed with COVID yesterday and now she has more difficulty breathing as of this morning and had to put her on oxygen. Patient also had a low-grade fever. There is no other history available at this time. The patient is currently on 3 L of oxygen by nasal cannula and this was brought up to 5 L to maintain saturation above 90%, current pulse ox 95%. She had a Tmax of 100.7 current temperature is at 99.2. She was in sinus tachycardia and she was quite tachypneic at time of arrival and breathing was short and labored and currently she is breathing more comfortably. The white cell count 17.2 with a hemoglobin 11 and platelet count of 348. The INR is at 1.3 with a PT of 13.5 with a PTT of 23. Sodium is at 140, bicarb is 23, BUN 16 with a creatinine of 1.54. Lactic acid level is at 2.3. Troponins at 0.2. LFTs are normal. COVID- 19 testing was positive. Chest x-ray showed multifocal airspace opacities concerning for pneumonia and the patient has cardiomegaly and smaller lung volumes and elevation of the diaphragms bilaterally. CAT scan of the brain was also done in the emergency that showed remote left parietal/frontal infarct/encephalomalacia without any acute process. The patient accordingly was started on Decadron. She was started on Rocephin and Zithromax. Pulmonary con sultation was requested 11/08 Patient is a pleasant 73 years old -[place] female. Currently she is sitting up in chair looks with chronic weakness of the right side. Patient states that she wants to go home. She denies any specific complaint. No chest pain or dyspnea. No diarrhea or vomiting. No Up No diarrhea No urinary signs symptoms Currently she is covered with ceftriaxone and Zithromax for pneumonia and daptomycin for VRE bacteremia Also patient on Decadron 6 mg daily Creatinine up to 2.4, nephrology team consulted WBC is coming down currently 15,000, hemoglobin 8.9. LDH is elevated at 310 Patient has active occult blood in stool, positive for COVID but negative for influenza Chest x-ray showing bilateral opacity which is suspicious for pneumonia versus CHF. CT of the brain is negative 11/09 Patient is readily awake and answers questions appropriately She is still confused which looks little worse than her baseline around her baseline. She can tell she is in the hospital but she does not know the name of the hospital or the year or the name of the president, she gives all the information regarding these. Most likely she lost her recent memory related to her dementia. She is mildly tachypneic but she declined feeling dyspneic. No chest pain. No abdominal pain. No other complaints Patient asking if she she is going to go home today She does not feel weak. Creatinine 2.3 today. 11/10 Patient still mildly short of breath, with some scattered wheezing and she is still on 2 L oxygen via nasal cannula. She still have coughing. No GI or urinary new symptoms. Patient remains on antibiotics with ceftriaxone and daptomycin with positive blood culture for multiple organisms Surgery team recommending outpatient EGD/colonoscopy Cardiology team recommended outpatient ischemic workup. Morning labs still pending 11/11 Patient lying in bed with no distress No chest pain or dyspnea while at rest No worsening hypoxia However repeat chest x-ray yesterday showing more progressive bilateral infiltrative lesion. Could be secondary to fluid overload, patient received 1 extra dose of IV Lasix 40 mg Also her antibiotics were switched from ceftriaxone to Zosyn per ID team recommendation Creatinine is stable at 2.1, hemoglobin stable 9.5, leukocytosis improving down to 11.5 Patient is afebrile today 11/12 Patient awake alert, she is mildly confused at baseline, she is pleasant She denies chest pain or dyspnea while sitting in bed No other new complaint. Patient herself asking when she can be discharged No fever today. Inflammatory markers were elevated with LDH 310 Creatinine slightly worse at 2.9 and she received Lasix yesterday Her antibiotics were recently adjusted to Zosyn. Also she is taking daptomycin 11/13--patient was seen and examined today. No issues overnight. On daptomycin per infectious disease. Repeat blood cultures X been negative since 11/06, family reluctant for LUCILLE. Pulmonary, cardiology and nephrology also following. Vital stable. Creatinine went up to 3.32 today, BUN 67. CPK less than 20. 11/14--patient was seen and examined today. No issues overnight. Is confused. Infectious disease following, on daptomycin and Zosyn. Repeat blood culture has been negative so far. Infectious disease and cardiology following--family hesitant to proceed with LUCILLE, LUCILLE deferred per cardiology for now. Creatinine trending up, nephrology following. 11/15--patient was seen and examined today, confused. Afebrile, respiratory rate 20, blood pressure 169/77. Oxygen saturation was dropping to 88%, started on supplemental oxygen, chest x-ray ordered. Pulmonary following. Remains on daptomycin and Zosyn. WBCs 11.3, hemoglobin 9.7, platelet 323. Creatinine trending up 3.95 today as compared to 3.70. Potassium 4.3. Sodium 148. LUCILLE deferred per cardiology/family reluctant for any aggressive intervention. Nephrology following, on IV fluids. Later in the afternoon patient was noted to be hypoxic, requiring supplemental oxygen, repeat chest x-ray was done which showed interstitial pulmonary edema, worsening new moderate right pleural effusion with adjacent consolidation. Patient required BiPAP and was tr ansferred to ICU. Patient CODE STATUS later on was changed to comfort measures. Patient on 11/15/2024 at 2205. PHYSICAL EXAMINATION: Dictation was produced using dragon dictation software. please excuse any grammatical, word or spelling errors. Plan - Discharge Summary Discharge Rx Participant: No New Discharge Prescriptions: No Action amLODIPine [Norvasc] 5 mg PO DAILY@0800 Montelukast [Singulair] 10 mg PO DAILY@0800 Ferrous Sulfate [Iron (65 MG Elemental)] 325 mg PO DAILY@0800 Atorvastatin [Lipitor] 10 mg PO HS@2100 Multivitamins, Thera [Multivitamin (formulary)] 1 tab PO DAILY@0800 Donepezil [Aricept] 5 mg PO HS@2100 Aspirin EC [Ecotrin Low Dose] 81 mg PO DAILY@0800 Cholecalciferol [Vitamin D3 (25 Mcg = 1000 Iu)] 50 mcg PO DAILY Albuterol Inhaler [Ventolin Hfa Inhaler] 2 puff INHALATION RT-Q6H PRN PRN Reason: Shortness Of Breath Ascorbic Acid [Vitamin C] 500 mg PO DIRECTED bisacodyL 10 mg RECTAL DAILY PRN PRN Reason: Constipation cefTRIAXone SODIUM [Ceftriaxone] 2 gm IV Q24H Glucerna Shake 237 ml PO BID@0800,1700 Ipratropium-Albuterol Nebulize [Duoneb 0.5 mg-3 mg/3 ml Soln] 3 ml INHALATION RT-QID@00,06,12,18 Magnesium Hydroxide [Milk of Magnesia Concentrate] 7,200 mg PO DAILY PRN PRN Reason: Constipation Metoprolol Tartrate [Lopressor] 50 mg PO BID@0800,2100 Na Phos,M-B/Na Phos,Di-Ba [Fleet Adult] 133 ml RECTAL DAILY PRN PRN Reason: Constipation Zinc Sulfate [Orazinc] 220 mg PO DAILY Ascorbic Acid [Vitamin C] 1,000 mg PO DAILY@0800 Acetaminophen [Tylenol] 650 mg PO Q4H PRN PRN Reason: Pain Or Fever > 100.5 dexAMETHasone [Decadron] 4 mg PO DAILY@0800 diphenhydrAMINE [Benadryl] 25 mg PO Q6H PRN PRN Reason: Itching Insulin Lispro See Protocol SQ ACHS Loperamide HCl [Imodium A-D] 2 - 4 mg PO TID PRN MDD 8mg PRN Reason: Diarrhea metroNIDAZOLE [Flagyl] 500 mg PO TID@08,12,17 Pantoprazole [Protonix] 40 mg PO BID@0800,1700 polyethylene glycoL 3350 [Miralax] 17 gm PO DAILY PRN PRN Reason: Constipation Discharge Medication List Atorvastatin [Lipitor] 10 mg PO HS@209903/06/17 [History] Ferrous Sulfate [Iron (65 MG Elemental)] 325 mg PO DAILY@0800 03/06/17 [History] Montelukast [Singulair] 10 mg PO DAILY@0800 03/06/17 [History] Multivitamins, Thera [Multivitamin (formulary)] 1 tab PO DAILY@0800 03/06/17 [History] amLODIPine [Norvasc] 5 mg PO DAILY@0800 03/06/17 [History] Aspirin EC [Ecotrin Low Dose] 81 mg PO DAILY@0800 04/04/21 [History] Donepezil [Aricept] 5 mg PO HS@209904/04/21 [History] Ascorbic Acid [Vitamin C] 1,000 mg PO DAILY@0800 11/26/21 [History] Albuterol Inhaler [Ventolin Hfa Inhaler] 2 puff INHALATION RT-Q6H PRN 12/02/21 [History] Cholecalciferol [Vitamin D3 (25 Mcg = 1000 Iu)] 50 mcg PO DAILY 12/02/21 [History] Acetaminophen [Tylenol] 650 mg PO Q4H PRN 11/06/24 [History] Ascorbic Acid [Vitamin C] 500 mg PO DIRECTED 11/06/24 [History] Glucerna Shake 237 ml PO BID@0800,1700 11/06/24 [History] Insulin Lispro See Protocol SQ ACHS 11/06/24 [History] Ipratropium-Albuterol Nebulize [Duoneb 0.5 mg-3 mg/3 ml Soln] 3 ml INHALATION RT-QID@00,06,12,18 11/06/24 [History] Loperamide HCl [Imodium A-D] 2 - 4 mg PO TID PRN MDD 8mg 11/06/24 [History] Magnesium Hydroxide [Milk of Magnesia Concentrate] 7,200 mg PO DAILY PRN 11/06/24 [History] Metoprolol Tartrate [Lopressor] 50 mg PO BID@0800,2100 11/06/24 [History] Na Phos,M-B/Na Phos,Di-Ba [Fleet Adult] 133 ml RECTAL DAILY PRN 11/06/24 [History] Pantoprazole [Protonix] 40 mg PO BID@0800,1700 11/06/24 [History] Zinc Sulfate [Orazinc] 220 mg PO DAILY 11/06/24 [History] bisacodyL 10 mg RECTAL DAILY PRN 11/06/24 [History] cefTRIAXone SODIUM [Ceftriaxone] 2 gm IV Q24H 11/06/24 [History] dexAMETHasone [Decadron] 4 mg PO DAILY@0800 11/06/24 [History] diphenhydrAMINE [Benadryl] 25 mg PO Q6H PRN 11/06/24 [History] metroNIDAZOLE [Flagyl] 500 mg PO TID@08,12,17 11/06/24 [History] polyethylene glycoL 3350 [Miralax] 17 gm PO DAILY PRN 11/06/24 [History] Follow up Appointment(s)/Referral(s): Adiel Pisano MD [Primary Care Provider] - 1-2 days Fly Hanson DO [Doctor of Osteopathic Medicine] - 1 Week
--- NOTE | 2024-11-23 20:46 | P.PN ---
Subjective Progress Note Date: 11/15/24 Principal diagnosis: Reason for follow-up is VRE bacteremia Patient is a 73-year-old -[place] female with a past medical history significant for diabetes mellitus hypertension hyperlipidemia dementia CVA TIA patient is a care home resident and was sent to the hospital for evaluation of increasing shortness of breath with a recent diagnosis of COVID-19 at the care home patient did have a positive blood culture with VRE prompting this consultation On today's evaluation that is 11/15/2024, patient remains to be afebrile patient is slightly restless today and elevated. No chest pain no vomiting diarrhea any changes reported by the nursing staff. Patient did have a white count of 11.3 creatinine is 4.49 blood culture repeat has been negative Objective - Vital Signs Vital signs: Vital Signs Temp 98.2 F 11/15/24 08:00 Pulse 92 11/15/24 12:00 Resp 20 11/15/24 12:00 BP 169/77 11/15/24 12:00 Pulse Ox 92 L 11/15/24 12:00 FiO2 Intake & Output 11/14/24 11/15/24 11/15/24 18:59 06:59 18:59 Weight 122 kg Other: Voiding Method Diaper Diaper Diaper Incontinent Incontinent Incontinent - Exam GENERAL DESCRIPTION: An elderly female lying in bed in no distress RESPIRATORY SYSTEM: Unlabored breathing , coarse breath sounds at bases HEART: S1 S2 regular rate and rhythm , ABDOMEN: Soft , no tenderness EXTREMITIES: No edema feet - Labs CBC & Chem 7: 11/15/24 07:24 11/15/24 17:56 Labs: Abnormal Lab Results - Last 24 Hours (Table) 11/14/24 11/14/24 11/14/24 Range/Units 15:08 15:08 16:58 WBC (3.8-10.6) k/uL RBC 3.09 L (3.80-5.40) m/uL Hgb 9.4 L (11.4-16.0) gm/dL Hct 29.7 L (34.0-46.0) % MCHC (31.0-37.0) g/dL RDW 17.0 H (11.5-15.5) % Neutrophils # 9.9 H (1.3-7.7) k/uL Lymphocytes # 0.2 L (1.0-4.8) k/uL Sodium (137-145) mmol/L Chloride 113 H (98-107) mmol/L Carbon Dioxide 20 L (22-30) mmol/L BUN 74 H (7-17) mg/dL Creatinine 3.70 H (0.52-1.04) mg/dL Glucose 149 H (74-99) mg/dL POC Glucose (mg/dL) 170 H (70-110) mg/dL Albumin 3.1 L (3.5-5.0) g/dL 11/14/24 11/15/24 11/15/24 Range/Units 19:53 06:12 07:24 WBC 11.3 H (3.8-10.6) k/uL RBC 3.28 L (3.80-5.40) m/uL Hgb 9.6 L (11.4-16.0) gm/dL Hct 31.4 L (34.0-46.0) % MCHC 30.7 L (31.0-37.0) g/dL RDW 16.9 H (11.5-15.5) % Neutrophils # 10.0 H (1.3-7.7) k/uL Lymphocytes # 0.6 L (1.0-4.8) k/uL Sodium (137-145) mmol/L Chloride (98-107) mmol/L Carbon Dioxide (22-30) mmol/L BUN (7-17) mg/dL Creatinine (0.52-1.04) mg/dL Glucose (74-99) mg/dL POC Glucose (mg/dL) 197 H 152 H (70-110) mg/dL Albumin (3.5-5.0) g/dL 11/15/24 11/15/24 Range/Units 07:24 11:53 WBC (3.8-10.6) k/uL RBC (3.80-5.40) m/uL Hgb (11.4-16.0) gm/dL Hct (34.0-46.0) % MCHC (31.0-37.0) g/dL RDW (11.5-15.5) % Neutrophils # (1.3-7.7) k/uL Lymphocytes # (1.0-4.8) k/uL Sodium 148 H (137-145) mmol/L Chloride 114 H (98-107) mmol/L Carbon Dioxide (22-30) mmol/L BUN 77 H (7-17) mg/dL Creatinine 3.95 H (0.52-1.04) mg/dL Glucose 106 H (74-99) mg/dL POC Glucose (mg/dL) 188 H (70-110) mg/dL Albumin (3.5-5.0) g/dL Microbiology - Last 24 Hours (Table) 11/12/24 21:58 Blood Culture - Preliminary Blood Assessment and Plan (1) Sepsis Status: Acute Code(s): A41.9 - SEPSIS, UNSPECIFIED ORGANISM SNOMED Code(s): 66675728 (2) Leukocytosis Status: Acute Code(s): D72.829 - ELEVATED WHITE BLOOD CELL COUNT, UNSPECIFIED SNOMED Code(s): 028940058 (3) VRE bacteremia Status: Acute Code(s): R78.81 - BACTEREMIA; B95.2 - ENTEROCOCCUS THE CAUSE OF DISEASES CLASSIFIED ELSEWHERE; Z16.21 - RESISTANCE TO VANCOMYCIN SNOMED Code(s): 8126002525 Plan: 1patient presented to hospital with sepsis in this patient who did have a fever elevated white count tachycardia meeting currently for SIRS source is multifactorial he was concern for possible pneumonia however the patient also have evidence of VRE bacteremia and to be a result of a common pathogen to cause pneumonia source could be either urinary versus abdominal 2-blood culture has been repeated which are so far negative 3-urine culture have been negative ultrasound of the abdominal bladder did not show any hydronephrosis patient did have echocardiogram with thickened aortic valve leaflets 4-patient benefit from a LUCILLE to make sure no evidence of any vegetation as a source of this VRE bacteremia this has been discussed in detail with the cardiology team who did talk to the son who seem to be reluctant and want to avoid any invasive procedure, patient is currently on daptomycin plan is for 6- week course of antibiotic therapy and monitor clinical course closely Dictation was produced using [employer] ([employer] dictation software. please excuse any grammatical, word or spelling errors. Time with Patient: Less than 30
== END 2024-11-16 02:04 | disposition expired | DRG 871 ==
LOC: EC 09:57 → 3SCARD 11:32 → 2SICU 11-15 17:08
PROVIDERS: ADMIT Hospitalist; ATTEND Hospitalist
PROC: 02PYX3Z Removal of Infusion Device from Great Vessel, External Approach (ICD-10-PCS; 2024-11-15)
PROC: 05HB33Z Insertion of Infusion Device into Right Basilic Vein, Percutaneous Approach (ICD-10-PCS; principal; 2024-11-15 09:00)
PROC: 5A09457 Assistance with Respiratory Ventilation, 24-96 Consecutive Hours, Continuous Positive Airway Pressure (ICD-10-PCS; principal; 2024-11-15 09:00)
DX: A41.81 Sepsis due to Enterococcus (principal); G93.41 Metabolic encephalopathy; U07.1 COVID-19; I21.A1 Myocardial infarction type 2; J96.01 Acute respiratory failure with hypoxia; N17.0 Acute kidney failure with tubular necrosis; J12.82 Pneumonia due to coronavirus disease 2019; I50.23 Acute on chronic systolic (congestive) heart failure; I13.0 Hypertensive heart and chronic kidney disease with heart failure and stage 1 through stage 4 chronic kidney disease, or unspecified chronic kidney disease; E87.20 Acidosis, unspecified; I69.351 Hemiplegia and hemiparesis following cerebral infarction affecting right dominant side; Z16.21 Resistance to vancomycin; N39.0 Urinary tract infection, site not specified; J44.0 Chronic obstructive pulmonary disease with (acute) lower respiratory infection; I42.9 Cardiomyopathy, unspecified; I47.20 Ventricular tachycardia, unspecified; J44.1 Chronic obstructive pulmonary disease with (acute) exacerbation; D62 Acute posthemorrhagic anemia; K92.1 Melena; Z68.42 Body mass index [BMI] 45.0-49.9, adult; N18.32 Chronic kidney disease, stage 3b; R65.20 Severe sepsis without septic shock; E11.22 Type 2 diabetes mellitus with diabetic chronic kidney disease; Z66 Do not resuscitate; Z51.5 Encounter for palliative care; E66.9 Obesity, unspecified; I69.320 Aphasia following cerebral infarction; I69.398 Other sequelae of cerebral infarction; F03.90 Unspecified dementia, unspecified severity, without behavioral disturbance, psychotic disturbance, mood disturbance, and anxiety; J45.20 Mild intermittent asthma, uncomplicated; I27.20 Pulmonary hypertension, unspecified; Z68.35 Body mass index [BMI] 35.0-35.9, adult; I08.1 Rheumatic disorders of both mitral and tricuspid valves; G93.89 Other specified disorders of brain; I49.3 Ventricular premature depolarization; M62.421 Contracture of muscle, right upper arm; E78.5 Hyperlipidemia, unspecified; I25.2 Old myocardial infarction; J98.6 Disorders of diaphragm; Z79.02 Long term (current) use of antithrombotics/antiplatelets; Z79.82 Long term (current) use of aspirin; Z79.84 Long term (current) use of oral hypoglycemic drugs; Z79.899 Other long term (current) drug therapy; Z86.16 Personal history of COVID-19; Z87.01 Personal history of pneumonia (recurrent); Z87.891 Personal history of nicotine dependence; Z90.710 Acquired absence of both cervix and uterus; Z90.49 Acquired absence of other specified parts of digestive tract
CPT/HCPCS: 36415; 36573; 36600; 51702; 70450; 71045; 71046; 76770; 80048; 80053; 81001; 82272; 82550; 82805; 83605; 83615; 83735; 83880; 84145; 84484; 85025; 85379; 85610; 85730; 87040; 87070; 87077; 87086; 87186; 87205; 87449; 87636; 93005; 93306; 94640; 94660; 94760; 96365; 96366; 96367; 96368; 96375; 99285